=== PATIENT | male | born 1945 | race Caucasian/White ===

== ENCOUNTER 2020-02-24 12:46 | Inpatient (IN) ==
[2020-02-24] MEDS ORDERED: DAPTOMYCIN CONSULT ACTIVE PRN (13:10)
[2020-02-24] MEDS ORDERED: SODIUM CHLORIDE 0.9% 1000ML 1,000 ML IV ONE (13:10)
[2020-02-24] MEDS ORDERED: DAPTOmycin 575 MG in SYRINGE 0 ML IV SCH (13:15)
[2020-02-24] MEDS ORDERED: AZTREONAM 2,000 MG in DEXTROSE 5% 100 ML IV STA (13:15)
[2020-02-24] MEDS ORDERED: SODIUM CHLORIDE 0.9% 1000ML 1,000 ML IV SCH (13:15)
--- NOTE | 2020-02-24 13:18 | Emergency Department Note ---
Impression & Plan AMS (altered mental status) ED Provider Note NAME: PRADIP MO AGE: 75 SEX: M ARRIVES VIA: Walk-In INFORMANT: [Patient] ED PROVIDER(S): Himanshu Booker MD CHIEF COMPLAINT: Fall PLAN: Disposition: Admitted Condition: Guarded MEDICAL DECISION MAKING: The patient presented after a fall. He was somewhat confused. He was borderline febrile. He noted urinary symptoms. A work-up was performed as noted below. Imaging was nondiagnostic. Urinalysis was concerning. The patient's procalcitonin was elevated as was his lactate. He was hydrated. He was given broad-spectrum antibiotics. Further management will be necessary in the hospital. Consultation was made with Dr. Moreira of internal medicine. The patient was evaluated for further treatment. Triage Nursing notes reviewed and agree them. Vital Signs: reviewed and remarkable for [no significant abnormalities] Differential diagnosis: Infection, hypoglycemia, electrolyte abnormalities, overdose, toxicologic, cardiac sources, intracerebral event, neurologic, trauma, as well as other pathologies. ER treatment provided: Saline hydration IV atrium IV daptomycin Oral Tylenol Diagnostics interpreted by me: ECG: Twelve-lead ECG reveals a normal sinus rhythm at 84 bpm. There is left axis deviation. Normal QRS. Poor R wave progression. No ST elevation or depression. No PACs or PVCs. Cardiac Monitoring:Cardiac monitoring ordered by me: The patient was placed on continuous cardiac monitoring and observed. It revealed a normal sinus rhythm at 83 beats per minute without ectopy or evidence of dysrhythmia. Laboratory studies: [See below] unremarkable CBC. Chemistry panel reveals acute kidney injury with an elevated creatinine. Mild hyperglycemia. The patient's procalcitonin is elevated. Blood cultures pending. Urinalysis is concerning for possible i nfection. Urine culture pending. Imaging studies: Chest x-ray. Findings: A chest x-ray was performed and revealed no pneumothorax, effusion, infiltrate, pulmonary edema, free air under the diaphragm, or wide mediastinum. Impression: No acute disease. Head CT: A noncontrast CT scan of the head was performed and was negative for tumor, fracture, intracranial hemorrhage, or other acute pathology. 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 Moreira HPI: The patient is a 75 year old male who presents to the Emergency Room with complaints of a fall. This started early this morning and is associated with confusion. The patient also notes the following associated symptoms, difficulty and discomfort with urination for an unknown duration, generalized body aches and abrasions to his knees. The patient has found no relieving factors. Current pain is rated as 3/10. The patient notes that he fell but is unsure how. He was possibly in the shower. He had a neighbor bring him to the emergency department. He denies any coronavirus contacts. Details of the history is somewhat limited secondary to the patient's confusion. The patient does note that he hit his head. Pt denies LOC, fevers, chills, diaphoresis, visual changes, neck pain, chest pain, breathing difficulties, nausea, vomiting, abdominal pain, back pain, melena, hematochezia, numbness, weakness, lymphadenopathy, rash, or other complaints. ROS: See above HPI for pertinent positives & negatives. A total of [10] systems reviewed and were otherwise negative. PAST MEDICAL HISTORY:[See Below] CKD PAST SURGICAL HISTORY:[See Below] FAMILY HISTORY:[See Below] SOCIAL HISTORY:Lives alone HOME MEDICATIONS:[See Below] ALLERGIES:[See Below] VITALS:[See Below] PHYSICAL EXAMINATION: GENERAL: Awake, alert, shaking, mildly ill-appearing, in no distress HENT: Normocephalic, atraumatic. Oropharynx unremarkable. EYES: Normal conjunctiva. Sclera non-icteric. NECK: Inspection normal. Non-tender. Supple. No nuchal rigidity. FROM. No masses. RESPIRATORY: Clear to auscultation. No wheezes. No rales. Normal respiratory effort. CARDIAC: Borderline tachycardic rate. Normal rhythm. No murmurs. No rubs. Extremities warm and well perfused. Pulses equal. No JVD. GI: Soft, non-distended. No tenderness to palpation. No rebound or guarding. No masses. RECTAL: Deferred. MUSCULOSKELETAL: Abrasions to both knees. Chest examination reveals no tenderness. The back is symmetrical on inspection without obvious abnormality. There is no CVA tenderness to palpation. No joint edema. LOWER EXTREMITIES: Calves are equal size bilaterally and non-tender. No edema. No discoloration. NEURO: Mildly confused, mildly altered sensorium. No focal sensory or motor deficits noted. SKIN: No rash or jaundice noted. ED COURSE: [Critical Care:] [None] Himanshu Booker MD Past Med/Surg History Medical History (Updated 02/24/20 @ 15:45 by Alfred Nagy MD) Anxiety hx CKD (chronic kidney disease) stage 3, GFR 30-59 ml/min follows with nephrology (Dr. Brock)/creatinine 08/2019 1.6 Coronary artery disease stent x1 (~2004), CABG x5 (2013) Depression Dyslipidemia History of blood transfusion post-op CABG Hypertension Obesity LENO (obstructive sleep apnea) CPAP Peripheral neuropathy Type 2 diabetes mellitus IDDM Surgical History H/O umbilical hernia repair (12/30/19) Incarcerated Umbilical Hernia Repair Dr. Jeong 12-30-19 History of cardiac cath x3-4 caths- stent x 1 (~2004) History of colonoscopy History of discectomy Lumbar History of open heart surgery x5 vessels (2013) S/P eye surgery to repair a amblyopia (Lazy eye) Left eye S/P hip replacement Left MARTHA: 02/28/12: SAB at L4-L5 at [facility] S/P wisdom tooth extraction Social History Preferred Language: [place] Communication Ability: Effective Visual Impairment: No Limitations Hearing Ability: Use of Hearing Aid Technical Coordinator Required: No Beliefs That Will Affect Care: None marital status: Current Living Situation: Spouse current occupational status: retired Feels Safe at Home: Yes Smoking Status: Never smoker Tobacco Type: cigars ; Second Hand Exposure: No ; Hx Substance Use: No Childhood Exposure to Second-Hand Smoke: Yes Dental Care, Regularly: Yes Physical Activity Frequency: 5-6 Times per Week Seatbelt Use: always Sunscreen Use: No Allergies Allergies Allergy/AdvReac Type Severity Reaction Status Date / Time amoxicillin Allergy Unknown Unknown Verified 02/24/20 14:25 Home Meds Home Medications Medication Instructions Recorded Confirmed aspirin 325 mg tablet 325 mg PO QAM 07/28/19 02/24/20 cholecalciferol (vitamin D3) 25 2,000 units PO HS cap 08/11/19 02/24/20 mcg (1,000 unit) capsule Basaglar KwikPen U-100 Insulin 42 unit SQ HS 12/20/19 02/24/20 cyanocobalamin (vitamin B-12) 2,500 mcg SUBLINGUAL HS 12/20/19 02/24/20 [Vitamin B-12] docusate sodium [Stool Softener] 250 mg PO BID 12/20/19 02/24/20 memantine [Namenda] 5 mg PO BID 12/20/19 02/24/20 mirtazapine 15 mg PO HS PRN 12/20/19 02/24/20 citalopram 20 mg PO HS 02/24/20 02/24/20 tamsulosin 0.4 mg PO HS 02/24/20 02/24/20 Previous Rx's Medication Instructions Recorded CPAP Machine #1 ea 10/28/19 carvedilol 6.25 mg tablet 6.25 mg PO BID #180 tab 11/15/19 furosemide 40 mg tablet 40 mg PO BID #90 tab 11/15/19 empagliflozin 5 mg-metformin 1,000 1 tab PO BID #180 tab 11/25/19 mg tablet clonazepam 0.5 mg tablet 0.5 mg PO BID PRN #60 tab 01/18/20 sildenafil 100 mg tablet 100 mg PO DAILY PRN #20 tab 01/18/20 atorvastatin 40 mg tablet 40 mg PO HS #90 tab 01/28/20 CPAP Machine #1 ea 02/03/20 lisinopril 20 mg tablet 20 mg PO BID #180 tab 02/14/20 Results & Data (ED) Vital Signs Vital Signs - 24 hr 02/24/20 12:49 02/24/20 13:47 02/24/20 14:40 Temperature 37.7 C H Temperature Source Oral Pulse Rate 98 H 99 H 90 Pulse Rate from SpO2 Sensor 100 H 91 H Respiratory Rate 18 36 H 14 Respiratory Effort / Characteristics Non-Labored Spontaneous Respiratory Depth Normal Respiratory Pattern Regular Blood Pressure 156/96 H 190/88 H 180/85 H Blood Pressure Mean 116 129 120 Pulse Oximetry 95 92 98 Oxygen Delivery Method Room Air Oxygen Flow Rate Sepsis Recent Fever Within 48 Hours No Sepsis New/Unexplained Change in Mental Status No Sepsis Action Taken by Nursing No Action Required 02/24/20 15:02 Temperature Temperature Source Pulse Rate 99 H Pulse Rate from SpO2 Sensor Respiratory Rate 29 H Respiratory Effort / Characteristics Respiratory Depth Respiratory Pattern Blood Pressure 178/100 H Blood Pressure Mean 110 Pulse Oximetry Oxygen Delivery Method Nasal Cannula Oxygen Flow Rate 2 Sepsis Recent Fever Within 48 Hours Sepsis New/Unexplained Change in Mental Status Sepsis Action Taken by Nursing Laboratory Data Result diagrams: 02/24/20 13:20 02/24/20 13:20 Lab Results 02/24/20 02/24/20 02/24/20 Range/Units 13:19 13:20 13:20 WBC 5.35 (4.8-10.8) K/uL RBC 4.88 (4.7-6.1) M/uL Hgb 14.4 (14.0-18.0) g/dL Hct 43.5 (42-52) % MCV 89.1 (80-100) fL MCH 29.5 (25-34) pg MCHC 33.1 (32-36) g/dL RDW Std Deviation 45.8 (36.4-46.3) fL RDW Coeff of Vinh 13.9 (11.5-14.5) % Plt Count 117 L (130-400) K/uL MPV 10.6 H (7.4-10.4) fL Immature Gran % (Auto) 0.2 % Neut % (Auto) 82.6 % Lymph % (Auto) 12.1 % [place] % (Auto) 4.9 % Eos % (Auto) 0.0 % Baso % (Auto) 0.2 % Immature Gran # (Auto) 0.01 (0.00-0.02) K/uL Neut # (Auto) 4.42 (1.4-6.5) K/uL Lymph # (Auto) 0.65 L (1.2-3.4) K/uL [place] # (Auto) 0.26 (0.11-0.59) K/uL Eos # (Auto) 0.00 (0-0.5) K/uL Baso # (Auto) 0.01 (0-0.2) K/uL Absolute Nucleated RBC 0.00 (0-0) K/uL Nucleated RBC % (auto) 0.0 % Sodium 136 (136-145) mmol/L Potassium 3.9 (3.5-5.1) mmol/L Chloride 100 (98-107) mmol/L Carbon Dioxide 28 (21-32) mmol/L Anion Gap 8.0 (3-11) BUN 36 H (7-18) mg/dl Creatinine 2.19 H (0.6-1.4) mg/dl Est Cr Clr Drug Dosing Not Reportable Est GFR ( Amer) 33.2 Est GFR (Non-Af Amer) 28.6 BUN/Creatinine Ratio 16.5 (10-20) Glucose 149 H (70-99) mg/dl POC Glucose 141 H (70-99) mg/dl Lactate (0.4-2.0) mmol/L Calcium 8.7 (8.5-10.1) mg/dl Magnesium 2.4 (1.8-2.4) mg/dl Total Bilirubin 0.6 (0.2-1) mg/dl AST 111 H (15-37) U/L ALT 65 (12-78) U/L Alkaline Phosphatase 84 (45-117) U/L Troponin I 0.119 H* (0-0.045) ng/ml Total Protein 7.9 (6.4-8.2) gm/dl Albumin 3.9 (3.4-5.0) gm/dl Globulin 4.0 (2.5-4.0) gm/dl Albumin/Globulin Ratio 1.0 (0.9-2) Procalcitonin (0-0.5) ng/ml Urine Color Urine Appearance (Clear) Urine pH (4.5-7.5) Ur Specific [place] (1.000-1.030) Urine Protein (Negative) Urine Glucose (UA) (Negative) Urine Ketones (Negative) Urine Blood (Negative) Urine Nitrite (Negative) Urine Bilirubin (Negative) Urine Urobilinogen (Negative) Ur Leukocyte Esterase (Negative) Urine WBC (Auto) (0-5) /hpf Urine RBC (Auto) (0-4) /hpf U Hyaline Cast (Auto) (0-5) /lpf U Epithel Cells (Auto) (0-5) /lpf Urine Bacteria (Auto) (Negative) Ur Renal Epithelial Cell (0-5) /lpf Granular Casts (0) /lpf Urine Mucus (None Prsent) Urine Yeast 02/24/20 02/24/20 02/24/20 Range/Units 13:20 13:20 13:40 WBC (4.8-10.8) K/uL RBC (4.7-6.1) M/uL Hgb (14.0-18.0) g/dL Hct (42-52) % MCV (80-100) fL MCH (25-34) pg MCHC (32-36) g/dL RDW Std Deviation (36.4-46.3) fL RDW Coeff of Vinh (11.5-14.5) % Plt Count (130-400) K/uL MPV (7.4-10.4) fL Immature Gran % (Auto) % Neut % (Auto) % Lymph % (Auto) % [place] % (Auto) % Eos % (Auto) % Baso % (Auto) % Immature Gran # (Auto) (0.00-0.02) K/uL Neut # (Auto) (1.4-6.5) K/uL Lymph # (Auto) (1.2-3.4) K/uL [place] # (Auto) (0.11-0.59) K/uL Eos # (Auto) (0-0.5) K/uL Baso # (Auto) (0-0.2) K/uL Absolute Nucleated RBC (0-0) K/uL Nucleated RBC % (auto) % Sodium (136-145) mmol/L Potassium (3.5-5.1) mmol/L Chloride (98-107) mmol/L Carbon Dioxide (21-32) mmol/L Anion Gap (3-11) BUN (7-18) mg/dl Creatinine (0.6-1.4) mg/dl Est Cr Clr Drug Dosing Est GFR ( Amer) Est GFR (Non-Af Amer) BUN/Creatinine Ratio (10-20) Glucose (70-99) mg/dl POC Glucose (70-99) mg/dl Lactate 2.4 H* (0.4-2.0) mmol/L Calcium (8.5-10.1) mg/dl Magnesium (1.8-2.4) mg/dl Total Bilirubin (0.2-1) mg/dl AST (15-37) U/L ALT (12-78) U/L Alkaline Phosphatase (45-117) U/L Troponin I (0-0.045) ng/ml Total Protein (6.4-8.2) gm/dl Albumin (3.4-5.0) gm/dl Globulin (2.5-4.0) gm/dl Albumin/Globulin Ratio (0.9-2) Procalcitonin 0.83 H (0-0.5) ng/ml Urine Color Yellow Urine Appearance Cloudy A (Clear) Urine pH 5.0 (4.5-7.5) Ur Specific [place] 1.024 (1.000-1.030) Urine Protein 2+ H (Negative) Urine Glucose (UA) 3+ H (Negative) Urine Ketones Negative (Negative) Urine Blood 3+ H (Negative) Urine Nitrite Negative (Negative) Urine Bilirubin Negative (Negative) Urine Urobilinogen Negative (Negative) Ur Leukocyte Esterase Negative (Negative) Urine WBC (Auto) 10-30 H (0-5) /hpf Urine RBC (Auto) 0-4 (0-4) /hpf U Hyaline Cast (Auto) 10-30 H (0-5) /lpf U Epithel Cells (Auto) >30 H (0-5) /lpf Urine Bacteria (Auto) Negative (Negative) Ur Renal Epithelial Cell 0-5 (0-5) /lpf Granular Casts 10-20 H (0) /lpf Urine Mucus Present A (None Prsent) Urine Yeast Not Reportable Administered Medications Atorvastatin Calcium (Lipitor) 40 mg PO [facility] Stop: 03/25/20 20:59 Last Admin: 02/24/20 20:47 Dose: Not Given Documented by: [id number] Carvedilol (Coreg) 6.25 mg PO BID [facility] Stop: 03/25/20 20:59 Last Admin: 02/24/20 20:48 Dose: Not Given Documented by: [id number] Citalopram Hydrobromide (Celexa) 20 mg PO [facility] Stop: 03/25/20 20:59 Last Admin: 02/24/20 20:48 Dose: Not Given Documented by: [id number] Folic Acid (Folvite) 1 mg PO QAM [facility] Stop: 03/25/20 18:29 Last Admin: 02/24/20 19:56 Dose: Not Given Documented by: [id number] Sodium Chloride (Nss 1000ml) 1,000 mls @ 80 mls/hr IV .[id number] [facility] Stop: 03/25/20 18:14 Last Admin: 02/24/20 20:07 Dose: 80 mls/hr Documented by: [id number] Doxycycline Hyclate 100 mg/ (Dextrose) 110 mls @ 50 mls/hr IV Q12H [facility] Stop: 03/09/20 19:59 Last Admin: 02/24/20 21:07 Dose: 50 mls/hr Documented by: [id number] Insulin Aspart (Novolog Flexpen) 0 units SC ACHS [facility] Stop: 03/25/20 17:58 Last Admin: 02/24/20 20:39 Dose: Not Given Documented by: [id number] Cosigned by: [id number] Admin: 02/24/20 19:10 Dose: Not Given Documented by: [id number] Cosigned by: [id number] Insulin Glargine (Lantus Solostar Pen) 30 units SQ HS [facility] Stop: 03/25/20 20:59 Last Admin: 02/24/20 21:18 Dose: 30 units Documented by: [id number] Cosigned by: [id number] Tamsulosin HCl (Flomax) 0.4 mg PO HS [facility] Stop: 03/25/20 20:59 Last Admin: 02/24/20 20:47 Dose: Not Given Documented by: [id number] Thiamine HCl (Vitamin B-1) 100 mg PO QAM [facility] Stop: 03/25/20 18:29 Last Admin: 02/24/20 19:56 Dose: Not Given Documented by: [id number] Discontinued Medications Acetaminophen (Tylenol) 1,000 mg PO NOW STA Stop: 02/24/20 13:28 Last Admin: 02/24/20 15:10 Dose: Not Given Documented by: [id number] Sodium Chloride (Nss 1000ml) 1,000 mls @ 999 mls/hr IV .Q1H1M ONE Stop: 02/24/20 14:10 Last Infusion: 02/24/20 15:10 Dose: 0 mls/hr Documented by: [id number] Admin: 02/24/20 13:44 Dose: 999 mls/hr Documented by: [id number] Sodium Chloride (Nss 1000ml) 1,000 mls @ 150 mls/hr IV .Q6H40M [place] Stop: 03/25/20 13:14 Last Infusion: 02/24/20 19:32 Dose: 0 mls/hr Documented by: [id number] Admin: 02/24/20 15:12 Dose: 150 mls/hr Documented by: [id number] Daptomycin 575 mg/ Syringe 11.5 mls @ 0 mls/min IV Q24H [place]; Protocol Stop: 02/26/20 13:14 Last Admin: 02/24/20 13:44 Dose: 11.5 mls/min Documented by: [id number] Aztreonam 2,000 mg/ Dextrose 110 mls @ 100 mls/hr IV NOW STA; Protocol Stop: 02/24/20 14:20 Last Infusion: 02/24/20 15:10 Dose: 0 mls/hr Documented by: [id number] Admin: 02/24/20 14:05 Dose: 100 mls/hr Documented by: [id number] Multivitamins 10 ml/ Thiamine HCl 100 mg/ Folic Acid 1 mg/Sodium Chloride 1,011.2 mls @ 500 mls/hr IV .Q2H2M ONE Stop: 02/24/20 20:31 Last Admin: 02/24/20 20:07 Dose: 500 mls/hr Documented by: [id number] Discharge Plan Visit Data *Final* Discharge Date/Time: 02/24/20 16:45 Chief Complaint: Fall Stated Complaint: FELL AND HIT HEAD, CANT COMMUNICATE PROPERLY ED Provider: Himanshu Booker Discharge Problem: AMS (altered mental status) Patient Disposition: Admitted As Inpatient Discharge Instructions Interventions: ED Discharge Assessment Last Done: 02/24/20 16:45
[2020-02-24] MEDS ORDERED: ACETAMINOPHEN 500 MG TAB PO STA (13:27)
[2020-02-24 13:31] LABS: Basophils # (auto) 0.01 K/uL (0-0.2); Basophils % (auto) 0.2 %; Hematocrit (blood only) 43.5 % (42-52); Hemoglobin 14.4 g/dL (14.0-18.0); Immature Granulocytes # (auto) 0.01 K/uL (0.00-0.02); Immature Granulocytes % (auto) 0.2 %; Lymphocytes # (auto) 0.65 K/uL (1.2-3.4); Lymphocytes % (auto) 12.1 %; Mean Corpuscular Hemoglobin 29.5 pg (25-34); Mean Corpuscular Hgb Conc 33.1 g/dL (32-36); Mean Corpuscular Volume 89.1 fL (80-100); Mean Platelet Volume 10.6 fL (7.4-10.4); Monocytes # (auto) 0.26 K/uL (0.11-0.59); Monocytes % (auto) 4.9 %; Neutrophils # (auto) 4.42 K/uL (1.4-6.5); Neutrophils % (auto) 82.6 %; Platelet Count 117 K/uL (130-400); RDW Coefficient of Variation 13.9 % (11.5-14.5); RDW Standard Deviation 45.8 fL (36.4-46.3); Red Blood Count 4.88 M/uL (4.7-6.1); White Blood Count 5.35 K/uL (4.8-10.8)
--- NOTE | 2020-02-24 13:39 | XRay Report ---
XR chest 1V portable CLINICAL HISTORY: 75 years-old Male presenting with SEPSIS. TECHNIQUE: Portable upright AP view of the chest was obtained. COMPARISON: 12/21/2019. FINDINGS: Median sternotomy wires with breakage of several of the superior wires as on prior. Cardiac silhouett e mildly enlarged. Elevation of the right hemidiaphragm. No focal opacity. No large effusion or pneum othorax. Degenerative changes of the left glenohumeral joint. Upper abdomen normal. IMPRESSION: 1. Mildly low lung volumes. No focal infiltrate. 2. Mild cardiomegaly. No convincing evidence of volume overload or congestive change. ACT 112: Negative or not required by law. Electronically signed by: Darrell Rob M.D. 02/24/2020 1:38 PM
[2020-02-24 13:48] LABS: Alanine Aminotransferase 65 U/L (12-78); Albumin Level 3.9 gm/dl (3.4-5.0); BUN Creatinine Ratio 16.5 (10-20); Blood Urea Nitrogen 36 mg/dl (7-18); Calcium 8.7 mg/dl (8.5-10.1); Carbon Dioxide 28 mmol/L (21-32); Chloride 100 mmol/L (98-107); Est GFR (African American) 33.2; Est GFR (Non-African American) 28.6; Glucose 149 mg/dl (70-99); Magnesium 2.4 mg/dl (1.8-2.4); Potassium 3.9 mmol/L (3.5-5.1); Sodium 136 mmol/L (136-145)
[2020-02-24 13:54] LABS: Alkaline Phosphatase 84 U/L (45-117); Aspartate Aminotransferase 111 U/L (15-37); Bilirubin,Total 0.6 mg/dl (0.2-1); Total Protein 7.9 gm/dl (6.4-8.2)
--- NOTE | 2020-02-24 14:07 | CT Scan Report ---
CT head/brain wo con CLINICAL HISTORY: 75 years-old Male presenting with fall, ams. TECHNIQUE: Multidetector CT imaging of the head was performed without the use of intravenous contrast . IV contrast: None. One or more dose lowering techniques were used consistent with the principles of ALARA (as low as reasonably achievable), including automatic exposure control, mA or kV adjustment t o individual patient size, and/or use of iterative reconstruction. COMPARISON: None. CT DOSE (mGy.cm): The estimated cumulative dose is 998.18 mGy.cm. FINDINGS: Tape Weaver topogram: Unremarkable. Overall proportional ventricular and sulcal prominence, likely age-related parenchymal volume loss wi th the exception of the vertex where there is mild gyral crowding and sulcal effacement. Sulcal promi nence in the frontoparietal region bilaterally. No hemorrhage. Minimal periventricular and subcortica l white matter hypoattenuation, nonspecific but likely indicative of chronic small vessel ischemic ch ino. No acute territorial infarct. No mass effect or midline shift. No extra-axial fluid collection. Mild mucosal thickening of the left maxillary sinus and ethmoid air cells. Calvarium intact. Intracr anial atherosclerosis noted. IMPRESSION: 1. Gyral crowding at the vertex in the setting of mildly dilated ventricles could suggest normal pre ssure hydrocephalus. 2. No acute intracranial pathology. ACT 112: Negative or not required by law. Electronically signed by: Darrell Rob M.D. 02/24/2020 2:05 PM
[2020-02-24 14:10] LABS: Troponin I 0.119 ng/ml (0-0.045)
[2020-02-24 14:21] LABS: Appearance Urine Cloudy (Clear); Bacteria Urine Automated Negative (Negative); Bilirubin Urine Negative (Negative); Blood Urine 3+ (Negative); Color Urine Yellow; Epithelial Cell Urine Auto >30 /lpf (0-5); Glucose Urine UA 3+ (Negative); Ketones Urine Negative (Negative); Leukocyte Esterase Urine Negative (Negative); Nitrite Urine Negative (Negative); Protein Urine 2+ (Negative); RBC Urine Automated 0-4 /hpf (0-4); Specific Gravity Urine 1.024 (1.000-1.030); Urobilinogen Urine Negative (Negative)
[2020-02-24 14:36] LABS: Mucus Urine Present (None Prsent); Renal Epithelial Cells Urine 0-5 /lpf (0-5)
--- NOTE | 2020-02-24 15:19 | History & Physical Report ---
Date of Service February 24, 2020 Assessment & Plan (1) AMS (altered mental status): Patient is only oriented to self and somewhat place (knew hospital, but not location or which hospital). Cannot really tell anything about his fall, who found him, events leading up presentation. He cannot even really answer basic questions such as how much alcohol he drinks. Unclear if he experienced syncope as he does not recall the event. - Differential is very broad, but most likely in my mind would be sepsis (treated as such in the ED), encephalopathy from ingestion (alcohol vs. medication), post-ictal confusion, or neurologic issue (e.g. stroke, NPH). Other syncope causes could be cardiac in nature (DE or arrhythmia). - CT chest to flesh out infectious cause -> CXR looks clear, but he has hypoxemia on room air and has some cough - MRI brain to further characterize CT head findings of "gyral crowding" - Alcohol level, coags, and ELVIRA - Discuss with family re: possible alcohol use - Give 1 banana bag, then PO folate & thiamine - Seizure precautions - Defer abx at this time for no clear source of infection; follow cultures - Trend troponins & EKGs (2) Abnormal finding on CT scan: CT head findings shows "Gyral crowding at the vertex in the setting of mildly dilated ventricles could suggest normal pressure hydrocephalus." Per CT report, doesn't seem acute. - MRI brain as above (3) Hepatitis: AST/ALT were 111/65 on admission. AST > ALT points toward alcoholic hepatitis. Patient reports he drinks wine and said "Not much." when asked how much, but could not quantify despite repeated attempts. - Check alcohol level - Check coags - Consider RUQ u/s & hepatitis labs if LFTs remain deranged or coags are not normal. - Will calculate discriminant function once coags are back. Unlikely to need steroids. (4) Thrombocytopenia: Previously normal platelets in 12/2019; now down to 117 on admission. - Ddx includes sepsis, liver dysfunction, hemolytic anemia - Will get LDH, peripheral smear, fibrinogen - RUQ u/s to assess liver - Monitor plts and monitor for bleeding (5) Coronary artery disease: S/p 5vCABG in 2013. Follows with Dr. Sher. No present chest pain. Initial troponin is 0.12. EKG on admission reports possible ischemia, but no ST elevations or notable depressions. Stress echo in 09/2019 was negative for ischemia, EF normal, no valvular issues. - Follow EKGs and troponin - Continua ASA, statin, beta-catrachita - If troponin rises further, consider limited echo to check for new wall motion abnormalities. (6) Chronic kidney disease (CKD): Acute kidney injury on CKD. Baseline Cr ~1.5-1.6; Cr up to 2.2 on admission. BUN:Cr ratio indicates pre-renal (nearly 20:1 ratio). - Received IV fluids in the ED - Continue gentle IV fluids; no indication of volume overload at present or any history of CHF noted in the chart - Monitor Cr (7) Anxiety: No overt anxiety on interview today. Per outpatient notes, patient has doubled his mirtazapine at night for some time. - Hold psychiatric medications until patient clears (8) Hypertension: BP was 180/100 in the ED, but no symptoms per patient. - Continue beta-catrachita - Hold ACEi and Lasix for TERESA - Monitor -> Can give hydralazine if SBP > 180 or DBP > 110 (9) LENO (obstructive sleep apnea): Sees Dr. Langston. Per notes, uses CPAP consistently with auto-PEEP. - Start at 10 cmH20 (10) Type 2 diabetes mellitus: A1c is 6.7% in 12/2019. - Lower home long-acting insulin to 30 units HS (from home 42 units HS) - Sliding scale insulin - Recheck A1c in the AM - Defer glycemic pharmacist for now, but low threshold to start (11) DVT prophylaxis: SCDs - Low DVT risk per admission calculator History of Present Illness Primary Care Provider: Chang Nagy DO Allergies Allergy/AdvReac Type Severity Reaction Status Date / Time amoxicillin Allergy Unknown Unknown Verified 02/24/20 14:25 Home Medications Home Medications Medication Instructions Recorded Confirmed Type aspirin 325 mg tablet 325 mg PO QAM 07/28/19 02/24/20 History cholecalciferol (vitamin D3) 25 2,000 units PO HS cap 08/11/19 02/24/20 History mcg (1,000 unit) capsule CPAP Machine #1 ea 10/28/19 12/17/19 Rx carvedilol 6.25 mg tablet 6.25 mg PO BID #180 tab 11/15/19 02/24/20 Rx furosemide 40 mg tablet 40 mg PO BID #90 tab 11/15/19 02/24/20 Rx empagliflozin 5 mg-metformin 1,000 1 tab PO BID #180 tab 11/25/19 02/24/20 Rx mg tablet Basaglar LucPen U-100 Insulin 42 unit SQ HS 12/20/19 02/24/20 History cyanocobalamin (vitamin B-12) 2,500 mcg SUBLINGUAL HS 12/20/19 02/24/20 History [Vitamin B-12] docusate sodium [Stool Softener] 250 mg PO BID 12/20/19 02/24/20 History memantine [Namenda] 5 mg PO BID 12/20/19 02/24/20 History mirtazapine 15 mg PO HS PRN 12/20/19 02/24/20 History clonazepam 0.5 mg tablet 0.5 mg PO BID PRN #60 tab 01/18/20 02/24/20 Rx sildenafil 100 mg tablet 100 mg PO DAILY PRN #20 tab 01/18/20 02/24/20 Rx atorvastatin 40 mg tablet 40 mg PO HS #90 tab 01/28/20 02/24/20 Rx CPAP Machine #1 ea 02/03/20 02/03/20 Rx lisinopril 20 mg tablet 20 mg PO BID #180 tab 02/14/20 02/24/20 Rx citalopram 20 mg PO HS 02/24/20 02/24/20 History tamsulosin 0.4 mg PO HS 02/24/20 02/24/20 History Past Med/Surg History Social History Preferred Language: Luxembourgish Communication Ability: Effective Visual Impairment: No Limitations Hearing Ability: Use of Hearing Aid Nutrition Services Aide Required: No Beliefs That Will Affect Care: None marital status: Current Living Situation: Spouse current occupational status: retired Other Information That Helps Us Care for You: No Feels Safe at Home: Yes Safety Concerns: Feels Safe At This Time Smoking Status: Never smoker Tobacco Type: cigars ; Second Hand Exposure: No ; Hx Substance Use: No Childhood Exposure to Second-Hand Smoke: Yes Dental Care, Regularly: Yes Physical Activity Frequency: 5-6 Times per Week Seatbelt Use: always Sunscreen Use: No Review of Systems Review of Systems: All systems reviewed & are unremarkable except as noted in HPI & below Physical Exam Constitutional: WD/WN, vitals as above Eyes: EOM intact bilaterally; no conjunctival abnormality ENMT: external ear and nose normal, oropharynx normal Neck: trachea midline, no thyromegaly normal visual inspection Respiratory: normal respiratory effort, lungs clear to auscultation no respiratory distress Cardiovascular: RRR, no murmur, no edema Gastrointestinal (Abdomen): Inspection/Auscultation: abdomen normal to inspection; abdomen not distended Musculoskeletal: no cyanosis or clubbing, extremities motor strength 5/5 Skin: no rashes, warm and dry Neurologic: moves all extremities and awake Motor/Sensory: + tremor and + asterixis Psychiatric: Orientation: alert, oriented to person and cooperative; + not oriented to place and + not oriented to time Results & Data Results & Data ([facility]) Vital Signs (Past 12 Hours) Vital Signs Temp Pulse Resp BP Pulse Ox 02/24/20 14:40 90 14 180/85 H 98 02/24/20 13:47 99 H 36 H 190/88 H 92 02/24/20 12:49 37.7 C H 98 H 18 156/96 H 95 Code Status & VTE Plan VTE Prophylaxis Plan VTE Prophylaxis will be ordered: Yes PG Care Time/CCT Total # of Minutes Spent Total Time Spent with Patient: Total time spent is greater than 50% in coordination of care (as documented) at patient's floor/unit and/or counseling patient: Coding Level of Care Code 75545 Initial Inpt Care Lvl 3 Diagnoses AMS (altered mental status) R41.[address] scan R93.89 Hepatitis K75.9 Thrombocytopenia D69.6 Coronary artery disease I25.10 Chronic kidney disease (CKD) N18.9 Anxiety F41.9 Hypertension I10 LENO (obstructive sleep apnea) G47.33 Type 2 diabetes mellitus E11.9 DVT prophylaxis Z29.9
--- NOTE | 2020-02-24 17:45 | Ultrasound Report ---
ABDOMINAL ULTRASOUND, RIGHT UPPER QUADRANT HISTORY: RUQ; concern for liver issues. COMPARISON: Abdominal ultrasound 01/05/2009. FINDINGS: Pancreas: The pancreatic head and tail are obscured by overlying bowel gas. The remaining portions of the pancreas are within normal limits. Liver: No hepatic masses or intrahepatic bile duct dilatation. Gallbladder: The gallbladder wall is at the upper limits of normal measuring 2.8 mm. No pericholecyst ic fluid. There are few small gallstones. CBD: 4 mm. Right kidney: No hydronephrosis. There is a 3 cm cyst. IMPRESSION: 1. Cholelithiasis. No definite gallbladder wall thickening. 2. A 3 cm right renal cyst. ACT 112: Negative or not required by law. Electronically signed by: Karthikeyan Guerrero M.D. 02/24/2020 5:44 PM
[2020-02-24] MEDS ORDERED: ONDANSETRON INJ 2 MG/ML 2 ML VIAL IV PRN (17:59)
[2020-02-24] MEDS ORDERED: GLUCOSE 40% GEL 15 GM TUBE PO PRN (17:59)
[2020-02-24] MEDS ORDERED: GLUCOSE 10 TABS/TUBE PO PRN (17:59)
[2020-02-24] MEDS ORDERED: LORazepam 3 MG/6 ML VIAL IV PRN (17:59)
[2020-02-24] MEDS ORDERED: GLUCAGON FOR INJ 1 MG VIAL SQ PRN (17:59)
[2020-02-24] MEDS ORDERED: DEXTROSE 50% 50 ML SYRINGE IV PRN (17:59)
[2020-02-24] MEDS ORDERED: ATIVAN IV ALCOHOL WITHDRAWL IV PRN (17:59)
[2020-02-24] MEDS ORDERED: LORazepam 1 MG/2 ML VIAL IV PRN (17:59)
[2020-02-24] MEDS ORDERED: LORazepam 2 MG/4 ML VIAL IV PRN (17:59)
[2020-02-24] MEDS ORDERED: clonazePAM 0.5 MG TAB PO PRN (17:59)
[2020-02-24] MEDS ORDERED: ACETAMINOPHEN 325 MG TAB PO PRN (17:59)
[2020-02-24] MEDS ORDERED: CARBOHYDRATES FOR HYPOGLYCEMIA PO PRN (17:59)
[2020-02-24] MEDS ORDERED: MULTI-VITAMIN INFUSION 10 ML, THIAMINE HCL 100 MG, FOLIC ACID 1 MG in SODIUM CHLORIDE 0... IV ONE (18:30)
[2020-02-24] MEDS: INSULIN ASPART 100 UNITS/ML 3 ML PEN SC SCH ×2 (19:10→20:39)
--- NOTE | 2020-02-24 19:31 | CT Scan Report ---
CT chest wo con CT DOSE: 1161.43 mGy.cm HISTORY: Hypoxemia, fever TECHNIQUE: Multiaxial CT images of the chest were performed without contrast. A dose lowering techni que was utilized adhering to the principles of ALARA. COMPARISON: Chest 02/24/2020. FINDINGS: Respiratory motion artifact results in suboptimal evaluation of the lungs. No pneumothorax or pleural effusions. The central airways appear patent. A few patchy densities at the base of the lo wer lobes which favors mild dependent change. Otherwise, no focal lung consolidations to suggest pneu monia. Poststernotomy changes. No fractures within the visualized osseous structures. Limited views o f the upper abdomen demonstrate a normal liver and spleen. Normal esophagus. The heart is mildly enla rged. No mediastinal or hilar lymphadenopathy. Normal caliber thoracic aorta. IMPRESSION: 1. Motion artifact. 2. Mild cardiomegaly. 3. Small patchy densities at the lung bases favor mild dependent change. Otherwise, no focal lung con solidations to suggest pneumonia. ACT 112: Negative or not required by law. Electronically signed by: Karthikeyan Guerrero M.D. 02/24/2020 7:30 PM
[2020-02-24 19:51] LABS: Fibrinogen 188 mg/dl (184-400); INR 1.1 (0.9-1.1); Partial Thromboplastin Ratio 1.2; Prothrombin Time 11.9 Seconds (9.0-12.0)
[2020-02-24] MEDS: FOLIC ACID 1 MG TAB PO SCH (19:56)
[2020-02-24] MEDS: THIAMINE HCL 100 MG TAB PO SCH (19:56)
[2020-02-24] MEDS: SODIUM CHLORIDE 0.9% 1000ML 1,000 ML IV SCH (20:07)
[2020-02-24] MEDS: carvediloL 6.25 MG TAB PO SCH (20:48)
[2020-02-24] MEDS ORDERED: INSULIN GLARGINE SOLOSTAR 100 UNITS/ML 3 ML PEN SQ SCH (21:00)
[2020-02-24] MEDS ORDERED: ATORVASTATIN 40 MG TAB PO SCH (21:00)
[2020-02-24] MEDS ORDERED: CITALOPRAM 20 MG TAB PO SCH (21:00)
[2020-02-24] MEDS ORDERED: TAMSULOSIN HCL 0.4 MG CAP PO SCH (21:00)
[2020-02-24 21:02] LABS: Lyme Ab IgM w/WB Rflx Negative (Negative)
[2020-02-24 21:03] LABS: Lyme Ab IgG w/WB Rflx Negative (Negative)
[2020-02-24] MEDS: DOXYCYCLINE HYCLATE 100 MG in DEXTROSE 5% 100 ML IV SCH (21:07)
[2020-02-24 23:42] LABS: Adenovirus PCR Not Detected (NotDetected); Bordetella parapertussis PCR Not Detected (NotDetected); Bordetella pertussis PCR Not Detected (NotDetected); Chlamydia pneumoniae PCR Not Detected (NotDetected); Coronavirus 229E PCR Not Detected (NotDetected); Coronavirus HKU1 PCR Not Detected (NotDetected); Coronavirus NL63 PCR Not Detected (NotDetected); Coronavirus OC43PCR Not Detected (NotDetected); Human Metapneumovirus PCR Not Detected (NotDetected); Influenza A PCR Not Detected (NotDetected); Influenza B PCR Not Detected (NotDetected); Mycoplasma pneumoniae PCR Not Detected (NotDetected); Parainfluenza Virus 1 PCR Not Detected (NotDetected); Parainfluenza Virus 2 PCR Not Detected (NotDetected); Parainfluenza Virus 3 PCR Not Detected (NotDetected); Parainfluenza Virus 4 PCR Not Detected (NotDetected); Respiratory Syncytial VirusPCR Not Detected (NotDetected); Rhinovirus/Enterovirus PCR Not Detected (NotDetected)
[2020-02-25 04:22] LABS: Amphetamines+Metham, Urine Neg (Neg); Barbiturates, Urine Neg (Neg); Benzodiazepine, Urine Neg (Neg); Cocaine, Urine Neg (Neg); MDMA (Ecstacy), Urine Neg (Neg); Methadone, Urine Neg (Neg); Opiate, Urine Neg (Neg); Phencyclidine, Urine Neg (Neg)
[2020-02-25 07:02] LABS: Hemoglobin 12.2 g/dL (14.0-18.0); Mean Corpuscular Hemoglobin 29.1 pg (25-34); Mean Corpuscular Volume 88.3 fL (80-100); RDW Coefficient of Variation 13.8 % (11.5-14.5); RDW Standard Deviation 44.7 fL (36.4-46.3); Red Blood Count 4.19 M/uL (4.7-6.1); White Blood Count 2.54 K/uL (4.8-10.8)
[2020-02-25 07:10] LABS: Estimated Average Glucose 171 mg/dl; Hemoglobin A1C 7.6 % (4.5-5.6)
[2020-02-25 07:27] LABS: Mean Platelet Volume 10.8 fL (7.4-10.4); Platelet Count 79 K/uL (130-400)
[2020-02-25 07:28] LABS: Platelet Estimate Decreased (Normal)
[2020-02-25 07:43] LABS: Albumin Globulin Ratio 0.8 (0.9-2); Albumin Level 2.8 gm/dl (3.4-5.0); Bilirubin,Total 0.5 mg/dl (0.2-1); Calcium 7.6 mg/dl (8.5-10.1); Est GFR (African American) 47.4; Est GFR (Non-African American) 40.9; Globulin 3.4 gm/dl (2.5-4.0); Magnesium 2.3 mg/dl (1.8-2.4); Phosphorus 3.5 mg/dl (2.5-4.9); Total Protein 6.2 gm/dl (6.4-8.2); Troponin I 0.134 ng/ml (0-0.045)
--- NOTE | 2020-02-25 08:26 | Electrocardiogram Report ---
Test Reason : Blood Pressure : / mmHG Vent. Rate : 095 BPM Atrial Rate : 095 BPM P-R Int : 236 ms QRS Dur : 096 ms QT Int : 450 ms P-R-T Axes : 071 -57 -02 degrees QTc Int : 565 ms Poor data quality, interpretation may be adversely affected Sinus rhythm with 1st degree A-V block with occasional Premature ventricular complexes Left anterior fascicular block Abnormal ECG When compared with ECG of 21-JAN-2012 15:58, Premature ventricular complexes now present artifact now present Otherwise no significant change Confirmed by Jed Landis ([id number]) on 02/25/2020 8:26:13 AM Referred By: REFERRED SELF Confirmed By:Jed Landis
[2020-02-25] MEDS: INSULIN ASPART 100 UNITS/ML 3 ML PEN SC SCH ×4 (08:37→21:27)
--- NOTE | 2020-02-25 08:40 | Electrocardiogram Report ---
Test Reason : Blood Pressure : / mmHG Vent. Rate : 084 BPM Atrial Rate : 084 BPM P-R Int : 200 ms QRS Dur : 112 ms QT Int : 356 ms P-R-T Axes : 038 -55 029 degrees QTc Int : 420 ms Normal sinus rhythm Left anterior fascicular block Poor R wave progression, consider anterior [place] vs. lead placement vs. LVH Abnormal ECG When compared with ECG of 24-FEB-2020 13:04, Premature ventricular complexes no longer present Otherwise no significant change Confirmed by Jed Landis ([id number]) on 02/25/2020 8:40:05 AM Referred By: REFERRED SELF Confirmed By:Jed Landis
[2020-02-25] MEDS: DOXYCYCLINE HYCLATE 100 MG in DEXTROSE 5% 100 ML IV SCH ×2 (08:53→21:26)
[2020-02-25] MEDS: SODIUM CHLORIDE 0.9% 1000ML 1,000 ML IV SCH ×2 (08:53→22:33)
[2020-02-25] MEDS ORDERED: ASPIRIN 81 MG ECTAB PO SCH (09:00)
[2020-02-25] MEDS: FOLIC ACID 1 MG TAB PO SCH (09:01)
[2020-02-25] MEDS: THIAMINE HCL 100 MG TAB PO SCH (09:01)
[2020-02-25] MEDS: carvediloL 6.25 MG TAB PO SCH ×2 (09:01→21:10)
[2020-02-25 09:08] LABS: Potassium 3.3 mmol/L (3.5-5.1)
[2020-02-25] MEDS ORDERED: POTASSIUM CHLORIDE 20 MEQ TABCR PO STA (09:33)
--- NOTE | 2020-02-25 14:58 | Hospitalist Progress Note ---
Date of Service February 25, 2020 Assessment & Plan (1) Fever: (2) AMS (altered mental status): Acute metabolic encephalopathy Upon admission, patient was only oriented to self and somewhat place (knew hospital, but not location or which hospital). Cannot really tell anything about his fall, who found him, events leading up presentation. He cannot even really answer basic questions such as how much alcohol he drinks. Unclear if he experienced syncope as he does not recall the event. - Differential is very broad, but most likely at this point seems to be sepsis (treated as such in the ED with antibiotics, blood cultures obtained), encephalopathy from ingestion (alcohol vs. medication), post-ictal confusion, or neurologic issue (e.g. stroke, NPH). Other syncope causes could be cardiac in nature (VT or arrhythmia). He spiked a fever shortly after admission and is pancytopenic with mildly elevated liver enzymes-this could be anaplasmosis, ehrlichiosis as he has traveled to [place], or another viral syndrome Bio fire was negative, COVID-19 test was negative CXR looks clear, but he has hypoxemia on room air and has some cough on admission which is now improved Had an acute kidney injury which also can contribute to encephalopathy CT of the chest with some mild patchy infiltrates at the bases which could be atelectasis which makes sense if he was down for an unknown period of time Alcohol level negative, urine drug screen negative Much improved overall today after IV fluid hydration and doxycycline, along with the passage of time Had 1 large episode of diarrhea on 02/24 but no abdominal pain Procalcitonin mildly elevated but could be secondary to acute kidney injury - MRI brain to further characterize CT head findings of "gyral crowding"- negative for stroke, with some mildly enlarged ventricles-we will consult neurology -Monitoring for alcohol withdrawal but both patient son and the patient deny any significant alcohol use recently -Continue doxycycline in case of tickborne illness -Follow CBC, CMP (3) Elevated LFTs: AST is mildly elevated at 135, other LFTs are normal, no abdominal pain- could be secondary to viral illness versus tickborne illness Bio fire negative, COVID-19 negative Right upper quadrant ultrasound with cholelithiasis but no CBD dilatation or fatty liver Coags normal -Follow LFTs -Treating with doxycycline in case of tickborne illness (4) Pancytopenia: With leukopenia and lymphopenia, platelets down to 79, hemoglobin down to 12.2 normocytic This is an acute pancytopenia compared to recent blood work and is likely secondary to an infectious process No evidence of cirrhosis on abdominal ultrasound Coags negative, no evidence of DIC Could be secondary to tickborne illness as above or other viral process which caused his fever -Follow CBC Would hold antiplatelets and DVT prophylaxis with anticoagulation if platelets drop less than 50 Transfuse as needed -No need for hematology consultation at this time (5) Abnormal finding on CT scan: CT head findings shows "Gyral crowding at the vertex in the setting of mildly dilated ventricles could suggest normal pressure hydrocephalus." Per CT report, doesn't seem acute. - MRI brain as above without stroke -Consult neurology (6) Coronary artery disease: S/p 5vCABG in 2013. Follows with Dr. Sher. No present chest pain. Initial troponin is 0.12 and remained mildly elevated on repeat check. EKG on admission reports possible ischemia, but no ST elevations or notable depressions. Stress echo in 09/2019 was negative for ischemia, EF normal, no valvular issues. - Continua ASA, statin, beta-catrachita -We will check echo tomorrow now that COVID-19 test is negative -Continue telemetry monitoring (7) Chronic kidney disease (CKD): Acute kidney injury on CKD stage III. Baseline Cr ~1.5-1.6; Cr up to 2.2 on admission. BUN:Cr ratio indicates pre-renal (nearly 20:1 ratio). - Received IV fluids overnight and creatinine now improved to 1.63 consistent with prerenal -Avoid nephrotoxins -renally dose meds when appropriate -follow BMP (8) Hypokalemia: Replace with IV potassium -Follow BMP (9) Anxiety: No overt anxiety on interview today. Per outpatient notes, patient has doubled his mirtazapine at night for some time. - Hold psychiatric medications until patient clears except to continue clonazepam as I do not want him to have withdrawal from benzodiazepines -Holding mirtazapine -Okay to continue citalopram 20 mg daily (10) Hypertension: BP mildly elevated, but no symptoms per patient. - Continue beta-catrachita - Holding ACEi and Lasix for TERESA - Monitor -> Can give hydralazine if SBP > 180 or DBP > 110 -Can restart TAMAR inhibitor after renal function normalizes (11) LENO (obstructive sleep apnea): Sees Dr. Langston. Per notes, uses CPAP consistently with auto-PEEP. -Continue at 10 cmH20 (12) Type 2 diabetes mellitus: A1c is 6.7% in 12/2019. 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 as per history collected on admission and was offered a BRAKE COUPLER DINKEY shunt but declined Checking MRI of the brain here, neuro consult This is a chronic issue (14) Cognitive impairment: As per , has had outpatient neuropsychological testing which showed cognitive impairment Follow-up as an outpatient with neurology Supportive care while here (15) Elevated troponin: Mildly elevated No chest pain, with history of CABG -Check echo in the morning (16) DVT prophylaxis: SCDs - Low DVT risk per admission calculator PT/OT evaluations requested Disposition- will remain the hospital least 2-3 more days while recovering and for further evaluation and work-up Admission and Anticipated Discharge Date Admission Date: February 24, 2020 Subjective Pt feeling much better today, has more of a memory of the events prior to admission. He remembers being on the ground in his long driveway and had to crawl about 100 yards on hands nad knees to his house. He then was too weak to get up and eventually his friend Alli Medeiros came over to check on him and found him and brought him in to the ER. He denies headache or chest pain, no SOB. No nausea or abd pains. He did have a large loose stool today in the bed (was incontinent). Morgan cath in place. He had a fever twice yesterday evening but none so far today. Denies cough, sore throat. He does report at least one known tick bit but it was about 2 months ago. He also does not recall when he came back from [place]-thinks maybe it "was 1.5 months ago." But his reports he was only in [place] for 1 week and returned [place] [employer] on February [place]. [place] near [facility] he tells me and is outside frequently. No joint pains other than his knee abrasions from crawling. I discussed his care with his twice on the phone and his son, Boris, on the phone. His tells me that he has had Neuropsych testing that showed he had a "fairly significant cognitive impairment." She also reports some personality changes and says at time he "lashes out" and she fears him at times and "I had to get away" and she went to [place] recently to their house on 02/21. COVID testing negative and then pt had brain MRI which was negative for CVA. 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 reports his left sided facial asymmetry is chronic. Tele with NSR Review of Systems Review of Systems: All systems reviewed & are unremarkable except as noted in HPI & below Physical Exam Constitutional: WD/WN, vitals as above + obese Eyes: + anicteric sclerae and PERRL; no eyelid abnormality, no conjunctival abnormality and + EOM not intact (with OS exotropia) ENMT: external ear and nose normal, oropharynx normal Neck: trachea midline, no thyromegaly Respiratory: normal respiratory effort, lungs clear to auscultation Cardiovascular: RRR, no murmur, no edema Chest (Breasts): Chest: normal inspection of chest Gastrointestinal (Abdomen): normal bowel sounds, soft, nontender, no hepatosplenomegaly Musculoskeletal: Extremities: extremities normal to inspection; no cyanosis and no clubbing Skin: no rashes, warm and dry Neurologic: moves all extremities and awake; + CN's not intact (OS not able to move in all directions, chronic left sided facial asymmetry ) and no focal motor deficits is able to raise eyebrow on left but is asymmetric to right, smile is symmetrical, sensation intact to light touch throughout, tongue protrudes in midline, shoulder shrug normal no nystagmus 5/5 motor strength throughout, sensation intact to light touch throughout UEs and LEs DTRs 1+ and symmetric throughout UEs and LEs Did not test gait Having some short term memory loss from the last week or so of time Psychiatric: Orientation: alert, oriented to person, oriented to place, orient ed to time (except was off on the date) and cooperative; not guarded Eye Contact: good eye contact Speech: normal rate/rhythm/volume of speech Affect: euthymic affect Genitourinary: no testicular masses, no penis abnormality (with Morgan catheter in place) Lymphatic: no lymphedema Results & Data Results & Data ([facility]) Vital Signs (Past 12 Hours) Vital Signs Temp Pulse Pulse Resp BP Pulse Ox 02/25/20 12:14 36.9 C 65 16 166/72 H 99 02/25/20 08:55 37.2 C 65 16 149/92 H 99 02/25/20 07:25 72 02/25/20 06:27 159/75 H 02/25/20 03:11 37.3 C 87 24 187/78 H 93 Laboratory Results labs reviewed PG Care Time/CCT Total # of Minutes Spent Total Time Spent with Patient: Total time spent is greater than 50% in coordination of care (as documented) at patient's floor/unit and/or counseling patient: Coding Level of Care Code 69052 Subseq Hosp Care Lvl 3 Diagnoses Fever R50.9 AMS (altered mental status) R41.82 Elevated LFTs R79.89 Pancytopenia D61.[address] scan R93.89 Coronary artery disease I25.10 Chronic kidney disease (CKD) N18.9 Hypokalemia E87.6 Anxiety F41.9 Hypertension I10 LENO (obstructive sleep apnea) G47.33 Type 2 diabetes mellitus E11.9 Hydrocephalus G91.9 Cognitive impairment R41.89 Elevated troponin R79.89 DVT prophylaxis Z29.9
--- NOTE | 2020-02-25 16:30 | Electrocardiogram Report ---
Test Reason : Blood Pressure : / mmHG Vent. Rate : 065 BPM Atrial Rate : 065 BPM P-R Int : 156 ms QRS Dur : 114 ms QT Int : 402 ms P-R-T Axes : -10 -32 -12 degrees QTc Int : 418 ms Normal sinus rhythm Left anterior fascicular block Low voltage QRS Incomplete right bundle branch block Poor R wave progression, consider anterior [place] vs. lead placement vs. LVH Abnormal ECG When compared with ECG of 24-FEB-2020 16:22, No significant change Confirmed by Jed Landis ([id number]) on 02/25/2020 4:30:14 PM Referred By: REFERRED SELF Confirmed By:Jed Landis
--- NOTE | 2020-02-25 16:31 | Electrocardiogram Report ---
Test Reason : Blood Pressure : / mmHG Vent. Rate : 065 BPM Atrial Rate : 065 BPM P-R Int : 000 ms QRS Dur : 112 ms QT Int : 394 ms P-R-T Axes : 000 -30 -09 degrees QTc Int : 409 ms Sinus rhythm Left anterior fascicular block Low voltage QRS Incomplete right bundle branch block Poor R wave progression, consider anterior [place] vs. lead placement vs. LVH Abnormal ECG When compared with ECG of 25-FEB-2020 15:26, No significant change Confirmed by Jed Landis ([id number]) on 02/25/2020 4:31:11 PM Referred By: REFERRED SELF Confirmed By:Jed Landis
--- NOTE | 2020-02-25 19:11 | Magnetic Resonance Report ---
MR brain wo con HISTORY: Mental status change Concern for NPH TECHNIQUE: Multiplanar multisequence MRI of the brain was performed without the use of contrast. COMPARISON STUDY: CT 02/24/2020 FINDINGS: There are no areas of restricted diffusion to suggest acute infarction. The midline structu res are intact. The paranasal sinuses are clear. The mastoid air cells are clear. The ventricles and sulci are are mildly prominent for age. There is no mass, hematoma, midline shift. The major vascular flow-voids at the skull base are well maintained. IMPRESSION: No acute intracranial abnormality. Moderate ventricular prominence ACT 112: Negative or not required by law. The above report was generated using voice recognition software. It may contain grammatical, syntax or spelling errors. Electronically signed by: Andrew Kirkpatrick M.D. 02/25/2020 7:10 PM
[2020-02-25] MEDS: TAMSULOSIN HCL 0.4 MG CAP PO SCH (21:09)
[2020-02-25] MEDS: INSULIN GLARGINE SOLOSTAR 100 UNITS/ML 3 ML PEN SQ SCH (21:09)
[2020-02-25] MEDS: ATORVASTATIN 40 MG TAB PO SCH (21:10)
[2020-02-25] MEDS: CITALOPRAM 20 MG TAB PO SCH (21:10)
[2020-02-26 06:07] LABS: Hematocrit (blood only) 34.9 % (42-52); Hemoglobin 11.2 g/dL (14.0-18.0); Mean Corpuscular Hemoglobin 28.1 pg (25-34); Mean Corpuscular Hgb Conc 32.1 g/dL (32-36); Mean Corpuscular Volume 87.5 fL (80-100); RDW Coefficient of Variation 13.7 % (11.5-14.5); RDW Standard Deviation 43.8 fL (36.4-46.3); Red Blood Count 3.99 M/uL (4.7-6.1); White Blood Count 4.09 K/uL (4.8-10.8)
[2020-02-26 06:10] LABS: Mean Platelet Volume 11.1 fL (7.4-10.4); Platelet Count 71 K/uL (130-400)
[2020-02-26 06:40] LABS: Albumin Level 2.8 gm/dl (3.4-5.0); BUN Creatinine Ratio 23.6 (10-20); Bilirubin Direct 0.1 mg/dl (0-0.2); Calcium 7.6 mg/dl (8.5-10.1); Creatinine Clr Calc Pharmacy 55.4 ml/min; Est GFR (African American) 51.2; Est GFR (Non-African American) 44.1; Potassium 3.1 mmol/L (3.5-5.1)
[2020-02-26 06:43] LABS: Bilirubin,Total 0.4 mg/dl (0.2-1); Total Protein 5.7 gm/dl (6.4-8.2)
[2020-02-26] MEDS: carvediloL 6.25 MG TAB PO SCH ×2 (07:25→19:10)
[2020-02-26] MEDS: ASPIRIN 81 MG ECTAB PO SCH (07:25)
[2020-02-26] MEDS: FOLIC ACID 1 MG TAB PO SCH (07:25)
[2020-02-26] MEDS: THIAMINE HCL 100 MG TAB PO SCH (07:26)
[2020-02-26] MEDS: DOXYCYCLINE HYCLATE 100 MG in DEXTROSE 5% 100 ML IV SCH (07:30)
[2020-02-26 07:55] LABS: Basophils # (auto) 0.02 K/uL (0-0.2); Basophils % (auto) 0.5 %; Echinocytes 2+; Eosinophils # (auto) 0.09 K/uL (0-0.5); Eosinophils % (auto) 2.2 %; Giant Platelets 1+; Immature Granulocytes # (auto) 0.01 K/uL (0.00-0.02); Immature Granulocytes % (auto) 0.2 %; Lymphocytes # (auto) 1.08 K/uL (1.2-3.4); Lymphocytes % (auto) 26.4 %; Monocytes # (auto) 0.49 K/uL (0.11-0.59); Neutrophils % (auto) 58.7 %
[2020-02-26] MEDS: INSULIN ASPART 100 UNITS/ML 3 ML PEN SC SCH ×4 (08:19→20:42)
[2020-02-26] MEDS ORDERED: POTASSIUM CHLORIDE 20 MEQ TABCR PO STA ×2 (08:38→14:02)
[2020-02-26] MEDS: SODIUM CHLORIDE 0.9% 1000ML 1,000 ML IV SCH (09:13)
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
--- NOTE | 2020-02-26 14:24 | Hospitalist Progress Note ---
Date of Service February 26, 2020 Assessment & Plan (1) AMS (altered mental status): Acute metabolic encephalopathy-resolved Upon admission, patient was only oriented to self and somewhat place (knew hospital, but not location or which hospital). Cannot really tell anything about his fall, who found him, events leading up presentation. He cannot even really answer basic questions such as how much alcohol he drinks. Unclear if he experienced syncope as he does not recall the event. - Differential is very broad, but most likely at this point seems to be sepsis (treated as such in the ED with antibiotics, blood cultures obtained), encephalopathy from ingestion (alcohol vs. medication), post-ictal confusion, or neurologic issue (e.g. stroke, NPH). Other syncope causes could be cardiac in nature (TX or arrhythmia). He spiked a fever shortly after admission and is pancytopenic with mildly elevated liver enzymes-this could be anaplasmosis, ehrlichiosis as he has traveled to [place], or another viral syndrome Bio fire was negative, COVID-19 test was negative CXR looks clear, but he had hypoxemia on room air and has some cough on admission which is now resolved Had an acute kidney injury which also can contribute to encephalopathy-also now resolved CT of the chest with some mild patchy infiltrates at the bases which could be atelectasis which makes sense if he was down for an unknown period of time Alcohol level negative, urine drug screen negative Much improved overall after IV fluid hydration and doxycycline, along with the passage of time Had 1 large episode of diarrhea on 02/24 but no abdominal pain Procalcitonin mildly elevated but could be secondary to acute kidney injury and now trending downward ECHO with mod-severe LVH, preserved EF, no valvular abnormalities Tele with bigeminy today but with hypokalemia-replace lytes, would not cause syncope - MRI brain to further characterize CT head findings of "gyral crowding"- negative for stroke, with some mildly enlarged ventricles-Greatly appreciate neurology consult--> suspect baseline dementia and with likely NPH -Monitoring for alcohol withdrawal but both patient son and the patient deny any significant alcohol use recently -Continue doxycycline in case of tickborne illness x total 10 day course and f/u on Anaplasma PCR within the week result should be back -Follow CBC, CMP (2) Fever: Resolved, had on admission and most likely due to tick borne illness vs viral illness as above (3) Elevated LFTs: AST is mildly elevated at 135 and stable today, other LFTs are normal, no abdominal pain-could be secondary to viral illness versus tickborne illness Bio fire negative, COVID-19 negative Right upper quadrant ultrasound with cholelithiasis but no CBD dilatation or fatty liver Coags normal -Follow LFTs -Treating with doxycycline in case of tickborne illness as Anaplasmosis and Ehrlichiosis (if tick bite in [place]) can both cause elevated LFTs (4) Pancytopenia: With leukopenia and lymphopenia, platelets down to 79, hemoglobin down to 12.2 normocytic on admission--> plts starting to trend back upwards slight, WBC count improving, hgb stable This is an acute pancytopenia compared to recent blood work and is likely secondary to an infectious process No evidence of cirrhosis on abdominal ultrasound Coags negative, no evidence of DIC Could be secondary to tickborne illness as above or other viral process which caused his fever -Follow CBC -Would hold antiplatelets and DVT prophylaxis with anticoagulation if platelets drop less than 50 -Transfuse as needed -No need for hematology consultation at this time (5) Abnormal finding on CT scan: CT head findings shows "Gyral crowding at the vertex in the setting of mildly dilated ventricles could suggest normal pressure hydrocephalus." Per CT report, doesn't seem acute. - MRI brain as above without stroke -Consult neurology appreciated -suspect NPH baced on MRI and history -plan for outpt radionuclide cisternogram (6) Coronary artery disease: S/p 5vCABG in 2013. Follows with Dr. Sher. No present chest pain. Initial troponin is 0.12 and remained mildly elevated on repeat check. EKG on admission reports possible ischemia, but no ST elevations or notable depressions. Stress echo in 09/2019 was negative for ischemia, EF normal, no valvular issues. - Continua ASA, statin, beta-catrachita -ECHO without WMAs and with preserved EF -Continue telemetry monitoring (7) Chronic kidney disease (CKD): Acute kidney injury on CKD stage III. Baseline Cr ~1.5-1.6; Cr up to 2.2 on admission. BUN:Cr ratio indicates pre-renal (nearly 20:1 ratio). - Received IV fluids and creatinine now improved to 1.5 consistent with prerenal -dc IVFs -Avoid nephrotoxins -renally dose meds when appropriate -follow BMP (8) Hypokalemia: Replace with po potassium -Follow BMP, Magnesium levels follow on tele (9) Anxiety: No overt anxiety on interview today. Per outpatient notes, patient has doubled his mirtazapine at night for some time. - Hold psychiatric medications until patient clears except to continue clonazepam as I do not want him to have withdrawal from benzodiazepines -Holding mirtazapine -Okay to continue citalopram 20 mg daily (10) Hypertension: BP mildly elevated, but no symptoms per patient. - Continue beta-catrachita - Holding ACEi and Lasix for TERESA - Monitor -> Can give hydralazine if SBP > 180 or DBP > 110 -Can restart TAMAR inhibitor after renal function normalizes (11) LENO (obstructive sleep apnea): Sees Dr. Langston. Per notes, uses CPAP consistently with auto-PEEP. -Continue at 10 cmH20 (12) Type 2 diabetes mellitus: A1c is 6.7% in 12/2019. 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 as per history collected on admission and was offered a [employer] shunt but declined Checked MRI of the brain here, neuro consult as above This is a chronic issue and he plans on f/u with Dr. Domingo as an outpt -plans for outpt radionuclide cisternogram Neuro also wants outpt EMG of LEs for suspected peripheral neuropathy as cause of gait dysfunction (14) Cognitive impairment: As per , has had outpatient neuropsychological testing which showed cognitive impairment Follow-up as an outpatient with neurology Supportive care while here Continues to be forgetful at times, but not encephalopathic (15) Elevated troponin: Mildly elevated No chest pain, with history of CABG ECHO as above with no WMAs Myocardial demand ischemia in setting of acute illness with underlying CAD (16) DVT prophylaxis: SCDs PT/OT evaluations recommending rehab vs home if progresses Disposition- continued stay, dc if counts improve and strength improves with PT to home with home health as d/w son, Boris Escalante and his brother are deciding how to arrange for more oversight of their dad at home given his cognitive impairment and ambulatory dysfunction Admission and Anticipated Discharge Date Admission Date: February 24, 2020 Subjective Pt much improved today. As per son on phone, seems back to his baseline. Still forgetful at times which he is known to be and has been diagnosed with cognitive impairment. He has been afebrile. Denies any pain anywhere, no CP or SOB, no nausea or abd pain. No diarrhea. He had his Morgan removed nad did have an episode of urinary incontinence but reports he has never had that happen before. Is starting to eat more, appetite ok. Is off balance a bit still with PT today. Tele with NSR and frequent vent bigeminy Review of Systems Review of Systems: All systems reviewed & are unremarkable except as noted in HPI & below Physical Exam Constitutional: WD/WN, vitals as above + obese Eyes: + anicteric sclerae; no eyelid abnormality, no conjunctival abnormality and + EOM not intact (with OS exotropia) Neck: trachea midline, no thyromegaly Respiratory: normal respiratory effort, lungs clear to auscultation Cardiovascular: RRR, no murmur, no edema Chest (Breasts): Chest: normal inspection of chest Gastrointestinal (Abdomen): normal bowel sounds, soft, nontender, no hepatosplenomegaly Musculoskeletal: Extremities: extremities normal to inspection; no cyanosis and no clubbing Skin: no rashes, warm and dry Neurologic: moves all extremities and awake; + CN's not intact (OS not able to move in all directions, chronic left sided facial asymmetry ) and no focal motor deficits Psychiatric: Orientation: alert, oriented x 3 and cooperative Eye Contact: good eye contact Speech: normal rate/rhythm/volume of speech Affect: eu thymic affect Lymphatic: no lymphedema Results & Data Results & Data ([facility]) Vital Signs (Past 12 Hours) Vital Signs Temp Pulse Resp BP BP Pulse Ox 02/26/20 12:27 36.4 C L 42 L 20 127/62 94 02/26/20 06:51 36.7 C 65 17 146/68 H 91 02/26/20 03:46 37.1 C 63 19 147/72 H 92 Laboratory Results labs reviewed Diagnostic Findings ECHO mod-sevree lVH, mildly dialted LV with normal LV function, no valvular abnormalities PG Care Time/CCT Total # of Minutes Spent Total Time Spent with Patient: Total time spent is greater than 50% in coordination of care (as documented) at patient's floor/unit and/or counseling patient: Coding Level of Care Code 96774 Subseq Hosp Care Lvl 3 Diagnoses AMS (altered mental status) R41.82 Fever R50.9 Elevated LFTs R79.89 Pancytopenia D61.[address] scan R93.89 Coronary artery disease I25.10 Chronic kidney disease (CKD) N18.9 Hypokalemia E87.6 Anxiety F41.9 Hypertension I10 LENO (obstructive sleep apnea) G47.33 Type 2 diabetes mellitus E11.9 Hydrocephalus G91.9 Cognitive impairment R41.89 Elevated troponin R79.89 DVT prophylaxis Z29.9
--- NOTE | 2020-02-26 14:52 | XCELERA ---
[id number]
[2020-02-26] MEDS: CITALOPRAM 20 MG TAB PO SCH (19:09)
[2020-02-26] MEDS: TAMSULOSIN HCL 0.4 MG CAP PO SCH (19:11)
[2020-02-26] MEDS: ATORVASTATIN 40 MG TAB PO SCH (19:11)
[2020-02-26] MEDS: DOXYCYCLINE HYCLATE 100 MG CAP PO SCH (20:33)
[2020-02-26] MEDS: INSULIN GLARGINE SOLOSTAR 100 UNITS/ML 3 ML PEN SQ SCH (20:41)
[2020-02-27 06:33] LABS: Hematocrit (blood only) 35.6 % (42-52); Hemoglobin 11.7 g/dL (14.0-18.0); Mean Corpuscular Hemoglobin 28.7 pg (25-34); Mean Corpuscular Hgb Conc 32.9 g/dL (32-36); Mean Corpuscular Volume 87.3 fL (80-100); RDW Coefficient of Variation 13.8 % (11.5-14.5); RDW Standard Deviation 43.9 fL (36.4-46.3); Red Blood Count 4.08 M/uL (4.7-6.1); White Blood Count 4.11 K/uL (4.8-10.8)
[2020-02-27 07:01] LABS: Albumin Level 2.8 gm/dl (3.4-5.0); BUN Creatinine Ratio 26.2 (10-20); Calcium 8.1 mg/dl (8.5-10.1); Creatinine Clr Calc Pharmacy 63.3 ml/min; Est GFR (African American) 60.1; Est GFR (Non-African American) 51.8; Magnesium 2.3 mg/dl (1.8-2.4); Potassium 3.7 mmol/L (3.5-5.1)
[2020-02-27 07:08] LABS: Albumin Globulin Ratio 0.9 (0.9-2); Bilirubin,Total 0.4 mg/dl (0.2-1); Globulin 3.1 gm/dl (2.5-4.0); Total Protein 5.9 gm/dl (6.4-8.2)
[2020-02-27] MEDS: DOXYCYCLINE HYCLATE 100 MG CAP PO SCH ×2 (07:20→19:46)
[2020-02-27] MEDS: THIAMINE HCL 100 MG TAB PO SCH (07:20)
[2020-02-27] MEDS: FOLIC ACID 1 MG TAB PO SCH (07:20)
[2020-02-27] MEDS: ASPIRIN 81 MG ECTAB PO SCH (07:22)
[2020-02-27] MEDS: carvediloL 6.25 MG TAB PO SCH ×2 (07:22→19:44)
[2020-02-27 07:28] LABS: Mean Platelet Volume 11.3 fL (7.4-10.4); Platelet Count 74 K/uL (130-400)
[2020-02-27 07:29] LABS: Basophils # (auto) 0.04 K/uL (0-0.2); Eosinophils # (auto) 0.17 K/uL (0-0.5); Eosinophils % (auto) 4.1 %; Immature Granulocytes # (auto) 0.01 K/uL (0.00-0.02); Immature Granulocytes % (auto) 0.2 %; Lymphocytes # (auto) 1.41 K/uL (1.2-3.4); Lymphocytes % (auto) 34.3 %; Monocytes # (auto) 0.43 K/uL (0.11-0.59); Monocytes % (auto) 10.5 %; Neutrophils # (auto) 2.05 K/uL (1.4-6.5); Neutrophils % (auto) 49.9 %
[2020-02-27] MEDS: INSULIN ASPART 100 UNITS/ML 3 ML PEN SC SCH ×4 (08:38→20:41)
[2020-02-27] MEDS ORDERED: POTASSIUM CHLORIDE 20 MEQ TABCR PO STA (10:17)
--- NOTE | 2020-02-27 10:37 | Neurology Progress Note ---
Date of Service February 27, 2020 Assessment & Plan (1) Acute encephalopathy: (2) Dementia: (3) Gait disturbance: (4) Hydrocephalus in adult: (5) Hypertension: (6) Pancytopenia: Patient was admitted February 23 with acute encephalopathy and low-grade fever. He developed pancytopenia and elevated AST. He was initiated on doxycycline for consideration of tick-borne illness (possible anaplasmosis, but titers pending). Blood counts and chemistry abnormalities are mildly improved today. He made considerable improvement in mental status since admission and is not encephalopathic this morning, when I evaluated him. Nursing reports an episode of confusion and agitation earlier in the morning. I believe he has a significant underlying dementia. 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 He has enlarged ventricles which are out of proportion to the amount of atrophy. Therefore, he likely has normal pressure hydrocephalus. He declined a shunt offered him by physicians in [place] in the past. According to his family, he is getting worse. He is on low-dose memantine for memory. Patient has a polyneuropathy (note absent reflexes and some sensory loss in the feet). Patient has a history of hypertension and diabetes. MRI did not show acute or chronic stroke Recommendations: 1. Continue doxycycline and awaiting titers of tick-borne diseases 2. Consider increasing memantine to 10 milligrams twice a day for his memory dysfunction. Otherwise keep him on the 5 milligrams twice a day that he has been on. 3. We could consider radionucleotide cisternogram for further evaluation of normal pressure hydrocephalus. At that time, spinal fluid will be sent for any infection/inflammation as well. This is probably best done as an outpatient. 4. EMG nerve conduction studies of the legs as an outpatient to evaluate for polyneuropathy. 5. Obtain records from his clinicians (including neurosurgeons) in [place], including neuropsychological testing results. 6. I can follow as an outpatient if desired, if the patient remains [facility] - his family may be taking him back to [place]. Overall I spent a total of 35 minutes with this case including review of records, direct evaluation of the patient at bedside, and discussion the case with the patient at bedside, RN at bedside, and Dr. Wyatt, including differential diagnosis and treatment options. Admission and Anticipated Discharge Date Admission Date: February 24, 2020 Subjective The patient apparently had an episode of significant confusion earlier this morning associated with some urinary incontinence and mild agitation. Nursing reports that after cleaning him up he has been sitting calmly in the chair at bedside. The patient himself feels that he is fine. He denies headache, pain, dizziness, weakness, or numbness. The patient became serious and asks me to help him. When I asked him what it is that I could do to help and what was on his mind, he really could not come up with anything specific. I believe he realizes his memory is poor and does a good job trying to cover up. He knows he lives alone and does not want his around him (I have not been happy with her for years). She is still back in [place]. Blood pressure is 151/82. He is afebrile. CBC and chemistry profile show slightly better numbers that yesterday white count, hemoglobin, platelet count, calcium, and AST. Anaplasmosis titer is pending. All other serologies were unremarkable. Blood urine culture showed no growth. Echocardiogram showed mild LV and moderate LA dilation. Results & Data ([facility]) Vital Signs (Past 12 Hours) Vital Signs Temp Pulse Pulse Resp BP BP Pulse Ox 02/27/20 08:00 36.4 C L 53 L 18 151/82 H 93 02/27/20 04:00 36.7 C 51 L 19 153/77 H 91 02/27/20 00:30 58 L 02/26/20 23:00 36.3 C L 49 L 19 129/68 94 Exam (Neuro) Physical Exam: He is sitting calmly in the chair following one-step commands well. He is not agitated or anxious. He does not have pressured speech. He knows his name and his age (84), his date, the month (after thinking about it), the year, and the president. He has no aphasia or dysarthria. Mood seems slightly down but affect is appropriate. His memory for events regarding his health and recently over the last week is somewhat poor. Extraocular eye muscles are intact on the right and he has a left exotropia as before. There is no facial droop and tongue is midline. Coordination is normal in the arms and strength is 5/5 diffusely in all major muscle groups in the arms and legs bilaterally, both proximally and distally. Gait is slightly hesitant/caution but narrow based and a little quicker today than yesterday. PG Care Time/CCT Total # of Minutes Spent Total Time Spent with Patient: Total time spent is greater than 50% in coordination of care (as documented) at patient's floor/unit and/or counseling patient: Coding Level of Care Code 98476 Subseq Hosp Care Lvl 3 Diagnoses Acute encephalopathy G93.40 Dementia F03.90 Gait disturbance R26.9 Hydrocephalus in adult G91.9 Hypertension I10 Pancytopenia D61.818 Time Spent (min) 35
[2020-02-27] MEDS: ENOXAPARIN INJ 40 MG/0.4 ML SYR SQ SCH (12:34)
--- NOTE | 2020-02-27 15:53 | Hospitalist Progress Note ---
Date of Service February 27, 2020 Assessment & Plan (1) AMS (altered mental status): Acute metabolic encephalopathy-resolved, back to baseline mental status with baseline cognitive impairment Upon admission, patient was only oriented to self and somewhat place (knew hospital, but not location or which hospital). Cannot really tell anything about his fall, who found him, events leading up presentation. He cannot even really answer basic questions such as how much alcohol he drinks. Unclear if he experienced syncope as he does not recall the event. - Differential is very broad, but most likely at this point seems to be sepsis (treated as such in the ED with antibiotics, blood cultures obtained), encephalopathy from ingestion (alcohol vs. medication), post-ictal confusion, or neurologic issue (e.g. stroke, NPH). Other syncope causes could be cardiac in nature (PR or arrhythmia). He spiked a fever shortly after admission and is pancytopenic with mildly elevated liver enzymes-this could be anaplasmosis, ehrlichiosis as he has traveled to [place], or another viral syndrome Bio fire was negative, COVID-19 test was negative CXR looks clear, but he had hypoxemia on room air and has some cough on admission which is now resolved Had an acute kidney injury which also can contribute to encephalopathy-also now resolved CT of the chest with some mild patchy infiltrates at the bases which could be atelectasis which makes sense if he was down for an unknown period of time Alcohol level negative, urine drug screen negative Much improved overall after IV fluid hydration and doxycycline, along with the passage of time Had 1 large episode of diarrhea on 02/24 but no abdominal pain Procalcitonin mildly elevated but could be secondary to acute kidney injury and now trending downward ECHO with mod-severe LVH, preserved EF, no valvular abnormalities Tele with bigeminy which improved with treatment of hypokalemia - MRI brain to further characterize CT head findings of "gyral crowding"- negative for stroke, with some mildly enlarged ventricles -Greatly appreciate neurology consult--> suspect baseline dementia and with likely NPH -Monitoring for alcohol withdrawal but both patient son and the patient deny any significant alcohol use recently-can dc AWSS -Continue doxycycline in case of tickborne illness x total 10 day course and f/u on Anaplasma PCR within the week result should be back -Follow CBC, CMP (2) Fever: Resolved, had on admission and most likely due to tick borne illness vs viral illness as above COVID-19 negative (3) Elevated LFTs: AST is mildly elevated and now down to 122 today, other LFTs are normal, no abdominal pain-could be secondary to viral illness versus tickborne illness Bio fire negative, COVID-19 negative Right upper quadrant ultrasound with cholelithiasis but no CBD dilatation or fatty liver Coags normal -Follow LFTs -Treating with doxycycline in case of tickborne illness as Anaplasmosis and Ehrlichiosis (if tick bite in [place]) can both cause elevated LFTs (4) Pancytopenia: With leukopenia and lymphopenia, platelets slightly improved to 74 today, hemoglobin down to 11.7 and normocytic WBC count trending back up from 2--> 4, no longer lymphopenic This is an acute pancytopenia compared to recent blood work and is likely secondary to an infectious process No evidence of cirrhosis on abdominal ultrasound Coags negative, no evidence of DIC Could be secondary to tickborne illness as above or other viral process which caused his fever -Follow CBC -Would hold antiplatelets and DVT prophylaxis with anticoagulation if platelets drop less than 50 -Transfuse as needed -No need for hematology consultation at this time -if continuing to improve on Friday, can be discharged and would have home health RN check CBC, CMP in 3-5 days (5) Abnormal finding on CT scan: CT head findings shows "Gyral crowding at the vertex in the setting of mildly dilated ventricles could suggest normal pressure hydrocephalus." Per CT report, doesn't seem acute. - MRI brain as above without stroke -Consult neurology appreciated -suspect NPH baced on MRI and history -plan for outpt radionucleotide cisternogram to assess for NPH (6) Coronary artery disease: S/p 5vCABG in 2013. Follows with Dr. Sher. No present chest pain. Initial troponin is 0.12 and remained mildly elevated on repeat check. EKG on admission reports possible ischemia, but no ST elevations or notable depressions. Stress echo in 09/2019 was negative for ischemia, EF normal, no valvular issues. - Continua ASA, statin, beta-catrachita -ECHO without WMAs and with preserved EF -Continue telemetry monitoring (7) Chronic kidney disease (CKD): Acute kidney injury on CKD stage III. Baseline Cr ~1.5-1.6; Cr up to 2.2 on admission. BUN:Cr ratio indicates pre-renal (nearly 20:1 ratio). - Received IV fluids and creatinine now improved to 1.3 consistent with prerenal Have also been holding his lisinopril and lasix BPs now elevated and developing trace edema -restart lisinopril 20mg po bid and lasix 40mg po once daily -Avoid nephrotoxins -renally dose meds when appropriate -follow BMP (8) Hypokalemia: Replaced with po potassium with goal K+ at 4.0 -Follow BMP, Magnesium levels follow on tele (9) Anxiety: No overt anxiety here. Per outpatient notes, patient has doubled his mirtazapine at night for some time. -Held mirtazapine since admission for AMS but can restart tonight prn -Okay to continue citalopram 20 mg daily -takes clonazepam bid prn-would recommend against this as an outpt given cognitive deficits (10) Hypertension: BP mildly elevated, but no symptoms per patient. - Continue beta-catrachita -restarting ACEi and Lasix today which were held for TERESA - Monitor -> Can give hydralazine if SBP > 180 or DBP > 110 (11) LENO (obstructive sleep apnea): Sees Dr. Langston. Per notes, uses CPAP consistently with auto-PEEP. -Continue at 10 cmH20 (12) Type 2 diabetes mellitus: A1c is 6.7% in 12/2019. 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 Domingo as an outpt -plans for outpt radionucleotide cisternogram Neuro also wants outpt EMG of LEs for suspected peripheral neuropathy as cause of gait dysfunction (14) Cognitive impairment: As per , has had outpatient neuropsychological testing which showed cognitive impairment Follow-up as an outpatient with neurology Supportive care while here Continues to be forgetful at times, but not encephalopathic -restart home memantine 5mg bid-Neuro suggests increasing dose to 10 bid but can do as outpt (15) Elevated troponin: Mildly elevated No chest pain, with history of CABG ECHO as above with no WMAs Myocardial demand ischemia in setting of acute illness with underlying CAD (16) DVT prophylaxis: SCDs PT/OT evaluations recommending rehab vs home if progresses Disposition- continued stay, dc if counts improve and strength improves with PT to home with home health on Friday as d/w son, Boris Escalante and his brother are deciding how to arrange for more oversight of their dad at home given his cognitive impairment and ambulatory dysfunction I also have concerns about his ability to take medications as prescribed as well. Admission and Anticipated Discharge Date Admission Date: February 24, 2020 Anticipated date of discharge: 02/28/20 Subjective Pt feeling well today, has no complaints. Denies CP, SOB, headache, N/V/D, no abd pain. No joint pains out of the ordinary. He remains forgetful at times and RN reported he was incontinent to urine this AM. He tells me he is having trouble using the phone in the room to call people and when I remind him that his cell phone is on his bedstand, he asks for a nylon operator for it even though its battery is full. He is agreeable to home health Discussed his case with Neurology who feels (and I agree with) that he is no longer encephalopathic, but with baseline dementia. Pt wants to know if he will be discharged tomorrow and I advised him that as long as his CBC improves and he works with PT again tomorrow and has progressed, then this would be acceptable. Tele with NSR, PVCs, no further bigeminy Rates in 50-60s Review of Systems Review of Systems: All systems reviewed & are unremarkable except as noted in HPI & below Physical Exam Constitutional: WD/WN, vitals as above + obese Eyes: + anicteric sclerae; no eyelid abnormality, no conjunctival abnormality and + EOM not intact (with OS exotropia) Neck: trachea midline, no thyromegaly Respiratory: normal respiratory effort, lungs clear to auscultation Cardiovascular: RRR, no murmur, no edema Chest (Breasts): Chest: normal inspection of chest Gastrointestinal (Abdomen): normal bowel sounds, soft, nontender, no hepatosplenomegaly Musculoskeletal: Extremities: extremities normal to inspection; no cyanosis and no clubbing Skin: no rashes, warm and dry Neurologic: moves all extremities and awake; + CN's not intact (OS not able to move in all directions, chronic left sided facial asymmetry ) and no focal motor deficits Psychiatric: Orientation: alert, oriented to person, oriented to place and cooperative Eye Contact: good eye contact Speech: normal rate/rhythm/volume of speech Affect: euthymic affect Lymphatic: no lymphedema Results & Data Results & Data ([facility]) Vital Signs (Past 12 Hours) Vital Signs Temp Pulse Pulse Resp BP BP Pulse Ox 02/27/20 15:25 36.4 C L 55 L 18 162/82 H 94 02/27/20 15:13 54 L 02/27/20 11:49 36.4 C L 49 L 18 147/75 H 94 02/27/20 08:00 36.4 C L 53 L 18 151/82 H 93 02/27/20 04:00 36.7 C 51 L 19 153/77 H 91 Laboratory Results 02/27/20 02/27/20 02/27/20 Range/Units 11:41 07:44 06:04 WBC (4.8-10.8) K/uL RBC (4.7-6.1) M/uL Hgb (14.0-18.0) g/dL Hct (42-52) % MCV (80-100) fL MCH (25-34) pg MCHC (32-36) g/dL RDW Std Deviation (36.4-46.3) fL RDW Coeff of Vinh (11.5-14.5) % Plt Count (130-400) K/uL MPV (7.4-10.4) fL Immature Gran % (Auto) % Neut % (Auto) % Lymph % (Auto) % Lamb % (Auto) % Eos % (Auto) % Baso % (Auto) % Immature Gran # (Auto) (0.00-0.02) K/uL Neut # (Auto) (1.4-6.5) K/uL Lymph # (Auto) (1.2-3.4) K/uL Lamb # (Auto) (0.11-0.59) K/uL Eos # (Auto) (0-0.5) K/uL Baso # (Auto) (0-0.2) K/uL Sodium 139 (136-145) mmol/L Potassium 3.7 D (3.5-5.1) mmol/L Chloride 110 H (98-107) mmol/L Carbon Dioxide 24 (21-32) mmol/L Anion Gap 5.0 (3-11) BUN 35 H (7-18) mg/dl Creatinine 1.34 (0.6-1.4) mg/dl Est Cr Clr Drug Dosing 63.3 ml/min Est GFR ( Amer) 60.1 Est GFR (Non-Af Amer) 51.8 BUN/Creatinine Ratio 26.2 H (10-20) Glucose 115 H (70-99) mg/dl POC Glucose 133 H 116 H (70-99) mg/dl Calcium 8.1 L (8.5-10.1) mg/dl Magnesium 2.3 (1.8-2.4) mg/dl Total Bilirubin 0.4 (0.2-1) mg/dl AST 122 H (15-37) U/L ALT 70 (12-78) U/L Alkaline Phosphatase 59 (45-117) U/L Total Protein 5.9 L (6.4-8.2) gm/dl Albumin 2.8 L (3.4-5.0) gm/dl Globulin 3.1 (2.5-4.0) gm/dl Albumin/Globulin Ratio 0.9 (0.9-2) 02/27/20 02/26/20 02/26/20 Range/Units 06:04 20:17 16:45 WBC 4.11 L (4.8-10.8) K/uL RBC 4.08 L (4.7-6.1) M/uL Hgb 11.7 L (14.0-18.0) g/dL Hct 35.6 L (42-52) % MCV 87.3 (80-100) fL MCH 28.7 (25-34) pg MCHC 32.9 (32-36) g/dL RDW Std Deviation 43.9 (36.4-46.3) fL RDW Coeff of Vinh 13.8 (11.5-14.5) % Plt Count 74 L (130-400) K/uL MPV 11.3 H (7.4-10.4) fL Immature Gran % (Auto) 0.2 % Neut % (Auto) 49.9 % Lymph % (Auto) 34.3 % Lamb % (Auto) 10.5 % Eos % (Auto) 4.1 % Baso % (Auto) 1.0 % Immature Gran # (Auto) 0.01 (0.00-0.02) K/uL Neut # (Auto) 2.05 (1.4-6.5) K/uL Lymph # (Auto) 1.41 (1.2-3.4) K/uL Lamb # (Auto) 0.43 (0.11-0.59) K/uL Eos # (Auto) 0.17 (0-0.5) K/uL Baso # (Auto) 0.04 (0-0.2) K/uL Sodium (136-145) mmol/L Potassium (3.5-5.1) mmol/L Chloride (98-107) mmol/L Carbon Dioxide (21-32) mmol/L Anion Gap (3-11) BUN (7-18) mg/dl Creatinine (0.6-1.4) mg/dl Est Cr Clr Drug Dosing ml/min Est GFR ( Amer) Est GFR (Non-Af Amer) BUN/Creatinine Ratio (10-20) Glucose (70-99) mg/dl POC Glucose 146 H 137 H (70-99) mg/dl Calcium (8.5-10.1) mg/dl Magnesium (1.8-2.4) mg/dl Total Bilirubin (0.2-1) mg/dl AST (15-37) U/L ALT (12-78) U/L Alkaline Phosphatase (45-117) U/L Total Protein (6.4-8.2) gm/dl Albumin (3.4-5.0) gm/dl Globulin (2.5-4.0) gm/dl Albumin/Globulin Ratio (0.9-2) PG Care Time/CCT Total # of Minutes Spent Total Time Spent with Patient: Total time spent is greater than 50% in coord ination of care (as documented) at patient's floor/unit and/or counseling patient: Coding Level of Care Code 60676 Subseq Hosp Care Lvl 3 Diagnoses AMS (altered mental status) R41.82 Fever R50.9 Elevated LFTs R79.89 Pancytopenia D61.[address] scan R93.89 Coronary artery disease I25.10 Chronic kidney disease (CKD) N18.9 Hypokalemia E87.6 Anxiety F41.9 Hypertension I10 LENO (obstructive sleep apnea) G47.33 Type 2 diabetes mellitus E11.9 Hydrocephalus G91.9 Cognitive impairment R41.89 Elevated troponin R79.89 DVT prophylaxis Z29.9
[2020-02-27] MEDS ORDERED: MIRTAZAPINE TAB 15 MG TAB PO PRN (16:08)
[2020-02-27] MEDS: FUROSEMIDE 40 MG TAB PO SCH (16:57)
[2020-02-27] MEDS: CITALOPRAM 20 MG TAB PO SCH (19:44)
[2020-02-27] MEDS: TAMSULOSIN HCL 0.4 MG CAP PO SCH (19:45)
[2020-02-27] MEDS: ATORVASTATIN 40 MG TAB PO SCH (19:46)
[2020-02-27] MEDS: lisinopriL 20 MG TAB PO SCH (20:37)
[2020-02-27] MEDS: MEMANTINE HCL 5 MG TAB PO SCH (20:38)
[2020-02-27] MEDS: DOCUSATE SODIUM 100 MG CAP PO SCH (20:39)
[2020-02-27] MEDS: INSULIN GLARGINE SOLOSTAR 100 UNITS/ML 3 ML PEN SQ SCH (20:40)
[2020-02-27] MEDS ORDERED: CYANOCOBALAMIN (VITAMIN B-12) 2,500 MCG TAB.SUBL SL SCH (21:00)
[2020-02-27] MEDS ORDERED: CHOLECALCIFEROL 1,000 UNITS 25 MCG TAB PO SCH (21:00)
[2020-02-28 06:21] LABS: Hematocrit (blood only) 35.7 % (42-52); Hemoglobin 12.1 g/dL (14.0-18.0); Mean Corpuscular Hemoglobin 29.1 pg (25-34); Mean Corpuscular Hgb Conc 33.9 g/dL (32-36); Mean Corpuscular Volume 85.8 fL (80-100); Mean Platelet Volume 11.4 fL (7.4-10.4); Platelet Count 114 K/uL (130-400); RDW Coefficient of Variation 13.7 % (11.5-14.5); RDW Standard Deviation 43.1 fL (36.4-46.3); Red Blood Count 4.16 M/uL (4.7-6.1); White Blood Count 4.75 K/uL (4.8-10.8)
[2020-02-28 06:48] LABS: Alanine Aminotransferase 66 U/L (12-78); Albumin Level 2.9 gm/dl (3.4-5.0); Aspartate Aminotransferase 88 U/L (15-37); BUN Creatinine Ratio 21.8 (10-20); Bilirubin Direct < 0.1 mg/dl (0-0.2); Blood Urea Nitrogen 28 mg/dl (7-18); Calcium 8.4 mg/dl (8.5-10.1); Carbon Dioxide 24 mmol/L (21-32); Chloride 109 mmol/L (98-107); Creatinine Clr Calc Pharmacy 64.9 ml/min; Est GFR (African American) 62.3; Est GFR (Non-African American) 53.8; Glucose 121 mg/dl (70-99); Potassium 3.6 mmol/L (3.5-5.1); Sodium 140 mmol/L (136-145)
[2020-02-28 06:50] LABS: Alkaline Phosphatase 66 U/L (45-117); Bilirubin,Total 0.5 mg/dl (0.2-1); Total Protein 6.4 gm/dl (6.4-8.2)
[2020-02-28 06:51] LABS: Basophils # (auto) 0.03 K/uL (0-0.2); Basophils % (auto) 0.6 %; Eosinophils # (auto) 0.18 K/uL (0-0.5); Eosinophils % (auto) 3.8 %; Lymphocytes # (auto) 1.68 K/uL (1.2-3.4); Lymphocytes % (auto) 35.4 %; Monocytes # (auto) 0.34 K/uL (0.11-0.59); Monocytes % (auto) 7.2 %; Neutrophils # (auto) 2.52 K/uL (1.4-6.5)
[2020-02-28] MEDS: lisinopriL 20 MG TAB PO SCH (08:04)
[2020-02-28] MEDS: FUROSEMIDE 40 MG TAB PO SCH (08:04)
[2020-02-28] MEDS: DOCUSATE SODIUM 100 MG CAP PO SCH (08:05)
[2020-02-28] MEDS: MEMANTINE HCL 5 MG TAB PO SCH (08:05)
[2020-02-28] MEDS: FOLIC ACID 1 MG TAB PO SCH (08:05)
[2020-02-28] MEDS: carvediloL 6.25 MG TAB PO SCH (08:05)
[2020-02-28] MEDS: THIAMINE HCL 100 MG TAB PO SCH (08:05)
[2020-02-28] MEDS: ASPIRIN 81 MG ECTAB PO SCH (08:06)
[2020-02-28] MEDS: DOXYCYCLINE HYCLATE 100 MG CAP PO SCH (08:06)
[2020-02-28] MEDS: ENOXAPARIN INJ 40 MG/0.4 ML SYR SQ SCH (08:06)
[2020-02-28] MEDS: INSULIN ASPART 100 UNITS/ML 3 ML PEN SC SCH ×2 (08:08→13:31)
[2020-02-28 11:42] VITALS: BP 152/77; PULSE 57; TEMP 97.7; O2SAT 94
--- NOTE | 2020-02-28 12:50 | Discharge Summary ---
Date of Service February 28, 2020 Admission Exam Per Admitting Provider Constitutional: WD/WN, vitals as above Eyes: EOM intact bilaterally; no conjunctival abnormality ENMT: external ear and nose normal, oropharynx normal Neck: trachea midline, no thyromegaly normal visual inspection Respiratory: normal respiratory effort, lungs clear to auscultation no respiratory distress Cardiovascular: RRR, no murmur, no edema Gastrointestinal (Abdomen): Inspection/Auscultation: abdomen normal to inspection; abdomen not distended Musculoskeletal: no cyanosis or clubbing, extremities motor strength 5/5 Skin: no rashes, warm and dry Neurologic: moves all extremities and awake Motor/Sensory: + tremor and + asterixis Psychiatric: Orientation: alert, oriented to person and cooperative; + not oriented to place and + not oriented to time Principal Diagnosis Fall Acute confusion 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) Discharge Exam Constitutional well developed and + obese; + not well nourished Eyes + anicteric sclerae; + EOM not intact (with OS exotropia) ENMT external ear and nose normal, oropharynx normal Neck normal visual inspection Respiratory normal respiratory effort, lungs clear to auscultation no respiratory distress Cardiovascular RRR, no murmur, no edema Gastrointestinal (Abdomen) Inspection/Auscultation: abdomen normal to inspection and normal bowel sounds; abdomen not distended Percussion/Palpation: abdomen soft; abdomen nontender, no guarding and abdomen not rigid Musculoskeletal Extremities: extremities normal to inspection; no cyanosis and no clubbing Skin no rashes, warm and dry Neurologic moves all extremities and awake; no focal motor deficits Motor/Sensory: no tremor Psychiatric Orientation: alert and oriented x 3 Eye Contact: good eye contact Speech: normal rate/rhythm/volume of speech Affect: euthymic affect Discharge Data Allergies Allergy/AdvReac Type Severity Reaction Status Date / Time amoxicillin Allergy Unknown Unknown Verified 03/02/20 08:05 Consultations 02/24/20 19:09 ED Decision to Admit Routine 02/25/20 17:25 Consult Neurology Routine 02/26/20 17:08 Consult Case Management - Discharge Planning Routine Ordered Studies 02/24/20 13:27 CT head/brain wo con Stat 02/24/20 15:48 US abdomen limited Urgent 02/24/20 17:59 CT chest wo con Urgent 02/25/20 00:14 MR brain wo con Stat Hospital Course (1) AMS (altered mental status): Quirino Herrera is a 75 year old male admitted from to [facility] from February 23 to 2019 due to acute confused state and unwitnessed fall at home. Lab work revealed acute kidney injury consistent with dehydration which was treated with intravenous fluids. Hypokalemia replaced - suspected to be from diarrhea. Liver function test are concerning for alcohol use but this was denied by the patient and no abnormalities were seen on ultrasound. Alcohol level was undetectable on admission and he developed no symptoms of withdrawal. Some concern anaplasmosis from providers during admission due to elevated transaminases and fever with many tick exposures. Peripheral smear unremarkable. DNA PCR pending at time of discharge. He started on doxycycline empirically for 10 days and will follow up with his PCP for the results. Brain MRI showed no acute abnormality but with moderate ventricular prominence possibly consistent with normal pressure hydrocephalus as previously known prior to this admission. No arrhythmias were noted on classroom monitor during your admission and echocardiogram showed no significant valvular disease. No definitive cause of his unwitnessed fall was found however clonazepam likely increasing his risk and recommend he discusses this further with his PCP. 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 He also has suspected underlying dementia for which he takes memantine. He will follow up with neurology for these issues. This and other providers have concerns about his ability to manage by himself as his was in [place] but the patient expressed wish to return home with home health and he has capacity to make this decision. (2) Fever: (3) Elevated LFTs: (4) Pancytopenia: (5) Abnormal finding on CT scan: (6) Coronary artery disease: (7) Chronic kidney disease (CKD): (8) Hypokalemia: (9) Anxiety: (10) Hypertension: (11) LENO (obstructive sleep apnea): (12) Type 2 diabetes mellitus: (13) Hydrocephalus: (14) Cognitive impairment: (15) Elevated troponin: (16) DVT prophylaxis: Total Time Total Time Spent Total Time Spent (In Minutes): 45 Total Time Includes: Examination of the Patient, Discharge Planning and Medication Reconciliation Discharge Plan Discharge Items Patient Disposition: Home - Home Health Services Reason For Visit: ALTERED MENTAL STATUS Discharge Diagnosis: Fall Acute confusion 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 Plan for EMG of your legs and radionucleotide cisternogram.) Chang Nagy, DO [Primary Care Provider] - (In the next 1-2 weeks.?Virtual. F/U anaplasmosis PCR) Diet: Carb Consistent or DM2 and Heart Healthy Addtl Attending Provider Instructions: You were admitted from to [facility] from February 23 to 2019 due to acute confused state and unwitnessed fall at home. Lab work revealed acute kidney injury consistent with dehydration which was treated with i ntravenous fluids. Low potassium - suspected to be from diarrhea. Liver function test are concerning for alcohol use but no abnormalities were seen on ultrasound. Alcohol level was undetectable on admission. This may be due to a tick borne illness such as anaplasmosis for which you were treated with doxycycline and given clinical improvement we will continue this treatment for total course of 10 days. The test for this is pending at time of discharge. Brain MRI showed no acute abnormality but with moderate ventricular prominence possibly consistent with normal pressure hydrocephalus as previously known prior to this admission. No arrhythmias were noted on classroom monitor during your admission and echocardiogram showed no significant valvular disease. Given the number of medications you are taking and chronic medical conditions it is difficult to know the exact reason for falling therefore also recommend taking thiamine supplementation to make sure a deficiency in this vitamin is not causing your symptoms. In addition limit clonazepam use as this increases your risk of falling. Recommend following up with your primary care provider and neurologist above for ongoing management. By request you are being discharged home at this time with home health. If you have ongoing balance issues please contact your primary care provider or in an emergency please return to the emergency room. Kind regards, Dr Simon Hester Pending Studies at Discharge: Yes (Anaplasma DNA PCR) Stand-Alone Forms: My [facility], Smoking Cessation Medications and DC Order Prescriptions: New doxycycline hyclate 100 mg tablet 100 mg PO BID 8 Days Qty: 16 RF: 0 thiamine HCl (vitamin B1) [Vitamin B-1] 100 mg Tablet 100 mg PO QAM@0800 Qty: 30 RF: 0 aspirin 81 mg Tablet,Delayed Release (Dr/Ec) 81 mg PO QAM@0800 Qty: 30 RF: 0 Continued carvedilol 6.25 mg tablet 6.25 mg PO BID Qty: 180 RF: 1 furosemide 40 mg tablet 40 mg PO BID Qty: 90 RF: 1 sildenafil [Viagra] 100 mg tablet 100 mg PO DAILY PRN (Reason: Erectile Dysfunction) Qty: 20 RF: 5 clonazepam 0.5 mg tablet 0.5 mg PO BID PRN (Reason: anxiety) Qty: 60 RF: 0 atorvastatin 40 mg tablet 40 mg PO HS Qty: 90 RF: 3 lisinopril 20 mg tablet 20 mg PO BID Qty: 180 RF: 1 (DME) CPAP Machine Misc See Rx Instructions .ROUTE .MEDSUPPLY Qty: 1 RF: 0 (DME) CPAP Machine Misc See Rx Instructions .ROUTE .MEDSUPPLY Qty: 1 RF: 0 Synjardy 5-1,000 mg tablet 1 tab PO BID Qty: 180 RF: 1 cholecalciferol (vitamin D3) 1,000 unit capsule 2,000 units PO HS RF: 0 cyanocobalamin (vitamin B-12) [Vitamin B-12] 2,500 mcg Tablet, Sublingual 2,500 mcg SUBLINGUAL HS RF: 0 docusate sodium [Stool Softener] 250 mg Capsule 250 mg PO BID RF: 0 memantine [Namenda] 5 mg tablet 5 mg PO BID RF: 0 Basaglar KwikPen U-100 Insulin 100 unit/mL (3 mL) insulin pen 42 unit SQ HS RF: 0 citalopram 20 mg tablet 20 mg PO HS RF: 0 tamsulosin 0.4 mg capsule 0.4 mg PO HS RF: 0 Discontinued aspirin 325 mg tablet 325 mg PO QAM RF: 0 No Action (DME) blood-glucose meter [Accu-Chek Guide Glucose Meter] Misc See Rx Instructions .ROUTE .MEDSUPPLY Qty: 1 RF: 0 (DME) blood sugar diagnostic [Accu-Chek Ashley Plus test strp] Strip See Rx Instructions .ROUTE .MEDSUPPLY Qty: 100 RF: 3 (DME) lancets [Accu-Chek Softclix Lancets] Misc See Rx Instructions .ROUTE .MEDSUPPLY Qty: 100 RF: 3 Discharge Orders: Discharge Order (Routine); Ordered 02/28/20 Ordered By: Simon Lamb/Other Patient Handouts: Hyperglycemia, Hypoglycemia, Diabetes Type 2 Managing Admission Data Admit Date/Time: 02/24/20 15:10 Attending Provider: Simon Hester Admit Provider: Alfred Nagy Primary Care Provider: Chang Nagy Other Providers: Franky Domingo Other Interventions: Discharge Summary Assessment (RN) Last Done: 02/28/20 13:40 DC Date/Time DO NOT enter until pt leaves facility: 02/28/20 14:07 Coding Level of Care Code D/C Day Management >30 mins Diagnoses AMS (altered mental status) R41.82 Fever R50.9 Elevated LFTs R79.89 Pancytopenia D61.[address] scan R93.89 Coronary artery disease I25.10 Chronic kidney disease (CKD) N18.9 Hypokalemia E87.6 Anxiety F41.9 Hypertension I10 LENO (obstructive sleep apnea) G47.33 Type 2 diabetes mellitus E11.9 Hydrocephalus G91.9 Cognitive impairment R41.89 Elevated troponin R79.89 DVT prophylaxis Z29.9
--- NOTE | 2020-03-01 13:05 | Communication Note ---
Date of Service: March 01, 2020 Called the patient today. I did tell him about the positive Anaplasma DNA lab result. He reports he is taking his doxycycline as prescribed and will finish his course. Some concern for his mental status as he had trouble remembering the word "tick" even after I had said it just a minute before, but he reported he will not be coming back to the hospital. Emphasized again the need to finish the doxycycline course which he reported he would do.
== END 2020-02-28 14:07 | disposition home health service (06) | DRG 867 ==
LOC: ED 12:46 → SUATTDRO 15:10 → 2W 15:10 → 2S 21:40 → 2W 02-25 15:13

== ENCOUNTER 2021-10-15 09:17 | Inpatient (IN) ==
[2021-10-15] MEDS ORDERED: SODIUM CHLORIDE 0.9% 1000ML 1,000 ML IV SCH (09:45)
[2021-10-15 09:46] LABS: Basophils # (auto) 0.01 K/uL (0-0.2); Basophils % (auto) 0.3 %; Hematocrit (blood only) 45.8 % (42-52); Hemoglobin 14.9 g/dL (14.0-18.0); Lymphocytes # (auto) 0.43 K/uL (1.2-3.4); Mean Corpuscular Hgb Conc 32.5 g/dL (32-36); Mean Corpuscular Volume 89.1 fL (80-100); Mean Platelet Volume 10.7 fL (7.4-10.4); Monocytes # (auto) 0.37 K/uL (0.11-0.59); Monocytes % (auto) 11.1 %; Neutrophils # (auto) 2.51 K/uL (1.4-6.5); Neutrophils % (auto) 75.6 %; Platelet Count 126 K/uL (130-400); RDW Coefficient of Variation 13.7 % (11.5-14.5); RDW Standard Deviation 45.3 fL (36.4-46.3); Red Blood Count 5.14 M/uL (4.7-6.1); White Blood Count 3.32 K/uL (4.8-10.8)
[2021-10-15 10:03] LABS: Albumin Level 3.4 gm/dl (3.4-5.0); Aspartate Aminotransferase 37 U/L (15-37); BUN Creatinine Ratio 16.1 (10-20); Blood Urea Nitrogen 31 mg/dl (7-18); Calcium 9.1 mg/dl (8.5-10.1); Carbon Dioxide 27 mmol/L (21-32); Chloride 104 mmol/L (98-107); Est GFR (African American) 38.4 ml/min; Est GFR (Non-African American) 33.1 ml/min; Glucose 119 mg/dl (70-99); Magnesium 2.1 mg/dl (1.8-2.4); Potassium 3.7 mmol/L (3.5-5.1); Sodium 138 mmol/L (136-145)
[2021-10-15 10:07] LABS: D Dimer 3460 ug/L FEU (0-500)
[2021-10-15 10:08] LABS: Bilirubin,Total 0.5 mg/dl (0.2-1)
[2021-10-15 10:13] LABS: Alanine Aminotransferase 38 (12-78); Albumin Globulin Ratio 0.8 (0.9-2); Alkaline Phosphatase 106 U/L (45-117); Globulin 4.1 gm/dl (2.5-4.0); NT Pro B Type Natriuretic Pept 864 pg/ml (0-900); Total Protein 7.5 gm/dl (6.4-8.2); Troponin I 0.016 ng/ml (0-0.045)
[2021-10-15 10:27] LABS: Appearance Urine Clear (Clear); Bacteria Urine Automated Negative (Negative); Bilirubin Urine Negative (Negative); Blood Urine Trace (Negative); Color Urine Yellow; Glucose Urine UA 3+ (Negative); Ketones Urine Trace (Negative); Leukocyte Esterase Urine Negative (Negative); Nitrite Urine Negative (Negative); Protein Urine 2+ (Negative); RBC Urine Automated 0-4 /hpf (0-4); Specific Gravity Urine 1.022 (1.000-1.030); Urobilinogen Urine Negative (Negative)
--- NOTE | 2021-10-15 10:28 | Emergency Department Note ---
Impression & Plan Generalized weakness, Hypoxia, CRI (chronic renal insufficiency), Acute dehydration ED Provider Note INFORMANT: Patient and ED PROVIDER(S): Himanshu Booker MD CHIEF COMPLAINT: Weakness PLAN: Disposition: Admitted Condition: Good Outpatient prescription management: none Referral: None MEDICAL DECISION MAKING: Patient presented because of weakness. He was noted to have periods of hypoxia. Work-up was initiated. Covid testing was negative. The patient's chest x-ray was unremarkable. He had a positive D-dimer. Troponin was negative. Urinalysis negative. CBC showed some mild decrease in his white blood cell count and platelet count which has been present in the past. Patient had bilateral ultrasound imaging test performed of the lower extremities and this was negative for DVT. Due to the patient's elevated creatinine CT imaging was initially deferred. I did consult with internal medicine. Patient was evaluated by the team in the department and admitted for further work-up and management. Triage Nursing notes reviewed and agree them. Vital Signs: reviewed and remarkable for hypoxia Differential diagnosis: Infection, dehydration, metabolic abnormality, hypo/hyperglycemia, electrolyte disturbance, anemia, hypoxia, cardiac sources, intracerebral event, toxicologic, neurologic, as well as other pathologies. Diagnostics interpreted by me: ECG: Twelve-lead ECG reveals a sinus tachycardia 105 bpm. Left axis deviation. Nonspecific interventricular conduction delay. No ST elevation. No PVCs. Cardiac Monitoring: Cardiac monitoring ordered by me: The patient was placed on continuous cardiac monitoring and observed. It revealed a normal sinus rhythm at 99 beats per minute without ectopy or evidence of dysrhythmia. Imaging studies: Chest x-ray and ultrasounds as above. HPI: The patient is a 76 year old male who presents to the Emergency Room with complaints of weakness. This started over the last and is worsened today. Patient states that he has dementia and she was unable to get him out of bed this morning. On arrival the patient had an O2 saturation of 80%. Patient has chronic back pain but denies any new changes. Patient has difficulty with providing details of the last several days.The patient has been given no medic ation for relieving factors. Unable to quantify his current back pain but states it is his usual. Unsure of any fevers, chills, cough. Pt denies LOC, headache, diaphoresis, visual changes, neck pain, chest pain, breathing difficulties, nausea, vomiting, abdominal pain, diarrhea, urinary symptoms, numbness, lymphadenopathy, rash, or other complaints. ROS: See above HPI for pertinent positives & negatives. A total of 10 systems reviewed and were otherwise negative. Of note, the patient's dementia history and current illness do limit the details. PAST MEDICAL HISTORY:See Below , diabetes PAST SURGICAL HISTORY:See Below, FAMILY HISTORY:See Below SOCIAL HISTORY:See Below, HOME MEDICATIONS:See Below ALLERGIES:See Below VITALS:See Below PHYSICAL EXAMINATION: GENERAL: Awake, buttired-appearing, in no distress HENT: Normocephalic, atraumatic. Oropharynx unremarkable. EYES: Normal conjunctiva. Sclera non-icteric. NECK: Inspection normal. Non-tender. Supple. No nuchal rigidity. FROM. No masses. RESPIRATORY: Clear to auscultation. No wheezes. No rales. Normal respiratory effort. CARDIAC: Borderline tachycardic rate. Normal rhythm. No murmurs. No rubs. Extremities warm and well perfused. Pulses equal. No JVD. GI: Soft, non-distended. No tenderness to palpation. No rebound or guarding. No masses. RECTAL: Deferred. MUSCULOSKELETAL: Atraumatic. Chest examination reveals no tenderness. The back is symmetrical on inspection without obvious abnormality. There is no CVA tenderness to palpation. No joint edema. LOWER EXTREMITIES: Calves are equal size bilaterally and non-tender. No edema. No discoloration. NEURO: Mildly demented sensorium. Focal no sensory or motor deficits noted. Generally weak. No saddle anesthesia. SKIN: No rash or jaundice noted. 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 Cognitive impairment Coronary artery disease stent x1 (~2004), CABG x5 (2013) Depression Diabetes type 2, uncontrolled Diabetic nephropathy associated with type 2 diabetes mellitus Diabetic peripheral neuropathy associated with type 2 diabetes mellitus Dysesthesia Dyslipidemia History of blood transfusion post-op CABG History of colon polyps History of Mohs micrographic surgery for skin cancer 05/2020 History of radiation therapy 05/2020 Hypertension Obesity LENO (obstructive sleep apnea) CPAP Squamous cell carcinoma, scalp/neck Umbilical hernia Vitamin B 12 deficiency Vitamin D deficiency Surgical History H/O umbilical hernia repair (12/30/19) Incarcerated Umbilical Hernia Repair Dr. Jeong 12-30-19 History of cardiac cath x3-4 caths- stent x 1 (~2004) History of colonoscopy with polypectomy History of discectomy Lumbar History of open heart surgery x5 vessels (2013) S/P eye surgery to repair a amblyopia (Lazy eye) Left eye S/P hip replacement Left MARTHA: 02/28/12: SAB at L4-L5 at [facility] S/P wisdom tooth extraction Family History Father , age 47 of an OR Heart disease Myocardial infarction Mother , age 73 of ALS ALS (amyotrophic lateral sclerosis) Cancer Brother Pancreatic cancer Grandmother Diabetes Other No family history of adverse response to anesthesia Denies family history of Ovarian cancer Prostate cancer Breast cancer Colorectal cancer Social History Smoking Status: Unknown if ever smoked Second Hand Exposure: No; Hx Alcohol Use: Yes Alcohol type: wine Alcohol Intake Frequency: Monthly or Less Hx Substance Use: No Preferred Language: [place] Islander Communication Ability: Effective Visual Impairment: Diminished Hearing Ability: Use of Hearing Aid Go Go Dancer Required: No Beliefs That Will Affect Care: None marital status: Current Living Situation: Spouse current occupational status: retired How many Children do You have: 3 Feels Safe at Home: Yes Childhood Exposure to Second-Hand Smoke: Yes caffeine: Yes (tea and diet soda) during the past year weight has: remained stable Dental Care, Regularly: Yes Physical Activity Frequency: 5-6 Times per Week Physical Activity Frequency Comment: works in yard and walks dogs daily Seatbelt Use: always Sunscreen Use: Yes Do you think of yourself as: straight/heterosexual Assistive Devices: CPAP and Glasses Allergies Allergies Allergy/AdvReac Type Severity Reaction Status Date / Time amoxicillin Allergy Unknown Unknown Verified 10/15/21 15:02 Home Meds Home Medications Medication Instructions Recorded Confirmed cholecalciferol (vitamin D3) 25 2,000 units PO HS cap 10/23/19 12/27/21 mcg (1,000 unit) capsule cyanocobalamin (vitamin B-12) 2,500 mcg SUBLINGUAL DAILY tab 07/17/20 10/15/21 2,500 mcg sublingual tablet (Vitamin B-12) memantine 10 mg tablet 10 mg PO BID tab 04/03/21 10/15/21 acetaminophen 500 mg tablet 1,000 mg PO HS PRN tab 05/30/21 10/15/21 (Tylenol Extra Strength) insulin glargine 100 unit/mL (3 45 unit SQ DAILY ml 05/30/21 10/15/21 mL) subcutaneous pen (Basaglar KwikPen U-100 Insulin) citalopram 10 mg tablet 10 mg PO DAILY 10/15/21 10/15/21 donepezil 10 mg tablet 10 mg PO DAILY 10/15/21 10/15/21 Previous Rx's Medication Instructions Recorded CPAP Machine #1 ea 10/28/19 aspirin 81 mg tablet,delayed 81 mg PO QAM@0800 #30 tab 02/28/20 release thiamine HCl (vitamin B1) 100 mg 100 mg PO QAM@0800 #30 tab 02/28/20 tablet (Vitamin B-1) flash glucose sensor (FreeStyle #2 ea 03/05/21 Yodit 2 Sensor) atorvastatin 40 mg tablet 40 mg PO HS #90 tab 03/13/21 lisinopril 20 mg tablet 20 mg PO BID #180 tab 04/17/21 pen needle, diabetic 31 gauge x #100 ea 06/05/2103/04" (Easy Comfort Pen [place]) furosemide 40 mg tablet 40 mg PO BID #180 tab 08/03/21 citalopram 40 mg tablet 40 mg PO DAILY #90 tab 08/10/21 methocarbamol 500 mg tablet 500 mg PO QPM #90 tab 08/15/21 carvedilol 6.25 mg tablet 6.25 mg PO BID #180 tab 10/09/21 psyllium husk 0.52 gram capsule 0.52 g PO DAILY #30 cap 10/11/21 (Metamucil) tamsulosin 0.4 mg capsule 0.8 mg PO .at bedtime #180 cap 10/11/21 Results & Data (ED) Vital Signs Vital Signs - 24 hr 10/15/21 09:08 10/15/21 09:37 10/15/21 09:41 Temperature 37.5 C Temperature Source Oral Pulse Rate 106 H 104 H 104 H Pulse Rate from SpO2 Sensor 104 H Pulse Rhythm Regular Respiratory Rate 24 24 27 H Respiratory Effort / Characteristics Non-Labored Respiratory Depth Normal Respiratory Pattern Regular Blood Pressure 142/86 H Blood Pressure Mean 104 Pulse Oximetry 80 L 80 L 95 Oxygen Delivery Method Room Air Room Air Sepsis Recent Fever Within 48 Hours Yes Sepsis New/Unexplained Change in Mental Status No Sepsis Action Taken by Nursing Physician Notified 10/15/21 09:50 10/15/21 10:00 10/15/21 10:10 Temperature Temperature Source Pulse Rate 104 H 105 H 105 H Pulse Rate from SpO2 Sensor 105 H 106 H Pulse Rhythm Respiratory Rate 24 28 H 23 Respiratory Effort / Characteristics Respiratory Depth Respiratory Pattern Blood Pressure 138/81 Blood Pressure Mean 100 Pulse Oximetry 95 97 Oxygen Delivery Method Sepsis Recent Fever Within 48 Hours Sepsis New/Unexplained Change in Mental Status Sepsis Action Taken by Nursing Laboratory Data Result diagrams: 10/15/21 09:34 10/15/21 09:34 Lab Results 10/15/21 10/15/21 10/15/21 Range/Units 09:34 09:34 09:34 WBC 3.32 L (4.8-10.8) K/uL RBC 5.14 (4.7-6.1) M/uL Hgb 14.9 (14.0-18.0) g/dL Hct 45.8 (42-52) % MCV 89.1 (80-100) fL MCH 29.0 (25-34) pg MCHC 32.5 (32-36) g/dL RDW Std Deviation 45.3 (36.4-46.3) fL RDW Coeff of Vinh 13.7 (11.5-14.5) % Plt Count 126 L (130-400) K/uL MPV 10.7 H (7.4-10.4) fL Immature Gran % (Auto) 0.0 % Neut % (Auto) 75.6 % Lymph % (Auto) 13.0 % Schley % (Auto) 11.1 % Eos % (Auto) 0.0 % Baso % (Auto) 0.3 % Neut # (Auto) 2.51 (1.4-6.5) K/uL Lymph # (Auto) 0.43 L (1.2-3.4) K/uL Schley # (Auto) 0.37 (0.11-0.59) K/uL Eos # (Auto) 0.00 (0-0.5) K/uL Baso # (Auto) 0.01 (0-0.2) K/uL Immature Gran # (Auto) 0.00 (0.00-0.02) K/uL ESR (0-20) mm/hr D-Dimer 3460 H* (0-500) ug/L FEU Sodium 138 (136-145) mmol/L Potassium 3.7 (3.5-5.1) mmol/L Chloride 104 (98-107) mmol/L Carbon Dioxide 27 (21-32) mmol/L Anion Gap 7.0 (3-11) BUN 31 H (7-18) mg/dl Creatinine 1.93 H (0.6-1.4) mg/dl Est Cr Clr Drug Dosing Not Reportable Est GFR ( Amer) 38.4 ml/min Est GFR (Non-Af Amer) 33.1 ml/min BUN/Creatinine Ratio 16.1 (10-20) Glucose 119 H (70-99) mg/dl Lactate (0.4-2.0) mmol/L Calcium 9.1 (8.5-10.1) mg/dl Magnesium 2.1 (1.8-2.4) mg/dl Total Bilirubin 0.5 (0.2-1) mg/dl AST 37 (15-37) U/L ALT 38 (12-78) Alkaline Phosphatase 106 (45-117) U/L Troponin I 0.016 (0-0.045) ng/ml C-Reactive Protein (0-0.29) mg/dl NT-Pro-B Natriuret Pep 864 (0-900) pg/ml Total Protein 7.5 (6.4-8.2) gm/dl Albumin 3.4 (3.4-5.0) gm/dl Globulin 4.1 H (2.5-4.0) gm/dl Albumin/Globulin Ratio 0.8 L (0.9-2) TSH 2.220 (0.300-4.500) uIu/ml Urine Color Urine Appearance (Clear) Urine pH (4.5-7.5) Ur Specific Waldo (1.000-1.030) Urine Protein (Negative) Urine Glucose (UA) (Negative) Urine Ketones (Negative) Urine Blood (Negative) Urine Nitrite (Negative) Urine Bilirubin (Negative) Urine Urobilinogen (Negative) Ur Leukocyte Esterase (Negative) Urine WBC (Auto) (0-5) /hpf Urine RBC (Auto) (0-4) /hpf U Hyaline Cast (Auto) (0-5) /lpf U Epithel Cells (Auto) (0-5) /lpf Urine Bacteria (Auto) (Negative) Anaplasma Smear Babesia Smear SARS-CoV-2 (PCR) (Negative) Influenza Type A (PCR) (Neg) Influenza Type B (PCR) (Neg) RSV (RT-PCR) (Neg) 10/15/21 10/15/21 10/15/21 Range/Units 09:34 09:34 09:34 WBC (4.8-10.8) K/uL RBC (4.7-6.1) M/uL Hgb (14.0-18.0) g/dL Hct (42-52) % MCV (80-100) fL MCH (25-34) pg MCHC (32-36) g/dL RDW Std Deviation (36.4-46.3) fL RDW Coeff of Vinh (11.5-14.5) % Plt Count (130-400) K/uL MPV (7.4-10.4) fL Immature Gran % (Auto) % Neut % (Auto) % Lymph % (Auto) % Schley % (Auto) % Eos % (Auto) % Baso % (Auto) % Neut # (Auto) (1.4-6.5) K/uL Lymph # (Auto) (1.2-3.4) K/uL Schley # (Auto) (0.11-0.59) K/uL Eos # (Auto) (0-0.5) K/uL Baso # (Auto) (0-0.2) K/uL Immature Gran # (Auto) (0.00-0.02) K/uL ESR 26 H (0-20) mm/hr D-Dimer (0-500) ug/L FEU Sodium (136-145) mmol/L Potassium (3.5-5.1) mmol/L Chloride (98-107) mmol/L Carbon Dioxide (21-32) mmol/L Anion Gap (3-11) BUN (7-18) mg/dl Creatinine (0.6-1.4) mg/dl Est Cr Clr Drug Dosing Est GFR ( Amer) ml/min Est GFR (Non-Af Amer) ml/min BUN/Creatinine Ratio (10-20) Glucose (70-99) mg/dl Lactate (0.4-2.0) mmol/L Calcium (8.5-10.1) mg/dl Magnesium (1.8-2.4) mg/dl Total Bilirubin (0.2-1) mg/dl AST (15-37) U/L ALT (12-78) Alkaline Phosphatase (45-117) U/L Troponin I (0-0.045) ng/ml C-Reactive Protein 5.14 H (0-0.29) mg/dl NT-Pro-B Natriuret Pep (0-900) pg/ml Total Protein (6.4-8.2) gm/dl Albumin (3.4-5.0) gm/dl Globulin (2.5-4.0) gm/dl Albumin/Globulin Ratio (0.9-2) TSH (0.300-4.500) uIu/ml Urine Color Urine Appearance (Clear) Urine pH (4.5-7.5) Ur Specific Waldo (1.000-1.030) Urine Protein (Negative) Urine Glucose (UA) (Negative) Urine Ketones (Negative) Urine Blood (Negative) Urine Nitrite (Negative) Urine Bilirubin (Negative) Urine Urobilinogen (Negative) Ur Leukocyte Esterase (Negative) Urine WBC (Auto) (0-5) /hpf Urine RBC (Auto) (0-4) /hpf U Hyaline Cast (Auto) (0-5) /lpf U Epithel Cells (Auto) (0-5) /lpf Urine Bacteria (Auto) (Negative) Anaplasma Smear Cancelled Babesia Smear SARS-CoV-2 (PCR) (Negative) Influenza Type A (PCR) (Neg) Influenza Type B (PCR) (Neg) RSV (RT-PCR) (Neg) 10/15/21 10/15/21 10/15/21 Range/Units 09:34 09:40 09:53 WBC (4.8-10.8) K/uL RBC (4.7-6.1) M/uL Hgb (14.0-18.0) g/dL Hct (42-52) % MCV (80-100) fL MCH (25-34) pg MCHC (32-36) g/dL RDW Std Deviation (36.4-46.3) fL RDW Coeff of Vinh (11.5-14.5) % Plt Count (130-400) K/uL MPV (7.4-10.4) fL Immature Gran % (Auto) % Neut % (Auto) % Lymph % (Auto) % Schley % (Auto) % Eos % (Auto) % Baso % (Auto) % Neut # (Auto) (1.4-6.5) K/uL Lymph # (Auto) (1.2-3.4) K/uL Schley # (Auto) (0.11-0.59) K/uL Eos # (Auto) (0-0.5) K/uL Baso # (Auto) (0-0.2) K/uL Immature Gran # (Auto) (0.00-0.02) K/uL ESR (0-20) mm/hr D-Dimer (0-500) ug/L FEU Sodium (136-145) mmol/L Potassium (3.5-5.1) mmol/L Chloride (98-107) mmol/L Carbon Dioxide (21-32) mmol/L Anion Gap (3-11) BUN (7-18) mg/dl Creatinine (0.6-1.4) mg/dl Est Cr Clr Drug Dosing Est GFR ( Amer) ml/min Est GFR (Non-Af Amer) ml/min BUN/Creatinine Ratio (10-20) Glucose (70-99) mg/dl Lactate 0.9 (0.4-2.0) mmol/L Calcium (8.5-10.1) mg/dl Magnesium (1.8-2.4) mg/dl Total Bilirubin (0.2-1) mg/dl AST (15-37) U/L ALT (12-78) Alkaline Phosphatase (45-117) U/L Troponin I (0-0.045) ng/ml C-Reactive Protein (0-0.29) mg/dl NT-Pro-B Natriuret Pep (0-900) pg/ml Total Protein (6.4-8.2) gm/dl Albumin (3.4-5.0) gm/dl Globulin (2.5-4.0) gm/dl Albumin/Globulin Ratio (0.9-2) TSH (0.300-4.500) uIu/ml Urine Color Urine Appearance (Clear) Urine pH (4.5-7.5) Ur Specific Waldo (1.000-1.030) Urine Protein (Negative) Urine Glucose (UA) (Negative) Urine Ketones (Negative) Urine Blood (Negative) Urine Nitrite (Negative) Urine Bilirubin (Negative) Urine Urobilinogen (Negative) Ur Leukocyte Esterase (Negative) Urine WBC (Auto) (0-5) /hpf Urine RBC (Auto) (0-4) /hpf U Hyaline Cast (Auto) (0-5) /lpf U Epithel Cells (Auto) (0-5) /lpf Urine Bacteria (Auto) (Negative) Anaplasma Smear See Comment Babesia Smear See Comment SARS-CoV-2 (PCR) NEGATIVE (Negative) Influenza Type A (PCR) Negative (Neg) Influenza Type B (PCR) Negative (Neg) RSV (RT-PCR) Negative (Neg) 10/15/21 Range/Units 10:10 WBC (4.8-10.8) K/uL RBC (4.7-6.1) M/uL Hgb (14.0-18.0) g/dL Hct (42-52) % MCV (80-100) fL MCH (25-34) pg MCHC (32-36) g/dL RDW Std Deviation (36.4-46.3) fL RDW Coeff of Vinh (11.5-14.5) % Plt Count (130-400) K/uL MPV (7.4-10.4) fL Immature Gran % (Auto) % Neut % (Auto) % Lymph % (Auto) % Schley % (Auto) % Eos % (Auto) % Baso % (Auto) % Neut # (Auto) (1.4-6.5) K/uL Lymph # (Auto) (1.2-3.4) K/uL Schley # (Auto) (0.11-0.59) K/uL Eos # (Auto) (0-0.5) K/uL Baso # (Auto) (0-0.2) K/uL Immature Gran # (Auto) (0.00-0.02) K/uL ESR (0-20) mm/hr D-Dimer (0-500) ug/L FEU Sodium (136-145) mmol/L Potassium (3.5-5.1) mmol/L Chloride (98-107) mmol/L Carbon Dioxide (21-32) mmol/L Anion Gap (3-11) BUN (7-18) mg/dl Creatinine (0.6-1.4) mg/dl Est Cr Clr Drug Dosing Est GFR ( Amer) ml/min Est GFR (Non-Af Amer) ml/min BUN/Creatinine Ratio (10-20) Glucose (70-99) mg/dl Lactate (0.4-2.0) mmol/L Calcium (8.5-10.1) mg/dl Magnesium (1.8-2.4) mg/dl Total Bilirubin (0.2-1) mg/dl AST (15-37) U/L ALT (12-78) Alkaline Phosphatase (45-117) U/L Troponin I (0-0.045) ng/ml C-Reactive Protein (0-0.29) mg/dl NT-Pro-B Natriuret Pep (0-900) pg/ml Total Protein (6.4-8.2) gm/dl Albumin (3.4-5.0) gm/dl Globulin (2.5-4.0) gm/dl Albumin/Globulin Ratio (0.9-2) TSH (0.300-4.500) uIu/ml Urine Color Yellow Urine Appearance Clear (Clear) Urine pH 5.0 (4.5-7.5) Ur Specific Waldo 1.022 (1.000-1.030) Urine Protein 2+ H (Negative) Urine Glucose (UA) 3+ H (Negative) Urine Ketones Trace H (Negative) Urine Blood Trace H (Negative) Urine Nitrite Negative (Negative) Urine Bilirubin Negative (Negative) Urine Urobilinogen Negative (Negative) Ur Leukocyte Esterase Negative (Negative) Urine WBC (Auto) 1-5 (0-5) /hpf Urine RBC (Auto) 0-4 (0-4) /hpf U Hyaline Cast (Auto) 5-10 H (0-5) /lpf U Epithel Cells (Auto) 10-20 H (0-5) /lpf Urine Bacteria (Auto) Negative (Negative) Anaplasma Smear Babesia Smear SARS-CoV-2 (PCR) (Negative) Influenza Type A (PCR) (Neg) Influenza Type B (PCR) (Neg) RSV (RT-PCR) (Neg) Administered Medications Lactated Ringer's (Lr) 1,000 mls @ 100 mls/hr IV .Q10H [place] Stop: 11/14/21 11:44 Last Admin: 10/15/21 11:54 Dose: 100 mls/hr Documented by: [id number] Discontinued Medications Sodium Chloride (Nss 1000ml) 1,000 mls @ 125 mls/hr IV .Q8H [place] Stop: 10/15/21 17:44 Last Infusion: 10/15/21 15:01 Dose: 0 mls/hr Documented by: [id number] Infusion: 10/15/21 14:59 Dose: 0 mls/hr Documented by: [id number] Admin: 10/15/21 09:44 Dose: 125 mls/hr Documented by: [id number] Lactated Ringer's (Lr) 500 mls @ 999 mls/hr IV .Q31M ONE Stop: 10/15/21 12:07 Last Infusion: 10/15/21 12:41 Dose: 0 mls/hr Documented by: [id number] Admin: 10/15/21 11:54 Dose: 999 mls/hr Documented by: [id number] Ioversol (Optiray 320 125ml) 117 ml IV ONCE ONE Stop: 10/15/21 14:43 Last Admin: 10/15/21 14:43 Dose: 117 ml Documented by: [id number] Imaging Data Radiologist's Impression: Chest X-Ray 10/15/21 09:37 XR chest 1V portable CLINICAL HISTORY: weakness. Evaluate cardiopulmonary status COMPARISON STUDY: 10/03/2021 TECHNIQUE: 1 view of the chest FINDINGS: Single frontal view of the chest demonstrates the cardiomediastinal silhouette to be within normal limits. The patient is again status post previous cardio thoracic surgery. There is a decreased inspiratory effort with elevation of the hemidiaphragms and crowding of the bronchovascular markings at the lung bases and centrally. The lungs are clear of alveolar opacities. There is no evidence for pleural effusion. There is no evidence for vascular congestion. There is no acute osseous pathology. IMPRESSION: Compared to the previous study, there is a decreased inspiratory effort with otherwise no acute chest disease. ACT 112: Negative or not required by law. Electronically signed by: Go Man M.D. 10/15/2021 11:02 AM Venous Doppler Study 10/15/21 10:20 BILATERAL LOWER EXTREMITY VENOUS DOPPLER HISTORY: Lower extremity swelling. COMPARISON STUDY: None. FINDINGS: There is normal compressibility, flow, and augmentation within the bilateral lower extremity deep venous systems. IMPRESSION: No DVT within the right or left lower extremity. ACT 112: Negative or not required by law. Electronically signed by: Karthikeyan Guerrero M.D. 10/15/2021 11:46 AM Chest CTA 10/15/21 11:53 CT ANGIOGRAM OF THE CHEST CLINICAL HISTORY: Generalized weakness. Lower extremity edema. COMPARISON STUDY: Chest x-ray dated 10/15/2021. Chest CT dated 02/24/2020. TECHNIQUE: Following the IV administration of 117 cc of Optiray 320, CT angiogram of the chest was performed from the upper abdomen to the thoracic inlet utilizing the pulmonary embolus protocol. Images are reviewed in the axial, sagittal, and coronal planes. 3-D MIPS images are created and assessed. IV contrast was administered without complication. A dose lowering technique was utilized adhering to the principles of ALARA. The examination is severely compromised by motion artifact. CT DOSE: 890.47 mGy.cm FINDINGS: Thyroid: Imaged portions of the thyroid gland are normal in size and attenuation. Thoracic aorta: The thoracic aorta is normal in caliber and demonstrates standard 3-vessel arch anatomy. No dissection is seen. Pulmonary vasculature: The pulmonary trunk is normal in caliber. There are no filling defects identified in main pulmonary arteries to suggest pulmonary embolus. Heart: The patient is status post midline sternotomy. The heart is enlarged and without pericardial effusion. The coronary arteries are densely calcified. Lungs and pleural spaces: Evaluation of the lung parenchyma is severely compromised by motion artifact. No airspace consolidation or pleural effusion is identified. The trachea and central airways are grossly clear. An 8 mm ovoid nodule in the right lower lobe on image #139 is likely unchanged. Note that assessment of pulmonary nodules is severely degraded by motion artifact. Mediastinum: There is no mediastinal lymphadenopathy. Kellie: Clear. Axillae: There is no axillary lymphadenopathy. Upper abdomen: Partially visualized upper abdominal viscera is grossly unremarkable. Skeletal structures: The skeletal structures are osteopenic. Advanced arthritic change is seen in the shoulders. Spondylotic change is noted in the thoracic spine. No lytic or blastic bony lesions are seen. IMPRESSION: 1. Severely motion compromised examination. 2. There is no evidence of pulmonary embolus in the main pulmonary arteries. The lobar, segmental, and subsegmental branches cannot be evaluated and small pulm onary emboli would be impossible to exclude. 3. No airspace consolidation or pleural effusion is identified. 4. Cardiomegaly. 5. An 8 mm right lower lobe pulmonary nodule is likely unchanged but not well evaluated due to motion artifact. 6. Additional findings as above. ACT 112: Negative or not required by law. Electronically signed by: Adonis Lyons M.D. 10/15/2021 2:57 PM Discharge Plan Visit Data Chief Complaint: Back Injury/Pain ED Provider: Himanshu Booker Discharge Problem: Generalized weakness, Hypoxia, CRI (chronic renal insufficiency), Acute dehydration Discharge Instructions Interventions: ED Discharge Assessment Last Done: 10/15/21 14:32
[2021-10-15 10:43] LABS: Influenza A virus by PCR Negative (Neg); Influenza B virus by PCR Negative (Neg); RSV by PCR Negative (Neg); SARS CoV2 RNA(COVID-19) InHosp NEGATIVE (Negative)
--- NOTE | 2021-10-15 11:03 | XRay Report ---
XR chest 1V portable CLINICAL HISTORY: weakness. Evaluate cardiopulmonary status COMPARISON STUDY: 10/03/2021 TECHNIQUE: 1 view of the chest FINDINGS: Single frontal view of the chest demonstrates the cardiomediastinal silhouette to be within normal li mits. The patient is again status post previous cardio thoracic surgery. There is a decreased inspira tory effort with elevation of the hemidiaphragms and crowding of the bronchovascular markings at the lung bases and centrally. The lungs are clear of alveolar opacities. There is no evidence for pleural effusion. There is no evidence for vascular congestion. There is no acute osseous pathology. IMPRESSION: Compared to the previous study, there is a decreased inspiratory effort with otherwise no acute chest disease. ACT 112: Negative or not required by law. Electronically signed by: Go Man M.D. 10/15/2021 11:02 AM
[2021-10-15] MEDS ORDERED: LACTATED RINGER'S 500 ML IV ONE (11:37)
--- NOTE | 2021-10-15 11:47 | Ultrasound Report ---
BILATERAL LOWER EXTREMITY VENOUS DOPPLER HISTORY: Lower extremity swelling. COMPARISON STUDY: None. FINDINGS: There is normal compressibility, flow, and augmentation within the bilateral lower extremit y deep venous systems. IMPRESSION: No DVT within the right or left lower extremity. ACT 112: Negative or not required by law. Electronically signed by: Karthikeyan Guerrero M.D. 10/15/2021 11:46 AM
[2021-10-15] MEDS: LACTATED RINGER'S 1,000 ML IV SCH ×2 (11:54→23:53)
--- NOTE | 2021-10-15 12:05 | History & Physical Report ---
Date of Service October 15, 2021 Assessment & Plan (1) Hypoxia: Plan: Hypoxia with poor inspiratory efforts - Priority is to rule out PE in this patient- obtain CTA of the chest- currently pending on admission - platelet count low (126) for ? consumption - tachycardia with hypoxia.- Negative CTA for PE - No crackles or rhonchi noted but with decreased inspiratory effort - Has previously been compliant with his BiPAP on previous data sent to pulmonary- continue with his BIPAP prn and HS. - unable to verify if he has been using this - ICS to bedside q1 hour - supplemental oxygen as above - COVID/RSV/Influenza negative - lymphopenic, no fevers, normal, CRP pending, PCT pending - BNP and Troponin I negative (2) Generalized weakness: Plan: Reported, patient just states he feels tired- no focal deficits appreciated - This is likely associated with his TERESA and decrease oral intake - Provide IVF overnight and follow infective biomarkers - PCT pending on admission - Lyme/anaplasmosis sent - Influenza/RSV/COVID negative (3) Leukopenia: Plan: Will send anaplasmosis smear and lyme evaluate for tick borne disease - it was warm last week and states he has 2 dogs that sleep in the bed with him - Defer treatment at this time unless clinical picture becomes more clear - Pending ESR, CRP and PCT- no fever, Urine negative (4) TERESA (acute kidney injury): Plan: TERESA II on CKD IIIa - baseline TUBE PULLER 1.4-1.6 has varied over the past years - Tace blood, 2+ protein, 5-10 hyaline casts - Provide IV hydration overnight with 500ml bolus x1 now - Follow with contrast - Hold Lasix and TAMAR until improved (5) Dementia: Plan: Follows with neurology - Dementia vs. Metabolic encephalopathy continue donepezil 10mg daily continue memantine 10mg po bid (6) Diabetes type 2, uncontrolled: Plan: Hold Jardiance - convert to sliding scale with ASPART - CF 20, Ratio 1:10- last HGB A1c level was 10 - Continue basal insulin with Lantus 45 units sc daily - recheck in the morning - Patient without GAP on BMP (7) Diabetic nephropathy associated with type 2 diabetes mellitus: Plan: As above (8) Hypertension: Plan: As above (9) Coronary artery disease: Plan: Continue Carvedilol Continue ASA - Hold TAMAR and Diuretic until renal function improves (10) Dyslipidemia: Plan: Continue statin 40 mg PO QHS (11) Lumbar stenosis: Plan: Chronic with -10/03 MRI of L-spine was completed which revealed severe central canal stenosis and tethering of the cauda equina as well as a 7mm synovial cyst related to the right facet joint impinging on the central canal at this level. He is also noted ot have a subacute compression fracture at L1. - Currently without complaints of pain- has consult pending with Dr. 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 Larsen via outpatient, Normal Pressure Hydrocephalus (incidental finding 03/08) Sleep disordered breathing- on BiPAP 16/12 at home. Patient comes to the emergency room increase in fatigue, lethargy noticed by his , and generalized weakness where she had difficulty getting him out of bed. Patient was brought to the emergency room- on arrival he was noted to have a SPo2 of 80% and was placed on oxygen, he was also mildly tachycardic 104-106. He had routine labs drawn to include a d- dimer, COVID PCR with Influenza assay. His labs were notable for increase in BUN and TUBE PULLER from his baseline, decrease WBC and Decrease platelet counts, patient has levels decreased in the past (03/08)- where he was treated for suspected anaplasmosis. Patient states he has 2 dogs and they sleep in the bed with him. Patient also had an elevated D- Dimer, drawn by EMD. He had bilateral duplex ultrasounds performed of his lower extremities that were negative for DVT. Will obtain CTA of the chest to rule out PE as he is tachycardic and Hypoxic. His BNP is not markedly elevated and his Troponin I is negative. ECG reviewed without acute dynamic process. Patient himself is a poor historian and can't provide much useful information on how he is feeling. He does have disorganized breathing with sleeping and decrease of his SPO2 to 84-88% and will wake himself up, and SPo2 will increase to 94-95% on 2LNC. His compliance with his BiPAP machine in Oct was ~78% with an average AHI of 27.5. His CXR reveals low inspiratory volume and no acute process. His COVID and influenza PCR are negative. Patient will be admitted for IV hydration secondary to increase in BUN and TUBE PULLER as well as CTA, pulmonary toileting with ICS, continue use of his BIPAP, follow his WBC and Platlet counts. Additional inflammatory and infectious biomarkers sent. I have attempted to obtain further information from the x2 attempts with calls directly going to unidentified voice mail. Also attempted to call other numbers listed as primary contact with no success. Patient was full code on admission in February and will continue with Full Code status. Allergies Allergy/AdvReac Type Severity Reaction Status Date / Time amoxicillin Allergy Unknown Unknown Verified 10/15/21 15:02 Home Medications Medication Instructions Recorded Confirmed Type cholecalciferol (vitamin D3) 25 2,000 units PO HS cap 08/11/19 10/15/21 History mcg (1,000 unit) capsule CPAP Machine #1 ea 10/28/19 10/09/21 Rx aspirin 81 mg tablet,delayed 81 mg PO QAM@0800 #30 tab 02/28/20 10/15/21 Rx release thiamine HCl (vitamin B1) 100 mg 100 mg PO QAM@0800 #30 tab 02/28/20 10/15/21 Rx tablet (Vitamin B-1) cyanocobalamin (vitamin B-12) 2,500 mcg SUBLINGUAL DAILY tab 07/17/20 10/15/21 History 2,500 mcg sublingual tablet (Vitamin B-12) flash glucose sensor (FreeStyle #2 ea 03/05/21 10/09/21 Rx Yodit 2 Sensor) atorvastatin 40 mg tablet 40 mg PO HS #90 tab 03/13/21 10/15/21 Rx memantine 10 mg tablet 10 mg PO BID tab 04/03/21 10/15/21 History lisinopril 20 mg tablet 20 mg PO BID #180 tab 04/17/21 10/15/21 Rx acetaminophen 500 mg tablet 1,000 mg PO HS PRN tab 05/30/21 10/15/21 History (Tylenol Extra Strength) insulin glargine 100 unit/mL (3 45 unit SQ DAILY ml 05/30/21 10/15/21 History mL) subcutaneous pen (Basaglar KwikPen U-100 Insulin) pen needle, diabetic 31 gauge x #100 ea 06/05/21 10/09/21 Rx 5/16" (Easy Comfort Pen [place]) furosemide 40 mg tablet 40 mg PO BID #180 tab 08/03/21 10/15/21 Rx citalopram 40 mg tablet 40 mg PO DAILY #90 tab 08/10/21 10/15/21 Rx methocarbamol 500 mg tablet 500 mg PO QPM #90 tab 08/15/21 10/15/21 Rx carvedilol 6.25 mg tablet 6.25 mg PO BID #180 tab 10/09/21 10/15/21 Rx psyllium husk 0.52 gram capsule 0.52 g PO DAILY #30 cap 10/11/21 10/15/21 Rx (Metamucil) tamsulosin 0.4 mg capsule 0.8 mg PO .at bedtime #180 cap 10/11/21 10/15/21 Rx citalopram 10 mg tablet 10 mg PO DAILY 10/15/21 10/15/21 History donepezil 10 mg tablet 10 mg PO DAILY 10/15/21 10/15/21 History Past Med/Surg History Medical History Abnormal finding on CT scan Acute kidney injury Anxiety hx Background diabetic retinopathy associated with type 2 diabetes mellitus Chronic kidney disease, stage 3a 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 Cognitive impairment Coronary artery disease stent x1 (~2004), CABG x5 (2013) Depression Diabetes type 2, uncontrolled Diabetic nephropathy associated with type 2 diabetes mellitus Diabetic peripheral neuropathy associated with type 2 diabetes mellitus Dysesthesia Dyslipidemia History of blood transfusion post-op CABG History of colon polyps History of Mohs micrographic surgery for skin cancer 05/2020 History of radiation therapy 05/2020 Hypertension Obesity LENO (obstructive sleep apnea) CPAP Squamous cell carcinoma, scalp/neck Umbilical hernia Vitamin B 12 deficiency Vitamin D deficiency Surgical History H/O umbilical hernia repair (12/30/19) Incarcerated Umbilical Hernia Repair Dr. Jeong 12-30-19 History of cardiac cath x3-4 caths- stent x 1 (~2004) History of colonoscopy with polypectomy History of discectomy Lumbar History of open heart surgery x5 vessels (2013) S/P eye surgery to repair a amblyopia (Lazy eye) Left eye S/P hip replacement Left MARTHA: 02/28/12: SAB at L4-L5 at [facility] S/P wisdom tooth extraction Family History Father , age 47 of an [place] Heart disease Myocardial infarction Mother , age 73 of ALS ALS (amyotrophic lateral sclerosis) Cancer Brother Pancreatic cancer Grandmother Diabetes Other No family history of adverse response to anesthesia Denies family history of Ovarian cancer Prostate cancer Breast cancer Colorectal cancer Social History Smoking Status: Unknown if ever smoked Second Hand Exposure: No; Hx Alcohol Use: No Hx Substance Use: No Preferred Language: Gibralt[place] Communication Ability: Impaired Visual Impairment: Diminished Hearing Ability: Use of Hearing Aid Scrap Charger Required: No Beliefs That Will Affect Care: None marital status: Current Living Situation: Spouse current occupational status: retired How many Children do You have: 3 Other Information That Helps Us Care for You: No Feels Safe at Home: Yes Safety Concerns: Feels Safe At This Time Childhood Exposure to Second-Hand Smoke: Yes caffeine: Yes (tea and diet soda) during the past year weight has: remained stable Dental Care, Regularly: Yes Physical Activity Frequency: 5-6 Times per Week Physical Activity Frequency Comment: works in yard and walks dogs daily Seatbelt Use: always Sunscreen Use: Yes Do you think of yourself as: straight/heterosexual Assistive Devices: CPAP and Glasses Review of Systems Review of Systems: REVIEW OF SYSTEMS: Unable to obtain secondary to patient poor historical recall Physical Exam Physical Exam: PHYSICAL EXAM: General: awake, alert, no apparent distress Head: Normocephalic, atraumatic ENT: PERRLA, EOMI, no pharyngeal exudate, mucous membranes dry Neuro: AAO x 2, speech clear but answers everything very vaguely, strength intact bilaterally 5/5, sensation intact and equal all extremities and dermatomes, no pronator drift Chest: equal rise and fall of the chest, breathing consistent with LENO, decreased air movement in the bases, no cough, no sputum production Cardiac: Regular rate and rhythm, telemetry reviewed, skin warm dry, cap refill <3 seconds, peripheral pulses +2 no JVD, no murmur, no JVD, no edema GI: NABS x 4 quadrants, soft, nontender to palpation, no rebound, guarding or tenderness : Spontaneously voiding, no pain, no CVA tenderness, Extremities: Normal inspection, no peripheral edema or erythema, calfs nontender to palpation Skin: some scratching and scabs noted to abdomen and left lower leg. Results & Data Results & Data ([facility]) Vital Signs (Past 12 Hours) Vital Signs Temp Pulse Resp BP Pulse Ox 10/15/21 10:10 105 H 23 97 10/15/21 10:00 105 H 28 H 138/81 10/15/21 09:50 104 H 24 95 10/15/21 09:41 104 H 27 H 95 10/15/21 09:37 104 H 24 80 L 10/15/21 09:08 37.5 C 106 H 24 142/86 H 80 L Laboratory Results Abnormal lab results 10/15/21 10/15/21 10/15/21 Range/Units 09:34 09:34 09:34 WBC 3.32 L (4.8-10.8) K/uL Plt Count 126 L (130-400) K/uL MPV 10.7 H (7.4-10.4) fL Lymph # (Auto) 0.43 L (1.2-3.4) K/uL ESR (0-20) mm/hr D-Dimer 3460 H* (0-500) ug/L FEU BUN 31 H (7-18) mg/dl Creatinine 1.93 H (0.6-1.4) mg/dl Glucose 119 H (70-99) mg/dl Globulin 4.1 H (2.5-4.0) gm/dl Albumin/Globulin Ratio 0.8 L (0.9-2) Urine Protein (Negative) Urine Glucose (UA) (Negative) Urine Ketones (Negative) Urine Blood (Negative) U Hyaline Cast (Auto) (0-5) /lpf U Epithel Cells (Auto) (0-5) /lpf 10/15/21 10/15/21 Range/Units 09:34 10:10 WBC (4.8-10.8) K/uL Plt Count (130-400) K/uL MPV (7.4-10.4) fL Lymph # (Auto) (1.2-3.4) K/uL ESR 26 H (0-20) mm/hr D-Dimer (0-500) ug/L FEU BUN (7-18) mg/dl Creatinine (0.6-1.4) mg/dl Glucose (70-99) mg/dl Globulin (2.5-4.0) gm/dl Albumin/Globulin Ratio (0.9-2) Urine Protein 2+ H (Negative) Urine Glucose (UA) 3+ H (Negative) Urine Ketones Trace H (Negative) Urine Blood Trace H (Negative) U Hyaline Cast (Auto) 5-10 H (0-5) /lpf U Epithel Cells (Auto) 10-20 H (0-5) /lpf Diagnostic Findings Chest X-Ray 10/15/21 09:37 XR chest 1V portable CLINICAL HISTORY: weakness. Evaluate cardiopulmonary status COMPARISON STUDY: 10/03/2021 TECHNIQUE: 1 view of the chest FINDINGS: Single frontal view of the chest demonstrates the cardiomediastinal silhouette to be within normal limits. The patient is again status post previous cardio thoracic surgery. There is a decreased inspiratory effort with elevation of the hemidiaphragms and crowding of the bronchovascular markings at the lung bases and centrally. The lungs are clear of alveolar opacities. There is no evidence for pleural effusion. There is no evidence for vascular congestion. There is no acute osseous pathology. IMPRESSION: Compared to the previous study, there is a decreased inspiratory effort with otherwise no acute chest disease. ACT 112: Negative or not required by law. Electronically signed by: Go Man M.D. 10/15/2021 11:02 AM Venous Doppler Study 10/15/21 10:20 BILATERAL LOWER EXTREMITY VENOUS DOPPLER HISTORY: Lower extremity swelling. COMPARISON STUDY: None. FINDINGS: There is normal compressibility, flow, and augmentation within the bilateral lower extremity deep venous systems. IMPRESSION: No DVT within the right or left lower extremity. ACT 112: Negative or not required by law. Electronically signed by: Karthikeyan Guerrero M.D. 10/15/2021 11:46 AM Medications Administered Home Medications cholecalciferol (vitamin D3) 25 mcg (1,000 unit) capsule 2,000 units PO HS cap 08/11/19 [History Confirmed 10/09/21] CPAP Machine #1 ea 10/28/19 [Rx Confirmed 10/09/21] aspirin 81 mg tablet,delayed release 81 mg PO QAM@0800 #30 tab 02/28/20 [Rx Confirmed 10/09/21] thiamine HCl (vitamin B1) 100 mg tablet (Vitamin B-1) 100 mg PO QAM@0800 #30 tab 02/28/20 [Rx Confirmed 10/09/21] cyanocobalamin (vitamin B-12) 2,500 mcg sublingual tablet (Vitamin B-12) 2,500 mcg SUBLINGUAL DAILY tab 07/17/20 [History Confirmed 10/09/21] flash glucose sensor (FreeStyle Yodit 2 Sensor) #2 ea 03/05/21 [Rx Confirmed 10/09/21] atorvastatin 40 mg tablet 40 mg PO HS #90 tab 03/13/21 [Rx Confirmed 10/09/21] memantine 10 mg tablet 10 mg PO BID tab 04/03/21 [History Confirmed 10/09/21] amlodipine 2.5 mg tablet 2.5 mg PO DAILY #90 tab 04/04/21 [Rx Confirmed 10/09/21] empagliflozin 10 mg tablet 10 mg PO QAM tab 04/05/21 [History Confirmed 10/09/21] lisinopril 20 mg tablet 20 mg PO BID #180 tab 04/17/21 [Rx Confirmed 10/09/21] acetaminophen 500 mg tablet (Tylenol Extra Strength) 1,000 mg PO HS PRN tab 05/30/21 [History Confirmed 10/09/21] insulin glargine 100 unit/mL (3 mL) subcutaneous pen (Basaglar KwikPen U-100 Insulin) 45 unit SQ DAILY ml 05/30/21 [History Confirmed 10/09/21] pen needle, diabetic 31 gauge x 5/16" (Easy Comfort Pen [place]) #100 ea 06/05/21 [Rx Confirmed 10/09/21] furosemide 40 mg tablet 40 mg PO BID #180 tab 08/03/21 [Rx Confirmed 10/09/21] citalopram 40 mg tablet 40 mg PO DAILY #90 tab 08/10/21 [Rx Confirmed 10/09/21] methocarbamol 500 mg tablet 500 mg PO QPM #90 tab 08/15/21 [Rx Confirmed 10/09/21] carvedilol 6.25 mg tablet 6.25 mg PO BID #180 tab 10/09/21 [Rx Confirmed 10/09/21] psyllium husk 0.52 gram capsule (Metamucil) 0.52 g PO DAILY #30 cap 10/11/21 [Rx Confirmed 10/11/21] tamsulosin 0.4 mg capsule 0.8 mg PO .at bedtime #180 cap 10/11/21 [Rx] donepezil 10 mg tablet 10 mg PO DAILY 10/15/21 [History Confirmed 10/15/21] Active Medications Sodium Chloride (Nss 1000ml) 1,000 mls @ 125 mls/hr IV .Q8H [place] Stop: 10/15/21 17:44 Last Admin: 10/15/21 09:44 Dose: 125 mls/hr Documented by: Lactated Ringer's (Lr) 1,000 mls @ 100 mls/hr IV .Q10H [place] Stop: 11/14/21 11:44 Last Admin: 10/15/21 11:54 Dose: 100 mls/hr Documented by: ECG Additional Comments: Sinus tachycardia Left axis deviation Non-specific intra-ventricular conduction delay Nonspecific ST abnormality Abnormal ECG When compared with ECG of 25-FEB-2020 15:26, Vent. rate has increased BY 40 BPM Criteria for Inferior infarct are no longer Present Nonspecific T wave abnormality no longer evident in Inferior leads QT has lengthened Code Status & VTE Plan Code Status CODE: FULL VTE: heparin 5000 u subq TID Supervising Physician Co-Signing Physician Notes Patient was seen and examined at bedside. Patient is demented and history obtained through chart review after multiple unsuccessful attempts to contact family. During face to face encounter, obtained a physical examination. Discussed with LAZARO Fairchild plan of care. Patient will be admitted for generalized weakness. I agree with above plan. Will obtain PT/OT. PG Care Time/CCT Total # of Minutes Spent Total Time Spent with Patient: Total time spent is greater than 50% in coordination of care (as documented) at patient's floor/unit and/or counseling patient: Coding Level of Care Code 52861 Initial Inpt Care Lvl 3 Diagnoses Hypoxia R09.02 Generalized weakness R53.1 TERESA (acute kidney injury) N17.9 Dementia F03.90 Diabetes type 2, uncontrolled E11.65 Diabetic nephropathy associated with type 2 diabetes mellitus E11.21 Hypertension I10 Coronary artery disease I25.10 Dyslipidemia E78.5 Lumbar stenosis M48.061 Lumbar radicular pain M54.16 LENO (obstructive sleep apnea) G47.33 Leukopenia D72.819
[2021-10-15 12:56] LABS: Fibrinogen 204 mg/dl (184-400)
[2021-10-15 13:27] LABS: Procalcitonin 0.44 ng/ml (0-0.5)
[2021-10-15 13:36] LABS: Lyme Ab IgG w/WB Rflx Negative (Negative); Lyme Ab IgM w/WB Rflx Negative (Negative)
--- NOTE | 2021-10-15 13:49 | Electrocardiogram Report ---
Test Reason : Blood Pressure : / mmHG Vent. Rate : 105 BPM Atrial Rate : 105 BPM P-R Int : 190 ms QRS Dur : 122 ms QT Int : 358 ms P-R-T Axes : 006 -66 070 degrees QTc Int : 473 ms Sinus tachycardia Left axis deviation Non-specific intra-ventricular conduction delay Nonspecific ST abnormality Abnormal ECG When compared with ECG of 25-FEB-2020 15:26, Vent. rate has increased BY 40 BPM Criteria for Inferior infarct are no longer Present Nonspecific T wave abnormality no longer evident in Inferior leads QT has lengthened Confirmed by Henri Blair ([id number]) on 10/15/2021 1:48:58 PM Referred By: SELF Confirmed By:Alfredo Blair
[2021-10-15] MEDS ORDERED: GLUCOSE 40% GEL 15 GM TUBE PO PRN (14:31)
[2021-10-15] MEDS ORDERED: CARBOHYDRATES FOR HYPOGLYCEMIA PO PRN (14:31)
[2021-10-15] MEDS ORDERED: POLYETHYLENE (MIRALAX) 17 GM PACK PO PRN (14:31)
[2021-10-15] MEDS ORDERED: MAGNESIUM HYDROXIDE SUSP 30 ML UDC PO PRN (14:31)
[2021-10-15] MEDS ORDERED: DEXTROSE 50% 50 ML SYRINGE IV PRN (14:31)
[2021-10-15] MEDS ORDERED: GLUCAGON FOR INJ 1 MG VIAL SQ PRN (14:31)
[2021-10-15] MEDS ORDERED: GLUCOSE 10 TABS/TUBE PO PRN (14:31)
[2021-10-15] MEDS ORDERED: OPTIRAY 320 125ml IV ONE (14:42)
--- NOTE | 2021-10-15 14:59 | CT Scan Report ---
CT ANGIOGRAM OF THE CHEST CLINICAL HISTORY: Generalized weakness. Lower extremity edema. COMPARISON STUDY: Chest x-ray dated 10/15/2021. Chest CT dated 02/24/2020. TECHNIQUE: Following the IV administration of 117 cc of Optiray 320, CT angiogram of the chest was pe rformed from the upper abdomen to the thoracic inlet utilizing the pulmonary embolus protocol. Images are reviewed in the axial, sagittal, and coronal planes. 3-D MIPS images are created and assessed. I V contrast was administered without complication. A dose lowering technique was utilized adhering to the principles of ALARA. The examination is severely compromised by motion artifact. CT DOSE: 890.47 mGy.cm FINDINGS: Thyroid: Imaged portions of the thyroid gland are normal in size and attenuation. Thoracic aorta: The thoracic aorta is normal in caliber and demonstrates standard 3-vessel arch anato my. No dissection is seen. Pulmonary vasculature: The pulmonary trunk is normal in caliber. There are no filling defects identif ied in main pulmonary arteries to suggest pulmonary embolus. Heart: The patient is status post midline sternotomy. The heart is enlarged and without pericardial e ffusion. The coronary arteries are densely calcified. Lungs and pleural spaces: Evaluation of the lung parenchyma is severely compromised by motion artifac t. No airspace consolidation or pleural effusion is identified. The trachea and central airways are g rossly clear. An 8 mm ovoid nodule in the right lower lobe on image #139 is likely unchanged. Note th at assessment of pulmonary nodules is severely degraded by motion artifact. Mediastinum: There is no mediastinal lymphadenopathy. Kellie: Clear. Axillae: There is no axillary lymphadenopathy. Upper abdomen: Partially visualized upper abdominal viscera is grossly unremarkable. Skeletal structures: The skeletal structures are osteopenic. Advanced arthritic change is seen in the shoulders. Spondylotic change is noted in the thoracic spine. No lytic or blastic bony lesions are s een. IMPRESSION: 1. Severely motion compromised examination. 2. There is no evidence of pulmonary embolus in the main pulmonary arteries. The lobar, segmental, an d subsegmental branches cannot be evaluated and small pulmonary emboli would be impossible to exclude . 3. No airspace consolidation or pleural effusion is identified. 4. Cardiomegaly. 5. An 8 mm right lower lobe pulmonary nodule is likely unchanged but not well evaluated due to motion artifact. 6. Additional findings as above. ACT 112: Negative or not required by law. Electronically signed by: Adonis Lyons M.D. 10/15/2021 2:57 PM
[2021-10-15] MEDS: INSULIN ASPART PER UNIT SC SCH ×2 (17:14→23:48)
[2021-10-15] MEDS ORDERED: amLODIPine BESYLATE 5 MG TAB PO ONE (19:56)
[2021-10-15] MEDS: ATORVASTATIN 40 MG TAB PO SCH (23:45)
[2021-10-15] MEDS: carvediloL 6.25 MG TAB PO SCH (23:46)
[2021-10-15] MEDS: TAMSULOSIN HCL 0.4 MG CAP PO SCH (23:48)
[2021-10-15] MEDS: HEPARIN SOD 5,000 UNIT/0.5 ML VIAL SQ SCH (23:48)
[2021-10-15] MEDS: METHOCARBAMOL 500 MG TABLET PO SCH (23:50)
[2021-10-15] MEDS: MEMANTINE HCL 10 MG TAB PO SCH (23:51)
[2021-10-16] MEDS: ACETAMINOPHEN 325 MG TAB PO PRN ×2 (02:46→20:11)
[2021-10-16 07:12] LABS: Hematocrit (blood only) 45.3 % (42-52); Hemoglobin 13.9 g/dL (14.0-18.0); Mean Corpuscular Hgb Conc 30.7 g/dL (32-36); Mean Corpuscular Volume 91.3 fL (80-100); RDW Coefficient of Variation 13.9 % (11.5-14.5); RDW Standard Deviation 46.9 fL (36.4-46.3); Red Blood Count 4.96 M/uL (4.7-6.1); White Blood Count 2.93 K/uL (4.8-10.8)
[2021-10-16 07:37] LABS: Basophils # (auto) 0.02 K/uL (0-0.2); Basophils % (auto) 0.7 %; Immature Granulocytes # (auto) 0.01 K/uL (0.00-0.02); Immature Granulocytes % (auto) 0.3 %; Lymphocytes # (auto) 0.59 K/uL (1.2-3.4); Lymphocytes % (auto) 20.1 %; Mean Platelet Volume 10.8 fL (7.4-10.4); Monocytes # (auto) 0.27 K/uL (0.11-0.59); Monocytes % (auto) 9.2 %; Neutrophils # (auto) 2.04 K/uL (1.4-6.5); Neutrophils % (auto) 69.7 %; Platelet Count 96 K/uL (130-400); Platelet Estimate Decreased (Normal)
[2021-10-16 07:44] LABS: BUN Creatinine Ratio 15.8 (10-20); Blood Urea Nitrogen 34 mg/dl (7-18); Calcium 8.7 mg/dl (8.5-10.1); Carbon Dioxide 29 mmol/L (21-32); Chloride 109 mmol/L (98-107); Est GFR (African American) 33.1 ml/min; Est GFR (Non-African American) 28.6 ml/min; Glucose 129 mg/dl (70-99); Magnesium 2.3 mg/dl (1.8-2.4); Sodium 143 mmol/L (136-145)
[2021-10-16 07:48] LABS: Estimated Average Glucose 237 mg/dl; Hemoglobin A1C 9.9 % (4.5-5.6)
[2021-10-16] MEDS: amLODIPine BESYLATE 5 MG TAB PO SCH (08:11)
[2021-10-16] MEDS: CITALOPRAM 40 MG TAB PO SCH (08:11)
[2021-10-16] MEDS: DONEPEZIL HCL 10 MG TAB PO SCH (08:11)
[2021-10-16] MEDS: THIAMINE HCL 100 MG TAB PO SCH (08:12)
[2021-10-16] MEDS: ASPIRIN 81 MG ECTAB PO SCH (08:12)
[2021-10-16] MEDS: MEMANTINE HCL 10 MG TAB PO SCH ×2 (08:12→21:59)
[2021-10-16] MEDS: HEPARIN SOD 5,000 UNIT/0.5 ML VIAL SQ SCH ×2 (08:12→21:59)
[2021-10-16] MEDS: INSULIN ASPART PER UNIT SC SCH ×4 (08:16→22:12)
[2021-10-16] MEDS: INSULIN GLARGINE SOLOSTAR 100 UNITS/ML 3 ML PEN SQ SCH (09:21)
[2021-10-16] MEDS: carvediloL 6.25 MG TAB PO SCH ×2 (09:22→21:59)
[2021-10-16] MEDS: LACTATED RINGER'S 1,000 ML IV SCH (13:03)
--- NOTE | 2021-10-16 15:03 | Hospitalist Progress Note ---
Date of Service October 16, 2021 Assessment & Plan (1) Hypoxia: Plan: Hypoxia with poor inspiratory efforts. PE r/o with CTA. Also does not show any pneumonia. Covid/RSV/flu all negative. Procalcitonin & BNP both negative. - Question if this is all due to obesity hypoventillation/LENO. - Continue with his BIPAP PRN and HS. - Will get ABG in the AM after using his BiPap overnight. (2) Generalized weakness: Plan: Reported, patient just states he feels tired - no focal deficits appreciated. Lyme/anaplasmosis/babesiosis all negative (smears). PCR for anaplasmosis/babesiosis pending. As above Covid/RSV/flu all negative. - Likely associated with his TERESA and decrease oral intake - Possibly related to his spinal stenosis. (3) Lumbar stenosis: Plan: Chronic with 10/03/2021 MRI of L-spine was completed which revealed severe central canal stenosis and tethering of the cauda equina as well as a 7mm synovial cyst related to the right facet joint impinging on the central canal at this level. - Continue Tylenol PRN - Consulted ortho spine; aware and will see. (4) Leukopenia: Plan: Anaplasmosis & babesiosis PCR pending. Smears and Lyme negative. - Defer doxycycline (5) TEREAS (acute kidney injury): Plan: TERESA on CKD IIIa. Baseline [employer] 1.4-1.6 has varied over the past years. - Hold Lasix and TAMAR until improved - Renal u/s pending (6) Dementia: Plan: Follows with neurology - dementia worsening. - Continue donepezil 5mg daily (note, this was reduced by PCP on 09/25 due to incontinence) - Continue memantine 10mg PO BID (7) Diabetes type 2, uncontrolled: Plan: A1c was 9.9% this admission. - Hold Jardiance - Continue home basal insulin at reduced dose of 20 units daily - Sliding scale insulin (8) Hypertension: Plan: BP was 100/65 today. BP seems very labile with highs last night. - Continue home carvedilol & amlodipine (9) Coronary artery disease: Plan: No chest pain reported today. - Continue ASA, statin - Hold TAMAR and diuretic until renal function improves (10) Lumbar radicular pain: Plan: As above. (11) LENO (obstructive sleep apnea): Plan: - Continue with BiPAP 16 as needed and HS (12) DVT prophylaxis: Plan: Heparin 5,000 units SQ Q12h Admission and Anticipated Discharge Date Admission Date: October 15, 2021 Subjective Reports back pain today, but otherwise no focal symptoms. Denies pain elsewhere. Denies chest pain or abdominal pain. Denies shortness of breath. Reports no fevers/chills, chest pain, shortness of breath, abdominal pain, nausea, or vomiting. That said, he is a poor historian. When asked about how he's been doing the last few weeks, he just answers "I've been having.... having.... I've been having.... lots of trouble...." He cannot give me any specific symptoms, time frame for his illness or symptoms, cannot specify what "trouble" he's been having. Physical Exam Constitutional: WD/WN, vitals as above + acute distress Eyes: EOM intact bilaterally; no conjunctival abnormality ENMT: external ear and nose normal, oropharynx normal Neck: trachea midline, no thyromegaly normal visual inspection Respiratory: normal respiratory effort, lungs clear to auscultation no respiratory distress Cardiovascular: RRR, no murmur, no edema Gastrointestinal (Abdomen): Inspection/Auscultation: abdomen normal to inspection; abdomen not distended Musculoskeletal: no cyanosis or clubbing, extremities motor strength 5/5 Skin: no rashes, warm and dry Neurologic: moves all extremities and awake Psychiatric: Orientation: alert, oriented to person and cooperative Results & Data Results & Data ([facility]) Vital Signs (Past 12 Hours) Vital Signs Temp Pulse Resp BP BP Pulse Ox 10/16/21 07:08 36.6 C 77 18 100/65 96 10/16/21 04:00 37.4 C 94 H 18 118/66 95 10/16/21 03:22 39.2 C H PG Care Time/CCT Total # of Minutes Spent Total Time Spent with Patient: Total time spent is greater than 50% in coordination of care (as documented) at patient's floor/unit and/or counseling patient: Coding Level of Care Code 59379 Subseq Hosp Care Lvl 3 Diagnoses Hypoxia R09.02 Generalized weakness R53.1 Leukopenia D72.819 TERESA (acute kidney injury) N17.9 Dementia F03.90 Diabetes type 2, uncontrolled E11.65 Hypertension I10 Coronary artery disease I25.10 Lumbar stenosis M48.061 Lumbar radicular pain M54.16 LENO (obstructive sleep apnea) G47.33 DVT prophylaxis Z29.9
--- NOTE | 2021-10-16 16:58 | Ultrasound Report ---
RENAL ULTRASOUND CLINICAL HISTORY: TERESA on CKD COMPARISON STUDY: CT of the abdomen January 17, 2009. Renal ultrasound February 27, 2010. TECHNIQUE: Sonography of the kidneys and the urinary bladder was performed. FINDINGS: The right kidney measures 11.6 cm in maximal dimension and the left measures 12.2 cm. There is no hydronephrosis. Note is made of a 2.8 cm cyst within the midpole of the right kidney. There is a 4.2 cm cyst within the midpole of the left kidney. No renal calculi or solid masses are identified . There is moderate bilateral renal cortical thinning. Morgan balloon within the bladder is noted. Anthony dder is collapsed. IMPRESSION: 1. No hydronephrosis. 2. Moderate bilateral renal cortical thinning. 3. Several renal cysts. ACT 112: Negative or not required by law. Electronically signed by: Will Florez M.D. 10/16/2021 4:56 PM
--- NOTE | 2021-10-16 17:50 | Electrocardiogram Report ---
Test Reason : Blood Pressure : / mmHG Vent. Rate : 082 BPM Atrial Rate : 082 BPM P-R Int : 186 ms QRS Dur : 118 ms QT Int : 404 ms P-R-T Axes : 014 -57 078 degrees QTc Int : 472 ms Normal sinus rhythm Left axis deviation Poor R wave progression, consider anterior AR vs. lead placement vs. LVH Abnormal ECG When compared with ECG of 15-OCT-2021 09:35, Nonspecific T wave abnormality, worse in Anterior leads Confirmed by Henri Blair ([id number]) on 10/16/2021 5:49:48 PM Referred By: REFERRED SELF Confirmed By:Alfredo Blair
[2021-10-16] MEDS: ATORVASTATIN 40 MG TAB PO SCH (21:59)
[2021-10-16] MEDS: METHOCARBAMOL 500 MG TABLET PO SCH (21:59)
[2021-10-16] MEDS: TAMSULOSIN HCL 0.4 MG CAP PO SCH (21:59)
[2021-10-17] MEDS: LACTATED RINGER'S 1,000 ML IV SCH ×2 (03:32→17:22)
[2021-10-17 06:33] LABS: Hematocrit (blood only) 38.4 % (42-52); Hemoglobin 12.2 g/dL (14.0-18.0); Mean Corpuscular Hemoglobin 28.7 pg (25-34); Mean Corpuscular Hgb Conc 31.8 g/dL (32-36); Mean Corpuscular Volume 90.4 fL (80-100); RDW Standard Deviation 46.5 fL (36.4-46.3); Red Blood Count 4.25 M/uL (4.7-6.1); White Blood Count 2.52 K/uL (4.8-10.8)
[2021-10-17 06:36] LABS: Mean Platelet Volume 11.3 fL (7.4-10.4); Platelet Count 76 K/uL (130-400)
[2021-10-17 07:01] LABS: Basophils # (auto) 0.02 K/uL (0-0.2); Basophils % (auto) 0.8 %; Eosinophils # (auto) 0.07 K/uL (0-0.5); Eosinophils % (auto) 2.8 %; Lymphocytes # (auto) 0.64 K/uL (1.2-3.4); Lymphocytes % (auto) 25.4 %; Monocytes # (auto) 0.32 K/uL (0.11-0.59); Monocytes % (auto) 12.7 %; Neutrophils # (auto) 1.47 K/uL (1.4-6.5); Neutrophils % (auto) 58.3 %
[2021-10-17 07:27] LABS: BUN Creatinine Ratio 18.8 (10-20); Blood Urea Nitrogen 37 mg/dl (7-18); Calcium 8.7 mg/dl (8.5-10.1); Carbon Dioxide 29 mmol/L (21-32); Chloride 104 mmol/L (98-107); Est GFR (Non-African American) 31.9 ml/min; Glucose 95 mg/dl (70-99); Magnesium 2.4 mg/dl (1.8-2.4); Potassium 3.4 mmol/L (3.5-5.1); Sodium 138 mmol/L (136-145)
[2021-10-17 07:59] LABS: Allen Test Pos (Pos); Base Excess ABG 2.5 mEq/L (-9-1.8); HCO3 ABG 27 mmol/L (19-24); Oxygen Saturation ABG 96.3 % (90-95); PCO2 ABG 40 mmHg (35-46); PO2 ABG 79 mmHg (80-95); pH ABG 7.45 (7.35-7.45)
[2021-10-17] MEDS: MEMANTINE HCL 10 MG TAB PO SCH ×2 (09:02→21:35)
[2021-10-17] MEDS: amLODIPine BESYLATE 5 MG TAB PO SCH (09:02)
[2021-10-17] MEDS: carvediloL 6.25 MG TAB PO SCH ×2 (09:03→21:35)
[2021-10-17] MEDS: THIAMINE HCL 100 MG TAB PO SCH (09:03)
[2021-10-17] MEDS: CITALOPRAM 40 MG TAB PO SCH (09:03)
[2021-10-17] MEDS: DONEPEZIL HCL 10 MG TAB PO SCH (09:03)
[2021-10-17] MEDS: ASPIRIN 81 MG ECTAB PO SCH (09:04)
[2021-10-17] MEDS: HEPARIN SOD 5,000 UNIT/0.5 ML VIAL SQ SCH ×2 (09:04→21:35)
[2021-10-17] MEDS: INSULIN GLARGINE SOLOSTAR 100 UNITS/ML 3 ML PEN SQ SCH (09:06)
[2021-10-17] MEDS: INSULIN ASPART PER UNIT SC SCH ×4 (09:13→23:10)
--- NOTE | 2021-10-17 12:47 | Hospitalist Progress Note ---
Date of Service October 17, 2021 Assessment & Plan (1) Hypoxia: Plan: Hypoxia with poor inspiratory efforts. PE r/o with CTA. Also does not show any pneumonia. Covid/RSV/flu all negative. Procalcitonin & BNP both negative. - Question if this is all due to obesity hypoventilation/LENO. - ABG on 10/17 showed normal acid/base, no hypercapnia, and hypoxemia. (2) Generalized weakness: Plan: Reported, patient just states he feels tired - no focal deficits appreciated. Lyme/anaplasmosis/babesiosis all negative (smears). PCR for anaplasmosis/babesiosis pending. As above Covid/RSV/flu all negative. - Possibly related to his spinal stenosis. -> Discussed today with Dr. Larsen who will go see him. Possible re-imaging vs. surgery vs. wait until fevers resolve. (3) Lumbar stenosis: Plan: Chronic with 10/03/2021 MRI of L-spine was completed which revealed severe central canal stenosis and tethering of the cauda equina as well as a 7mm synovial cyst related to the right facet joint impinging on the central canal at this level. - Continue Tylenol PRN - Consulted ortho spine; aware and will see. (4) Leukopenia: Plan: Anaplasmosis & babesiosis PCR pending. Smears and Lyme negative. - Defer doxycycline (5) TERESA (acute kidney injury): Plan: TERESA on CKD IIIa. Baseline [employer] 1.4-1.6 has varied over the past years. - Hold Lasix and TAMAR until improved - Renal u/s on 10/16 showed no hydronephrosis and cortical thinning. -> Cr down to 1.99 today. (6) Dementia: Plan: Follows with neurology - dementia worsening. - Continue donepezil 5mg daily (note, this was reduced by PCP on 09/25 due to incontinence) - Continue memantine 10mg PO BID (7) Diabetes type 2, uncontrolled: Plan: A1c was 9.9% this admission. - Hold Jardiance - Continue home basal insulin at reduced dose of 20 units daily - Sliding scale insulin (8) Hypertension: Plan: BP was 150/65 today. BP seems very labile with highs last night. - Continue home carvedilol & amlodipine (9) Coronary artery disease: Plan: No chest pain reported today. - Continue ASA, statin - Hold TAMAR and diuretic until renal function improves (10) Lumbar radicular pain: Plan: As above. (11) LENO (obstructive sleep apnea): Plan: - Continue with BiPAP / as needed and HS (12) DVT prophylaxis: Plan: Heparin 5,000 units SQ Q12h Admission and Anticipated Discharge Date Admission Date: October 15, 2021 Subjective Feeling ok today. Some back pain. Reports no fevers/chills, chest pain, shortness of breath, abdominal pain, nausea, or vomiting. Physical Exam Constitutional: WD/WN, vitals as above Eyes: EOM intact bilaterally; no conjunctival abnormality ENMT: external ear and nose normal, oropharynx normal Neck: trachea midline, no thyromegaly normal visual inspection Respiratory: normal respiratory effort, lungs clear to auscultation no respiratory distress Cardiovascular: RRR, no murmur, no edema Gastrointestinal (Abdomen): Inspection/Auscultation: abdomen normal to inspection; abdomen not distended Musculoskeletal: no cyanosis or clubbing, extremities motor strength 5/5 Skin: no rashes, warm and dry Neurologic: moves all extremities and awake Psychiatric: Orientation: alert, oriented to person and cooperative Results & Data Results & Data ([facility]) Vital Signs (Past 12 Hours) Vital Signs Temp Pulse Pulse Resp BP BP Pulse Ox 10/17/21 11:45 37.7 C H 69 20 148/74 H 92 10/17/21 11:37 68 10/17/21 07:53 36.9 C 67 16 162/80 H 98 10/17/21 05:00 36.8 C 66 16 174/71 H 96 10/17/21 01:20 37.2 C 10/17/21 00:58 67 PG Care Time/CCT Total # of Minutes Spent Total Time Spent with Patient: Total time spent is greater than 50% in coordination of care (as documented) at patient's floor/unit and/or counseling patient: Coding Level of Care Code 57082 Subseq Hosp Care Lvl 2 Diagnoses Hypoxia R09.02 Generalized weakness R53.1 Lumbar stenosis M48.061 Leukopenia D72.819 TERESA (acute kidney injury) N17.9 Dementia F03.90 Diabetes type 2, uncontrolled E11.65 Hypertension I10 Coronary artery disease I25.10 Lumbar radicular pain M54.16 LENO (obstructive sleep apnea) G47.33 DVT prophylaxis Z29.9
--- NOTE | 2021-10-17 13:09 | XRay Report ---
XR chest 1V portable CLINICAL HISTORY: Fevers. COMPARISON STUDY: 10/15/2021 TECHNIQUE: 1 view of the chest FINDINGS: Single frontal view of the chest demonstrates the heart to again be enlarged status post previous car diothoracic surgery. There is again a decreased inspiratory effort with elevation of the hemidiaphrag ms and crowding of the bronchovascular markings at the lung bases and centrally. Minimal left basilar atelectasis is now present. No confluent alveolar opacities are seen. There is no evidence for pleur al effusion. There is no evidence for vascular congestion. There is no acute osseous pathology. IMPRESSION: There is again a decreased inspiratory effort with interval development of left basilar a telectasis. Otherwise no acute chest disease. ACT 112: Negative or not required by law. Electronically signed by: Go Man M.D. 10/17/2021 1:08 PM
--- NOTE | 2021-10-17 13:50 | Orthopedic Consultation ---
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 Plan at this time and lungs kady with this patient his son and his regarding his clinical presentation treatment options. He certainly has severe spinal stenosis would require a revision decompression fusion L3-L4 L4-L5. This is a multi hour procedure. He does have multiple medical concerns regarding surgical invention. This time I do not appreciate a need for emergent surgery. Be okay to follow him up in my office and allow the family time to consider surgery and whether it is a reasonable option. History of Present Illness Reason for Consultation: Back and bilateral leg pain Attending Physician: Alfred Nagy MD History of Present Illness Is a very pleasant 76-year-old male who presents with decline in status. He struggles at home with prolonged walking. I did have discussion with both his son and his regarding his limitations. It does appear that he is quite a bit of back pain with leg weakness on occasion. He limits his activities. He also was noted to have decline in mental status with advanced dementia. There is been some concern regarding urinary and bowel incontinence. This has been going on for some time. Patient at this time denies any numbness or tingling legs. Denies any leg pain. States his back pain is controlled controlled. Allergies Allergy/AdvReac Type Severity Reaction Status Date / Time amoxicillin Allergy Unknown Unknown Verified 10/15/21 15:02 Home Medications Medication Instructions Recorded Confirmed Type cholecalciferol (vitamin D3) 25 2,000 units PO HS cap 08/11/19 10/15/21 History mcg (1,000 unit) capsule CPAP Machine #1 ea 10/28/19 10/09/21 Rx aspirin 81 mg tablet,delayed 81 mg PO QAM@0800 #30 tab 02/28/20 10/15/21 Rx release thiamine HCl (vitamin B1) 100 mg 100 mg PO QAM@0800 #30 tab 02/28/20 10/15/21 Rx tablet (Vitamin B-1) cyanocobalamin (vitamin B-12) 2,500 mcg SUBLINGUAL DAILY tab 07/17/20 10/15/21 History 2,500 mcg sublingual tablet (Vitamin B-12) flash glucose sensor (FreeStyle #2 ea 03/05/21 10/09/21 Rx Yodit 2 Sensor) atorvastatin 40 mg tablet 40 mg PO HS #90 tab 03/13/21 10/15/21 Rx memantine 10 mg tablet 10 mg PO BID tab 04/03/21 10/15/21 History lisinopril 20 mg tablet 20 mg PO BID #180 tab 04/17/21 10/15/21 Rx acetaminophen 500 mg tablet 1,000 mg PO HS PRN tab 05/30/21 10/15/21 History (Tylenol Extra Strength) insulin glargine 100 unit/mL (3 45 unit SQ DAILY ml 05/30/21 10/15/21 History mL) subcutaneous pen (Basaglar KwikPen U-100 Insulin) pen needle, diabetic 31 gauge x #100 ea 06/05/21 10/09/21 Rx 5/16" (Easy Comfort [place]) furosemide 40 mg tablet 40 mg PO BID #180 tab 08/03/21 10/15/21 Rx citalopram 40 mg tablet 40 mg PO DAILY #90 tab 08/10/21 10/15/21 Rx methocarbamol 500 mg tablet 500 mg PO QPM #90 tab 08/15/21 10/15/21 Rx carvedilol 6.25 mg tablet 6.25 mg PO BID #180 tab 10/09/21 10/15/21 Rx psyllium husk 0.52 gram capsule 0.52 g PO DAILY #30 cap 10/11/21 10/15/21 Rx (Metamucil) tamsulosin 0.4 mg capsule 0.8 mg PO .at bedtime #180 cap 10/11/21 10/15/21 Rx citalopram 10 mg tablet 10 mg PO DAILY 10/15/21 10/15/21 History donepezil 10 mg tablet 10 mg PO DAILY 10/15/21 10/15/21 History Patient History Medical History Abnormal finding on CT scan Acute kidney injury Anxiety hx Background diabetic retinopathy associated with type 2 diabetes mellitus Chronic kidney disease, stage 3a 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 Cognitive impairment Coronary artery disease stent x1 (~2004), CABG x5 (2013) Depression Diabetes type 2, uncontrolled Diabetic nephropathy associated with type 2 diabetes mellitus Diabetic peripheral neuropathy associated with type 2 diabetes mellitus Dysesthesia Dyslipidemia History of blood transfusion post-op CABG History of colon polyps History of Mohs micrographic surgery for skin cancer 05/2020 History of radiation therapy 05/2020 Hypertension Obesity LENO (obstructive sleep apnea) CPAP Squamous cell carcinoma, scalp/neck Umbilical hernia Vitamin B 12 deficiency Vitamin D deficiency Surgical History H/O umbilical hernia repair (12/30/19) Incarcerated Umbilical Hernia Repair Dr. Jeong 12-30-19 History of cardiac cath x3-4 caths- stent x 1 (~2004) History of colonoscopy with polypectomy History of discectomy Lumbar History of open heart surgery x5 vessels (2013) S/P eye surgery to repair a amblyopia (Lazy eye) Left eye S/P hip replacement Left MARTHA: 02/28/12: SAB at L4-L5 at [facility] S/P wisdom tooth extraction Family History Father , age 47 of an [facility] Heart disease Myocardial infarction Mother , age 73 of ALS ALS (amyotrophic lateral sclerosis) Cancer Brother Pancreatic cancer Grandmother Diabetes Other No family history of adverse response to anesthesia Denies family history of Ovarian cancer Prostate cancer Breast cancer Colorectal cancer Social History Smoking Status: Unknown if ever smoked Second Hand Exposure: No; Hx Alcohol Use: No Hx Substance Use: No Preferred Language: Swazi Communication Ability: Impaired Visual Impairment: Diminished Hearing Ability: Use of Hearing Aid Mooner Required: No Beliefs That Will Affect Care: None marital status: Current Living Situation: Spouse current occupational status: retired How many Children do You have: 3 Feels Safe at Home: Yes Childhood Exposure to Second-Hand Smoke: Yes caffeine: Yes (tea and diet soda) during the past year weight has: remained stable Dental Care, Regularly: Yes Physical Activity Frequency: 5-6 Times per Week Physical Activity Frequency Comment: works in yard and walks dogs daily Seatbelt Use: always Sunscreen Use: Yes Do you think of yourself as: straight/heterosexual Assistive Devices: Oxygen - Continuous Physical Exam Physical Exam: On exam patient states he has full sensation to cold and light touch to bilateral extremities. He is +4-5 plantar flexion dorsiflexion quadriceps. Is able to kick both feet up off of the bed. He was able to get out of bed on his own and stand on his own. He is well-healed lumbar incision. No pain to palpation lumbar musculature. Results & Data ([facility]) Vital Signs (Past 12 Hours) Vital Signs Temp Pulse Pulse Resp BP BP Pulse Ox 10/17/21 11:45 37.7 C H 69 20 148/74 H 92 10/17/21 11:37 68 10/17/21 07:53 36.9 C 67 16 162/80 H 98 10/17/21 05:00 36.8 C 66 16 174/71 H 96
[2021-10-17 16:05] LABS: Influenza A virus by PCR Negative (Neg); Influenza B virus by PCR Negative (Neg); RSV by PCR Negative (Neg); SARS CoV2 RNA(COVID-19) InHosp NEGATIVE (Negative)
[2021-10-17 18:39] LABS: Appearance Urine Cloudy (Clear); Bilirubin Urine Negative (Negative); Blood Urine 3+ (Negative); Color Urine Brown; Glucose Urine UA 1+ (Negative); Ketones Urine Negative (Negative); Leukocyte Esterase Urine Negative (Negative); Nitrite Urine Negative (Negative); Protein Urine 2+ (Negative); Specific Gravity Urine 1.015 (1.000-1.030); Urobilinogen Urine Negative (Negative); pH Urine 5.5 (4.5-7.5)
[2021-10-17 18:57] LABS: Bacteria Urine Negative (Negative); Epithelial Cell Urine 0-5 /lpf (0-5); Hyaline Casts Urine 0-5 /lpf (0-5); RBC Urine >30 /hpf (0-4); WBC Urine 0-5 /hpf (0-5)
[2021-10-17 19:03] LABS: Babesia microti DNA Not Detected (Not Detected)
[2021-10-17] MEDS: TAMSULOSIN HCL 0.4 MG CAP PO SCH (21:34)
[2021-10-17] MEDS: ATORVASTATIN 40 MG TAB PO SCH (21:35)
[2021-10-17] MEDS: METHOCARBAMOL 500 MG TABLET PO SCH (21:35)
[2021-10-18] MEDS: LACTATED RINGER'S 1,000 ML IV SCH (06:24)
[2021-10-18 07:10] LABS: Hematocrit (blood only) 35.4 % (42-52); Hemoglobin 11.4 g/dL (14.0-18.0); Mean Corpuscular Hemoglobin 28.4 pg (25-34); Mean Corpuscular Hgb Conc 32.2 g/dL (32-36); Mean Corpuscular Volume 88.3 fL (80-100); RDW Coefficient of Variation 13.7 % (11.5-14.5); RDW Standard Deviation 44.4 fL (36.4-46.3); Red Blood Count 4.01 M/uL (4.7-6.1); White Blood Count 2.65 K/uL (4.8-10.8)
[2021-10-18 07:13] LABS: Mean Platelet Volume 11.2 fL (7.4-10.4); Platelet Count 72 K/uL (130-400)
[2021-10-18 07:40] LABS: Basophils # (auto) 0.02 K/uL (0-0.2); Basophils % (auto) 0.8 %; Eosinophils # (auto) 0.08 K/uL (0-0.5); Monocytes # (auto) 0.33 K/uL (0.11-0.59); Monocytes % (auto) 12.5 %; Neutrophils # (auto) 1.32 K/uL (1.4-6.5); Neutrophils % (auto) 49.7 %
[2021-10-18 07:48] LABS: Alanine Aminotransferase 43 (12-78); Albumin Level 2.6 gm/dl (3.4-5.0); Aspartate Aminotransferase 41 U/L (15-37); BUN Creatinine Ratio 18.2 (10-20); Blood Urea Nitrogen 29 mg/dl (7-18); Calcium 8.6 mg/dl (8.5-10.1); Carbon Dioxide 29 mmol/L (21-32); Chloride 106 mmol/L (98-107); Est GFR (African American) 49.2 ml/min; Est GFR (Non-African American) 42.5 ml/min; Glucose 70 mg/dl (70-99); Magnesium 2.4 mg/dl (1.8-2.4); Potassium 3.3 mmol/L (3.5-5.1); Sodium 138 mmol/L (136-145)
[2021-10-18 07:51] LABS: Albumin Globulin Ratio 0.8 (0.9-2); Alkaline Phosphatase 71 U/L (45-117); Bilirubin,Total 0.5 mg/dl (0.2-1); Globulin 3.2 gm/dl (2.5-4.0); Phosphorus 3.1 mg/dl (2.5-4.9); Total Protein 5.8 gm/dl (6.4-8.2)
[2021-10-18] MEDS: INSULIN GLARGINE SOLOSTAR 100 UNITS/ML 3 ML PEN SQ SCH (08:19)
[2021-10-18] MEDS: INSULIN ASPART PER UNIT SC SCH ×2 (08:23→12:11)
[2021-10-18] MEDS: amLODIPine BESYLATE 5 MG TAB PO SCH (08:24)
[2021-10-18] MEDS: MEMANTINE HCL 10 MG TAB PO SCH (08:24)
[2021-10-18] MEDS: THIAMINE HCL 100 MG TAB PO SCH (08:24)
[2021-10-18] MEDS: HEPARIN SOD 5,000 UNIT/0.5 ML VIAL SQ SCH (08:24)
[2021-10-18] MEDS: carvediloL 6.25 MG TAB PO SCH (08:24)
[2021-10-18] MEDS: CITALOPRAM 40 MG TAB PO SCH (08:25)
[2021-10-18] MEDS: ASPIRIN 81 MG ECTAB PO SCH (08:25)
[2021-10-18] MEDS ORDERED: DONEPEZIL HCL 5 MG TAB PO SCH (09:00)
[2021-10-18 11:42] VITALS: BP 134/53; PULSE 61; TEMP 98.4; O2SAT 93
--- NOTE | 2021-10-18 17:41 | Discharge Summary ---
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 Larsen via outpatient, Normal Pressure Hydrocephalus (incidental finding 03/08) Sleep disordered breathing- on BiPAP 04/10 at home. Patient comes to the emergency room increase in fatigue, lethargy noticed by his , and generalized weakness where she had difficulty getting him out of bed. Patient was brought to the emergency room- on arrival he was noted to have a SPo2 of 80% and was placed on oxygen, he was also mildly tachycardic 104-106. He had routine labs drawn to include a d- dimer, COVID PCR with Influenza assay. His labs were notable for increase in BUN and MEDICAL SUPPORT ASSISTANT from his baseline, decrease WBC and Decrease platelet counts, patient has levels decreased in the past (03/08)- where he was treated for suspected anaplasmosis. Patient states he has 2 dogs and they sleep in the bed with him. Patient also had an elevated D- Dimer, drawn by EMD. He had bilateral duplex ultrasounds performed of his lower extremities that were negative for DVT. Will obtain CTA of the chest to rule out PE as he is tachycardic and Hypoxic. His BNP is not markedly elevated and his Troponin I is negative. ECG reviewed without acute dynamic process. Patient himself is a poor historian and can't provide much useful information on how he is feeling. He does have disorganized breathing with sleeping and decrease of his SPO2 to 84-88% and will wake himself up, and SPo2 will increase to 94-95% on 2LNC. His compliance with his BiPAP machine in Oct was ~78% with an average AHI of 27.5. His CXR reveals low inspiratory volume and no acute process. His COVID and influenza PCR are negative. Patient will be admitted for IV hydration secondary to increase in BUN and MEDICAL SUPPORT ASSISTANT as well as CTA, pulmonary toileting with ICS, continue use of his BIPAP, follow his WBC and Platlet counts. Additional inflammatory and infectious biomarkers sent. I have attempted to obtain further information from the x2 attempts with calls directly going to unidentified voice mail. Also attempted to call other numbers listed as primary contact with no success. Patient was full code on admission in February and will continue with Full Code status. Principal Diagnosis Weakness due to lumbar stenosis Likely viral illness that may have exacerbated weakness Discharge Exam Constitutional WD/WN, vitals as above + acute distress Eyes EOM intact bilaterally; no conjunctival abnormality ENMT external ear and nose normal, oropharynx normal Neck trachea midline, no thyromegaly normal visual inspection Respiratory normal respiratory effort, lungs clear to auscultation no respiratory distress Cardiovascular RRR, no murmur, no edema Gastrointestinal (Abdomen) Inspection/Auscultation: abdomen normal to inspection; abdomen not distended Musculoskeletal no cyanosis or clubbing, extremities motor strength 5/5 Skin no rashes, warm and dry Neurologic moves all extremities and awake Psychiatric Orientation: alert, oriented to person and cooperative Discharge Data Allergies Allergy/AdvReac Type Severity Reaction Status Date / Time amoxicillin Allergy Unknown Unknown Verified 10/15/21 15:02 Consultations 10/15/21 11:36 ED Decision to Admit Stat 10/16/21 14:46 Consult Orthopedic Surgery Routine Ordered Studies 10/15/21 10:20 US venous doppler LE BI Stat 10/15/21 11:53 CT angio chest PE protocol Stat 10/16/21 14:51 US renal/blad retro comp Routine Hospital Course (1) Hypoxia: Hypoxia with poor inspiratory efforts. PE r/o with CTA. Also does not show any pneumonia. Covid/RSV/flu all negative. Procalcitonin & BNP both negative. - Question if this is all due to obesity hypoventilation/LENO. - ABG on 10/17 showed normal acid/base, no hypercapnia, and hypoxemia. -> Possibly bronchitis or atelectasis? By discharge, doing well on room air. (2) Fever: Likely a viral illness. Multiple sources were checked: * Blood cultures (all negative) * Two chest x-rays both negative for infection * Lyme testing, anaplasmosis testing, and babesiosis testing (all tick diseases) were negative * Two urine tests, both negative for infection * Covid/flu/RSV swab was negative x 2. Antibiotics were held, and his fevers resolved on their own. (3) Generalized weakness: Reported, patient just states he feels tired - no focal deficits appreciated. Lyme/anaplasmosis/babesiosis all negative (smears). PCR for anaplasmosis/babesiosis pending. As above Covid/RSV/flu all negative. - Possibly related to his spinal stenosis. -> Discussed with Dr. Larsen. Significant concern for recovery if he has surgery. For now, family will discuss and return to care as outpatient. (4) Lumbar stenosis: Chronic with 10/03/2021 MRI of L-spine was completed which revealed severe central canal stenosis and tethering of the cauda equina as well as a 7mm synovial cyst related to the right facet joint impinging on the central canal at this level. - Continue Tylenol PRN - Consulted ortho spine; see above. (5) Leukopenia: Anaplasmosis & babesiosis PCR pending. Smears and Lyme negative x 2. - Defer doxycycline - Likely bone marrow suppression from viral cause. (6) TERESA (acute kidney injury): TERESA on CKD IIIa. Baseline MEDICAL SUPPORT ASSISTANT 1.4-1.6 has varied over the past years. - Hold Lasix and TAMAR until improved - Renal u/s on 10/16 showed no hydronephrosis and cortical thinning. -> Cr down to 1.99 today. (7) Dementia: Follows with neurology - dementia worsening. - Continue donepezil 5mg daily (note, this was reduced by PCP on 09/25 due to incontinence) - Continue memantine 10mg PO BID (8) Diabetes type 2, uncontrolled: A1c was 9.9% this admission. - Hold Jardiance - Continue home basal insulin at reduced dose of 20 units daily - Sliding scale insulin (9) Hypertension: BP was 150/65 today. BP seems very labile with highs last night. - Continue home carvedilol & amlodipine (10) Coronary artery disease: No chest pain reported today. - Continue ASA, statin - Hold TAMAR and diuretic until renal function improves (11) Lumbar radicular pain: As above. (12) LENO (obstructive sleep apnea): - Continue with BiPAP 04/10 as needed and HS (13) DVT prophylaxis: Heparin 5,000 units SQ Q12h Total Time Total Time Spent Total Time Spent (In Minutes): 35 Discharge Plan Discharge Items Patient Disposition: Home - Home Health Services Reason For Visit: HYPOXIA GERNERALIZED WEAKNESS Discharge Diagnosis: Weakness that we think was caused by a possible viral illness on top of your back issues Activity: Resume your previous activity Non-emergency contact: Primary Care Provider Call non-emergency contact if: your symptoms worsen and your pain is worsening Follow-up/Referrals: Carlos Larsen DO [Surgeon] - ([facility] will call you for an appointment. Please call them by Friday if you haven't heard from them.) Nico Gill DO [Primary Care Provider] - (Please call your primary care office to set up a hospital follow up appointment.) Diet: Carb Consistent or DM2 and Heart Healthy Addtl Attending Provider Instructions: Mr. Herrera, You were admitted to the hospital with weakness, fevers, and low oxygen levels. We tested you extensively for signs of an infection, but did not find anything treatable. The testing included: * Blood cultures (all negative) * Two chest x-rays both negative for infection * Lyme testing, anaplasmosis testing, and babesiosis testing (all tick diseases) were negative * Two urine tests, both negative for infection Our best estimate is that you had a non-Covid viral infection that caused self- limited fevers and may have worsened your weakness. Dr. Larsen saw you for your back and does feel you have significant degeneration, but that the surgery itself carries big risks as well in regards to recovery and what that might do for you. Please follow up with him. We did lower some of your medications because they can cause low blood pressure and dehydration. Please see the medication list for the changes. I would like Dr. Gill to order some routine labs when you see him next to be sure everything is recovering appropriately. Pending Studies at Discharge: No Stand-Alone Forms: My [facility] Medications and DC Order Prescriptions: Continued atorvastatin 40 mg tablet 40 mg PO HS Qty: 90 RF: 0 (DME) pen needle, diabetic [Easy Comfort Pen [place]] 31 gauge x 5/16" needle See Rx Instructions .Route Qty: 100 RF: 2 citalopram 40 mg tablet 40 mg PO DAILY Qty: 90 RF: 1 methocarbamol 500 mg tablet 500 mg PO QPM Qty: 90 RF: 0 tamsulosin 0.4 mg capsule 0.8 mg PO .at bedtime Qty: 180 RF: 3 (DME) CPAP Machine Misc See Rx Instructions .ROUTE .MEDSUPPLY Qty: 1 RF: 0 (DME) FreeStyle Yodit 2 Sensor Kit See Rx Instructions .ROUTE .MEDSUPPLY Qty: 2 RF: 6 carvedilol 6.25 mg tablet 6.25 mg PO BID Qty: 180 RF: 1 psyllium husk [Metamucil] 0.52 gram capsule 0.52 g PO DAILY Qty: 30 RF: 0 acetaminophen [Tylenol Extra Strength] 500 mg tablet 1,000 mg PO HS PRN (Reason: pain) RF: 0 memantine 10 mg tablet 10 mg PO BID RF: 0 Basaglar KwikPen U-100 Insulin 100 unit/mL (3 mL) insulin pen 45 unit SQ DAILY RF: 0 cholecalciferol (vitamin D3) 1,000 unit capsule 2,000 units PO HS RF: 0 cyanocobalamin (vitamin B-12) [Vitamin B-12] 2,500 mcg tablet, sublingual 2,500 mcg SUBLINGUAL DAILY RF: 0 thiamine HCl (vitamin B1) [Vitamin B-1] 100 mg Tablet 100 mg PO QAM@0800 Qty: 30 RF: 0 aspirin 81 mg Tablet,Delayed Release (Dr/Ec) 81 mg PO QAM@0800 Qty: 30 RF: 0 citalopram 10 mg tablet 10 mg PO DAILY RF: 0 Changed furosemide 40 mg tablet 40 mg PO DAILY Qty: 180 RF: 3 donepezil 10 mg tablet 5 mg PO DAILY Qty: 0 RF: 0 lisinopril 20 mg tablet 20 mg PO HS Qty: 180 RF: 3 Discharge Orders: Discharge Order (Routine); Ordered 10/18/21 Ordered By: Alfred Nagy Admission Data Admit Date/Time: 10/15/21 12:11 Attending Provider: Alfred Nagy Admit Provider: Justyn Gipson Primary Care Provider: Nico Gill Other Providers: Alfred Nagy ; Carlos Larsen Other Interventions: Discharge Summary Assessment (RN) Last Done: 10/18/21 14:14 Coding Level of Care Code D/C DAY MANAGEMENT >30 MINS Diagnoses Hypoxia R09.02 Generalized weakness R53.1 Lumbar stenosis M48.061 Leukopenia D72.819 TERESA (acute kidney injury) N17.9 Dementia F03.90 Diabetes type 2, uncontrolled E11.65 Hypertension I10 Coronary artery disease I25.10 Lumbar radicular pain M54.16 LENO (obstructive sleep apnea) G47.33 DVT prophylaxis Z29.9 Fever R50.9
== END 2021-10-18 15:00 | disposition home or self-care (01) | DRG 552 ==
LOC: ED 09:17 → SUATTDRO 12:11 → EDINP 12:11 → 2N 14:32

== ENCOUNTER 2022-08-15 06:03 | Inpatient (IN) ==
--- NOTE | 2022-07-29 20:22 | PAT Medication Instructions ---
Medication Instructions Date of Service July 29, 2022 Home Medications Medication Instructions Recorded flash glucose sensor (FreeStyle #2 ea 03/05/21 Yodit 2 Sensor kit) carvedilol 6.25 mg tablet 6.25 mg PO BID #180 tabs 10/09/21 CPAP Machine #1 ea 11/20/21 pen needle, diabetic 31 gauge x #200 ea 11/28/21 5/16" (Easy Comfort Pen [place]) walker (Ultra-Light Rollator misc) #1 ea 03/26/22 insulin NPH isoph U-100 human 100 See Rx Instructions subcut BID #5 05/16/22 unit/mL (3 mL) subcutaneous pen Boxes (Humulin N NPH U-100 Insulin KwikPen) furosemide 40 mg tablet 40 mg PO BID WATER PILL, BLOOD 05/27/22 PRESSURE AND KIDNEYS #180 tabs atorvastatin 40 mg tablet 40 mg PO HS #90 tabs 06/26/22 lisinopril 40 mg tablet 40 mg PO HS BLOOD PRESSURE #90 tabs 06/28/22 memantine 10 mg tablet 10 mg PO BID #180 tabs 07/10/22 cholecalciferol (vitamin D3) 25 mcg (1,000 unit) capsule 2,000 units PO HS acetaminophen 500 mg tablet (Tylenol Extra Strength) 1,000 mg PO HS PRN pain carvedilol 6.25 mg tablet 6.25 mg PO BID insulin NPH isoph U-100 human 100 unit/mL (3 mL) subcutaneous pen (Humulin N NPH U-100 Insulin KwikPen) See Rx Instructions subcut BID furosemide 40 mg tablet 40 mg PO BID WATER PILL, BLOOD PRESSURE AND KIDNEYS atorvastatin 40 mg tablet 40 mg PO HS lisinopril 40 mg tablet 40 mg PO HS BLOOD PRESSURE memantine 10 mg tablet 10 mg PO BID aspirin 81 mg tablet,delayed release 81 mg PO QAM cyanocobalamin (vitamin B-12) 2,500 mcg tablet 2,500 mcg PO QAM gabapentin 100 mg capsule (Neurontin) 100 mg PO BID sertraline 100 mg tablet (Zoloft) 100 mg PO QAM tamsulosin 0.4 mg capsule 0.8 mg PO HS thiamine HCl (vitamin B1) 100 mg tablet (Vitamin B-1) 100 mg PO QAM Continue as directed gabapentin 100 mg capsule (Neurontin) 100 mg PO BID ASK your prescriber and surgeon aspirin 81 mg tablet,delayed release 81 mg PO QAM DO NOT take the morning of surgery furosemide 40 mg tablet 40 mg PO BID WATER PILL, BLOOD PRESSURE AND KIDNEYS cyanocobalamin (vitamin B-12) 2,500 mcg tablet 2,500 mcg PO QAM thiamine HCl (vitamin B1) 100 mg tablet (Vitamin B-1) 100 mg PO QAM Take morning of surgery With a small sip of water, OTHERWISE NOTHING TO EAT OR DRINK AFTER MIDNIGHT: carvedilol 6.25 mg tablet 6.25 mg PO BID memantine 10 mg tablet 10 mg PO BID sertraline 100 mg tablet (Zoloft) 100 mg PO QAM Take evening before surgery cholecalciferol (vitamin D3) 25 mcg (1,000 unit) capsule 2,000 units PO HS acetaminophen 500 mg tablet (Tylenol Extra Strength) 1,000 mg PO HS PRN pain (if needed) carvedilol 6.25 mg tablet 6.25 mg PO BID insulin NPH isoph U-100 human 100 unit/mL (3 mL) subcutaneous pen (Humulin N NPH U-100 Insulin KwikPen) See Rx Instructions subcut BID furosemide 40 mg tablet 40 mg PO BID WATER PILL, BLOOD PRESSURE AND KIDNEYS atorvastatin 40 mg tablet 40 mg PO HS lisinopril 40 mg tablet 40 mg PO HS BLOOD PRESSURE memantine 10 mg tablet 10 mg PO BID tamsulosin 0.4 mg capsule 0.8 mg PO HS Insulin Dependent Diabetic Patients * Test your blood sugar the morning of surgery * If Blood Sugar is GREATER THAN 150, take HALF of your regular dose of: insulin NPH isoph U-100 human 100 unit/mL (3 mL) subcutaneous pen (Humulin N NPH U-100 Insulin KwikPen) > Take 25 units * If Blood Sugar is LESS THAN 150, DO NOT TAKE ANY: insulin NPH isoph U-100 human 100 unit/mL (3 mL) subcutaneous pen (Humulin N NPH U-100 Insulin KwikPen) Other Notes If you have any questions please call us at [phone] or [phone] or [phone] or [phone]
--- NOTE | 2022-08-01 11:34 | Anesthesiology Consultation ---
Date of Service August 01, 2022 Assessment & Plan (1) Encounter for pre-operative examination: - A1c elevated at 9.8%. Optimization note forwarded to PCP-awaiting final clearance and surgeon's office made aware. - check BSG am DOS. - cardiology pre-op evaluation 07/31/22 [place]: "...coronary artery disease s/p PCI and CABG, diabetes mellitus, hypertension, dyslipidemia, sleep apnea treated with CPAP, and CKD who presents for preoperative cardiovascular evaluation prior to lumbar decompression and fusion L3-L4, L4-L5 with Dr. Larsen. He is currently stable and asymptomatic with no anginal symptoms. He does have some lower extre mity edema on exam today, but he has no appreciable JVD or evidence of pulmonary vascular congestion. His most recent echo in February 2020 demonstrated normal LV systolic function with no significant valvular abnormalities. BP is reasonably well controlled. Given this information, he is at an acceptable risk to proceed with upcoming surgery without any additional cardiovascular testing or intervention. He should remain on low dose aspirin therapy throughout the perioperative period. Recommend close monitoring and avoidance of hypotension, hypertension, tachycardia, hypoxia, and significant anemia throughout the perioperative period to reduce myocardial oxygen demand and meet myocardial oxygen delivery..." - PCP pre-op evaluation 07/19/22 [place]: "...Complex patient with history of uncontrolled DM, HTN, CKD3 and CAD. He has a history of Dementia/MCI which has been a barrier to getting some of these well controlled, particularly DM. We have been unable to control pain with interventions such as OLYA and PT. Tylenol is ineffective. He's used Tramadol in the past. Case discussed with Dr. Gill. We agreed to try Neurontin to see if this will help with pain control. Explained that he is at high risk for complication in surgery d/t his history of CAD, CKD3, HTN and DM. Surgery may need to be delayed to better optimize his DM. CKD is pretty stable historically. May need stress testing for cardiology as lumbar stenosis limits his ability to exert himself and get a true cardiopulmonary functional capacity based off history alone. It looks like he's going to meet with Primary Care, Anesthesia, Cardiology and Dr. Larsen to reviewed risks. Explained that he would likely need a SNU for PT/OT post op as I don't think his has the ability to help him enough..." Chart Review Chart Review: Pending: Refer to Additional Notes / Consult section and Patient seen in Pre Admission Testing Teaching & Discussion Pre-Anesthesia Teaching/Discussion Notes: Instructed NPO after midnight before surgery, except medications with 15 cc of water. Medication instructions provided according to the PAT guidelines. History Surgery Operation Date: 08/15/22 10:45 Proposed Procedures p L3-L5 Revision Decompression and Fusion, Spinal Cord Monitoring - Carlos Larsen DO Pt accompanied today by his . Height/Weight Height: 5 ft 10 in Weight: 120.1 kg Allergies Allergy/AdvReac Type Severity Reaction Status Date / Time No Known Drug Allergies Allergy Verified 07/31/22 10:12 Medications Home Medications Medication Instructions Recorded Confirmed Last Taken cholecalciferol (vitamin D3) 25 2,000 units PO HS 08/11/19 07/31/22 03/21/22 mcg (1,000 unit) capsule flash glucose sensor (FreeStyle #2 ea 03/05/21 07/31/22 Unknown Yodit 2 Sensor kit) acetaminophen 500 mg tablet 1,000 mg PO HS PRN pain 05/30/21 07/31/22 03/21/22 19:00 (Tylenol Extra Strength) carvedilol 6.25 mg tablet 6.25 mg PO BID #180 tabs 10/09/21 07/31/22 03/21/22 CPAP Machine #1 ea 11/20/21 07/31/22 Unknown pen needle, diabetic 31 gauge x #200 ea 11/28/21 07/31/22 Unknown 5/16" (Easy Comfort Pen [place]) walker (Ultra-Light Rollator misc) #1 ea 03/26/22 07/31/22 Unknown insulin NPH isoph U-100 human 100 See Rx Instructions subcut BID #5 05/16/22 07/31/22 Unknown unit/mL (3 mL) subcutaneous pen Boxes (Humulin N NPH U-100 Insulin KwikPen) furosemide 40 mg tablet 40 mg PO BID WATER PILL, BLOOD 05/27/22 07/31/22 Unknown PRESSURE AND KIDNEYS #180 tabs atorvastatin 40 mg tablet 40 mg PO HS #90 tabs 06/26/22 07/31/22 Unknown lisinopril 40 mg tablet 40 mg PO HS BLOOD PRESSURE #90 tabs 06/28/22 07/31/22 Unknown memantine 10 mg tablet 10 mg PO BID #180 tabs 07/10/22 07/31/22 Unknown aspirin 81 mg tablet,delayed 81 mg PO QAM 07/26/22 07/31/22 Unknown release cyanocobalamin (vitamin B-12) 2,500 mcg PO QAM 07/26/22 07/31/22 Unknown 2,500 mcg tablet gabapentin 100 mg capsule 100 mg PO BID 07/26/22 07/31/22 Unknown (Neurontin) sertraline 100 mg tablet (Zoloft) 100 mg PO QAM 07/26/22 07/31/22 Unknown tamsulosin 0.4 mg capsule 0.8 mg PO HS 07/26/22 07/31/22 Unknown thiamine HCl (vitamin B1) 100 mg 100 mg PO QAM 07/26/22 07/31/22 Unknown tablet (Vitamin B-1) Past Medical History Medical History (Updated 08/01/22 @ 11:53 by Kellen So PA-C) Anemia of chronic disease Anxiety hx Background diabetic retinopathy associated with type 2 diabetes mellitus Bilateral leg edema Chronic back pain Chronic kidney disease, stage 3a follows with Dr Chan. Cognitive impairment Dementia. Alert and oriented most times. progressing quickly per . Coronary artery disease stent x1 (~2004), CABG x5 (2013) Degenerative disc disease Depression Diabetes type 2, uncontrolled IDDM Diabetic nephropathy associated with type 2 diabetes mellitus Diabetic peripheral neuropathy associated with type 2 diabetes mellitus Dyslipidemia History of blood transfusion post-op CABG History of colon polyps History of Mohs micrographic surgery for skin cancer 05/2020 History of radiation therapy 05/2020 for skin CA Hypertension controlled, stable per pt Obesity LENO (obstructive sleep apnea) CPAP - does not tolerate cpap currently. Proteinuria Spinal stenosis Squamous cell carcinoma, scalp/neck Patient denies h/o stroke, seizures, or blood clots. Exercise / Class Metabolic Activity II 4-5 Yardwork/Stairs/Walk up hill (denies CP or SOB with 1 FOS) Past Family History Family History Father , age 47 of an [place] Heart disease Myocardial infarction Mother , age 73 of ALS ALS (amyotrophic lateral sclerosis) Cancer Brother Pancreatic cancer Grandmother Diabetes Other No family history of adverse response to anesthesia Denies family history of Ovarian cancer Prostate cancer Breast cancer Colorectal cancer Past Surgical History Surgical History (Updated 08/01/22 @ 11:29 by Kellen So PA-C) H/O umbilical hernia repair (12/30/19) Incarcerated Umbilical Hernia Repair Dr. Jeong 12-30-19: LMA#5. History of cardiac cath x3-4 caths- stent x 1 (~2004) History of colonoscopy with polypectomy History of discectomy Lumbar History of open heart surgery x5 vessels (2013) S/P eye surgery to repair a amblyopia (Lazy eye) Left eye S/P hip replacement Left MARTHA: 02/28/12: SAB at L4[facility]L5 at [facility] S/P wisdom tooth extraction Past Anesthesia History No Hx of Anesthesia Complications and No Family Hx of Anesthesia Complications History of PONV No Hx of PONV and No Hx of Motion Sickness Social History Smoking Status: Never smoker Do You Dip or Chew Tobacco: No Hx Alcohol Use: Yes Alcohol type: wine alcohol intake frequency: holidays/special occasions only Hx Substance Use: No substance use type: does not use Review of Systems Patient denies chest pain, shortness of breath, dyspnea on exertion, reflux, fever, chills, cough, wheezing, or palpitations. Physical Exam Vital Signs Vitals BP 142/80 P 77 TEMP 98.8 SP02 97% on RA RESP 18 Physical Full cervical extension range of motion without pain TMD 3.5 finger breadths Mallampati Score 2 Dentition: intact, front chipped tooth, many implants throughout; denies loose teeth, caps/crowns Lungs: normal respiratory effort. Clear throughout to auscultation, no adventitious breath sounds Cardiac: regular rate and rhythm, no murmurs noted Carotid arteries: negative bruit bilat Lab Results Anesthesia Preop Results Results Anesthesia Widget: WBC 6.18 K/ul (4.8-10.8) 06/26/22 Hgb 13.0 g/dl (14.0-18.0) L 06/26/22 Hct 41.1 % (40.1-51.0) 06/26/22 Plt 189 K/uL (130-400) 06/26/22 Na 139 mmol/L (136-145) 08/01/22 K 3.8 mmol/L (3.5-5.1) 08/01/22 Cl 102 mmol/L (98-107) 08/01/22 CO2 30 mmol/L (21-32) 08/01/22 BUN 24 mg/dl (6-23) H 08/01/22 Creat 1.36 mg/dl (0.6-1.4) 08/01/22 Glucose Level 257 mg/dl (70-99(Fasting)) H 08/01/22 PT 11.1 Seconds (9.0-12.0) 08/01/22 PTT 28.2 Seconds (21.0-31.0) 08/01/22 INR 1.0 (0.9-1.1) 08/01/22 TSH 2.769 uIu/ml (0.300-4.500) 06/26/22 HA1c 9.8 % (4.5-5.6) H 08/01/22 Urine Color Yellow 08/01/22 Urine Appearance Clear (Clear) 08/01/22 Urine pH 5.0 (4.5-7.5) 08/01/22 Urine Specific [place] 1.015 (1.000-1.030) 08/01/22 Urine Protein 3+ (Negative) H 08/01/22 Urine Glucose (UA) 2+ (Negative) H 08/01/22 Urine Ketones Negative (Negative) 08/01/22 Urine Blood Negative (Negative) 08/01/22 Urine Nitrite Negative (Negative) 08/01/22 Urine Bilirubin Negative (Negative) 08/01/22 Urine Urobilinogen Negative (Negative) 08/01/22 Urine Leukocyte Esterase Negative (Negative) 08/01/22 Urine WBC (Auto) 1-5 /hpf (0-5) 08/01/22 Urine RBC (Auto) 0-4 /hpf (0-4) 08/01/22 Urine Hyaline Casts (Auto) 1-5 /lpf (0-5) 08/01/22 Urine Epithelial Cells (Auto) 5-10 /lpf (0-5) H 08/01/22 Urine Bacteria (Auto) Negative (Negative) 08/01/22 Blood Type A Positive 08/01/22 Antibody Screen NEGATIVE 08/01/22 Testing Electrocardiogram Date: 03/22/22 Sinus bradycardia, rate 57 bpm Left axis deviation Incomplete RBBB Cannot rule out anterior infarct cited on or before 03/22/22 Chest X-Ray Date: 08/01/22 There are low lung volumes. No pneumothorax. The heart is enlarged. There is mild central pulmonary vascular congestion without overt edema. There is a trace right pleural effusion. No new focal lung consolidations to suggest a pneumonia. Poststernotomy changes. Old, healed right midshaft clavicle fracture. Bibasilar linear densities favor subsegmental atelectasis given the low lung volumes. IMPRESSION: 1. Mild central pulmonary vascular congestion without overt edema. 2. Mild cardiomegaly and a trace right pleural effusion. 3. Bibasilar linear densities favor subsegmental atelectasis given the low lung volumes. Echocardiogram Date: 02/26/20 EF 65-70% No regional wall motion abnormalities Type 1 diastolic dysfunction Moderate to severe cLVH Moderate LA dilation No significant valvular abnormalities Stress Test Date: 09/27/19 Exercise MPHR 89% METs 7 Negative for ischemia Cervical Spine Date: 03/22/22 CT No fractures within the cervical spine. Other Testing Head CT 03/22/22 1. No acute intracranial findings. No change in appearance of the brain. 2. Posterior scalp contusion. No acute calvarial fracture. Carotid doppler 02/09/19 < 50% stenosis ICAs bilat COVID-19 Risk Screen Screening Information COVID-19 Screen Date: 08/01/22 Exposure 21 Days Family/Household +COVID Last 21 Days: No Exposure 10 Days Any COVID Exposure Last 10 Days: No Symptoms Last 10 Days Experienced COVID Sx Last 10 Days: No + COVID 0-90 Days COVID + in Last 0-90 Days: No
[~2022-08-15 06:03] MED LIST: ACETAMINOPHEN 500 MG TAB PO SCH; CLINDAMYCIN/D5W 600 MG/50 ML BAG **Premixed Bag IV SCH; CeleBREX 200 MG CAP PO SCH; GABAPENTIN 300 MG CAP PO SCH; LR 15ML/HR IV SCH
[2022-08-15] MEDS ORDERED: fentaNYL citrate 100 MCG/2 ML VIAL ONE (06:48)
[2022-08-15] MEDS ORDERED: MIDAZOLAM HCL 1 MG/ML 2ML VIAL ONE (06:48)
[2022-08-15] MEDS ORDERED: ceFAZolin 330 MG/ML 1 GM VIAL ONE (06:56)
[2022-08-15] MEDS ORDERED: BUPIVACAINE/EPINEPHRINE 0.25% 1:200,000 30 ML VIAL ONE (06:56)
[2022-08-15] MEDS ORDERED: ONDANSETRON INJ 2 MG/ML 2 ML VIAL ONE (07:04)
[2022-08-15] MEDS ORDERED: GLYCOPYRROLATE 0.2 MG/ML VIAL ONE ×2 (07:04→10:13)
[2022-08-15] MEDS ORDERED: PROPOFOL IV EMULSION 10 MG/ML 20 ML VIAL IV ONE (07:04)
[2022-08-15] MEDS ORDERED: NEOSTIGMINE METHYLSULFATE 1 MG/ML 10ML VIAL ONE (07:04)
[2022-08-15] MEDS ORDERED: ROCURONIUM BROMIDE 10 MG/ML 5 ML VIAL IV ONE ×3 (07:04→08:16)
[2022-08-15] MEDS ORDERED: LIDOCAINE 2% MPF LOCAL 5 ML VIAL INFIL ONE (07:04)
[2022-08-15] MEDS ORDERED: HYDROmorphone INJ 1 MG/ML SYRINGE IV PRN ×2 (07:17→12:34)
[2022-08-15] MEDS ORDERED: ONDANSETRON INJ 2 MG/ML 2 ML VIAL IV PRN ×2 (07:17→12:34)
[2022-08-15] MEDS ORDERED: ATROPINE SULFATE 0.1 MG/ML 10ML SYR IV PRN (07:17)
[2022-08-15] MEDS ORDERED: PROMETHAZINE HCL 12.5 MG in SODIUM CHLORIDE 0.9% 50 ML IV PRN ×2 (07:17→12:34)
[2022-08-15] MEDS ORDERED: LABETALOL HCL IV 5 MG/ML 20ML IV PRN (07:17)
--- NOTE | 2022-08-15 07:36 | History & Physical Bridge Note ---
Date of Service August 15, 2022 History & Physical Bridge Note I have examined the patient, reviewed the History & Physical and in the interval since the performance of the History & Physical I have noted the following changes of clinical significance: no changes noted
--- NOTE | 2022-08-15 07:37 | History & Physical Report ---
Date of Service August 15, 2022 Assessment & Plan (1) Neurogenic claudication due to lumbar spinal stenosis: Plan: L3-L5 revision decompression and fusion History of Present Illness Chief Complaint: Back and bilateral leg pain Primary Care Provider: Nico Gill DO This is a 77-year-old male who presents with chronic persistent back and bilateral leg pain. After extensive course of nonoperative care is here for surgical invention. Allergies Allergy/AdvReac Type Severity Reaction Status Date / Time No Known Drug Allergies Allergy Verified 08/15/22 06:37 Home Medications Medication Instructions Recorded Confirmed Type cholecalciferol (vitamin D3) 25 2,000 units PO HS 08/11/19 08/15/22 History mcg (1,000 unit) capsule flash glucose sensor (FreeStyle #2 ea 03/05/21 08/13/22 Rx Yodit 2 Sensor kit) acetaminophen 500 mg tablet 1,000 mg PO HS PRN pain 05/30/21 08/15/22 History (Tylenol Extra Strength) carvedilol 6.25 mg tablet 6.25 mg PO BID #180 tabs 10/09/21 08/15/22 Rx CPAP Machine #1 ea 11/20/21 08/13/22 Rx pen needle, diabetic 31 gauge x #200 ea 11/28/21 08/13/22 Rx 5/16" (Easy Comfort Pen [place]) walker (Ultra-Light Rollator misc) #1 ea 03/26/22 08/13/22 Rx insulin NPH isoph U-100 human 100 See Rx Instructions subcut BID #5 05/16/22 08/15/22 Rx unit/mL (3 mL) subcutaneous pen Boxes (Humulin N NPH U-100 Insulin KwikPen) furosemide 40 mg tablet 40 mg PO BID WATER PILL, BLOOD 05/27/22 08/15/22 Rx PRESSURE AND KIDNEYS #180 tabs atorvastatin 40 mg tablet 40 mg PO HS #90 tabs 06/26/22 08/15/22 Rx lisinopril 40 mg tablet 40 mg PO HS BLOOD PRESSURE #90 tabs 06/28/22 08/15/22 Rx memantine 10 mg tablet 10 mg PO BID #180 tabs 07/10/22 08/13/22 Rx aspirin 81 mg tablet,delayed 81 mg PO QAM 07/26/22 08/15/22 History release cyanocobalamin (vitamin B-12) 2,500 mcg PO QAM 07/26/22 08/15/22 History 2,500 mcg tablet gabapentin 100 mg capsule 100 mg PO BID 07/26/22 08/15/22 History (Neurontin) sertraline 100 mg tablet (Zoloft) 100 mg PO QAM 07/26/22 08/15/22 History tamsulosin 0.4 mg capsule 0.8 mg PO HS 07/26/22 08/15/22 History thiamine HCl (vitamin B1) 100 mg 100 mg PO QAM 07/26/22 08/15/22 History tablet (Vitamin B-1) Past Med/Surg History Medical History Anemia of chronic disease Anxiety hx Background diabetic retinopathy associated with type 2 diabetes mellitus Bilateral leg edema Chronic back pain Chronic kidney disease, stage 3a follows with Dr Chan. Cognitive impairment Dementia. Alert and oriented most times. progressing quickly per . Coronary artery disease stent x1 (~2004), CABG x5 (2013) Degenerative disc disease Depression Diabetes type 2, uncontrolled IDDM Diabetic nephropathy associated with type 2 diabetes mellitus Diabetic peripheral neuropathy associated with type 2 diabetes mellitus Dyslipidemia History of blood transfusion post-op CABG History of colon polyps History of Mohs micrographic surgery for skin cancer 05/2020 History of radiation therapy 05/2020 for skin CA Hypertension controlled, stable per pt Obesity LENO (obstructive sleep apnea) CPAP - does not tolerate cpap currently. Proteinuria Spinal stenosis Squamous cell carcinoma, scalp/neck Surgical History H/O umbilical hernia repair (12/30/19) History of cardiac cath History of colonoscopy History of discectomy History of open heart surgery S/P eye surgery S/P hip replacement S/P wisdom tooth extraction Family History Father , age 47 of an [place] Heart disease Myocardial infarction Mother , age 73 of ALS ALS (amyotrophic lateral sclerosis) Cancer Brother Pancreatic cancer Grandmother Diabetes Other No family history of adverse response to anesthesia Denies family history of Ovarian cancer Prostate cancer Breast cancer Colorectal cancer Social History Smoking Status: Never smoker Second Hand Exposure: No; Do You Dip or Chew Tobacco: No; Tobacco Cessation Education Requested by Patient: No Hx Alcohol Use: No Hx Substance Use: No Preferred Language: Taiwanese Communication Ability: Impaired Communication Ability Comment: alert and oriented x3 "most of the time" Visual Impairment: Diminished Hearing Ability: Use of Hearing Aid Signal Maintainer Helper Required: No Beliefs That Will Affect Care: None marital status: Current Living Situation: Spouse current occupational status: retired How many Children do You have: 3 Other Information That Helps Us Care for You: No Childhood Exposure to Second-Hand Smoke: Yes caffeine: Yes (tea and diet soda) during the past year weight has: remained stable Dental Care, Regularly: Yes Physical Activity Frequency: 5-6 Times per Week Physical Activity Frequency Comment: works in yard and walks dogs daily Seatbelt Use: always Sunscreen Use: Yes Do you think of yourself as: straight/heterosexual Assistive Devices: Glasses Assistive Devices Comment: noncompliant with cpap currently Physical Exam Physical Exam: Patient is alert and oriented Heart regular rhythm Lungs clear Results & Data Results & Data ([facility]) Vital Signs (Past 12 Hours) Vital Signs Temp Pulse Resp BP Pulse Ox O2 Del Method 08/15/22 06:49 37.1 C 62 20 198/89 H 94 Room Air
[2022-08-15] MEDS ORDERED: ePHEDrine sulfate 50 MG/ML AMP ONE (08:33)
[2022-08-15] MEDS ORDERED: PHENYLEPHRINE HCL 10 MG/ML VIAL ONE (08:33)
[2022-08-15] MEDS ORDERED: FLOSEAL HEMOSTATIC MATRIX 10ML TOP ONE (09:38)
--- NOTE | 2022-08-15 10:15 | Operative Report ---
Post Operative Report Pre & Post Diagnosis Operation Date: 08/15/22 07:45 Pre-Op Diagnosis: Spinal Stenosis, Lumbar Region without Neurogenic Morbid obesity Post-Op Diagnosis: Same I identified the patient and participated in the time-out.: Yes Procedure Operation Date: 08/15/22 07:45 Actual Procedures #1 revision decompression bilateral medial facetectomy foraminotomies L2-L3, L3- L4 and L4-5. #2 posterior spinal fusion L3-L4 L4-5. #3 placement posterior instrumentation L3 L5. #4 interbody fusion L3-L4 L4-5 per #5 placement of Spira 15 x 26 mm at L3-L4 and L4-L5. #6 placement locally harvested morselized autograft in the posterior gutters. #7 placement of I factor combined with V toss in the interbody space and posterior lateral gutters. Surgeon Carlos Larsen, DO Nursing Professor Diane Soliz Estimated Blood Loss 100 Findings See Below The patient is 5 foot 10 weighing over 122 kg with a BMI in excess of 38. Patient's body habitus did contribute to significant technical difficulties requiring her deepest retractors longer instruments in order to perform his procedure. This at least 50% increased operative time. Specimens None Indications This is a 77-year-old male who presents above-mentioned diagnosis after failing course of nonoperative care is here for surgical invention. Description of Procedure Patient was met with identified informed consent obtained. Patient was then taken to the operative suite underwent ablation placed in a prone position the [place] table top Gianluca frame. All bony prominences well-padded eyes inspected to ensure no external pressure placed upon the. This point the lumbar spine was prepped and draped in normal sterile fashion. Sharp dissection with assistance of Bovie cautery was performed down to and exposing the remaining lamina and transverse processes of L3-L4-L5 bilaterally. From a caudal and cephalad fashion revision complete laminectomy of L4 L3 and partial laminectomy of L2 was performed including bilateral medial facetectomies foraminotomies addressing severe spinal stenosis as well as a facet cyst on the left. After discussion complete pedicle screws were placed in L3 L4-5 bilaterally with assistance of fluoroscopy and the properly sized german placed. By way of a transfemoral approach and left complete discectomy of L4-5 was performed endplates curetted to subcortical bleeding bone and a 15 x 26 mm spiral cage with I factor tapped in position. Then proceeded to L3-L4 and again by way of a transforaminal approach on the left pleat discectomy performed endplates curetted to subcortically bone and a 15 x 26 mm spiral cage filled I factor tapped in position. The rods were then compressed locked in final position bilaterally. The transverse processes of L3-L4-L5 burred to subcortical bleeding bone. I factor bone with V toss and locally harvested morselized autograft was placed in the posterior lateral gutters. 15 round GO drain inserted. The incision was then closed with 1 Vicryl in the fascia 2-0 Vicryl subcutaneously and 4 Monocryl for final skin closure. Steri-Strip sterile dressings placed. Patient waken taken to PACU in stable condition. Please note spinal cord monitoring was utilized at the procedure no changes noted. Lastly Diane Soliz was present at the entire surgeon while the patient positioning complex portions of the surgery and fascial closure. I attest to the content of the Intraoperative Record and any orders documented therein. Any exceptions are noted below.
--- NOTE | 2022-08-15 11:44 | Fluoroscopy Report ---
INTRAOPERATIVE RADIOGRAPHS CLINICAL HISTORY: L3-L5 spinal fusion. Fluoroscopy time 30 seconds. FINDINGS: 2 spot fluoroscopic views of the lumbar spine are presented. There has been discectomy at L 3-L4 and L4-L5 with laminectomy and posterior fusion at L3-L5. Interpedicular screws are present at a ll levels. The orthopedic hardware appears intact. IMPRESSION: Intraoperative images from lumbar spinal fusion surgery as above. Electronically signed by: Adonis Lyons M.D. 08/15/2022 11:43 AM
[2022-08-15] MEDS ORDERED: LORazepam 0.5 MG TAB PO PRN (12:34)
[2022-08-15] MEDS ORDERED: diphenhydrAMINE Capsule 25 MG CAP PO PRN (12:34)
[2022-08-15] MEDS ORDERED: HYDROmorphone INJ 0.5 MG/0.5 ML SYR IV PRN (12:34)
[2022-08-15] MEDS ORDERED: METOCLOPRAMIDE HCL INJ 5 MG/ML 2 ML VIAL IV PRN (12:34)
[2022-08-15] MEDS ORDERED: MAGNESIUM HYDROXIDE SUSP 30 ML UDC PO PRN (12:34)
[2022-08-15] MEDS ORDERED: FAMOTIDINE 20 MG TAB PO PRN (12:34)
[2022-08-15] MEDS ORDERED: SOD PHOSPHATE/SOD BIPHOSPHATE ENEMA 132 ML BTL PR PRN (12:34)
[2022-08-15] MEDS ORDERED: ONDANSETRON 4 MG OD TAB PO PRN (12:34)
[2022-08-15] MEDS ORDERED: PHARMACY GLYCEMIC MGMT CONSULT PRN (12:34)
[2022-08-15] MEDS ORDERED: hydrOXYzine HCl 25 MG TAB PO PRN (12:34)
[2022-08-15] MEDS ORDERED: traMADol HCL 50 MG TABLET PO PRN (12:34)
[2022-08-15] MEDS ORDERED: bisacodyL 10 MG SUPP PR PRN (12:34)
[2022-08-15] MEDS ORDERED: ALUMINUM/MAGNESIUM SUSP 30 ML UDC PO PRN (12:34)
[2022-08-15] MEDS ORDERED: LORazepam 0.5 MG in SYRINGE 0 ML IV PRN (12:34)
[2022-08-15] MEDS ORDERED: ACETAMINOPHEN 1,000 MG/100 ML VIAL IV PRN (12:34)
[2022-08-15] MEDS ORDERED: NALOXONE HCL 0.4 MG/1 ML VIAL/CARP IV PRN (12:34)
[2022-08-15] MEDS: SODIUM CHLORIDE 0.9% 1000ML 1,000 ML IV SCH ×2 (13:06→22:24)
--- NOTE | 2022-08-15 13:32 | Anesthesiology Progress Note ---
Date of Service August 15, 2022 Anesthesia Post Procedure Vital Signs Vital Signs: Temp Pulse Pulse Resp BP Pulse Ox O2 Del Method 08/15/22 13:00 36.5 C 81 17 150/78 H 93 Nasal Cannula 08/15/22 12:44 Nasal Cannula 08/15/22 12:35 36.6 C 83 16 149/80 H 93 Nasal Cannula 08/15/22 12:15 85 23 159/73 H 93 Nasal Cannula 08/15/22 12:05 86 16 151/85 H 97 Oxymask 08/15/22 11:55 36.1 C L 84 14 152/83 H 97 Oxymask 08/15/22 11:45 82 20 156/96 H 94 Oxymask 08/15/22 11:35 92 H 19 163/76 H 94 Nasal Cannula 08/15/22 11:25 36.4 C L 84 19 140/79 96 Nasal Cannula 08/15/22 11:15 84 24 153/75 H 95 Oxymask 08/15/22 11:05 84 20 158/81 H 96 Oxymask 08/15/22 10:55 84 16 156/85 H 91 Oxymask 08/15/22 10:45 85 20 159/75 H 93 Oxymask 08/15/22 10:36 36.1 C L 83 18 149/64 H 92 Oxymask 08/15/22 06:49 37.1 C 62 20 198/89 H 94 Room Air O2 Flow Rate 08/15/22 13:00 3.5 08/15/22 12:44 4 08/15/22 12:35 4 08/15/22 12:15 4 08/15/22 12:05 4 08/15/22 11:55 4 08/15/22 11:45 4 08/15/22 11:35 4 08/15/22 11:25 4 08/15/22 11:15 5 08/15/22 11:05 5 08/15/22 10:55 10 08/15/22 10:45 10 08/15/22 10:36 10 08/15/22 06:49 Pain Intensity Back: Pain Intensity: 4 Transfer of Care Handoff Completed per policy Notes Mental Status: alert / awake / arousable Patient Amnestic to Procedure: Yes Nausea / Vomiting: adequately controlled Pain: adequately controlled Airway Patency, RR, SpO2: stable & adequate BP & HR: stable & adequate Hydration State: stable & adequate Anesthetic Complications: no major complications apparent
[2022-08-15] MEDS ORDERED: DEXTROSE 50% 50 ML SYRINGE IV PRN (13:45)
[2022-08-15] MEDS ORDERED: CARBOHYDRATES FOR HYPOGLYCEMIA PO PRN (13:45)
[2022-08-15] MEDS ORDERED: GLUCOSE 10 TAB/TUBE PO PRN (13:45)
[2022-08-15] MEDS ORDERED: GLUCOSE 40% GEL 15 GM TUBE PO PRN (13:45)
[2022-08-15] MEDS: INSULIN ASPART PER UNIT SC SCH ×3 (14:27→22:20)
--- NOTE | 2022-08-15 15:10 | Pharmacy Report ---
Pharmacy Glycemic Short Note 2 - Date of Service August 15, 2022 - Glycemic Short BSG Results (Last 24 hours): 08/15/22 08/15/22 08/15/22 06:55 10:40 12:58 POC Glucose 196 H 212 H 219 H OUTPATIENT ANTIDIABETIC REGIMEN: * NPH 50-60 units? qAM, 25 units with dinner * 9.8% 08/01/22 ASSESSMENT: * Patient admitted following spinal surgery. Patient is maintained on NPH outpatient with Dr. Owens * BSGs elevated post-op, will initiate Novolog dosing based on stress of 1 outpatient total daily dosing * Will utilize NPH as this is what patient uses outpatient to help transition home, will reduce dose as novolog is being added to regimen PLAN FOR INPATIENT GLYCEMIC CONTROL: * Basal insulin * NPH 10/15 units with dinner * Bolus insulin * NovoLog per scale ACHS or Q6hrs while NPO * Goal Range: Low 110 mg/dL - High 140 mg/dL * Correction Factor: 20 mg/dL/unit * Nutritional / Prandial insulin per carb ratio of 1 unit per 7 grams CHO consumed
[2022-08-15] MEDS: ceFAZolin 2000MG 2,000 MG/15 ML SYR IV SCH ×2 (16:49→23:46)
[2022-08-15] MEDS: INSULIN HUMAN NPH SC SCH (17:22)
[2022-08-15] MEDS: GABAPENTIN 100 MG CAP PO SCH (20:35)
[2022-08-15] MEDS: ATORVASTATIN 40 MG TAB PO SCH (20:35)
[2022-08-15] MEDS: TAMSULOSIN HCL 0.4 MG CAP PO SCH (20:35)
[2022-08-15] MEDS: FUROSEMIDE 40 MG TAB PO SCH (20:36)
[2022-08-15] MEDS: lisinopril 40 MG TAB PO SCH (20:36)
[2022-08-15] MEDS: CHOLECALCIFEROL 1,000 UNITS 25 MCG TAB PO SCH (20:36)
[2022-08-15] MEDS: carvediloL 6.25 MG TAB PO SCH (20:36)
[2022-08-15] MEDS: MEMANTINE HCL 10 MG TAB PO SCH (20:37)
[2022-08-15] MEDS: DOCUSATE SODIUM/SENNA 50/8.6MG TAB PO SCH (20:37)
[2022-08-16] MEDS: INSULIN ASPART PER UNIT SC SCH ×6 (00:04→21:01)
--- NOTE | 2022-08-16 03:23 | Hospitalist Consultation ---
Date of Consultation August 16, 2022 Assessment & Plan (1) Status post lumbar spine operation: 77 y/o male w/ PMHx of anemia of chronic disease, ckd, cognitive impairment, CAD s/p stent and cabg, depression, DM2, HLD, HTN, LENO not on cpap who is admitted for lumbar spinal stenosis surgery, postop day 0. - pain regimen per ortho: prn tylenol, prn, oxycodone, and prn dilaudid - completed danuta-operative abx - bowel regimen ordered (2) Hypertension: - most recent BP 181/84. Patient received home PO regimen (3) Diabetes type 2, uncontrolled: - SSI and prn NPH - pharmacy glycemic consult following (4) LENO (obstructive sleep apnea): - not tolerating cpap as outpatient (5) Coronary artery disease: - continue home regimen, baby asa, and lasix (6) Chronic kidney disease, stage 3a: - baseline Cr 1.36. check bmp in AM (7) Depression: - anxiety/depression. continue home Zoloft 100mg. prn hydroxyzine and ativan ordered per ortho team (8) Dementia: - noted per chart review; mild-mod severity? Plan DM2, HH. will be off IV maintenance fluids ppx: per ortho full code med surg Supervising Physician Co-Signing Physician Notes Attending addendum: I have physically seen this patient, have supervised the medical residents activities, and agree with the H&P unless as otherwise noted. Assessment and Plan: Status post lumbar spine surgery- Seen postoperatively with concerns regarding elevated blood pressure Patient has no complaints Surgical and pain management per primary team CAD/hypertension- Most recent blood pressure 181/84, with patient is receiving home p.o. regimen Allow current medications to work, blood pressure remains elevated, will place on as needed medications Diabetes mellitus- Pharmacy glycemic consult has already been ordered CKD- Baseline creatinine 1.36 Follow laboratories in a.m. Depression/anxiety- Continue Zoloft 100 mg daily with as needed hydroxyzine Ativan per Ortho team Remaining orders and notations as noted We will follow during hospital stay History of Present Illness Reason for Consultation: chronic condition management Requesting Physician: Dr. Larsen Attending Physician: Carlos Larsen, DO History of Present Illness 77 y/o male w/ PMHx of anemia of chronic disease, ckd, cognitive impairment, CAD s/p stent and cabg, depression, DM2, HLD, HTN, LENO not on cpap who is admitted for lumbar spinal stenosis surgery, postop day 0. Hospitalist service has been consulted for management of chronic medical conditions. Labs will be checked in the morning. Patient states his pain level is 5 or less. L radicular symptoms, though milder than before the surgery. He has had chronic radicular pains x years. He denies confusion, headache, chest pain, or SOB. No other complaints at this time. Allergies Allergy/AdvReac Type Severity Reaction Status Date / Time No Known Drug Allergies Allergy Verified 08/15/22 06:37 Home Medications Medication Instructions Recorded Confirmed Type cholecalciferol (vitamin D3) 25 2,000 units PO HS 08/11/19 08/15/22 History mcg (1,000 unit) capsule flash glucose sensor (FreeStyle #2 ea 03/05/21 08/13/22 Rx Yodit 2 Sensor kit) acetaminophen 500 mg tablet 1,000 mg PO HS PRN pain 05/30/21 08/15/22 History (Tylenol Extra Strength) carvedilol 6.25 mg tablet 6.25 mg PO BID #180 tabs 10/09/21 08/15/22 Rx CPAP Machine #1 ea 11/20/21 08/13/22 Rx pen needle, diabetic 31 gauge x #200 ea 11/28/21 08/13/22 Rx 5/16" (Easy Comfort Pen [place]) walker (Ultra-Light Rollator misc) #1 ea 03/26/22 08/13/22 Rx insulin NPH isoph U-100 human 100 See Rx Instructions subcut BID #5 05/16/22 08/15/22 Rx unit/mL (3 mL) subcutaneous pen Boxes (Humulin N NPH U-100 Insulin KwikPen) furosemide 40 mg tablet 40 mg PO BID WATER PILL, BLOOD 05/27/22 08/15/22 Rx PRESSURE AND KIDNEYS #180 tabs atorvastatin 40 mg tablet 40 mg PO HS #90 tabs 06/26/22 08/15/22 Rx lisinopril 40 mg tablet 40 mg PO HS BLOOD PRESSURE #90 tabs 06/28/22 08/15/22 Rx memantine 10 mg tablet 10 mg PO BID #180 tabs 07/10/22 08/13/22 Rx aspirin 81 mg tablet,delayed 81 mg PO QAM 07/26/22 08/15/22 History release cyanocobalamin (vitamin B-12) 2,500 mcg PO QAM 07/26/22 08/15/22 History 2,500 mcg tablet gabapentin 100 mg capsule 100 mg PO BID 07/26/22 08/15/22 History (Neurontin) sertraline 100 mg tablet (Zoloft) 100 mg PO QAM 07/26/22 08/15/22 History tamsulosin 0.4 mg capsule 0.8 mg PO HS 07/26/22 08/15/22 History thiamine HCl (vitamin B1) 100 mg 100 mg PO QAM 07/26/22 08/15/22 History tablet (Vitamin B-1) oxycodone 5 mg tablet 5 mg PO Q6H PRN pain, severe #30 08/16/22 Rx tabs tramadol 50 mg tablet 50 mg PO Q6H PRN pain, moderate 08/16/22 Rx #30 tabs Patient History Medical History (Updated 08/16/22 @ 03:29 by Vladimir Castillo MD) Anemia of chronic disease Anxiety hx Background diabetic retinopathy associated with type 2 diabetes mellitus Bilateral leg edema Chronic back pain Chronic kidney disease, stage 3a follows with Dr Chan. Cognitive impairment Dementia. Alert and oriented most times. progressing quickly per . Coronary artery disease stent x1 (~2004), CABG x5 (2013) Degenerative disc disease Depression Diabetes type 2, uncontrolled IDDM Diabetic nephropathy associated with type 2 diabetes mellitus Diabetic peripheral neuropathy associated with type 2 diabetes mellitus Dyslipidemia History of blood transfusion post-op CABG History of colon polyps History of Mohs micrographic surgery for skin cancer 05/2020 History of radiation therapy 05/2020 for skin CA Hypertension controlled, stable per pt Obesity LENO (obstructive sleep apnea) CPAP - does not tolerate cpap currently. Proteinuria Spinal stenosis Squamous cell carcinoma, scalp/neck Surgical History (Updated 08/16/22 @ 03:29 by Vladimir Castillo MD) H/O umbilical hernia repair (12/30/19) Incarcerated Umbilical Hernia Repair Dr. Jeong 12-30-19: LMA#5. History of cardiac cath x3-4 caths- stent x 1 (~2004) History of colonoscopy with polypectomy History of discectomy Lumbar History of open heart surgery x5 vessels (2013) S/P eye surgery to repair a amblyopia (Lazy eye) Left eye S/P hip replacement Left MARTHA: 02/28/12: SAB at L4-L5 at [facility] S/P wisdom tooth extraction Family History Father , age 47 of an [place] Heart disease Myocardial infarction Mother , age 73 of ALS ALS (amyotrophic lateral sclerosis) Cancer Brother Pancreatic cancer Grandmother Diabetes Other No family history of adverse response to anesthesia Denies family history of Ovarian cancer Prostate cancer Breast cancer Colorectal cancer Social History Smoking Status: Never smoker Second Hand Exposure: No; Do You Dip or Chew Tobacco: No; Tobacco Cessation Education Requested by Patient: No Hx Alcohol Use: No Hx Substance Use: No Preferred Language: Argentine Communication Ability: Effective Communication Ability Comment: alert and oriented x3 "most of the time" Visual Impairment: Diminished Hearing Ability: Use of Hearing Aid Kettle Girl Required: No Beliefs That Will Affect Care: None marital status: Current Living Situation: Spouse current occupational status: retired How many Children do You have: 3 Other Information That Helps Us Care for You: No Feels Safe at Home: Yes Childhood Exposure to Second-Hand Smoke: Yes caffeine: Yes (tea and diet soda) during the past year weight has: remained stable Dental Care, Regularly: Yes Physical Activity Frequency: 5-6 Times per Week Physical Activity Frequency Comment: works in yard and walks dogs daily Seatbelt Use: always Sunscreen Use: Yes Do you think of yourself as: straight/heterosexual Assistive Devices: Walker Assistive Devices Comment: noncompliant with cpap currently Review of Systems Review of Systems: All systems reviewed & are unremarkable except as noted in HPI & below Physical Exam Physical Exam: General: Grossly A&O. NAD. Cooperative. Sleepy, just woke up. HEENT: Atraumatic, normocephalic. EOMI Pulm: CTAB anteriorly. -wheezes, -rales, -rhonchi. No respiratory distress. Cardiac: RRR, -mrg. No LE edema. Abdominal: Nontender, nondistended, soft. Integ: No obvious rash. Wearing SCDs. Results & Data Results & Data ([facility]) Vital Signs (Past 12 Hours) Vital Signs Temp Pulse Resp BP Pulse Ox O2 Del Method O2 Flow Rate 08/15/22 20:30 Nasal Cannula 2 08/16/22 00:00 36.7 C 81 20 190/88 H 96 Nasal Cannula 2 08/15/22 20:33 36.4 C L 79 16 171/87 H 98 Nasal Cannula 3.5 08/15/22 15:30 36.4 C L 93 H 15 151/95 H 91 Nasal Cannula 3.5 Laboratory Results Intake and Output 08/15/22 08/15/22 08/16/22 14:59 22:59 06:59 Intake Total 1525 / 2885 1360 / 2885 Output Total 450 / 1915 1465 / 1915 Balance 1075 / 970 -105 / 970 Intake: IV 50 / 1050 1000 / 1050 Clindamycin/D5w 600 mg In 50 ml 50 / 50 @ 100 mls/hr IV PREOP [place] Rx#: [id number] Lactated Ringer's 1,000 ml @ 15 0 / 0 mls/hr IV .Q24H [place] Rx#: [id number] Sodium Chloride 0.9% 1000ML 1, 1000 / 1000 000 ml @ 150 mls/hr IV .Q6H40M [place] Rx#:[id number] IV Perioperative 925 / 925 Oral 550 / 910 360 / 910 Output: Estimated Blood Loss 200 / 200 Urine Amount (Catheter) 150 / 1250 1100 / 1250 Morgan/Indwelling 150 / 1250 1100 / 1250 Drain Output 100 / 465 365 / 465 Back GO 100 / 465 365 / 465 Other: Weight 122.9 kg Patient Weight 08/16/22 06:59 Weight 122.9 kg Diagnostic Findings Lumbar Spine X-Ray 08/15/22 07:45 INTRAOPERATIVE RADIOGRAPHS CLINICAL HISTORY: L3-L5 spinal fusion. Fluoroscopy time 30 seconds. FINDINGS: 2 spot fluoroscopic views of the lumbar spine are presented. There has been discectomy at L3-L4 and L4-L5 with laminectomy and posterior fusion at L3- L5. Interpedicular screws are present at all levels. The orthopedic hardware appears intact. IMPRESSION: Intraoperative images from lumbar spinal fusion surgery as above. Electronically signed by: Adonis Lyons M.D. 08/15/2022 11:43 AM Resident Activity Tracking Resident Involvement: Resident Care Provided Care Provided: [facility]
[2022-08-16] MEDS: ACETAMINOPHEN 500 MG TAB PO PRN (05:29)
[2022-08-16] MEDS: POLYETHYLENE (MIRALAX) 17 GM PACK PO SCH ×3 (05:29→17:03)
[2022-08-16] MEDS: SERTRALINE HCL 100 MG TABLET PO SCH (07:53)
[2022-08-16] MEDS: CYANOCOBALAMIN (B-12) 2,500 MCG TABLET SL SCH (07:53)
[2022-08-16] MEDS: THIAMINE HCL 100 MG TAB PO SCH (07:53)
[2022-08-16] MEDS: GABAPENTIN 100 MG CAP PO SCH ×2 (07:53→20:12)
[2022-08-16] MEDS: ASPIRIN 81 MG ECTAB PO SCH (07:53)
[2022-08-16] MEDS: MEMANTINE HCL 10 MG TAB PO SCH ×2 (07:53→20:12)
[2022-08-16] MEDS: carvediloL 6.25 MG TAB PO SCH ×2 (07:53→20:11)
[2022-08-16] MEDS: FUROSEMIDE 40 MG TAB PO SCH ×2 (07:53→20:12)
[2022-08-16] MEDS: oxyCODONE HCL IR 5 MG TAB (IMMEDIATE RELEASE) PO PRN ×2 (07:59→17:01)
[2022-08-16 08:39] LABS: Basophils # (auto) 0.04 K/uL (0-0.2); Basophils % (auto) 0.4 %; Eosinophils # (auto) 0.22 K/uL (0-0.50); Eosinophils % (auto) 2.4 %; Hemoglobin 12.3 g/dl (14.0-18.0); Immature Granulocytes # (auto) 0.03 K/uL (0.00-0.02); Immature Granulocytes % (auto) 0.3 %; Lymphocytes # (auto) 0.76 K/uL (1.2-3.4); Lymphocytes % (auto) 8.3 %; Mean Corpuscular Hemoglobin 28.1 pg (25.0-34.0); Mean Corpuscular Hgb Conc 32.4 g/dL (32.0-36.0); Mean Corpuscular Volume 86.8 fL (80.0-100.0); Mean Platelet Volume 11.5 fL (9.4-12.4); Monocytes # (auto) 0.71 K/uL (0.24-0.82); Monocytes % (auto) 7.8 %; Neutrophils # (auto) 7.37 K/uL (1.4-6.5); Neutrophils % (auto) 80.8 %; Platelet Count 160 K/uL (130-400); RDW Coefficient of Variation 13.8 % (11.5-14.5); RDW Standard Deviation 43.6 fL (36.4-46.3); Red Blood Count 4.38 M/uL (4.63-6.08); White Blood Count 9.13 K/ul (4.8-10.8)
[2022-08-16 09:12] LABS: BUN Creatinine Ratio 16.6 (10-20); Calcium 8.5 mg/dl (8.5-10.1); Creatinine Clr Calc Pharmacy 52.6 ml/min; Est GFR (African American) 48.9 ml/min; Est GFR (Non-African American) 42.2 ml/min; Magnesium 1.8 mg/dl (1.7-2.4)
--- NOTE | 2022-08-16 09:20 | Orthopedic Progress Note ---
Date of Service August 16, 2022 Assessment & Plan (1) Neurogenic claudication due to lumbar spinal stenosis: Plan: This time initiate physical therapy monitor his GO operatively discharge home in the next few days. Admission and Anticipated Discharge Date Admission Date: August 15, 2022 Subjective Back pain controlled leg pain markedly improved Physical Exam Physical Exam: Patient is sitting up in bed. Is comfortable. Discussed pain to testing. Results & Data ([facility]) Vital Signs (Past 12 Hours) Vital Signs Temp Pulse Resp BP Pulse Ox O2 Del Method O2 Flow Rate 08/16/22 08:56 92 Nasal Cannula 2 08/16/22 08:52 37 C 08/16/22 07:51 38.1 C H 92 H 24 174/81 H 96 Nasal Cannula 4 08/16/22 03:54 36.8 C 90 20 181/84 H 95 Nasal Cannula 4 08/16/22 00:00 36.7 C 81 20 190/88 H 96 Nasal Cannula 4
--- NOTE | 2022-08-16 14:07 | Pharmacy Report ---
Pharmacy Glycemic Short Note 2 - Date of Service August 16, 2022 - Glycemic Short BSG Results (Last 24 hours): 08/15/22 08/15/22 08/15/22 17:07 20:53 23:48 Glucose POC Glucose 182 H 88 75 08/16/22 08/16/22 08/16/22 03:59 08:01 08:07 Glucose 154 H POC Glucose 111 H 139 H 08/16/22 11:48 Glucose POC Glucose 196 H OUTPATIENT ANTIDIABETIC REGIMEN: * NPH 50-60 units? qAM, 25 units with dinner * 9.8% 08/01/22 ASSESSMENT: 08/16 * BSG 139 mg/dL this morning, will continue NPH scale with dinner, 20 units this morning with breakfast- may need increased tomorrow * Monitor BSG trends today for novolog changes. 08/15 * Patient admitted following spinal surgery. Patient is maintained on NPH outpatient with Dr. Owens * BSGs elevated post-op, will initiate Novolog dosing based on stress of 1 outpatient total daily dosing * Will utilize NPH as this is what patient uses outpatient to help transition home, will reduce dose as novolog is being added to regimen PLAN FOR INPATIENT GLYCEMIC CONTROL: * Basal insulin * NPH 20 units with breakfast, 10/15 units with dinner * Bolus insulin * NovoLog per scale ACHS or Q6hrs while NPO * Goal Range: Low 110 mg/dL - High 140 mg/dL * Correction Factor: 20 mg/dL/unit * Nutritional / Prandial insulin per carb ratio of 1 unit per 7 grams CHO consumed
--- NOTE | 2022-08-16 15:43 | Communication Note ---
Date of Service: August 16, 2022 Patient's BP is stable. Pharmacy managing patient's DM. Clinically stable at this time. Will sign off at this time. Can reconsult if need be. Thank you for allowing me to participate in the care of your patient. -Dr. Adonis Wheeler PGY1 as above Resident Activity Tracking Resident Involvement: Resident Care Provided Care Provided: Adult Hospital Medicine
[2022-08-16] MEDS: INSULIN HUMAN NPH SC SCH (17:40)
[2022-08-16] MEDS: lisinopril 40 MG TAB PO SCH (20:09)
[2022-08-16] MEDS: TAMSULOSIN HCL 0.4 MG CAP PO SCH (20:11)
[2022-08-16] MEDS: DOCUSATE SODIUM/SENNA 50/8.6MG TAB PO SCH (20:12)
[2022-08-16] MEDS: CHOLECALCIFEROL 1,000 UNITS 25 MCG TAB PO SCH (20:13)
[2022-08-16] MEDS: ATORVASTATIN 40 MG TAB PO SCH (20:13)
--- NOTE | 2022-08-16 20:54 | Billing Data ---
Date of Service August 16, 2022 Coding Level of Care Code 95888 Inpt Consult Level 3
[2022-08-17] MEDS: POLYETHYLENE (MIRALAX) 17 GM PACK PO SCH ×5 (00:03→23:29)
[2022-08-17] MEDS: oxyCODONE HCL IR 5 MG TAB (IMMEDIATE RELEASE) PO PRN (07:50)
[2022-08-17] MEDS: SERTRALINE HCL 100 MG TABLET PO SCH (07:50)
[2022-08-17] MEDS: GABAPENTIN 100 MG CAP PO SCH ×2 (07:50→21:56)
[2022-08-17] MEDS: FUROSEMIDE 40 MG TAB PO SCH ×2 (07:50→20:57)
[2022-08-17] MEDS: MEMANTINE HCL 10 MG TAB PO SCH ×2 (07:51→20:57)
[2022-08-17] MEDS: carvediloL 6.25 MG TAB PO SCH ×2 (07:51→20:54)
[2022-08-17] MEDS: THIAMINE HCL 100 MG TAB PO SCH (07:51)
[2022-08-17] MEDS: CYANOCOBALAMIN (B-12) 2,500 MCG TABLET SL SCH (07:51)
[2022-08-17] MEDS: ASPIRIN 81 MG ECTAB PO SCH (07:51)
--- NOTE | 2022-08-17 08:26 | Orthopedic Progress Note ---
Date of Service August 17, 2022 Assessment & Plan (1) Neurogenic claudication due to lumbar spinal stenosis: Plan: This time continue physical therapy monitor his GO output. We are trying to sort whether the patient should be sent home or rehab. He does have some cognitive decline and I suspect he will be safer at home pending the family's input. Admission and Anticipated Discharge Date Admission Date: August 15, 2022 Subjective Patient has no complaints. States his back and leg pain are improved. Physical Exam Physical Exam: On exam he seems somewhat confused with my questioning. He is neurologically intact and cooperative with my exam. Results & Data ([facility]) Vital Signs (Past 12 Hours) Vital Signs Temp Pulse Resp BP Pulse Ox O2 Del Method O2 Flow Rate 08/17/22 07:40 36.5 C 66 20 138/69 95 Nasal Cannula 2 08/16/22 21:34 37 C 82 18 169/83 H 93 Nasal Cannula
[2022-08-17] MEDS: INSULIN HUMAN NPH SC SCH ×2 (09:04→17:46)
[2022-08-17] MEDS: INSULIN ASPART PER UNIT SC SCH ×4 (09:07→21:22)
[2022-08-17] MEDS: ACETAMINOPHEN 500 MG TAB PO PRN (15:45)
[2022-08-17] MEDS: TAMSULOSIN HCL 0.4 MG CAP PO SCH (20:55)
[2022-08-17] MEDS: lisinopril 40 MG TAB PO SCH (20:55)
[2022-08-17] MEDS: ATORVASTATIN 40 MG TAB PO SCH (20:56)
[2022-08-17] MEDS: CHOLECALCIFEROL 1,000 UNITS 25 MCG TAB PO SCH (20:56)
[2022-08-17] MEDS: DOCUSATE SODIUM/SENNA 50/8.6MG TAB PO SCH (20:56)
[2022-08-18] MEDS: POLYETHYLENE (MIRALAX) 17 GM PACK PO SCH ×4 (05:44→23:06)
[2022-08-18] MEDS: FUROSEMIDE 40 MG TAB PO SCH ×2 (07:19→23:02)
[2022-08-18] MEDS: CYANOCOBALAMIN (B-12) 2,500 MCG TABLET SL SCH (07:19)
[2022-08-18] MEDS: carvediloL 6.25 MG TAB PO SCH ×2 (07:19→23:02)
[2022-08-18] MEDS: ASPIRIN 81 MG ECTAB PO SCH (07:19)
[2022-08-18] MEDS: MEMANTINE HCL 10 MG TAB PO SCH ×2 (07:19→23:03)
[2022-08-18] MEDS: SERTRALINE HCL 100 MG TABLET PO SCH (07:19)
[2022-08-18] MEDS: GABAPENTIN 100 MG CAP PO SCH ×2 (07:19→23:04)
[2022-08-18] MEDS: THIAMINE HCL 100 MG TAB PO SCH (07:20)
[2022-08-18] MEDS: INSULIN HUMAN NPH SC SCH ×2 (08:45→17:49)
[2022-08-18] MEDS: INSULIN ASPART PER UNIT SC SCH ×4 (08:47→20:04)
--- NOTE | 2022-08-18 09:47 | Orthopedic Progress Note ---
Date of Service August 18, 2022 Assessment & Plan (1) Neurogenic claudication due to lumbar spinal stenosis: Plan: At this time we will continue physical therapy. Patient would like to go home however at this point is more likely candidate for rehab. Hopefully will have a clear direction on Friday. Admission and Anticipated Discharge Date Admission Date: August 15, 2022 Subjective Patient has some back pain but is controlled. Denies any leg pain. Physical Exam Physical Exam: On exam he is in the chair at the bedside. Is good strength testing. Appears comfortable. Results & Data ([facility]) Vital Signs (Past 12 Hours) Vital Signs Temp Pulse Pulse Resp BP Pulse Ox O2 Del Method 08/18/22 08:00 36.6 C 64 13 122/78 90 Room Air 08/18/22 07:18 36.6 C 71 20 126/71 94 Room Air
[2022-08-18] MEDS: ACETAMINOPHEN 500 MG TAB PO PRN (14:12)
[2022-08-18] MEDS: GLUCAGON FOR INJ 1 MG VIAL IM PRN ×2 (20:14→20:38)
[2022-08-18] MEDS ORDERED: OLANZapine 10 MG/2.1 ML SDV IM ONE ×2 (21:17→21:18)
[2022-08-18] MEDS ORDERED: OLANZapine 10 MG/2.1 ML SDV IM STA (21:34)
--- NOTE | 2022-08-18 21:50 | Communication Note ---
Date of Service: August 18, 2022 S: Notified by patient's RN that patient hypoglycemic with BSG 61 and with increased confusion / change in behavior. 1 g IM glucagon administered per ord ers with change in BSG to 69; additional 1g IM glucagon administered. Patient refusing PO and no IV access. Was then notified by RN that patient was falling asleep but waking up and being aggressive stating that he "wants to kill us, hitting and punching very uncooperative." Repeat BSG 92. O: On my arrival to the room, patient agitated and uncooperative. Was laying in bed supine, sideways with feet hanging off the bed. Security at bedside. Patient uncooperative. Will not follow instructions or commands. Will not answer questions. Unable to be reoriented. Zyprexa 5mg IM stat ordered and administered to patient by RN. A/P: Acute change in mental status on baseline dementia - Good response to Zyprexa 5mg IM - May be multifactorial -- hypoglycemia, delirium on dementia, ? infectious proc ess - R/o infectious or electrolyte abnormalities -- will order CBC and CMP - Given recent surgical intervention, will also get head CT Addendum: labs and imaging reviewed 1. Head CT -- no hemorrhage, hydrocephalus, or edema 2. Labs reveal: no hemorrhage, hydrocephalus, or edema - Mild leukocytosis with WBC 11.57. Patient is afebrile. However, it is noted that patient with uncontrolled DM and A1c of 9.8% so there is increased risk for post op infection. Will check UA, CXR, and get blood cultures as well. Defer abx therapy at this time. - TERESA on CKDIIIa. Cr 2.14 (baseline ~1.5). ? how well patient is eating. Will start patient on IVF for hydration. Continue to monitor BMP. [facility] Patient: PRADIP MO (Male) : 47 Status: Date: 08/18/22 23:40A Room #: 312 History: AMS Slices: 66 Priors: Tech: Pedro Nguyen @ [phone] Exams: CT HEAD Contrast: Accession Numbers: [id number] Referring Physician: STEFAN MARSHALL Preliminary Findings Only See Final Report For Complete Findings CT HEAD: No hemorrhage, hydrocephalus, or edema. Global parenchymal atrophy. Mild scattered paranasal sinus mucosal thickening. Mastoid air cells are clear. Radiologist: Terry Lopez MD Study ready at 23:45 and initial results transmitted at 23:47 Results also transmitted to [facility], [address] [facility] @ [phone] (Fax) *This report constitutes a preliminary interpretation only. Non-acute findings felt to be unrelated to the clinical presentation may not be discussed in this report. The study will be interpreted and a final report will be generated by the local Radiologist the following shift. To reach the [facility] department call [phone]. If a discrepancy is found between the preliminary and final interpretations of this study, please notify us via our Client Portal at [email or web address], under QA Exams. You can also fax this report with a description of the discrepancy, or include the final report, to our daytime fax number [phone]. If faxing, please indicate the severity of discrepancy using one of the following categories: [ ] 1 - Agree/Informational [ ] 2 - Unlikely to Affect Management G [ ] 3 - Possible Eventual Change of Management [ ] 4 - Probable Immediate Change of Management For all other patient related information, please fax us at [phone]. [id number] Resident Activity Tracking Resident Involvement: Resident Care Provided Care Provided: Adult Hospital Medicine
[2022-08-18 22:26] LABS: Basophils # (auto) 0.05 K/uL (0-0.2); Basophils % (auto) 0.4 %; Eosinophils # (auto) 0.53 K/uL (0-0.50); Eosinophils % (auto) 4.6 %; Hematocrit (blood only) 32.6 % (40.1-51.0); Hemoglobin 10.5 g/dl (14.0-18.0); Immature Granulocytes # (auto) 0.03 K/uL (0.00-0.02); Immature Granulocytes % (auto) 0.3 %; Lymphocytes # (auto) 1.46 K/uL (1.2-3.4); Lymphocytes % (auto) 12.6 %; Mean Corpuscular Hemoglobin 28.2 pg (25.0-34.0); Mean Corpuscular Hgb Conc 32.2 g/dL (32.0-36.0); Mean Corpuscular Volume 87.4 fL (80.0-100.0); Monocytes # (auto) 1.13 K/uL (0.24-0.82); Monocytes % (auto) 9.8 %; Neutrophils # (auto) 8.37 K/uL (1.4-6.5); Neutrophils % (auto) 72.3 %; Platelet Count 169 K/uL (130-400); RDW Coefficient of Variation 13.8 % (11.5-14.5); RDW Standard Deviation 44.2 fL (36.4-46.3); Red Blood Count 3.73 M/uL (4.63-6.08); White Blood Count 11.57 K/ul (4.8-10.8)
[2022-08-18 22:58] LABS: Albumin Globulin Ratio 1.2 (0.9-2); Albumin Level 3.3 gm/dl (3.4-5.0); Bilirubin,Total 0.4 mg/dl (0.2-1.0); Calcium 8.6 mg/dl (8.5-10.1); Creatinine Clr Calc Pharmacy 38.6 ml/min; Est GFR (African American) 33.6 ml/min; Globulin 2.8 gm/dl (2.5-4.0); Potassium 3.7 mmol/L (3.5-5.1); Total Protein 6.1 gm/dl (6.0-8.3)
[2022-08-18] MEDS: CHOLECALCIFEROL 1,000 UNITS 25 MCG TAB PO SCH (22:58)
[2022-08-18] MEDS: lisinopril 40 MG TAB PO SCH (23:02)
[2022-08-18] MEDS: DOCUSATE SODIUM/SENNA 50/8.6MG TAB PO SCH (23:02)
[2022-08-18] MEDS: ATORVASTATIN 40 MG TAB PO SCH (23:03)
[2022-08-18] MEDS: TAMSULOSIN HCL 0.4 MG CAP PO SCH (23:04)
[2022-08-19] MEDS: LACTATED RINGER'S 1,000 ML IV SCH ×2 (03:02→11:09)
[2022-08-19 03:43] LABS: Appearance Urine Clear (Clear); Bilirubin Urine Negative (Negative); Blood Urine Negative (Negative); Color Urine Yellow; Glucose Urine UA Negative (Negative); Ketones Urine Negative (Negative); Leukocyte Esterase Urine Negative (Negative); Nitrite Urine Negative (Negative); Protein Urine Negative (Negative); Specific Gravity Urine 1.007 (1.000-1.030); Urobilinogen Urine Negative (Negative)
[2022-08-19] MEDS: POLYETHYLENE (MIRALAX) 17 GM PACK PO SCH ×3 (05:30→18:17)
[2022-08-19] MEDS: ACETAMINOPHEN 500 MG TAB PO PRN ×2 (06:38→19:26)
--- NOTE | 2022-08-19 07:17 | CT Scan Report ---
HEAD CT NONCONTRAST CT DOSE: 614.27 mGy.cm HISTORY: change mental status, hx dementia, recent surgery TECHNIQUE: Multiaxial CT images of the head were performed without the use of intravenous contrast. A utomated exposure control was utilized for this study. A dose lowering technique was utilized adheri ng to the principles of ALARA. Comparison: Head CT 03/22/2022. Findings: Partial opacification of ethmoid air cells. Mild to moderate mucosal thickening within the maxillary sinuses. The mastoid air cells are clear. The calvarium and skull base are intact. There is no mass, hematoma, midline shift, acute infarct. White matter hypodensity is nonspecific but suggest sonya of microvascular ischemic change. The ventricles and sulci demonstrate mild age-related involutio nal changes. Impression: No significant change compared to the prior study. No acute intracranial abnormality. ACT 112: Negative or not required by law. Electronically signed by: Karthikeyan Guerrero M.D. 08/19/2022 7:16 AM
[2022-08-19] MEDS: ASPIRIN 81 MG ECTAB PO SCH (09:14)
[2022-08-19] MEDS: MEMANTINE HCL 10 MG TAB PO SCH ×2 (09:14→22:33)
[2022-08-19] MEDS: carvediloL 6.25 MG TAB PO SCH ×2 (09:15→22:32)
[2022-08-19] MEDS: THIAMINE HCL 100 MG TAB PO SCH (09:15)
[2022-08-19] MEDS: GABAPENTIN 100 MG CAP PO SCH ×2 (09:15→22:33)
[2022-08-19] MEDS: SERTRALINE HCL 100 MG TABLET PO SCH (09:15)
--- NOTE | 2022-08-19 09:23 | XRay Report ---
XR chest 1V portable HISTORY: leukocytosis post-op COMPARISON: Chest 08/01/2022. FINDINGS: There are low lung volumes. No pneumothorax. No pleural effusions. A few bibasilar linear d ensities have improved and favor subsegmental atelectasis given the low lung volumes. Otherwise, no n ew focal lung consolidations to suggest a pneumonia. No evidence for pulmonary edema. The heart is mi ldly enlarged. There are poststernotomy changes. Degenerative changes again noted within the shoulder s. IMPRESSION: 1. Mild cardiomegaly without evidence for pulmonary edema. 2. A few bibasilar linear densities have improved and favor subsegmental atelectasis given the low annie ng volumes. ACT 112: Negative or not required by law. Electronically signed by: Karthikeyan Guerrero M.D. 08/19/2022 9:22 AM
[2022-08-19] MEDS: CYANOCOBALAMIN (B-12) 2,500 MCG TABLET SL SCH (09:28)
[2022-08-19] MEDS: INSULIN HUMAN NPH SC SCH (09:28)
[2022-08-19] MEDS: INSULIN ASPART PER UNIT SC SCH ×4 (09:29→20:45)
--- NOTE | 2022-08-19 09:49 | Hospitalist Progress Note ---
Date of Service August 19, 2022 Assessment & Plan (1) AMS (altered mental status): Plan: -At this time, the patient's acute change in mental status overnight is likely multifactorial including hypoglycemia, possible delirium/sundowning, polypharmacy, and hypercarbia due to Cpap non-compliance. -Patient is currently oriented to person only, his nurse states that has been his baseline since his procedure -Blood glucose currently 133, no narcotics since 08/17, did receive 5 mg IM Zyprexa early this am which could be contributing at this time, no signs of infection at this time, continue to follow infectious workup. -Will obtain STAT CBC, CMP, ABG, lactate, and ammonia to continue monitoring for other causes of his confusing. This is likely his baseline dementia with possible delirium/sundowning since being admitted but he likely could be hypercarbic since he is not compliant with his CPAP -CT of the head last night was negative, no focal neuro defects on exam -Will follow-up on repeat labs to look for changes or improvements. Will speak with ortho to see if they are ok with me canceling narcotic and benzo orders for now to avoid polypharmacy with is TERESA (2) TERESA (acute kidney injury): Plan: -Cr was noted to be 2.14, baseline appears to be 1.5 -Was started on lactated ringer's overnight, he is making urine per inspection of his bustos -Patient appears dry on exam, will continue with light IV hydration today and will monitor his renal function for improvement -Hold lasix and lisinopril for now until renal function improves to baseline (3) Status post lumbar spine operation: Plan: 77 y/o male w/ PMHx of anemia of chronic disease, ckd, cognitive impairment, CAD s/p stent and cabg, depression, DM2, HLD, HTN, LENO not on cpap who is admitted for lumbar spinal stenosis surgery, postop day 0. - pain regimen per ortho: prn tylenol, prn, oxycodone, and prn dilaudid - completed danuta-operative abx - bowel regimen ordered (4) Hypertension: Plan: - most recent BP 135/68. -Hold lisinopril for now with his TERESA, continue other antihypertensives (5) Diabetes type 2, uncontrolled: Plan: - SSI and prn NPH - pharmacy glycemic consult following (6) LENO (obstructive sleep apnea): Plan: - not tolerating cpap as outpatient -Will FU with ABG (7) Coronary artery disease: Plan: - continue home regimen, baby asa, and lasix (8) Chronic kidney disease, stage 3a: Plan: - baseline Cr 1.36. -Continue to monitor renal function with TERESA (9) Depression: Plan: - anxiety/depression. continue home Zoloft 100mg. Stopped prn hydroxyzine and ativan ordered per ortho team for now to avoid polypharmacy (10) Dementia: Plan: - noted per chart review; mild-mod severity? -Continue Namenda Plan The patient was discussed with Dr. Hester at the time of the consult Admission and Anticipated Discharge Date Admission Date: August 15, 2022 Supervising Physician Co-Signing Physician Notes I personally saw and examined the patient. I verified all brandt points and agree with Conner Noyola PA-C with the following exceptions and/or additions: 77-year-old male POD #4 back surgery. Medicine initially signed off due to stable chronic medical conditions. However last night patient appeared to be acutely confused. CT head showed no significant change compared to prior study with no acute intracranial abnormality. He was mildly hypercapnic on ABG this morning -however low suspicion this is causing his confusion. He does appear to have developed an TERESA on his usual Lasix dosing and possible his BUN is increasing his risk of owning but he appears to be back to his usual self today. Agree with holding Lasix and continuing lactated Ringer's but will give 1 L due to risk of pulmonary edema and creatinine already improved to 1.65, BUN improved to 48 this morning. Hypoglycemia certainly increasing his risk of delirium last night in addition. He does not appear to have any focal neurology on exam to suggest need for brain MRI. Initially concerned he was becoming more hypoxic as on 4 L/min O2 compared to 2 L/min O2 yesterday however while in the room I was able to turn him down to 2 L/min with O2 sats remaining greater than 94% -therefore no need for CT for PE at this time. WBC has decreased from last night and no longer with a neutrophilia therefore do not suspect infection. Thank you for the consult we will continue to see the patient daily at this time. Subjective Hospital Medicine was re-consulted overnight for acute confusion, agitation, and aggression. Per the communication note from hospital medicine last night the patient was noted to be hypoglycemic at 61 with increased confused and behavioral changes compared to his baseline. The patient was given multiple doses of IM glucagon as he had no IV access and was refusing PO intake. Despite improvement in his hypoglycemia and continued to be confused and agitated. He was given 5 mg IM Zyprexa with good response. An initial workup was started to rule out other causes of his confusion. At this time his CT head was negative for acute changes, CBC noted a slight leukocytosis of 11.57 but patient has been afebrile. Of note, the patient's Cr was found to be 2.14, his baseline appears to be 1.5, he was started on IV fluids overnight for hydration. UA and ches xray were negative for signs of infectious process. Blood cultures were ordered but have not been obtained at the time of my evaluation. At the time of my evaluation the patient was sleeping in bed and was currently on 4L NC. Prior to waking him he was clearly having short episodes of apnea consistent with his know LENO. I was able to wake him by calling his name and gently shaking him. Upon waking the patient is confused but pleasant and not agitated or aggressive. He frequently falls back asleep but is easy to arouse. During my evaluation he is only oriented to self. He denies any pain at the time of my exam. I spoke with his current nurse who confirms that since his procedure his baseline has been oriented to self only. I had her check his blood glucose and it was noted to be 133. She checked his MAR and confirmed that the last dose of narcotics that he had was on 08/17 and was oxycodone. She confirmed that he was able to eat breakfast this am and had 10 units of NPH as ordered by pharmacy. Review of Systems Review of Systems: ROS unable to be obtained at the time of the exam due to the patient's current mental status Physical Exam Physical Exam: Physical Exam: General: In no acute distress, stated age, chronically ill appearing, non- toxic appearing HEENT: Normocephalic, atraumatic, no scleral icterus, pupils around round, symmetrical, and reactive to light, currently with nasal cannula in place, Dry mucus membranes, trachea midline, no thyromegaly Chest/Pulm: No respiratory distress, symmetrical chest expansion, clear breath sounds throughout Cardiac: RRR, no murmurs noted Abdomen: Negative for ascites and bruising, normoactive bowel sounds, soft, non-tender to palpation throughout : Currently with bustos cath in place and draining clear, yellow urine Musculoskeletal: Symmetrical and without signs of acute trauma, upper and lower extremities with full ROM, no atrophy, spasticity, or flaccidity Extremities: Radial, dorsalis pedis, and posterior tibial pulses are intact and symmetrical, no edema noted in the BL LE's Skin: Warm, dry, no rashes , lesions, or scars noted Neuro: Alert, oriented to person only, will follow commands, no focal neuro defects noted, symmetrical strength in the BL upper and lower extremities, CB II-XII tested and intact Psych: No acute distress, fatigued, pleasantly confused at the time of the exam Results & Data Results & Data ([facility]) Vital Signs (Past 12 Hours) Vital Signs Temp Pulse Pulse Resp BP BP Pulse Ox 08/19/22 07:56 36.8 C 70 18 135/68 97 08/19/22 02:23 74 20 96 08/18/22 22:23 36.8 C 71 16 140/73 96 O2 Del Method O2 Flow Rate 08/19/22 07:56 4 08/19/22 02:23 Nasal Cannula 4 08/18/22 22:23 Room Air Laboratory Results Abnormal lab results 08/18/22 08/18/22 08/18/22 Range/Units 12:06 17:00 20:04 WBC (4.8-10.8) K/ul RBC (4.63-6.08) M/uL Hgb (14.0-18.0) g/dl Hct (40.1-51.0) % Neut # (Auto) (1.4-6.5) K/uL [place] # (Auto) (0.24-0.82) K/uL Eos # (Auto) (0-0.50) K/uL Immature Gran # (Auto) (0.00-0.02) K/uL BUN (6-23) mg/dl Creatinine (0.6-1.4) mg/dl BUN/Creatinine Ratio (10-20) Glucose (70-99(Fasting)) mg/dl POC Glucose 240 H 103 H 61 L* (70-99) mg/dl Albumin (3.4-5.0) gm/dl 08/18/22 08/18/22 08/18/22 Range/Units 20:30 22:14 22:14 WBC 11.57 H (4.8-10.8) K/ul RBC 3.73 L (4.63-6.08) M/uL Hgb 10.5 L (14.0-18.0) g/dl Hct 32.6 L (40.1-51.0) % Neut # (Auto) 8.37 H (1.4-6.5) K/uL [place] # (Auto) 1.13 H (0.24-0.82) K/uL Eos # (Auto) 0.53 H (0-0.50) K/uL Immature Gran # (Auto) 0.03 H (0.00-0.02) K/uL BUN 60 H (6-23) mg/dl Creatinine 2.14 H (0.6-1.4) mg/dl BUN/Creatinine Ratio 28.0 H (10-20) Glucose 56 L (70-99(Fasting)) mg/dl POC Glucose 69 L* (70-99) mg/dl Albumin 3.3 L (3.4-5.0) gm/dl 08/18/22 08/18/22 08/18/22 Range/Units 22:16 22:17 23:22 WBC (4.8-10.8) K/ul RBC (4.63-6.08) M/uL Hgb (14.0-18.0) g/dl Hct (40.1-51.0) % Neut # (Auto) (1.4-6.5) K/uL [place] # (Auto) (0.24-0.82) K/uL Eos # (Auto) (0-0.50) K/uL Immature Gran # (Auto) (0.00-0.02) K/uL BUN (6-23) mg/dl Creatinine (0.6-1.4) mg/dl BUN/Creatinine Ratio (10-20) Glucose (70-99(Fasting)) mg/dl POC Glucose 59 L* 66 L* 109 H (70-99) mg/dl Albumin (3.4-5.0) gm/dl 08/19/22 08/19/22 08/19/22 Range/Units 01:28 08:12 10:11 WBC (4.8-10.8) K/ul RBC (4.63-6.08) M/uL Hgb (14.0-18.0) g/dl Hct (40.1-51.0) % Neut # (Auto) (1.4-6.5) K/uL [place] # (Auto) (0.24-0.82) K/uL Eos # (Auto) (0-0.50) K/uL Immature Gran # (Auto) (0.00-0.02) K/uL BUN (6-23) mg/dl Creatinine (0.6-1.4) mg/dl BUN/Creatinine Ratio (10-20) Glucose (70-99(Fasting)) mg/dl POC Glucose 113 H 128 H 133 H (70-99) mg/dl Albumin (3.4-5.0) gm/dl Diagnostic Findings Lumbar Spine X-Ray 08/15/22 07:45 INTRAOPERATIVE RADIOGRAPHS CLINICAL HISTORY: L3-L5 spinal fusion. Fluoroscopy time 30 seconds. FINDINGS: 2 spot fluoroscopic views of the lumbar spine are presented. There has been discectomy at L3-L4 and L4-L5 with laminectomy and posterior fusion at L3- L5. Interpedicular screws are present at all levels. The orthopedic hardware appears intact. IMPRESSION: Intraoperative images from lumbar spinal fusion surgery as above. Electronically signed by: Adonis Lyons M.D. 08/15/2022 11:[address] 08/18/22 21:[address] DOSE: 614.27 mGy.cm HISTORY: change mental status, hx dementia, recent surgery TECHNIQUE: Multiaxial CT images of the head were performed without the use of intravenous contrast. Automated exposure control was utilized for this study. A dose lowering technique was utilized adhering to the principles of ALARA. Comparison: Head CT 03/22/2022. Findings: Partial opacification of ethmoid air cells. Mild to moderate mucosal thickening within the maxillary sinuses. The mastoid air cells are clear. The calvarium and skull base are intact. There is no mass, hematoma, midline shift, acute infarct. White matter hypodensity is nonspecific but suggestive of micro vascular ischemic change. The ventricles and sulci demonstrate mild age-related involutional changes. Impression: No significant change compared to the prior study. No acute intracranial abnormality. ACT 112: Negative or not required by law. Electronically signed by: Krathikeyan Guerrero M.D. 08/19/2022 7:16 AM Chest X-Ray 08/19/22 02:15 XR chest 1V portable HISTORY: leukocytosis post-op COMPARISON: Chest 08/01/2022. FINDINGS: There are low lung volumes. No pneumothorax. No pleural effusions. A few bibasilar linear densities have improved and favor subsegmental atelectasis given the low lung volumes. Otherwise, no new focal lung consolidations to suggest a pneumonia. No evidence for pulmonary edema. The heart is mildly enlarged. There are poststernotomy changes. Degenerative changes again noted within the shoulders. IMPRESSION: 1. Mild cardiomegaly without evidence for pulmonary edema. 2. A few bibasilar linear densities have improved and favor subsegmental atelectasis given the low lung volumes. ACT 112: Negative or not required by law. Electronically signed by: Karthikeyan Guerrero M.D. 08/19/2022 9:22 AM PG Care Time/CCT Total # of Minutes Spent Total Time Spent with Patient: Total time spent is greater than 50% in coordination of care (as documented) at patient's floor/unit and/or counseling patient: C[place] [address] Inpt Consult Level 5 Patient Type Established Medical Decision Making High Complexity Diagnoses AMS (altered mental status) R41.82 TERESA (acute kidney injury) N17.9 Status post lumbar spine operation Z98.890 Hypertension I10 Diabetes type 2, uncontrolled E11.65 LENO (obstructive sleep apnea) G47.33 Coronary artery disease I25.10 Chronic kidney disease, stage 3a N18.31 Depression F32.9 Dementia F03.90
--- NOTE | 2022-08-19 09:55 | Orthopedic Progress Note ---
Date of Service August 19, 2022 Assessment & Plan (1) Neurogenic claudication due to lumbar spinal stenosis: Plan: At this time we will continue physical therapy and maintain his GO drain. Were hoping for discharge to SNF tomorrow. Admission and Anticipated Discharge Date Admission Date: August 15, 2022 Subjective Patient resting at this time Results & Data ([facility]) Vital Signs (Past 12 Hours) Vital Signs Temp Pulse Pulse Resp BP BP Pulse Ox 08/19/22 07:56 36.8 C 70 18 135/68 97 08/19/22 02:23 74 20 96 08/18/22 22:23 36.8 C 71 16 140/73 96 O2 Del Method O2 Flow Rate 08/19/22 07:56 4 08/19/22 02:23 Nasal Cannula 4 08/18/22 22:23 Room Air
[2022-08-19] MEDS ORDERED: LACTATED RINGER'S 1,000 ML IV SCH (10:35)
[2022-08-19 10:57] LABS: Basophils # (auto) 0.04 K/uL (0-0.2); Basophils % (auto) 0.5 %; Eosinophils # (auto) 0.51 K/uL (0-0.50); Eosinophils % (auto) 6.6 %; Hemoglobin 11.5 g/dl (14.0-18.0); Immature Granulocytes # (auto) 0.02 K/uL (0.00-0.02); Immature Granulocytes % (auto) 0.3 %; Lymphocytes # (auto) 1.09 K/uL (1.2-3.4); Lymphocytes % (auto) 14.2 %; Mean Corpuscular Hgb Conc 31.9 g/dL (32.0-36.0); Mean Corpuscular Volume 87.6 fL (80.0-100.0); Mean Platelet Volume 11.2 fL (9.4-12.4); Monocytes # (auto) 0.78 K/uL (0.24-0.82); Monocytes % (auto) 10.1 %; Neutrophils # (auto) 5.26 K/uL (1.4-6.5); Neutrophils % (auto) 68.3 %; Platelet Count 172 K/uL (130-400); RDW Coefficient of Variation 13.7 % (11.5-14.5); RDW Standard Deviation 43.7 fL (36.4-46.3); Red Blood Count 4.11 M/uL (4.63-6.08)
[2022-08-19 11:15] LABS: Base Excess ABG 7.2 mEq/L (-9-1.8); HCO3 ABG 33 mmol/L (19-24); Oxygen Saturation ABG 95.8 % (90-95); PCO2 ABG 51 mmHg (35-46); PO2 ABG 72 mmHg (80-95); pH ABG 7.42 (7.35-7.45)
[2022-08-19 11:19] LABS: Albumin Globulin Ratio 1.1 (0.9-2); Albumin Level 3.4 gm/dl (3.4-5.0); BUN Creatinine Ratio 29.1 (10-20); Bilirubin,Total 0.8 mg/dl (0.2-1.0); Calcium 9.2 mg/dl (8.5-10.1); Creatinine Clr Calc Pharmacy 50.1 ml/min; Est GFR (Non-African American) 39.7 ml/min; Globulin 3.1 gm/dl (2.5-4.0); Total Protein 6.5 gm/dl (6.0-8.3)
--- NOTE | 2022-08-19 13:39 | Pharmacy Report ---
Pharmacy Glycemic Short Note 2 - Date of Service August 19, 2022 - Glycemic Short BSG Results (Last 24 hours): 08/18/22 08/18/22 08/18/22 17:00 20:04 20:30 Glucose POC Glucose 103 H 61 L* 69 L* 08/18/22 08/18/22 08/18/22 20:56 22:14 22:16 Glucose 56 L POC Glucose 92 59 L* 08/18/22 08/18/22 08/18/22 22:17 22:33 23:22 Glucose POC Glucose 66 L* 85 109 H 08/19/22 08/19/22 08/19/22 01:28 02:57 06:27 Glucose POC Glucose 113 H 98 71 08/19/22 08/19/22 08/19/22 08:12 10:11 10:21 Glucose 137 H POC Glucose 128 H 133 H 08/19/22 12:17 Glucose POC Glucose 138 H OUTPATIENT ANTIDIABETIC REGIMEN: * NPH 50-60 units? qAM, 25 units with dinner * 9.8% 08/01/22 ASSESSMENT: 08/19 * BSGs had been reasonably controlled yesterday, except for episode of hypoglycemia last evening and borderline low this morning * Will decrease NPH and loosen CF today * Possible d/c tomorrow 08/16 * BSG 139 mg/dL this morning, will continue NPH scale with dinner, 20 units this morning with breakfast- may need increased tomorrow * Monitor BSG trends today for novolog changes. 08/15 * Patient admitted following spinal surgery. Patient is maintained on NPH outpatient with Dr. Owens * BSGs elevated post-op, will initiate Novolog dosing based on stress of 1 outpatient total daily dosing * Will utilize NPH as this is what patient uses outpatient to help transition home, will reduce dose as novolog is being added to regimen PLAN FOR INPATIENT GLYCEMIC CONTROL: * Basal insulin * NPH 10 units SC x 1 this morning * NPH 0/5 units SC with dinner * Bolus insulin * NovoLog per scale ACHS or Q6hrs while NPO * Goal Range: Low 110 mg/dL - High 140 mg/dL * Correction Factor: 20 mg/dL/unit at breakfast, 30 mg/dL/unit at lunch, dinner, HS * Nutritional / Prandial insulin per carb ratio of 1 unit per 4 grams CHO consumed with breakfast, 6 with lunch, dinner, and HS
[2022-08-19] MEDS ORDERED: INSULIN HUMAN NPH SC SCH (17:00)
[2022-08-19] MEDS ORDERED: OLANZapine 10 MG/2.1 ML SDV IM STA (20:28)
--- NOTE | 2022-08-19 20:34 | Communication Note ---
Date of Service: August 19, 2022 8PM: Ordered IM zyprexa 5mgx1 for agitation. Patient required 4 pt soft restraints for severe agitation and requirement of multiple staff members to assist. Similar presentation to yesterday's agitation. BSG 130. Most consistent w/ delirium. Requiring 2nd dose of IM zyprexa 5mg at 3AM. 3:14AM: 3mg IM Haldol 3:30AM: 3mg IM Haldol Will avoid ativan+zyprexa combination due to increased risks.
[2022-08-19] MEDS: CHOLECALCIFEROL 1,000 UNITS 25 MCG TAB PO SCH (22:32)
[2022-08-19] MEDS: DOCUSATE SODIUM/SENNA 50/8.6MG TAB PO SCH (22:32)
[2022-08-19] MEDS: ATORVASTATIN 40 MG TAB PO SCH (22:32)
[2022-08-19] MEDS: TAMSULOSIN HCL 0.4 MG CAP PO SCH (22:33)
[2022-08-20] MEDS: POLYETHYLENE (MIRALAX) 17 GM PACK PO SCH ×4 (00:25→17:26)
[2022-08-20] MEDS ORDERED: OLANZapine 10 MG/2.1 ML SDV IM STA (02:56)
[2022-08-20] MEDS ORDERED: OLANZapine 10 MG/2.1 ML SDV IM ONE (02:58)
[2022-08-20] MEDS ORDERED: HALOPERIDOL LACTATE 5 MG/ML 1 ML VIAL IM STA ×2 (03:09→03:30)
[2022-08-20] MEDS ORDERED: HALOPERIDOL LACTATE 5 MG/ML 1 ML VIAL ONE (03:12)
[2022-08-20] MEDS: carvediloL 6.25 MG TAB PO SCH ×2 (08:32→20:30)
[2022-08-20] MEDS: MEMANTINE HCL 10 MG TAB PO SCH ×2 (08:33→19:55)
[2022-08-20] MEDS: CYANOCOBALAMIN (B-12) 2,500 MCG TABLET SL SCH (08:33)
[2022-08-20] MEDS: GABAPENTIN 100 MG CAP PO SCH ×2 (08:33→19:55)
[2022-08-20] MEDS: ASPIRIN 81 MG ECTAB PO SCH (08:33)
[2022-08-20] MEDS: THIAMINE HCL 100 MG TAB PO SCH (08:34)
[2022-08-20] MEDS: SERTRALINE HCL 100 MG TABLET PO SCH (08:34)
[2022-08-20] MEDS: ACETAMINOPHEN 500 MG TAB PO PRN ×2 (08:34→19:53)
[2022-08-20] MEDS: INSULIN ASPART PER UNIT SC SCH ×4 (09:21→21:24)
[2022-08-20] MEDS: INSULIN HUMAN NPH SC SCH ×2 (09:23→09:46)
--- NOTE | 2022-08-20 09:54 | Hospitalist Progress Note ---
Date of Service August 20, 2022 Assessment & Plan (1) AMS (altered mental status): Plan: - Overnight events 08/19-08/20: CODE HARESH called due to violent behavior against staff. Required 5 mg IM zyprexa x2, 3mg IM Haldol x2, placed in 4 pt soft restraints. - Today: Per nursing staff, patient has been pleasantly confused, fed himself breakfast this morning, drowsy. Similar presentation to yesterday. He has not required any additional medication doses for agitation or behavioral disturbances. - At this time, the patient's acute change in mental status overnight is likely multifactorial including possible delirium/ing, polypharmacy, and hypercarbia due to Cpap non-compliance. - Sugars have been > 120 over past 24 hours, unlikely hypoglycemia is still contributing. - Ammonia 08/19 wnl. - No narcotics since 08/17. - Patient is currently oriented to person only. Positive underlying dementia with behavioral disturbance. - Head CT 08/18 neg for acute process. - CXR 08/19 w/ mild cardiomegaly, no pulmonary edema. - Daily labs ordered to monitor for infection, TERESA. (2) TERESA (acute kidney injury): Plan: - Cr was noted to be 2.14, baseline appears to be 1.5 - Repeat 08/19: 1.65. - Was started on lactated ringer's overnight, he is making urine per inspection of his bustos - Patient appears dry on exam, will continue with light IV hydration today and will monitor his renal function for improvement - With improvement in renal function, okay to resume Lasix and lisinopril. (3) Status post lumbar spine operation: Plan: 77 y/o male w/ PMHx of anemia of chronic disease, ckd, cognitive impairment, CAD s/p stent and cabg, depression, DM2, HLD, HTN, LENO not on cpap who is admitted for lumbar spinal stenosis surgery, postop day 0. - pain regimen per ortho: prn tylenol, prn, oxycodone, and prn dilaudid - completed danuta-operative abx - bowel regimen ordered (4) Hypertension: Plan: - most recent BP 135/68. -Hold lisinopril for now with his TERESA, continue other antihypertensives - 08/20: Resume lisinopril. (5) Diabetes type 2, uncontrolled: Plan: - SSI and prn NPH - pharmacy glycemic consult following -Sugars consistently greater than 120 x 48 hours. (6) LENO (obstructive sleep apnea): Plan: - not tolerating cpap as outpatient -Will FU with ABG (7) Coronary artery disease: Plan: - continue home regimen, baby asa, and lasix (8) Chronic kidney disease, stage 3a: Plan: - baseline Cr 1.36. -Continue to monitor renal function with TERESA (9) Depression: Plan: - anxiety/depression. continue home Zoloft 100mg. Stopped prn hydroxyzine and ativan ordered per ortho team for now to avoid polypharmacy (10) Dementia: Plan: - noted per chart review; mild-mod severity? -Continue Namenda Plan The patient was discussed with Dr. Hester at the time of the consult Admission and Anticipated Discharge Date Admission Date: August 15, 2022 Supervising Physician Co-Signing Physician Notes I personally saw and examined the patient. I verified all brandt points and agree with Tasia Villanueva PA-C with the following exceptions and/or additions: Asked to speak to his family by the time I was able to see him. Left message on his son's phone. I understand there was some concern regarding his need for intramuscular antipsychotics overnight. Previously his sundowning/delirium appeared to be precipitated by hypoglycemia +/- TERESA +/- tramadol. There does not seem to be a precipitating event to his events last night which appeared to be worse requiring four-point restraints. The patient is having bowel movements. He appears much more orientated during the daytime and at his baseline. Appears to be consistent with sundowning with no concern of infection. As needed medications (tramadol, diphenhydramine, promethazine, metoclopramide) discontinued that can be driving this although he has not been receiving any of these recently. EKG with QTC of 433 ms. To avoid significant doses of antipsychotics overnight, intramuscular injections and four-point restraints will start Zyprexa orally prior to his bedtime tonight. Subjective Overnight events 08/19-08/20: MARY HARESH called due to violent behavior against staff. Required 5 mg IM zyprexa x2, 3mg IM Haldol x2, placed in 4 pt soft restraints. This morning, patient was resting in bed on NC. Similar to yesterday, he appears apneic. No longer in soft restraints. I am able to arouse him by gently rubbing his shoulders and calling his name. He opens his eyes, appears confused, can tell me he does not have any pain. Oriented to self only. Per chart review, this seems to be patient's baseline over the past several days, with increased agitation overnight. Nurse tells me that he was able to feed himself this morning and was more alert than he has been. No behavioral issues per staff this AM. Sugars remain greater than sign 120, he has not had any narcotic pain medications since 08/17. Review of Systems Review of Systems: ROS unable to be obtained at the time of the exam due to the patient's current mental status Physical Exam 2 Physical Exam: General: awake, alert, no apparent distress, drowsy but arousable, apneic sleep pattern Head: Normocephalic, atraumatic ENT: PERRL, EOMI, no pharyngeal exudate, mucous membranes appear dry Chest: Clear to auscultation, on room air, no adventitious breath sounds Cardiac: Regular rate and rhythm, no murmur, no JVD, normal peripheral pulses, good capillary refill Abdominal: NABS x 4 quadrants, soft, nontender to palpation, no rebound, guarding or tenderness Extremities: Normal inspection, minimal b/l peripheral edema, calfs nontender to palpation Psych: difficult to assess given drowsy state; per nursing staff he hs been pleasantly confused Neuro: AAO x 3, strength intact bilaterally and rated 5/5, no motor deficits, speech is clear, no peripheral sensory deficits Skin: no rash or erythema Results & Data Results & Data ([facility]) Vital Signs (Past 12 Hours) Vital Signs Temp Pulse Pulse Resp BP BP Pulse Ox 08/20/22 07:37 37.0 C 81 16 157/84 H 93 08/19/22 21:49 73 18 148/79 H 98 O2 Del Method O2 Flow Rate 08/20/22 07:37 3 08/19/22 21:49 Nasal Cannula 3 Laboratory Results Abnormal lab results 08/19/22 08/19/22 08/20/22 Range/Units 16:41 20:40 08:07 RBC (4.63-6.08) M/uL Hgb (14.0-18.0) g/dl Hct (40.1-51.0) % MCHC (32.0-36.0) g/dL Lymph # (Auto) (1.2-3.4) K/uL Carbon Dioxide (21-32) mmol/L BUN (6-23) mg/dl Creatinine (0.6-1.4) mg/dl BUN/Creatinine Ratio (10-20) Glucose (70-99(Fasting)) mg/dl POC Glucose 176 H 130 H 160 H (70-99) mg/dl 08/20/22 08/20/22 08/20/22 Range/Units : 11: 12:03 RBC 4.14 L (4.63-6.08) M/uL Hgb 11.6 L (14.0-18.0) g/dl Hct 36.9 L (40.1-51.0) % MCHC 31.4 L (32.0-36.0) g/dL Lymph # (Auto) 0.88 L (1.2-3.4) K/uL Carbon Dioxide 35 H (21-32) mmol/L BUN 36 H (6-23) mg/dl Creatinine 1.47 H (0.6-1.4) mg/dl BUN/Creatinine Ratio 24.5 H (10-20) Glucose 139 H (70-99(Fasting)) mg/dl POC Glucose 172 H (70-99) mg/dl Diagnostic Findings Lumbar Spine X-Ray 08/15/22 07:45 INTRAOPERATIVE RADIOGRAPHS CLINICAL HISTORY: L3-L5 spinal fusion. Fluoroscopy time 30 seconds. FINDINGS: 2 spot fluoroscopic views of the lumbar spine are presented. There has been discectomy at L3-L4 and L4-L5 with laminectomy and posterior fusion at L3- L5. Interpedicular screws are present at all levels. The orthopedic hardware appears intact. IMPRESSION: Intraoperative images from lumbar spinal fusion surgery as above. Electronically signed by: Adonis Lyons M.D. 08/15/2022 11:[address] 08/18/22 21:[address] DOSE: 614.27 mGy.cm HISTORY: change mental status, hx dementia, recent surgery TECHNIQUE: Multiaxial CT images of the head were performed without the use of intravenous contrast. Automated exposure control was utilized for this study. A dose lowering technique was utilized adhering to the principles of ALARA. Comparison: Head CT 03/22/2022. Findings: Partial opacification of ethmoid air cells. Mild to moderate mucosal thickening within the maxillary sinuses. The mastoid air cells are clear. The calvarium and skull base are intact. There is no mass, hematoma, midline shift, acute infarct. White matter hypodensity is nonspecific but suggestive of microvascular ischemic change. The ventricles and sulci demonstrate mild age- related involutional changes. Impression: No significant change compared to the prior study. No acute intracranial abnormality. ACT 112: Negative or not required by law. Electronically signed by: Karthikeyan Guerrero M.D. 08/19/2022 7:16 AM Chest X-Ray 08/19/22 02:15 XR chest 1V portable HISTORY: leukocytosis post-op COMPARISON: Chest 08/01/2022. FINDINGS: There are low lung volumes. No pneumothorax. No pleural effusions. A few bibasilar linear densities have improved and favor subsegmental atelectasis given the low lung volumes. Otherwise, no new focal lung consolidations to suggest a pneumonia. No evidence for pulmonary edema. The heart is mildly enlarged. There are poststernotomy changes. Degenerative changes again noted within the shoulders. IMPRESSION: 1. Mild cardiomegaly without evidence for pulmonary edema. 2. A few bibasilar linear densities have improved and favor subsegmental atelectasis given the low lung volumes. ACT 112: Negative or not required by law. Electronically signed by: Karthikeyan Guerrero M.D. 08/19/2022 9:22 AM PG Care Time/CCT Total # of Minutes Spent Total Time Spent with Patient: Total time spent is greater than 50% in coordination of care (as documented) at patient's floor/unit and/or counseling patient: Coding Level of Care Code 40323 Subseq Hosp Care Lvl 2 Diagnoses AMS (altered mental status) R41.82 TERESA (acute kidney injury) N17.9 Status post lumbar spine operation Z98.890 Hypertension I10 Diabetes type 2, uncontrolled E11.65 LENO (obstructive sleep apnea) G47.33 Coronary artery disease I25.10 Chronic kidney disease, stage 3a N18.31 Depression F32.9 Dementia F03.90
--- NOTE | 2022-08-20 11:16 | Orthopedic Progress Note ---
Date of Service August 20, 2022 Assessment & Plan (1) Neurogenic claudication due to lumbar spinal stenosis: Plan: Patient is improving with physical therapy. Still struggling with delirium. He is cleared from orthopedic standpoint for SNF placement. Admission and Anticipated Discharge Date Admission Date: August 15, 2022 Subjective Patient is asleep I was unable to arouse him. Physical Exam Physical Exam: Patient is currently sleeping and not arousable. Results & Data ([facility]) Vital Signs (Past 12 Hours) Vital Signs Temp Pulse Resp BP Pulse Ox O2 Flow Rate 08/20/22 07:37 37.0 C 81 16 157/84 H 93 3
[2022-08-20 11:56] LABS: Basophils # (auto) 0.05 K/uL (0-0.2); Basophils % (auto) 0.7 %; Eosinophils # (auto) 0.43 K/uL (0-0.50); Eosinophils % (auto) 6.1 %; Hematocrit (blood only) 36.9 % (40.1-51.0); Hemoglobin 11.6 g/dl (14.0-18.0); Immature Granulocytes # (auto) 0.01 K/uL (0.00-0.02); Immature Granulocytes % (auto) 0.1 %; Lymphocytes # (auto) 0.88 K/uL (1.2-3.4); Lymphocytes % (auto) 12.4 %; Mean Corpuscular Hgb Conc 31.4 g/dL (32.0-36.0); Mean Corpuscular Volume 89.1 fL (80.0-100.0); Mean Platelet Volume 10.9 fL (9.4-12.4); Monocytes % (auto) 11.3 %; Neutrophils # (auto) 4.92 K/uL (1.4-6.5); Neutrophils % (auto) 69.4 %; Platelet Count 203 K/uL (130-400); RDW Coefficient of Variation 13.6 % (11.5-14.5); RDW Standard Deviation 44.5 fL (36.4-46.3); Red Blood Count 4.14 M/uL (4.63-6.08); White Blood Count 7.09 K/ul (4.8-10.8)
[2022-08-20 12:23] LABS: BUN Creatinine Ratio 24.5 (10-20); Calcium 9.2 mg/dl (8.5-10.1); Creatinine Clr Calc Pharmacy 56.2 ml/min; Est GFR (African American) 52.9 ml/min; Est GFR (Non-African American) 45.7 ml/min; Potassium 4.2 mmol/L (3.5-5.1)
[2022-08-20] MEDS ORDERED: INSULIN HUMAN NPH SC SCH (17:00)
[2022-08-20] MEDS: ATORVASTATIN 40 MG TAB PO SCH (19:54)
[2022-08-20] MEDS: CHOLECALCIFEROL 1,000 UNITS 25 MCG TAB PO SCH (19:54)
[2022-08-20] MEDS: DOCUSATE SODIUM/SENNA 50/8.6MG TAB PO SCH (19:55)
[2022-08-20] MEDS: TAMSULOSIN HCL 0.4 MG CAP PO SCH (19:55)
[2022-08-20] MEDS: OLANZapine 5 MG TABLET PO SCH (20:30)
[2022-08-21] MEDS: POLYETHYLENE (MIRALAX) 17 GM PACK PO SCH ×5 (01:01→23:53)
--- NOTE | 2022-08-21 07:58 | Hospitalist Progress Note ---
Date of Service August 21, 2022 Assessment & Plan (1) Status post lumbar spine operation: Plan: 77 y/o male w/ PMHx of anemia of chronic disease, ckd, cognitive impairment, CAD s/p stent and cabg, depression, DM2, HLD, HTN, LENO not on cpap who is admitted for lumbar spinal stenosis surgery, postop day 0. - pain regimen per ortho: prn tylenol, prn, oxycodone, and prn dilaudid - completed danuta-operative abx - bowel regimen ordered (2) Hypertension: Plan: - Patient received home PO regimen, BP wnl (3) Diabetes type 2, uncontrolled: Plan: - SSI and prn NPH - pharmacy glycemic consult following (4) LENO (obstructive sleep apnea): Plan: - not tolerating cpap as outpatient (5) Coronary artery disease: Plan: - continue home regimen, baby asa, and lasix (6) Chronic kidney disease, stage 3a: Plan: - baseline Cr 1.36. check bmp in AM (7) Depression: Plan: - anxiety/depression. continue home Zoloft 100mg. prn hydroxyzine and ativan ordered per ortho team (8) Dementia: Plan: - noted per chart review; mild-mod severity? -continue memantine -started on zyprexa 5mg at night, if tolerate well can decrease to 2.5mg Plan DM2, HH. will be off IV maintenance fluids ppx: per ortho full code med surg Admission and Anticipated Discharge Date Admission Date: August 15, 2022 Supervising Physician Co-Signing Physician Notes I saw the patient and confirmed brandt portions of the history and physical examination. The patient was seen late afternoon. The patient's was at bedside. The patient was seated in the chair adjacent to his bed. He had no complaints. He was mildly confused at times. The patient reports that this had been present prior to the surgery, and had been progressing, and has been somewhat more noticeable in the perioperative period. The does states that the patient seemed more rested and more alert/oriented today as compared to yesterday. The patient reports that he slept well last night, better than nights previous. Exam 109/64, 72, 16, 37.1, 90% on room air Alert and oriented to name, date, place. He does tell some stories in which he seems to be confused, per his ; he does answer most questions appropriately Data Sodium 141, potassium 4.9, BUN 33, creatinine 1.49 Hemoglobin 11.6 (08/20/2022) Imaging A chest x-ray dated 08/19/2022 shows mild cardiomegaly without evidence for pulmonary edema. Micro Blood cultures drawn 08/19/2022 show no growth. Impression and Plan Altered mental status, seems to be most consistent with delirium in the setting of dementia Seemed to respond well to low-dose Zyprexa Would expect that all of this would improve once he returns home Based on his PT/OT and orthopedic evaluations, looks like plan is for a short term inpatient rehabilitation Subjective Patient seen at bedside, calm comfortable cooperative. He demonstrates word finding difficulties in the room, per he had it previous to surgery but has gotten worse afterwards. Patient denies pain SOB, ate breakfast slept well. Per nursing no concerns overnight. Son called today concerned father is in hospital for extended period of time wonders why placement for PT at SNF takes long, is worried about hospital acquired infection. He would like to get in touch with Dr. Larsen. Review of Systems Review of Systems: Negative fever chills Negative headache dizziness Negative chest pain palpitations SOB Negative nausea vomitting diarrhea constipation Physical Exam Constitutional: WD/WN, vitals as above Eyes: PERRL, conjunctivae normal, anicteric sclerae ENMT: external ear and nose normal, oropharynx normal Neck: trachea midline, no thyromegaly Respiratory: normal respiratory effort, lungs clear to auscultation Cardiovascular: RRR, no murmur, no edema Gastrointestinal (Abdomen): Inspection/Auscultation: abdomen normal to inspection Percussion/Palpation: abdomen soft; abdomen nontender Skin: no rashes, warm and dry noted serous drainage from surgery Results & Data Results & Data ([facility]) Vital Signs (Past 12 Hours) Vital Signs Temp Pulse Pulse Resp BP BP BP 08/21/22 07:48 36.8 C 76 16 205/91 H 08/21/22 07:35 08/20/22 23:30 08/20/22 23:24 36.8 C 70 18 146/80 H 08/20/22 22:19 170/81 H 08/20/22 20:00 08/20/22 20:52 36.6 C 65 20 188/89 H Pulse Ox O2 Del Method O2 Flow Rate 08/21/22 07:48 92 3 08/21/22 07:35 Nasal Cannula 3 08/20/22 23:30 Nasal Cannula 3 08/20/22 23:24 94 Nasal Cannula 4 08/20/22 22:19 08/20/22 20:00 Nasal Cannula 3 08/20/22 20:52 96 Nasal Cannula 4 Resident Activity Tracking Resident Involvement: Resident Care Provided Care Provided: Adult Hospital Medicine
[2022-08-21] MEDS: carvediloL 6.25 MG TAB PO SCH ×2 (09:03→21:38)
[2022-08-21] MEDS: ASPIRIN 81 MG ECTAB PO SCH (09:03)
[2022-08-21] MEDS: FUROSEMIDE 40 MG TAB PO SCH (09:03)
[2022-08-21] MEDS: lisinopril 40 MG TAB PO SCH (09:04)
[2022-08-21] MEDS: THIAMINE HCL 100 MG TAB PO SCH (09:04)
[2022-08-21] MEDS: MEMANTINE HCL 10 MG TAB PO SCH ×2 (09:04→21:39)
[2022-08-21] MEDS: SERTRALINE HCL 100 MG TABLET PO SCH (09:04)
[2022-08-21] MEDS: CYANOCOBALAMIN (B-12) 2,500 MCG TABLET SL SCH (09:05)
[2022-08-21] MEDS: GABAPENTIN 100 MG CAP PO SCH ×2 (09:05→21:38)
[2022-08-21] MEDS: INSULIN HUMAN NPH SC SCH (09:07)
[2022-08-21] MEDS: INSULIN ASPART PER UNIT SC SCH ×4 (09:09→23:51)
--- NOTE | 2022-08-21 10:05 | Pharmacy Report ---
Pharmacy Glycemic Short Note 2 - Date of Service August 21, 2022 - Glycemic Short BSG Results (Last 24 hours): 08/20/22 08/20/22 08/20/22 11:27 12:03 17:05 Glucose 139 H POC Glucose 172 H 108 H 08/20/22 08/21/22 20:28 08:24 Glucose POC Glucose 130 H 107 H OUTPATIENT ANTIDIABETIC REGIMEN: * NPH 50-60 units? qAM, 25 units with dinner * 9.8% 08/01/22 ASSESSMENT: 08/21 * BSGs remain reasonably well-controlled, ranging 108-172 mg/dL yesterday * Received 20 units of NPH and 18 units of Novolog yesterday * Do not anticipate any changes to current regimen today * Awaiting placement 08/19 * BSGs had been reasonably controlled yesterday, except for episode of hypoglycemia last evening and borderline low this morning * Will decrease NPH and loosen CF today * Possible d/c tomorrow 08/16 * BSG 139 mg/dL this morning, will continue NPH scale with dinner, 20 units this morning with breakfast- may need increased tomorrow * Monitor BSG trends today for novolog changes. 08/15 * Patient admitted following spinal surgery. Patient is maintained on NPH outpatient with Dr. Owens * BSGs elevated post-op, will initiate Novolog dosing based on stress of 1 outpatient total daily dosing * Will utilize NPH as this is what patient uses outpatient to help transition home, will reduce dose as novolog is being added to regimen PLAN FOR INPATIENT GLYCEMIC CONTROL: * Basal insulin * NPH 15 units SQ with breakfast * NPH 5 units SC with dinner * Bolus insulin * NovoLog per scale ACHS or Q6hrs while NPO * Goal Range: Low 110 mg/dL - High 140 mg/dL * Correction Factor: 20 mg/dL/unit at breakfast, 30 mg/dL/unit at lunch, dinner, HS * Nutritional / Prandial insulin per carb ratio of 1 unit per 4 grams CHO consumed with breakfast, 6 with lunch, dinner, and HS
[2022-08-21 11:36] LABS: BUN Creatinine Ratio 22.1 (10-20); Calcium 9.1 mg/dl (8.5-10.1); Creatinine Clr Calc Pharmacy 55.5 ml/min; Est GFR (African American) 52.1 ml/min; Est GFR (Non-African American) 44.9 ml/min; Potassium 4.9 mmol/L (3.5-5.1)
--- NOTE | 2022-08-21 12:38 | Orthopedic Progress Note ---
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 He may be discharged when bed available as he is orthoped ically stable. Admission and Anticipated Discharge Date Admission Date: August 15, 2022 Subjective Patient back pain controlled leg symptoms markedly improved. He feels much better today. Physical Exam Physical Exam: Patient is up and ambulating. He is comfortable. Results & Data ([facility]) Vital Signs (Past 12 Hours) Vital Signs Temp Pulse Pulse Resp BP BP Pulse Ox 08/21/22 09:00 81 135/72 94 08/21/22 07:48 36.8 C 76 16 205/91 H 92 08/21/22 07:35 O2 Del Method O2 Flow Rate 08/21/22 09:00 Room Air 08/21/22 07:48 3 08/21/22 07:35 Nasal Cannula 3
--- NOTE | 2022-08-21 13:56 | Electrocardiogram Report ---
Test Reason : Blood Pressure : / mmHG Vent. Rate : 063 BPM Atrial Rate : 063 BPM P-R Int : 196 ms QRS Dur : 130 ms QT Int : 424 ms P-R-T Axes : -07 -45 066 degrees QTc Int : 433 ms Normal sinus rhythm Left axis deviation Non-specific intra-ventricular conduction block Abnormal ECG When compared with ECG of 22-MAR-2022 10:20, Nonspecific T wave abnormality no longer evident in Anterior leads Confirmed by Henri lBair ([id number]) on 08/21/2022 1:56:04 PM Referred By: Carlos Larsen Confirmed By:Alfredo Blair
[2022-08-21] MEDS ORDERED: INSULIN HUMAN NPH SC SCH (17:00)
[2022-08-21] MEDS ORDERED: OLANZapine 10 MG/2.1 ML SDV IM STA (19:09)
[2022-08-21] MEDS ORDERED: OLANZapine 10 MG/2.1 ML SDV IM ONE (19:12)
[2022-08-21] MEDS: GLUCAGON FOR INJ 1 MG VIAL IM PRN (21:00)
[2022-08-21] MEDS: DOCUSATE SODIUM/SENNA 50/8.6MG TAB PO SCH (21:38)
[2022-08-21] MEDS: CHOLECALCIFEROL 1,000 UNITS 25 MCG TAB PO SCH (21:38)
[2022-08-21] MEDS: ATORVASTATIN 40 MG TAB PO SCH (21:38)
[2022-08-21] MEDS: TAMSULOSIN HCL 0.4 MG CAP PO SCH (21:39)
[2022-08-21] MEDS: OLANZapine 5 MG TABLET PO SCH (21:42)
[2022-08-22] MEDS: POLYETHYLENE (MIRALAX) 17 GM PACK PO SCH ×3 (06:40→17:16)
--- NOTE | 2022-08-22 06:58 | Hospitalist Progress Note ---
Date of Service August 22, 2022 Assessment & Plan (1) Status post lumbar spine operation: Plan: 77 y/o male w/ PMHx of anemia of chronic disease, ckd, cognitive impairment, CAD s/p stent and cabg, depression, DM2, HLD, HTN, LENO not on cpap who is admitted for lumbar spinal stenosis surgery 08/15 - pain regimen per ortho: prn tylenol, prn, oxycodone, and prn dilaudid --> opioids on hold given delirium - completed danuta-operative abx - bowel regimen ordered (2) Dementia: Plan: - noted per chart review; mild-mod severity? -continue memantine -noted worsening dlirium in hospital ever since anesthesia from surgery CT head normal, CBC BMP unremarkable, bcx negative likely / to with some contribution from the zyprexa, patient will likely have less delirium in more familiar environment. -started on zyprexa 5mg at night, if tolerate well can decrease to 2.5mg (3) Hypertension: Plan: - Patient received home PO regimen, BP wnl (4) Diabetes type 2, uncontrolled: Plan: - SSI and prn NPH - pharmacy glycemic consult following (5) LENO (obstructive sleep apnea): Plan: - not tolerating cpap as outpatient (6) Coronary artery disease: Plan: - continue home regimen, baby asa, and lasix (7) Chronic kidney disease, stage 3a: Plan: - baseline Cr 1.36 (8) Depression: Plan: - anxiety/depression. continue home Zoloft 100mg. prn hydroxyzine and ativan ordered per ortho team Plan DM2, HH. will be off IV maintenance fluids ppx: per ortho full code med surg Admission and Anticipated Discharge Date Admission Date: August 15, 2022 Supervising Physician Co-Signing Physician Notes I saw the patient and confirmed brandt portions of the history and physical examination. The patient was seen around 10 AM. Unfortunately, the patient had increased agitation last night requiring IM Zyprexa and soft restraints. This morning, he is alert but disoriented. His speech is clear although thoughts are disorganized. Fortunately, he is not agitated, more pleasantly confused. His was not present at the time of our exam, she has plans to come in this afternoon. Exam 168/84, 65, 16, 36.6, 93% room air Alert and oriented to name. Impression and Plan Delirium/sundowning in the setting of dementia Seemed to respond well to low-dose Zyprexa 2 nights previous, although he refused p.o. medications last evening Patient has noted dementia at baseline, past case scenario is he is able to return home to more familiar surroundings; there is discussion now about returning home with home PT versus SNF Case management following Subjective Patient seen at bedside in 2 point restraints, calm cooperative. Per nursing he became agitated and aggressive last night, at this point in time patient apologizes for his actions. He denies any pain or SOB at this time. He continues to have word finding difficulties and goes on tangents. Per he has had delirium since his surgery anesthesia that is better in the morning and continues to get worse throughout the day. understands part of his delirium is due to sundowning, she would like to get him home but is having difficulty finding home assistance. Review of Systems Review of Systems: Unobtainable due to cognitive status Physical Exam Constitutional: WD/WN, vitals as above Eyes: PERRL, conjunctivae normal, anicteric sclerae ENMT: external ear and nose normal, oropharynx normal Neck: trachea midline, no thyromegaly Respiratory: normal respiratory effort, lungs clear to auscultation Cardiovascular: RRR, no murmur, no edema Gastrointestinal (Abdomen): Inspection/Auscultation: abdomen normal to inspection Percussion/Palpation: abdomen soft; abdomen nontender Skin: no rashes, warm and dry Psychiatric: Word finding difficulties, difficulty understanding appropriate responses appears to believe he will go to court for his agitation. Results & Data Results & Data ([facility]) Vital Signs (Past 12 Hours) Vital Signs O2 Del Method 08/21/22 21:00 Room Air 08/21/22 20:50 Room Air Resident Activity Tracking Resident Involvement: Resident Care Provided Care Provided: Adult Hospital Medicine
--- NOTE | 2022-08-22 08:23 | Orthopedic Progress Note ---
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 He is safe to discharge to rehab or SNF per orthopedics. Admission and Anticipated Discharge Date Admission Date: August 15, 2022 Subjective Patient is confused but comfortable. He has no complaints. Physical Exam Physical Exam: On exam he is somewhat distorted. He believes he had a conference. Nevertheless he is cooperative. Is good strength testing. Results & Data ([facility]) Vital Signs (Past 12 Hours) Vital Signs Temp Pulse Resp BP Pulse Ox O2 Del Method 08/22/22 07:29 Room Air 08/22/22 07:29 36.6 C 65 16 168/84 H 93 Room Air 08/21/22 21:00 Room Air 08/21/22 20:50 Room Air
[2022-08-22] MEDS: GABAPENTIN 100 MG CAP PO SCH ×2 (08:51→20:16)
[2022-08-22] MEDS: THIAMINE HCL 100 MG TAB PO SCH (08:51)
[2022-08-22] MEDS: lisinopril 40 MG TAB PO SCH (08:52)
[2022-08-22] MEDS: ASPIRIN 81 MG ECTAB PO SCH (08:52)
[2022-08-22] MEDS: MEMANTINE HCL 10 MG TAB PO SCH ×2 (08:52→20:16)
[2022-08-22] MEDS: FUROSEMIDE 40 MG TAB PO SCH (08:52)
[2022-08-22] MEDS: carvediloL 6.25 MG TAB PO SCH ×2 (08:53→20:14)
[2022-08-22] MEDS: CYANOCOBALAMIN (B-12) 2,500 MCG TABLET SL SCH (08:53)
[2022-08-22] MEDS: SERTRALINE HCL 100 MG TABLET PO SCH (08:53)
[2022-08-22] MEDS: INSULIN ASPART PER UNIT SC SCH ×4 (09:01→20:20)
[2022-08-22] MEDS: INSULIN HUMAN NPH SC SCH (09:01)
--- NOTE | 2022-08-22 13:16 | Pharmacy Report ---
Pharmacy Glycemic Short Note 2 - Date of Service August 22, 2022 - Glycemic Short BSG Results (Last 24 hours): 08/21/22 08/21/22 08/21/22 16:58 20:51 20:54 POC Glucose 80 20 L* 43 L* 08/21/22 08/21/22 08/22/22 21:03 21:13 08:06 POC Glucose 57 L* 74 120 H 08/22/22 12:07 POC Glucose 132 H OUTPATIENT ANTIDIABETIC REGIMEN: * NPH 50-60 units? qAM, 25 units with dinner * HbA1c: 9.8% 08/01/22 ASSESSMENT: 08/22 * Unfortunate episode of hypoglycemia last evening resulting in code purple and IM glucagon * Blood sugar did rebound after this and turkey sandwich/OJ * Will discontinue dinnertime NPH today and significantly loosen Novolog parameters at lunch, dinner, and HS 08/21 * BSGs remain reasonably well-controlled, ranging 108-172 mg/dL yesterday * Received 20 units of NPH and 18 units of Novolog yesterday * Do not anticipate any changes to current regimen today * Awaiting placement 08/15 * Patient admitted following spinal surgery. Patient is maintained on NPH outpatient with Dr. Owens * BSGs elevated post-op, will initiate Novolog dosing based on stress of 1 outpatient total daily dosing * Will utilize NPH as this is what patient uses outpatient to help transition home, will reduce dose as novolog is being added to regimen PLAN FOR INPATIENT GLYCEMIC CONTROL: * Basal insulin - d/c dinnertime NPH * NPH 15 units SQ with breakfast * Bolus insulin * NovoLog per scale ACHS or Q6hrs while NPO * Goal Range: Low 110 mg/dL - High 140 mg/dL * Correction Factor: 20 mg/dL/unit at breakfast, 35 mg/dL/unit at lunch, dinner, HS * Nutritional / Prandial insulin per carb ratio of 1 unit per 4 grams CHO consumed with breakfast, 8 with lunch, dinner, and HS
[2022-08-22] MEDS: DOCUSATE SODIUM/SENNA 50/8.6MG TAB PO SCH (20:14)
[2022-08-22] MEDS: OLANZapine 5 MG TABLET PO SCH (20:14)
[2022-08-22] MEDS: CHOLECALCIFEROL 1,000 UNITS 25 MCG TAB PO SCH (20:15)
[2022-08-22] MEDS: TAMSULOSIN HCL 0.4 MG CAP PO SCH (20:15)
[2022-08-22] MEDS: ATORVASTATIN 40 MG TAB PO SCH (20:15)
[2022-08-23] MEDS: POLYETHYLENE (MIRALAX) 17 GM PACK PO SCH ×4 (01:34→18:41)
--- NOTE | 2022-08-23 07:06 | Hospitalist Progress Note ---
Date of Service August 23, 2022 Assessment & Plan (1) Status post lumbar spine operation: Plan: 77 y/o male w/ PMHx of anemia of chronic disease, ckd, cognitive impairment, CAD s/p stent and cabg, depression, DM2, HLD, HTN, LENO not on cpap who is admitted for lumbar spinal stenosis surgery 08/15 - pain regimen per ortho: prn tylenol, prn, oxycodone, and prn dilaudid --> opioids on hold given delirium - completed danuta-operative abx - bowel regimen ordered (2) Dementia: Plan: - noted per chart review; mild-mod severity? -continue memantine -noted worsening dlirium in hospital ever since anesthesia from surgery CT head normal, CBC BMP unremarkable, bcx negative likely 11/21 to with some contribution from the zyprexa, patient will likely have less delirium in more familiar environment. Patient's family looking into home help, meanwhile still awaiting SNF placement -started on zyprexa 5mg at night, if tolerate well can decrease to 2.5mg (3) Hypertension: Plan: - Patient received home PO regimen -BP remains elevated, will start amlodipine 5mg today. If still elevated, will start amlodipine 10mg daily. (4) Diabetes type 2, uncontrolled: Plan: - SSI and prn NPH - pharmacy glycemic consult following (5) LENO (obstructive sleep apnea): Plan: - not tolerating cpap as outpatient (6) Coronary artery disease: Plan: - continue home regimen, baby asa, and lasix (7) Chronic kidney disease, stage 3a: Plan: - baseline Cr 1.36 (8) Depression: Plan: - anxiety/depression. continue home Zoloft 100mg. Plan DM2, HH. will be off IV maintenance fluids ppx: per ortho full code med surg Admission and Anticipated Discharge Date Admission Date: August 15, 2022 Supervising Physician Co-Signing Physician Notes Patient seen and examined independently of PGY-2 Dr. Garnica. Agree with history, exam findings, assessment and plan of care as outlined. In brief, Mr. Herrera is a 77 year old male with history of spinal stenosis, HTN, CAD, DM, CKD, depression and dementia admitted for spinal decompression with Dr. Larsen. Today, he is asking for his . He has not complaints of pain, chest pain, headache, dyspnea. VS and nursing notes reviewed. Non-toxic appearing. Labs reviewed. 1. Dementia with superimposed delirium. Continue home Namenda and Aricept. Zyprexa if he is agitated or not able to be re-directed. 2. HTN/CAD. Blood pressures have been elevated. Received 5mg amlodipine in addition to his home regimen of lisinopril 40mg, Lasix 40mg, coreg 6.25mg BID. Blood pressure is improved this afternoon. 3. DM. basal-bolus insulin. Appreciate glycemic consult recommendations. 4. Depression. Continue home Zoloft. Trying to limit hydroxyzine and lorazepam. Dispo: awaiting placement. Subjective Patient seen at beside, delirious worried about his and if she would show up today. Had difficulty trying to sit upright. Persistently looking out of [place]. Denies any SOB, pain. Able to reassure patient that was not here yet but was coming. Review of Systems Review of Systems: Negative fever chills Negative headache dizziness Negative chest pain palpitations SOB Negative nausea vomitting diarrhea constipation Physical Exam Constitutional: WD/WN, vitals as above Eyes: PERRL, conjunctivae normal, anicteric sclerae ENMT: external ear and nose normal, oropharynx normal Neck: trachea midline, no thyromegaly Respiratory: normal respiratory effort, lungs clear to auscultation Cardiovascular: RRR, no murmur, no edema Gastrointestinal (Abdomen): Inspection/Auscultation: abdomen normal to inspection Percussion/Palpation: abdomen soft; abdomen nontender Skin: no rashes, warm and dry Results & Data Results & Data ([facility]) Laboratory Results 08/23/22 08/23/22 08/23/22 Range/Units 12:05 08:16 07:55 WBC (4.8-10.8) K/ul RBC (4.63-6.08) M/uL Hgb (14.0-18.0) g/dl Hct (40.1-51.0) % MCV (80.0-100.0) fL MCH (25.0-34.0) pg MCHC (32.0-36.0) g/dL RDW Std Deviation (36.4-46.3) fL RDW Coeff of Vinh (11.5-14.5) % Plt Count (130-400) K/uL MPV (9.4-12.4) fL Sodium 141 (136-145) mmol/L Potassium 4.3 (3.5-5.1) mmol/L Chloride 103 (98-107) mmol/L Carbon Dioxide 30 (21-32) mmol/L Anion Gap 8 (3-11) BUN 27 H (6-23) mg/dl Creatinine 1.47 H (0.6-1.4) mg/dl Est Cr Clr Drug Dosing 56.2 ml/min Est GFR ( Amer) 52.9 ml/min Est GFR (Non-Af Amer) 45.7 ml/min BUN/Creatinine Ratio 18.4 (10-20) Glucose 164 H (70-99(Fasting)) mg/dl POC Glucose 135 H 170 H (70-99) mg/dl Calcium 9.1 (8.5-10.1) mg/dl 08/23/22 08/22/22 08/22/22 Range/Units 07:55 20:19 17:15 WBC 8.38 (4.8-10.8) K/ul RBC 4.24 L (4.63-6.08) M/uL Hgb 11.9 L (14.0-18.0) g/dl Hct 36.7 L (40.1-51.0) % MCV 86.6 (80.0-100.0) fL MCH 28.1 (25.0-34.0) pg MCHC 32.4 (32.0-36.0) g/dL RDW Std Deviation 42.7 (36.4-46.3) fL RDW Coeff of Vinh 13.5 (11.5-14.5) % Plt Count 246 (130-400) K/uL MPV 10.3 (9.4-12.4) fL Sodium (136-145) mmol/L Potassium (3.5-5.1) mmol/L Chloride (98-107) mmol/L Carbon Dioxide (21-32) mmol/L Anion Gap (3-11) BUN (6-23) mg/dl Creatinine (0.6-1.4) mg/dl Est Cr Clr Drug Dosing ml/min Est GFR ( Amer) ml/min Est GFR (Non-Af Amer) ml/min BUN/Creatinine Ratio (10-20) Glucose (70-99(Fasting)) mg/dl POC Glucose 96 80 (70-99) mg/dl Calcium (8.5-10.1) mg/dl 08/22/22 Range/Units 15:20 WBC (4.8-10.8) K/ul RBC (4.63-6.08) M/uL Hgb (14.0-18.0) g/dl Hct (40.1-51.0) % MCV (80.0-100.0) fL MCH (25.0-34.0) pg MCHC (32.0-36.0) g/dL RDW Std Deviation (36.4-46.3) fL RDW Coeff of Vinh (11.5-14.5) % Plt Count (130-400) K/uL MPV (9.4-12.4) fL Sodium (136-145) mmol/L Potassium (3.5-5.1) mmol/L Chloride (98-107) mmol/L Carbon Dioxide (21-32) mmol/L Anion Gap (3-11) BUN (6-23) mg/dl Creatinine (0.6-1.4) mg/dl Est Cr Clr Drug Dosing ml/min Est GFR ( Amer) ml/min Est GFR (Non-Af Amer) ml/min BUN/Creatinine Ratio (10-20) Glucose (70-99(Fasting)) mg/dl POC Glucose 75 (70-99) mg/dl Calcium (8.5-10.1) mg/dl Medications Administered Current Inpatient Medications Acetaminophen (Acetaminophen 500 Mg Tab) 1,000 mg PO Q8H PRN PRN Reason: MILD Pain Scale 1,2,3 & Pre PT Stop: 09/14/22 12:33 Last Admin: 08/20/22 19:53 Dose: 1,000 mg Al Hydrox/Mg Hydrox/Simethicone (Aluminum/Magnesium Susp 30 Ml Udc) 30 ml PO Q6H PRN PRN Reason: Dyspepsia Stop: 09/14/22 12:33 Aspirin (Aspirin 81 Mg Ectab) 81 mg PO QA [place] Stop: 09/15/22 08:59 Last Admin: 08/23/22 07:45 Dose: 81 mg Atorvastatin Calcium (Atorvastatin 40 Mg Tab) 40 mg PO HS [place] Stop: 09/14/22 20:59 Last Admin: 08/22/22 20:15 Dose: 40 mg Bisacodyl (Bisacodyl 10 Mg Supp) [address] DAILY PRN PRN Reason: Constipation Stop: 09/14/22 12:33 Carvedilol (Carvedilol 6.25 Mg Tab) 6.25 mg PO BID [facility] Stop: 09/14/22 20:59 Last Admin: 08/23/22 07:44 Dose: 6.25 mg Cyanocobalamin (Cyanocobalamin (B-12) 2,500 Mcg Tablet) 2,500 mcg SL QAM [facility] Stop: 09/15/22 08:59 Last Admin: 08/23/22 07:45 Dose: 2,500 mcg Dextrose (Dextrose 50% 50 Ml Syringe) 25 - 50 ml IV UD PRN; Protocol PRN Reason: Hypoglycemia Protocol Stop: 09/14/22 13:44 Last Admin: 08/21/22 21:05 Dose: 25 ml Famotidine (Famotidine 20 Mg Tab) 20 mg PO Q12H PRN PRN Reason: Dyspepsia Stop: 09/14/22 12:33 Furosemide (Furosemide 40 Mg Tab) 40 mg PO QAM [facility] Stop: 09/20/22 08:59 Last Admin: 08/23/22 07:46 Dose: 40 mg Gabapentin (Gabapentin 100 Mg Cap) 100 mg PO BID [facility] Stop: 09/14/22 20:59 Last Admin: 08/23/22 07:47 Dose: 100 mg Glucagon (Glucagon For Inj 1 Mg Vial) 1 mg IM UD PRN; Protocol PRN Reason: Hypoglycemia Protocol Stop: 09/14/22 13:44 Last Admin: 08/21/22 21:00 Dose: 1 mg Glucose (Glucose 40% Gel 15 Gm Tube) 15 - 30 gm PO UD PRN; Protocol PRN Reason: Hypoglycemia Protocol Stop: 09/14/22 13:44 Glucose (Glucose 10 Tab/Tube) 4 - 8 tab PO UD PRN; Protocol PRN Reason: Hypoglycemia Protocol Stop: 09/14/22 13:44 Insulin Aspart (Insulin Aspart Per Unit) 0 units SC DAILY@1130,1630,2100 [facility] Stop: 09/17/22 16:29 Last Admin: 08/22/22 20:20 Dose: Not Given Insulin Aspart (Insulin Aspart Per Unit) 0 units SC DAILY@0730 [facility] Stop: 09/18/22 07:29 Last Admin: 08/23/22 08:44 Dose: 2 units Insulin Human NPH (Insulin Human Nph) 12 units SC DAILY@0800 [facility] Stop: 09/22/22 07:59 Last Admin: 08/23/22 08:45 Dose: 12 units Lisinopril (Lisinopril 40 Mg Tab) 40 mg PO QAM [facility] Stop: 09/20/22 08:59 Last Admin: 08/23/22 07:47 Dose: 40 mg Magnesium Hydroxide (Magnesium Hydroxide Susp 30 Ml Udc) 30 ml PO Q24H PRN PRN Reason: Constipation Stop: 09/14/22 12:33 Last Admin: 08/17/22 15:45 Dose: 30 ml Memantine (Memantine Hcl 10 Mg Tab) 10 mg PO BID [facility] Stop: 09/14/22 20:59 Last Admin: 08/23/22 07:46 Dose: 10 mg Miscellaneous (Carbohydrates For Hypoglycemia ) 15 - 30 gm PO UD PRN PRN Reason: Hypoglycemia Treatment Stop: 09/14/22 13:44 Last Admin: 08/18/22 22:20 Dose: 15 gm Miscellaneous Information (Pharmacy Glycemic Mgmt Consult) 1 each N/A UD PRN PRN Reason: Consult Stop: 09/14/22 12:33 Naloxone HCl (Naloxone Hcl 0.4 Mg/1 Ml Vial/Carp) 0.1 mg IV Q5M PRN PRN Reason: Oversedation/Resp depression Stop: 09/14/22 12:33 Olanzapine (Olanzapine 5 Mg Tablet) 5 mg PO Q24H [facility] Stop: 09/19/22 19:59 Last Admin: 08/22/22 20:14 Dose: 5 mg Ondansetron HCl (Ondansetron Inj 2 Mg/Ml 2 Ml Vial) 4 mg IV Q6H PRN PRN Reason: Nausea &/or Vomiting Stop: 09/14/22 12:33 Ondansetron HCl (Ondansetron 4 Mg Od Tab) 4 mg PO Q6H PRN PRN Reason: Nausea Stop: 09/14/22 12:33 Polyethylene Glycol (Polyethylene (Miralax) 17 Gm Pack) 17 gm PO Q6 [facility] Stop: 09/15/22 05:59 Last Admin: 08/23/22 06:17 Dose: Not Given Senna/Docusate Sodium (Docusate Sodium/Senna 50/8.6mg Tab) 2 tab PO [facility] Stop: 09/14/22 20:59 Last Admin: 08/22/22 20:14 Dose: 2 tab Sertraline HCl (Sertraline Hcl 100 Mg Tablet) 100 mg PO QAM [facility] Stop: 09/15/22 08:59 Last Admin: 08/23/22 07:46 Dose: 100 mg Sodium Biphosphate/Sodium Phosphate (Sod Phosphate/Sod Biphosphate Enema 132 Ml Btl) [address] ONE PRN PRN Reason: Constipation Stop: 09/14/22 12:33 Tamsulosin HCl (Tamsulosin Hcl 0.4 Mg Cap) 0.8 mg PO [facility] Stop: 09/14/22 20:59 Last Admin: 08/22/22 20:15 Dose: 0.8 mg Thiamine HCl (Thiamine Hcl 100 Mg Tab) [facility] Stop: 09/15/22 08:59 Last Admin: 08/23/22 07:45 Dose: 100 mg Vitamin D (Cholecalciferol 1,000 Units 25 Mcg Tab) 2,000 units PO [facility] Stop: 09/14/22 20:59 Last Admin: 08/22/22 20:15 Dose: 2,000 units Resident Activity Tracking Resident Involvement: Resident Care Provided Care Provided: Adult Hospital Medicine
[2022-08-23] MEDS: carvediloL 6.25 MG TAB PO SCH ×2 (07:44→20:04)
[2022-08-23] MEDS: CYANOCOBALAMIN (B-12) 2,500 MCG TABLET SL SCH (07:45)
[2022-08-23] MEDS: THIAMINE HCL 100 MG TAB PO SCH (07:45)
[2022-08-23] MEDS: ASPIRIN 81 MG ECTAB PO SCH (07:45)
[2022-08-23] MEDS: FUROSEMIDE 40 MG TAB PO SCH (07:46)
[2022-08-23] MEDS: SERTRALINE HCL 100 MG TABLET PO SCH (07:46)
[2022-08-23] MEDS: MEMANTINE HCL 10 MG TAB PO SCH ×2 (07:46→20:05)
[2022-08-23] MEDS: lisinopril 40 MG TAB PO SCH (07:47)
[2022-08-23] MEDS: GABAPENTIN 100 MG CAP PO SCH ×2 (07:47→20:04)
[2022-08-23] MEDS ORDERED: amLODIPine BESYLATE 5 MG TAB PO ONE (07:58)
[2022-08-23 08:19] LABS: Hematocrit (blood only) 36.7 % (40.1-51.0); Hemoglobin 11.9 g/dl (14.0-18.0); Mean Corpuscular Hemoglobin 28.1 pg (25.0-34.0); Mean Corpuscular Hgb Conc 32.4 g/dL (32.0-36.0); Mean Corpuscular Volume 86.6 fL (80.0-100.0); Mean Platelet Volume 10.3 fL (9.4-12.4); Platelet Count 246 K/uL (130-400); RDW Coefficient of Variation 13.5 % (11.5-14.5); RDW Standard Deviation 42.7 fL (36.4-46.3); Red Blood Count 4.24 M/uL (4.63-6.08); White Blood Count 8.38 K/ul (4.8-10.8)
[2022-08-23 08:41] LABS: BUN Creatinine Ratio 18.4 (10-20); Calcium 9.1 mg/dl (8.5-10.1); Creatinine Clr Calc Pharmacy 56.2 ml/min; Est GFR (African American) 52.9 ml/min; Est GFR (Non-African American) 45.7 ml/min; Potassium 4.3 mmol/L (3.5-5.1)
[2022-08-23] MEDS: INSULIN ASPART PER UNIT SC SCH ×4 (08:44→21:52)
[2022-08-23] MEDS: INSULIN HUMAN NPH SC SCH (08:45)
--- NOTE | 2022-08-23 12:42 | Orthopedic Progress Note ---
Date of Service August 23, 2022 Assessment & Plan (1) Neurogenic claudication due to lumbar spinal stenosis: Plan: At this time we will continue physical therapy and await for placement for SNF when bed available. Admission and Anticipated Discharge Date Admission Date: August 15, 2022 Subjective Patient is somewhat confused this morning. He is overall cooperative and denies any back or leg pain. Physical Exam Physical Exam: On exam is neurologic intact. Again he is confused. Results & Data ([facility]) Vital Signs (Past 12 Hours) Vital Signs Temp Pulse Resp BP Pulse Ox O2 Del Method 08/23/22 07:26 36.6 C 82 18 195/93 H 92 Room Air
--- NOTE | 2022-08-23 13:50 | Pharmacy Report ---
Pharmacy Glycemic Short Note 2 - Date of Service August 23, 2022 - Glycemic Short BSG Results (Last 24 hours): 08/22/22 08/22/22 08/22/22 15:20 17:15 20:19 Glucose POC Glucose 75 80 96 08/23/22 08/23/22 08/23/22 07:55 08:16 12:05 Glucose 164 H POC Glucose 170 H 135 H OUTPATIENT ANTIDIABETIC REGIMEN: * NPH 50-60 units? qAM, 25 units with dinner * HbA1c: 9.8% 08/01/22 ASSESSMENT: 08/23 * BSGs continue to be on low-side yesterday, will continue to hold evening NPH and reduce day-time NPH * Will also loosen Novolog parameters further * Anticipate BSGs may climb a bit today, but will prioritize limiting hypoglycemia at this time 08/22 * Unfortunate episode of hypoglycemia last evening resulting in code purple and IM glucagon * Blood sugar did rebound after this and turkey sandwich/OJ * Will discontinue dinnertime NPH today and significantly loosen Novolog parameters at lunch, dinner, and HS 08/21 * BSGs remain reasonably well-controlled, ranging 108-172 mg/dL yesterday * Received 20 units of NPH and 18 units of Novolog yesterday * Do not anticipate any changes to current regimen today * Awaiting placement 08/15 * Patient admitted following spinal surgery. Patient is maintained on NPH outpatient with Dr. Owens * BSGs elevated post-op, will initiate Novolog dosing based on stress of 1 outpatient total daily dosing * Will utilize NPH as this is what patient uses outpatient to help transition home, will reduce dose as novolog is being added to regimen PLAN FOR INPATIENT GLYCEMIC CONTROL: * Basal insulin - decrease * NPH 12 units SQ with breakfast * Bolus insulin * NovoLog per scale ACHS or Q6hrs while NPO * Goal Range: Low 110 mg/dL - High 140 mg/dL * Correction Factor: 20 mg/dL/unit at breakfast, 35 mg/dL/unit at lunch, dinner, HS * Nutritional / Prandial insulin per carb ratio of 1 unit per 4 grams CHO consumed with breakfast, 12 with lunch, dinner, and HS
[2022-08-23] MEDS ORDERED: OLANZapine 5 MG TABLET PO PRN (18:47)
[2022-08-23] MEDS: DOCUSATE SODIUM/SENNA 50/8.6MG TAB PO SCH (20:04)
[2022-08-23] MEDS: CHOLECALCIFEROL 1,000 UNITS 25 MCG TAB PO SCH (20:05)
[2022-08-23] MEDS: ATORVASTATIN 40 MG TAB PO SCH (20:05)
[2022-08-23] MEDS: TAMSULOSIN HCL 0.4 MG CAP PO SCH (20:06)
[2022-08-24] MEDS: POLYETHYLENE (MIRALAX) 17 GM PACK PO SCH ×3 (01:25→13:30)
[2022-08-24] MEDS: MEMANTINE HCL 10 MG TAB PO SCH ×2 (07:54→20:34)
[2022-08-24] MEDS: ASPIRIN 81 MG ECTAB PO SCH (07:54)
[2022-08-24] MEDS: amLODIPine BESYLATE 5 MG TAB PO SCH (07:55)
[2022-08-24] MEDS: lisinopril 40 MG TAB PO SCH (07:55)
[2022-08-24] MEDS: SERTRALINE HCL 100 MG TABLET PO SCH (07:56)
[2022-08-24] MEDS: FUROSEMIDE 40 MG TAB PO SCH (07:56)
[2022-08-24] MEDS: GABAPENTIN 100 MG CAP PO SCH ×2 (07:57→20:33)
[2022-08-24] MEDS: THIAMINE HCL 100 MG TAB PO SCH (07:57)
[2022-08-24] MEDS: carvediloL 6.25 MG TAB PO SCH ×2 (07:57→20:33)
[2022-08-24] MEDS: CYANOCOBALAMIN (B-12) 2,500 MCG TABLET SL SCH (07:58)
--- NOTE | 2022-08-24 08:57 | Orthopedic Progress Note ---
Date of Service August 24, 2022 Assessment & Plan (1) Neurogenic claudication due to lumbar spinal stenosis: Plan: Patient is progressing appropriately from orthopedic standpoint. Clearly mentation is still an issue. He is cleared for discharge to SNF when bed rivera ilable. Admission and Anticipated Discharge Date Admission Date: August 15, 2022 Subjective Patient is sound asleep and unable to arouse him. Results & Data ([facility]) Vital Signs (Past 12 Hours) Vital Signs Temp Pulse Resp BP Pulse Ox O2 Del Method 08/24/22 07:50 36.8 C 81 16 176/77 H 93 Room Air
[2022-08-24] MEDS: INSULIN HUMAN NPH SC SCH (09:30)
[2022-08-24] MEDS: INSULIN ASPART PER UNIT SC SCH ×4 (09:36→20:50)
--- NOTE | 2022-08-24 13:03 | Hospitalist Progress Note ---
Date of Service August 24, 2022 Assessment & Plan (1) Status post lumbar spine operation: Plan: 77 y/o male w/ PMHx of anemia of chronic disease, ckd, cognitive impairment, CAD s/p stent and cabg, depression, DM2, HLD, HTN, LENO not on cpap who is admitted for lumbar spinal stenosis surgery 08/15 - pain regimen per ortho: prn tylenol, prn, oxycodone, and prn dilaudid --> opioids on hold given delirium - completed danuta-operative abx - bowel regimen ordered - Pt medically stable, today is POD9, awaiting SNF placement (2) Dementia: Plan: -noted per chart review -continue memantine -noted worsening delirium in hospital ever since anesthesia from surgery CT head normal, CBC, BMP unremarkable, BCx negative likely sundowning with some contribution from Zyprexa, patient will likely have less delirium in more familiar environment. Patient's family looking into home help, still awaiting SNF placement -Continue Zyprexa 2.5 mg (3) Hypertension: Plan: -Continue home regimen -Amlodipine initiated 08/23 -Some improvement in BP although still elevated- will increase Coreg 6.25 mg to 12.5 mg BID (4) Diabetes type 2, uncontrolled: Plan: - SSI, basal insulin - pharmacy glycemic consult following (5) LENO (obstructive sleep apnea): Plan: - not tolerating cpap as outpatient (6) Coronary artery disease: Plan: - continue home regimen- aspirin, Coreg, lisinopril (7) Chronic kidney disease, stage 3a: Plan: - baseline Cr 1.36 - Cr stable at 1.47 (8) Depression: Plan: - anxiety/depression. continue home Zoloft 100mg. prn hydroxyzine and Ativan ordered per orthopedic team Plan Diet- DM2, HH. will be off IV maintenance fluids DVT ppx: per orthopedics Code- full code Disposition- medical/surgical Admission and Anticipated Discharge Date Admission Date: August 15, 2022 Supervising Physician Co-Signing Physician Notes Patient seen and examined independently of PGY-2 Dr. Contreras. Agree with history, exam findings, assessment and plan of care as outlined. In brief, Mr. Herrera is a 77 year old male with history of spinal stenosis, HTN, CAD, DM, CKD, depression and dementia admitted for spinal decompression with Dr. Suzie. Today, he is asking for his . He has not complaints of pain, chest pain, headache, dyspnea. VS and nursing notes reviewed. Non-toxic appearing. Heart with regular rate and rhythm. No edema. Lungs are clear to asucultation. Labs reviewed. 1. Dementia with superimposed delirium. Continue home Namenda and Aricept. Zyprexa if he is agitated or not able to be re-directed. 2. HTN/CAD. Blood pressures have been elevated. Continue home regimen of lisinopril 40mg, Lasix 40mg. Amlodipine 5mg added. Increased coreg to 12.5mg BID. 3. DM. basal-bolus insulin. Appreciate glycemic consult recommendations. 4. Depression. Continue home Zoloft. Trying to limit hydroxyzine and lorazepam. Dispo: awaiting placement. Medically stable. Subjective No acute events overnight. Pt sleeping on evaluation. Was briefly awoken, did not endorse any acute complaints aside from minor lower back soreness which is improving since surgery. Aware he may be discharged to placement facility this weekend pending bed availability. Review of Systems Review of Systems: Per subjective Physical Exam Constitutional: WD/WN, vitals as above ENMT: external ear and nose normal, oropharynx normal Neck: trachea midline, no thyromegaly Respiratory: normal respiratory effort, lungs clear to auscultation Cardiovascular: RRR, no murmur, no edema Gastrointestinal (Abdomen): Inspection/Auscultation: abdomen normal to inspection Percussion/Palpation: abdomen soft; abdomen nontender Skin: no rashes, warm and dry Results & Data Results & Data ([facility]) Vital Signs (Past 12 Hours) Vital Signs Temp Pulse Resp BP Pulse Ox O2 Del Method 08/24/22 07:50 36.8 C 81 16 176/77 H 93 Room Air Resident Activity Tracking Resident Involvement: Resident Care Provided Care Provided: Adult Hospital Medicine
[2022-08-24] MEDS ORDERED: OLANZAPINE 2.5 MG TAB PO PRN (13:04)
[2022-08-24] MEDS: ACETAMINOPHEN 500 MG TAB PO PRN (14:24)
[2022-08-24] MEDS: CHOLECALCIFEROL 1,000 UNITS 25 MCG TAB PO SCH (20:33)
[2022-08-24] MEDS: DOCUSATE SODIUM/SENNA 50/8.6MG TAB PO SCH (20:34)
[2022-08-24] MEDS: TAMSULOSIN HCL 0.4 MG CAP PO SCH (20:34)
[2022-08-24] MEDS: ATORVASTATIN 40 MG TAB PO SCH (20:35)
[2022-08-24] MEDS ORDERED: carvediloL 12.5 MG TAB PO SCH (21:00)
[2022-08-25] MEDS: INSULIN HUMAN NPH SC SCH (08:38)
[2022-08-25] MEDS: ACETAMINOPHEN 500 MG TAB PO PRN (08:42)
[2022-08-25] MEDS: INSULIN ASPART PER UNIT SC SCH ×4 (08:42→21:52)
[2022-08-25] MEDS: CYANOCOBALAMIN (B-12) 2,500 MCG TABLET SL SCH (08:43)
[2022-08-25] MEDS: carvediloL 6.25 MG TAB PO SCH ×2 (08:43→21:12)
[2022-08-25] MEDS: ASPIRIN 81 MG ECTAB PO SCH (08:43)
[2022-08-25] MEDS: SERTRALINE HCL 100 MG TABLET PO SCH (08:43)
[2022-08-25] MEDS: amLODIPine BESYLATE 5 MG TAB PO SCH (08:43)
[2022-08-25] MEDS: GABAPENTIN 100 MG CAP PO SCH ×2 (08:43→21:13)
[2022-08-25] MEDS: MEMANTINE HCL 10 MG TAB PO SCH ×2 (08:43→21:13)
[2022-08-25] MEDS: FUROSEMIDE 40 MG TAB PO SCH (08:43)
[2022-08-25] MEDS: lisinopril 40 MG TAB PO SCH (08:43)
[2022-08-25] MEDS: THIAMINE HCL 100 MG TAB PO SCH (08:44)
--- NOTE | 2022-08-25 09:51 | Orthopedic Progress Note ---
Date of Service August 25, 2022 Assessment & Plan (1) Neurogenic claudication due to lumbar spinal stenosis: Plan: At this time continue physical therapy. He is ready for discharge once a bed is available. Admission and Anticipated Discharge Date Admission Date: August 15, 2022 Subjective Patient is no complaints today. He states his back pain is controlled. Denies any leg pain. Physical Exam Physical Exam: On exam he is alert and cooperative. He is not recall having surgery. He does have good strength testing lower extremities. Results & Data ([facility]) Vital Signs (Past 12 Hours) Vital Signs Temp Pulse Resp BP Pulse Ox O2 Del Method 08/25/22 08:49 36.9 C 84 18 121/64 92 Room Air
--- NOTE | 2022-08-25 09:59 | Hospitalist Progress Note ---
Date of Service August 25, 2022 Assessment & Plan (1) Dementia: Plan: 77 y/o male w/ PMHx of anemia of chronic disease, ckd, cognitive impairment, CAD s/p stent and cabg, depression, DM2, HLD, HTN, LENO not on CPAP who is admitted for lumbar spinal stenosis surgery 08/15 -Continue memantine -noted hospital delirium since anesthesia from surgery CT head normal, CBC, BMP unremarkable, BCx negative Likely sundowning with some contribution from Zyprexa, patient will likely have less delirium in more familiar environment Patient's family looking into home help, still awaiting SNF placement -Continue Zyprexa 2.5 mg PRN nightly for agitation- has not required since 08/23 -No behavioral issues over past 48 hours -Awaiting placement at [facility]- as pt had apparently been in restraints at some point on 08/23, cannot accept until 08/26 (2) Status post lumbar spine operation: Plan: - pain regimen per orthopedics: PRN Tylenol, oxycodone, Dilaudid --> opioids on hold given delirium - completed danuta-operative abx - bowel regimen ordered - Pt medically stable, today is POD10, awaiting SNF placement as above (3) Hypertension: Plan: -Continue home regimen -Amlodipine initiated 08/23 -Coreg 6.25 mg BID increased to 12.5 mg BID on 08/24 but decreased back to home regimen before administration given borderline low BP 100/60 in afternoon -BP stable at present (4) Diabetes type 2, uncontrolled: Plan: - SSI, basal insulin - pharmacy glycemic consult following (5) LENO (obstructive sleep apnea): Plan: - not tolerating CPAP as outpatient (6) Coronary artery disease: Plan: - continue home regimen- aspirin, Coreg, lisinopril (7) Chronic kidney disease, stage 3a: Plan: - baseline Cr 1.36 - Cr stable at 1.47 on 08/23 (8) Depression: Plan: - anxiety/depression. continue home Zoloft 100mg. PRN hydroxyzine and Ativan ordered per orthopedic team Plan Diet- DM2, HH DVT ppx: SCDs per orthopedics Code- full code Disposition- medical/surgical Admission and Anticipated Discharge Date Admission Date: August 15, 2022 Supervising Physician Co-Signing Physician Notes Patient seen and examined independently of PGY-2 Dr. Contreras. Agree with history, exam findings, assessment and plan of care as outlined. In brief, Mr. Herrera is a 77 year old male with history of spinal stenosis, HTN, CAD, DM, CKD, depression and dementia admitted for spinal decompression with Dr. Larsen. He has not complaints of chest pain, headache, dyspnea. Some back pain. VS and nursing notes reviewed. Non-toxic appearing. Comfortable in the bed. Labs reviewed. 1. Dementia with superimposed delirium. Continue home Namenda and Aricept. Zyprexa if he is agitated or not able to be re-directed. 2. HTN/CAD. Blood pressures have been elevated. Continue home regimen of lisinopril 40mg, Lasix 40mg. Amlodipine 5mg added. Increased coreg to 12.5mg BID. 3. DM. basal-bolus insulin. Appreciate glycemic consult recommendations. 4. Depression. Continue home Zoloft. Trying to limit hydroxyzine and lorazepam. Dispo: awaiting placement--possible discharge tomorrow. Medically stable. Subjective No acute events overnight. No behavioral issues per nursing report. Pt resting in bed this morning, saturating well on RA. Still endorsing back pain although this is unchanged over past day. He is aware he is going to rehab although was initially unsure why he was going to rehab and not home. Remembered he had surgery with prompting from interviewer. Review of Systems Review of Systems: Per subjective Physical Exam Constitutional: WD/WN, vitals as above ENMT: external ear and nose normal, oropharynx normal Neck: trachea midline, no thyromegaly Respiratory: normal respiratory effort, lungs clear to auscultation Cardiovascular: RRR, no murmur, no edema Gastrointestinal (Abdomen): Inspection/Auscultation: abdomen normal to inspection Percussion/Palpation: abdomen soft; abdomen nontender Skin: no rashes, warm and dry Neurologic: AO to person and place, unable to recall meeting interviewer on day prior Results & Data Results & Data ([facility]) Vital Signs (Past 12 Hours) Vital Signs Temp Pulse Resp BP Pulse Ox O2 Del Method 08/25/22 08:49 36.9 C 84 18 121/64 92 Room Air Resident Activity Tracking Resident Involvement: Resident Care Provided Care Provided: Adult [facility]
[2022-08-25] MEDS: ATORVASTATIN 40 MG TAB PO SCH (21:12)
[2022-08-25] MEDS: DOCUSATE SODIUM/SENNA 50/8.6MG TAB PO SCH (21:13)
[2022-08-25] MEDS: CHOLECALCIFEROL 1,000 UNITS 25 MCG TAB PO SCH (21:13)
[2022-08-25] MEDS: TAMSULOSIN HCL 0.4 MG CAP PO SCH (21:14)
[2022-08-26] MEDS: carvediloL 6.25 MG TAB PO SCH ×2 (09:17→20:00)
[2022-08-26] MEDS: FUROSEMIDE 40 MG TAB PO SCH (09:17)
[2022-08-26] MEDS: THIAMINE HCL 100 MG TAB PO SCH (09:17)
[2022-08-26] MEDS: ASPIRIN 81 MG ECTAB PO SCH (09:17)
[2022-08-26] MEDS: GABAPENTIN 100 MG CAP PO SCH ×2 (09:17→20:01)
[2022-08-26] MEDS: lisinopril 40 MG TAB PO SCH (09:17)
[2022-08-26] MEDS: MEMANTINE HCL 10 MG TAB PO SCH ×2 (09:17→20:02)
[2022-08-26] MEDS: CYANOCOBALAMIN (B-12) 2,500 MCG TABLET SL SCH (09:17)
[2022-08-26] MEDS: SERTRALINE HCL 100 MG TABLET PO SCH (09:17)
[2022-08-26] MEDS: amLODIPine BESYLATE 5 MG TAB PO SCH (09:17)
[2022-08-26] MEDS: INSULIN HUMAN NPH SC SCH (09:18)
[2022-08-26] MEDS: INSULIN ASPART PER UNIT SC SCH ×4 (09:18→20:22)
--- NOTE | 2022-08-26 11:10 | Orthopedic Progress Note ---
Date of Service August 26, 2022 Assessment & Plan (1) Neurogenic claudication due to lumbar spinal stenosis: Plan: This time continue physical therapy awaiting intermediate placement. He is ready for discharge when bed available. Admission and Anticipated Discharge Date Admission Date: August 15, 2022 Subjective Patient is in the chair at the bedside. He appears comfortable. He denies any complaints. Physical Exam Physical Exam: On exam patient is cooperative. Is good strength testing. Appears comfortable. Results & Data ([facility]) Vital Signs (Past 12 Hours) Vital Signs Temp Pulse Resp BP Pulse Ox O2 Del Method O2 Flow Rate 08/26/22 08:56 36.9 C 68 18 119/62 94 Nasal Cannula 2
--- NOTE | 2022-08-26 14:23 | Pharmacy Report ---
Pharmacy Glycemic Short Note 2 - Date of Service August 26, 2022 - Glycemic Short BSG Results (Last 24 hours): 08/25/22 08/25/22 08/26/22 17:06 20:53 08:25 POC Glucose 162 H 128 H 172 H 08/26/22 12:29 POC Glucose 259 H OUTPATIENT ANTIDIABETIC REGIMEN: * NPH 50-60 units? qAM, 25 units with dinner * HbA1c: 9.8% 08/01/22 ASSESSMENT: 08/26/22 * BSGs yesterday were 136-603-285-128 mg/dL. * Patient received 28 units of insulin yesterday (12 units of NPH and 16 units of bolus). * NPH increased by 20% today to 14 units due to elevated fasting (fasting today is 172 mg/dL). * Tighten breakfast CR since patient trended up to 259 mg/dL with lunch. * Patient is not snacking per nursing report. 08/23 * BSGs continue to be on low-side yesterday, will continue to hold evening NPH and reduce day-time NPH * Will also loosen Novolog parameters further * Anticipate BSGs may climb a bit today, but will prioritize limiting hypoglycemia at this time 08/22 * Unfortunate episode of hypoglycemia last evening resulting in code purple and IM glucagon * Blood sugar did rebound after this and turkey sandwich/OJ * Will discontinue dinnertime NPH today and significantly loosen Novolog parameters at lunch, dinner, and HS 08/21 * BSGs remain reasonably well-controlled, ranging 108-172 mg/dL yesterday * Received 20 units of NPH and 18 units of Novolog yesterday * Do not anticipate any changes to current regimen today * Awaiting placement 08/15 * Patient admitted following spinal surgery. Patient is maintained on NPH outpatient with Dr. Owens * BSGs elevated post-op, will initiate Novolog dosing based on stress of 1 outpatient total daily dosing * Will utilize NPH as this is what patient uses outpatient to help transition home, will reduce dose as novolog is being added to regimen PLAN FOR INPATIENT GLYCEMIC CONTROL: * Basal insulin * NPH 14 units SQ with breakfast * Bolus insulin * NovoLog per scale ACHS or Q6hrs while NPO * Goal Range: Low 110 mg/dL - High 140 mg/dL * Correction Factor: 20 mg/dL/unit at breakfast, 35 mg/dL/unit at lunch, dinner, HS * Nutritional / Prandial insulin per carb ratio of 1 unit per 3 grams CHO consumed with breakfast, 10 with lunch, dinner, and HS
--- NOTE | 2022-08-26 16:13 | Hospitalist Progress Note ---
Date of Service August 26, 2022 Assessment & Plan (1) Dementia: Plan: 77 y/o male w/ PMHx of anemia of chronic disease, ckd, cognitive impairment, CAD s/p stent and cabg, depression, DM2, HLD, HTN, LENO not on CPAP who is admitted for lumbar spinal stenosis surgery 08/15 -Continue memantine -noted hospital delirium since anesthesia from surgery CT head normal, CBC, BMP unremarkable, BCx negative Likely sundowning with some contribution from Zyprexa, patient will likely have less delirium in more familiar environment Patient's family looking into home help, still awaiting SNF placement -Continue Zyprexa 2.5 mg PRN nightly for agitation- has not required since 08/23 -No behavioral issues over past 48 hours -Awaiting placement at [facility]- as pt had apparently been in restraints at some point on 08/23, cannot accept until 08/27 due to authorization -Hospitalist service will sign off on this patient as he has not had any delirium episodes in the past 3 days and is currently stable and waiting for placement. (2) Status post lumbar spine operation: Plan: - pain regimen per orthopedics: PRN Tylenol, oxycodone, Dilaudid --> opioids on hold given delirium - completed danuta-operative abx - bowel regimen ordered - Pt medically stable, today is POD11, awaiting SNF placement as above (3) Hypertension: Plan: -Continue home regimen -Amlodipine initiated 08/23 -Coreg 6.25 mg BID increased to 12.5 mg BID on 08/24 but decreased back to home regimen before administration given borderline low BP 100/60 in afternoon -BP stable at present (4) Diabetes type 2, uncontrolled: Plan: - SSI, basal insulin - pharmacy glycemic consult following (5) LENO (obstructive sleep apnea): Plan: - not tolerating CPAP as outpatient (6) Coronary artery disease: Plan: - continue home regimen- aspirin, Coreg, lisinopril (7) Chronic kidney disease, stage 3a: Plan: - baseline Cr 1.36 - Cr stable at 1.47 on 08/23 (8) Depression: Plan: - anxiety/depression. continue home Zoloft 100mg. PRN hydroxyzine and Ativan ordered per orthopedic team Plan Diet- DM2, HH DVT ppx: SCDs per orthopedics Code- full code Disposition- medical/surgical Admission and Anticipated Discharge Date Admission Date: August 15, 2022 Supervising Physician Co-Signing Physician Notes I personally examined the patient and verified all brandt points of history and exam, discussed case, and agree with decision making with Dr Boone No new complaints or problemsnotes some soreness where the surgery was but manageable. Vitals noted, in general he is awake and alert pleasant no distress. HEENT normocephalic atraumatic mucous membranes moist. Breathing unlabored no accessory muscle use good effort. Skin shows no rashes no pallor or icterus. Neuro without focal deficits. 1. Dementia with superimposed delirium. Continue home Namenda and Aricept. 2. HTN/CAD. Continue current meds and follow blood pressure. 3. DM. basal-bolus insulin. Appreciate glycemic consult recommendations. 4. Depression. Continue home Zoloft. Trying to limit hydroxyzine and lorazepam. Dispo: awaiting placement-medically stable. We will be available as needed. Subjective Patient seen at bedside this morning. No acute vents reported overnight. Patient overall doing well and has not had any episodes of delirium in the past 48 hours. Eating and drinking without difficulty. No other complaints at this time. Review of Systems Review of Systems: All systems reviewed & are unremarkable except as noted in HPI & below Physical Exam Constitutional: WD/WN, vitals as above + obese Eyes: PERRL, conjunctivae normal, anicteric sclerae ENMT: Mouth: no dentition abnormality Mallampati Class: II Neck: trachea midline, no thyromegaly + short neck and + thick neck Respiratory: normal respiratory effort, lungs clear to auscultation normal respiratory effort Auscultation: lungs clear to auscultation bilaterally Cardiovascular: RRR, no murmur, no edema Rate/Rhythm: regular rate and regular rhythm Gastrointestinal (Abdomen): Inspection/Auscultation: abdomen normal to inspection Percussion/Palpation: abdomen soft; abdomen nontender Skin: no rashes, warm and dry Results & Data Results & Data ([facility]) Vital Signs (Past 12 Hours) Vital Signs Temp Pulse Resp BP Pulse Ox O2 Del Method O2 Flow Rate 08/26/22 15:43 36.8 C 78 18 110/70 94 Room Air 08/26/22 08:56 36.9 C 68 18 119/62 94 Nasal Cannula 2
--- NOTE | 2022-08-26 19:09 | Billing Data ---
Date of Service August 26, 2022 Coding Level of Care Code 83913 Subseq Hosp Care Lvl 2
[2022-08-26] MEDS: ATORVASTATIN 40 MG TAB PO SCH (20:00)
[2022-08-26] MEDS: DOCUSATE SODIUM/SENNA 50/8.6MG TAB PO SCH (20:01)
[2022-08-26] MEDS: CHOLECALCIFEROL 1,000 UNITS 25 MCG TAB PO SCH (20:01)
[2022-08-26] MEDS: TAMSULOSIN HCL 0.4 MG CAP PO SCH (20:02)
[2022-08-26] MEDS: ACETAMINOPHEN 500 MG TAB PO PRN (23:31)
[2022-08-27] MEDS: CYANOCOBALAMIN (B-12) 2,500 MCG TABLET SL SCH (08:18)
[2022-08-27] MEDS: amLODIPine BESYLATE 5 MG TAB PO SCH (08:19)
[2022-08-27] MEDS: carvediloL 6.25 MG TAB PO SCH ×2 (08:19→20:38)
[2022-08-27] MEDS: lisinopril 40 MG TAB PO SCH (08:19)
[2022-08-27] MEDS: GABAPENTIN 100 MG CAP PO SCH ×2 (08:19→20:39)
[2022-08-27] MEDS: ASPIRIN 81 MG ECTAB PO SCH (08:20)
[2022-08-27] MEDS: SERTRALINE HCL 100 MG TABLET PO SCH (08:20)
[2022-08-27] MEDS: MEMANTINE HCL 10 MG TAB PO SCH ×2 (08:20→20:38)
[2022-08-27] MEDS: FUROSEMIDE 40 MG TAB PO SCH (08:20)
[2022-08-27] MEDS: THIAMINE HCL 100 MG TAB PO SCH (08:20)
--- NOTE | 2022-08-27 08:21 | Orthopedic Progress Note ---
Date of Service August 27, 2022 Assessment & Plan (1) Neurogenic claudication due to lumbar spinal stenosis: Plan: Discharge to nursing facility today. Admission and Anticipated Discharge Date Admission Date: August 15, 2022 Subjective Patient resting comfortably Physical Exam Physical Exam: No changes Results & Data ([facility]) Vital Signs (Past 12 Hours) Vital Signs Temp Pulse Resp BP BP Pulse Ox O2 Del Method 08/27/22 07:25 36.5 C 73 18 158/78 H 96 08/26/22 21:27 37 C 71 20 121/68 95 Room Air
[2022-08-27] MEDS: INSULIN ASPART PER UNIT SC SCH ×4 (08:56→20:40)
[2022-08-27] MEDS: INSULIN HUMAN NPH SC SCH (08:57)
[2022-08-27] MEDS: ACETAMINOPHEN 500 MG TAB PO PRN (09:42)
[2022-08-27 20:33] VITALS: TEMP 97.7
[2022-08-27] MEDS: TAMSULOSIN HCL 0.4 MG CAP PO SCH (20:37)
[2022-08-27] MEDS: DOCUSATE SODIUM/SENNA 50/8.6MG TAB PO SCH (20:37)
[2022-08-27] MEDS: ATORVASTATIN 40 MG TAB PO SCH (20:38)
[2022-08-27] MEDS: CHOLECALCIFEROL 1,000 UNITS 25 MCG TAB PO SCH (20:38)
[2022-08-28] MEDS: ACETAMINOPHEN 500 MG TAB PO PRN (06:32)
[2022-08-28 07:56] VITALS: BP 120/79; PULSE 76; O2SAT 96
[2022-08-28] MEDS: GABAPENTIN 100 MG CAP PO SCH (08:25)
[2022-08-28] MEDS: lisinopril 40 MG TAB PO SCH (08:25)
[2022-08-28] MEDS: MEMANTINE HCL 10 MG TAB PO SCH (08:25)
[2022-08-28] MEDS: ASPIRIN 81 MG ECTAB PO SCH (08:26)
[2022-08-28] MEDS: THIAMINE HCL 100 MG TAB PO SCH (08:26)
[2022-08-28] MEDS: amLODIPine BESYLATE 5 MG TAB PO SCH (08:26)
[2022-08-28] MEDS: carvediloL 6.25 MG TAB PO SCH (08:26)
[2022-08-28] MEDS: FUROSEMIDE 40 MG TAB PO SCH (08:26)
[2022-08-28] MEDS: SERTRALINE HCL 100 MG TABLET PO SCH (08:27)
[2022-08-28] MEDS: CYANOCOBALAMIN (B-12) 2,500 MCG TABLET SL SCH (08:27)
[2022-08-28] MEDS: INSULIN HUMAN NPH SC SCH (08:29)
[2022-08-28] MEDS: INSULIN ASPART PER UNIT SC SCH ×2 (08:30→12:32)
--- NOTE | 2022-09-03 12:10 | Discharge Summary ---
Date of Service September 03, 2022 Admission HPI Per Admitting Provider This is a 77-year-old male who presents with chronic persistent back and bilateral leg pain. After extensive course of nonoperative care is here for surgical invention. Admission Exam (Per Admitting) Constitutional well developed Eyes PERRL, conjunctivae normal, anicteric sclerae ENMT external ear and nose normal, oropharynx normal Neck normal visual inspection Respiratory normal respiratory effort Cardiovascular Extremities: normal capillary refill Gastrointestinal (Abdomen) Inspection/Auscultation: abdomen normal to inspection Musculoskeletal Spine: + pain with thoraco-lumbar ROM Extremities: extremities normal to inspection Skin no rashes, warm and dry normal turgor Neurologic normal touch/pain/proprioception and moves all extremities Psychiatric A+Ox3, euthymic affect Eye Contact: good eye contact Discharge Data Consultations 08/15/22 13:16 Consult Hospitalist Routine Procedures Performed Operation Date: 08/15/22 07:45 Actual Procedures p L3-L5 Revision Decompression and Fusion, Spinal Cord Monitoring(Not Applicable) - Carlos Larsen, DO Hospital Course (1) Neurogenic claudication due to lumbar spinal stenosis: Pt underwent PSF by Dr. Larsen on 08/15 and discharged to snf on 08/28. His hospital course was slow, complicated by hospital delerium. Pain was controlled. He participated in physical therapy daily. Discharge Instructions ACTIVITY RECOMMENDATIONS: SELF CARE INSTRUCTIONS AFTER THORACIC/LUMBAR FUSIONS 1. You may walk to your tolerance. It is good exercise for your legs and back. Expect some back and intermittent leg aches and pains. 2. You may perform "counter-top" level activities (make a sandwich, yeny with a project, etc.). 3. No bending or lifting of more than 10 pounds or back twisting of any nature (roll like a log when turning in bed). 4. You may ride in a car for 20-30 minutes at a time. No driving until after your first visit with your doctor. 5. Frequent changes of position and restricting sitting to 30 minutes at a time will help limit the amount of back spasms and stiffness you may experience. 6. You may discontinue the use of ambulatory aids (cane, crutches, etc.) once your strength and confidence allow. 7. You may landing scaler the shower and let water strike your incision when you arrive home at least once daily. Do not take a tub bath, sit in a hot tub or go into a swimming pool until after your first recheck in the office. SPECIAL CARE INSTRUCTIONS: VERY IMPORTANT TO READ AND REVIEW A. Your surgical incision has been closed with a cosmetic suture under the skin that will dissolve in about 6 weeks. In 14 days, you can use a pair of clean scissors and cut the suture that is left outside of the skin at the ends of your incision. 1. The small skin tapes can be removed 7 days after surgery if they have not fallen off by that point. 2. You may keep the wound open to air as much as possible to promote healing after post-op day number 5 unless told otherwise by your doctor. 3. If you think the wound looks like it is becoming infected (redness or worsening drainage) and/or you are experiencing fever, chill or worsening back pain and muscle spasms, contact the office so that we may evaluate you as soon as possible. B. Complications are uncommon, but please contact us if you have any signs or symptoms of: 1. wound infection (fever higher than 102.5 degrees F, redness, separation of wound, drainage, or increasing pain from the incision) 2. blood clots in legs (pain, swelling, redness and warmth in legs) 3. urinary tract infection (fever higher than 102.5 degrees F, burning upon urination or increased frequency of urination) 4. nerve problems (inability to walk on your toes or heels, numbness, loss of bowel or bladder control) 5. any other symptoms that concern you C. Please call the office at if you have any concerns or questions about your operation or recovery. D. No smoking! Smoking drastically decreases the chance of a solid fusion. E. Do not take any anti-inflammatory medications (Indocin, Advil, Motrin, Aspirin, Naprosyn, etc.) as these may inhibit the chance of a solid fusion. Tylenol is okay to take for pain. MANAGING PAIN AFTER SPINAL SURGERY 1. Narcotic medication is intended for short-term use and will be provided for surgical pain. Surgical pain usually lasts for a period of 4-6 weeks. Narcotic medication includes Percocet, Vicodin, Darvocet, Tylenol #3 or Lortab. 2. Longer-term pain is more appropriately treated with non-narcotic medication such as Tylenol ES. 3. Muscle spasm is not appropriately treated with narcotics. Muscle relaxers such as Soma, Flexeril or Skelaxin can be used along with Tylenol ES. 4. Remember that we all live with some "aches and pains". This is not unusual or uncommon after an injury or as we get older. a. Back pain is expected and may include muscle spasms for 4 to 6 weeks after surgery. The pain should gradually improve. If the pain worsens for no apparent reason, please contact the office. b. Intermittent leg pain may also be experienced and should not be concerned about unless it worsens for no apparent reason. If so, please contact the office. 5. We will provide appropriate medication within the normal guidelines of their prescribed use. We will also be very cautious and aware of potential abuse and extended duration of patients' medication needs. a. Pain medications are for your comfort and to assist with sleep and rest so that the tissue can heal. They are not provided in order to return to normal activity and should not be used through the day. To do so or worsening pain at night can result from ongoing tissue damage and development of tolerance to the prescribed medicine. 6. Please allow 2-3 days to process refills. Prescriptions will not be mailed but must be picked up at the office. FOLLOW UP VISIT: Keep your scheduled follow-up appointment. Any questions, please call the office at .
== END 2022-08-28 13:26 | DRG 454 ==
LOC: ASU 06:03 → 3E 10:20

== ENCOUNTER 2022-08-31 10:22 | Inpatient (IN) ==
[2022-08-31] MEDS ORDERED: SODIUM CHLORIDE 0.9% 500 ML IV SCH (11:30)
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
[2022-08-31 11:58] LABS: Basophils # (auto) 0.05 K/uL (0-0.2); Basophils % (auto) 0.6 %; Eosinophils # (auto) 0.39 K/uL (0-0.50); Eosinophils % (auto) 4.7 %; Hematocrit (blood only) 37.9 % (40.1-51.0); Hemoglobin 11.9 g/dl (14.0-18.0); Immature Granulocytes # (auto) 0.02 K/uL (0.00-0.02); Immature Granulocytes % (auto) 0.2 %; Lymphocytes # (auto) 1.22 K/uL (1.2-3.4); Lymphocytes % (auto) 14.7 %; Mean Corpuscular Hemoglobin 27.4 pg (25.0-34.0); Mean Corpuscular Hgb Conc 31.4 g/dL (32.0-36.0); Mean Corpuscular Volume 87.3 fL (80.0-100.0); Mean Platelet Volume 10.2 fL (9.4-12.4); Monocytes # (auto) 0.51 K/uL (0.24-0.82); Monocytes % (auto) 6.2 %; Neutrophils % (auto) 73.6 %; Platelet Count 355 K/uL (130-400); RDW Coefficient of Variation 13.3 % (11.5-14.5); Red Blood Count 4.34 M/uL (4.63-6.08); White Blood Count 8.29 K/ul (4.8-10.8)
[2022-08-31 12:03] LABS: Appearance Urine Clear (Clear); Bacteria Urine Automated Negative (Negative); Bilirubin Urine Negative (Negative); Blood Urine Negative (Negative); Color Urine Yellow; Epithelial Cell Urine Auto 0-5 /lpf (0-5); Glucose Urine UA Negative (Negative); Ketones Urine Negative (Negative); Leukocyte Esterase Urine Negative (Negative); Nitrite Urine Negative (Negative); Protein Urine 1+ (Negative); RBC Urine Automated 0-4 /hpf (0-4); Specific Gravity Urine 1.011 (1.000-1.030); Urobilinogen Urine Negative (Negative)
--- NOTE | 2022-08-31 12:05 | XRay Report ---
SINGLE VIEW CHEST CLINICAL HISTORY: Generalized weakness. FINDINGS: An AP, portable, upright chest radiograph is compared to study dated 08/19/2022. The examin ation is degraded by portable technique and apical lordotic positioning. The patient is status post m idline sternotomy The heart is enlarged noting atherosclerotic calcification of the thoracic aorta. T he pulmonary vasculature is noncongested. There is mild bibasilar scarring/atelectasis. The lungs and pleural spaces are otherwise clear. No pneumothorax is seen. The skeletal structures are osteopenic. The bony thorax is grossly intact. Advanced arthritic change is seen in the shoulders. IMPRESSION: Cardiomegaly with no active disease in the chest. ACT 112: Negative or not required by law. Electronically signed by: Adonis Lyons M.D. 08/31/2022 12:04 PM
[2022-08-31 12:10] LABS: INR 1.1 (0.9-1.1); Prothrombin Time 11.5 Seconds (9.0-12.0)
[2022-08-31 12:28] LABS: Albumin Level 3.8 gm/dl (3.4-5.0); Bilirubin,Total 0.4 mg/dl (0.2-1.0); Calcium 9.8 mg/dl (8.5-10.1); Creatinine Clr Calc Pharmacy 59.3 ml/min; Est GFR (African American) 56.7 ml/min; Est GFR (Non-African American) 48.9 ml/min; Globulin 3.7 gm/dl (2.5-4.0); Magnesium 1.9 mg/dl (1.7-2.4); Potassium 4.1 mmol/L (3.5-5.1); Total Protein 7.5 gm/dl (6.0-8.3)
[2022-08-31 12:29] LABS: Troponin I High Sensitivity 16.6 pg/ml (0-20)
--- NOTE | 2022-08-31 12:40 | CT Scan Report ---
HEAD CT NONCONTRAST CT DOSE: 1768.17 mGy.cm HISTORY: Altered mental status. Weakness TECHNIQUE: Multiaxial CT images of the head were performed without the use of intravenous contrast. A utomated exposure control was utilized for this study. A dose lowering technique was utilized adheri ng to the principles of ALARA. Comparison: Head CT 08/18/2022 Findings: Partial opacification of the ethmoid air cells and mild mucosal thickening within the maxil linda sinuses, unchanged. The calvarium and skull base are intact. There is no mass, hematoma, midline shift, acute infarct. White matter hypodensity is nonspecific but suggestive of microvascular ischem ic change. The ventricles and sulci demonstrate mild age-related involutional changes. Impression: No significant change compared to the prior study. No acute intracranial abnormality. ACT 112: Negative or not required by law. Electronically signed by: Karthikeyan Guerrero M.D. 08/31/2022 12:39 PM
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
[2022-08-31] MEDS ORDERED: CARBOHYDRATES FOR HYPOGLYCEMIA PO PRN (15:46)
[2022-08-31] MEDS ORDERED: oxyCODONE HCL IR 5 MG TAB (IMMEDIATE RELEASE) PO PRN (15:46)
[2022-08-31] MEDS ORDERED: GLUCOSE 40% GEL 15 GM TUBE PO PRN (15:46)
[2022-08-31] MEDS ORDERED: GLUCOSE 10 TAB/TUBE PO PRN (15:46)
[2022-08-31] MEDS ORDERED: GLUCAGON FOR INJ 1 MG VIAL SQ PRN (15:46)
[2022-08-31] MEDS ORDERED: DEXTROSE 50% 50 ML SYRINGE IV PRN (15:46)
[2022-08-31] MEDS ORDERED: traMADol HCL 50 MG TABLET PO PRN (15:46)
[2022-08-31] MEDS ORDERED: amLODIPine BESYLATE 5 MG TAB PO ONE (16:08)
[2022-08-31] MEDS: FUROSEMIDE 40 MG TAB PO SCH (16:21)
[2022-08-31] MEDS: INSULIN ASPART PER UNIT SC SCH ×2 (17:04→20:40)
[2022-08-31] MEDS: ACETAMINOPHEN 325 MG TAB PO PRN (19:37)
[2022-08-31] MEDS: carvediloL 6.25 MG TAB PO SCH (19:43)
[2022-08-31] MEDS: GABAPENTIN 100 MG CAP PO SCH (19:44)
[2022-08-31] MEDS: TAMSULOSIN HCL 0.4 MG CAP PO SCH (19:44)
[2022-08-31] MEDS: lisinopril 40 MG TAB PO SCH (19:44)
[2022-08-31] MEDS: MELATONIN 3 MG TAB PO SCH (19:44)
[2022-08-31] MEDS: ATORVASTATIN 40 MG TAB PO SCH (19:44)
[2022-08-31] MEDS: MEMANTINE HCL 10 MG TAB PO SCH (19:45)
[2022-08-31] MEDS: LANTUS PER UNIT CHARGE SQ SCH (20:39)
[2022-09-01] MEDS: ACETAMINOPHEN 325 MG TAB PO PRN ×3 (01:53→20:28)
[2022-09-01 05:58] LABS: Basophils # (auto) 0.05 K/uL (0-0.2); Basophils % (auto) 0.7 %; Eosinophils # (auto) 0.46 K/uL (0-0.50); Eosinophils % (auto) 6.9 %; Hemoglobin 11.3 g/dl (14.0-18.0); Immature Granulocytes # (auto) 0.03 K/uL (0.00-0.02); Immature Granulocytes % (auto) 0.4 %; Lymphocytes # (auto) 1.48 K/uL (1.2-3.4); Lymphocytes % (auto) 22.1 %; Mean Corpuscular Hemoglobin 27.8 pg (25.0-34.0); Mean Corpuscular Hgb Conc 32.3 g/dL (32.0-36.0); Mean Corpuscular Volume 86.2 fL (80.0-100.0); Mean Platelet Volume 10.6 fL (9.4-12.4); Monocytes # (auto) 0.44 K/uL (0.24-0.82); Monocytes % (auto) 6.6 %; Neutrophils # (auto) 4.23 K/uL (1.4-6.5); Neutrophils % (auto) 63.3 %; Platelet Count 300 K/uL (130-400); RDW Coefficient of Variation 13.3 % (11.5-14.5); RDW Standard Deviation 41.6 fL (36.4-46.3); Red Blood Count 4.06 M/uL (4.63-6.08); White Blood Count 6.69 K/ul (4.8-10.8)
[2022-09-01 06:14] LABS: Calcium 9.1 mg/dl (8.5-10.1); Creatinine Clr Calc Pharmacy 64.9 ml/min; Est GFR (African American) 63.2 ml/min; Est GFR (Non-African American) 54.5 ml/min
[2022-09-01] MEDS: SERTRALINE HCL 100 MG TABLET PO SCH (08:16)
[2022-09-01] MEDS: FUROSEMIDE 40 MG TAB PO SCH ×2 (08:16→17:52)
[2022-09-01] MEDS: ASPIRIN 81 MG ECTAB PO SCH (08:16)
[2022-09-01] MEDS: MEMANTINE HCL 10 MG TAB PO SCH ×2 (08:16→20:24)
[2022-09-01] MEDS: THIAMINE HCL 100 MG TAB PO SCH (08:16)
[2022-09-01] MEDS: GABAPENTIN 100 MG CAP PO SCH ×2 (08:16→20:23)
[2022-09-01] MEDS: carvediloL 6.25 MG TAB PO SCH ×2 (08:16→20:22)
[2022-09-01] MEDS: INSULIN ASPART PER UNIT SC SCH ×4 (09:09→20:21)
[2022-09-01] MEDS: LANTUS PER UNIT CHARGE SQ SCH ×2 (09:09→20:21)
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
--- NOTE | 2022-09-01 11:12 | Electrocardiogram Report ---
Test Reason : Blood Pressure : / mmHG Vent. Rate : 066 BPM Atrial Rate : 066 BPM P-R Int : 218 ms QRS Dur : 122 ms QT Int : 428 ms P-R-T Axes : 050 -41 009 degrees QTc Int : 448 ms Poor data quality, interpretation may be adversely affected Sinus rhythm with 1st degree A-V block Left axis deviation Non-specific intra-ventricular conduction delay Nonspecific T wave abnormality Anterior leads Abnormal ECG When compared with ECG of 20-AUG-2022 19:47, Nonspecific T wave abnormality now evident in Anterior leads Confirmed by Jed Landis ([id number]) on 09/01/2022 11:11:55 AM Referred By: REFERRED SELF Confirmed By:Jed Landis
[2022-09-01] MEDS: ATORVASTATIN 40 MG TAB PO SCH (20:22)
[2022-09-01] MEDS: MELATONIN 3 MG TAB PO SCH (20:23)
[2022-09-01] MEDS: lisinopril 40 MG TAB PO SCH (20:23)
[2022-09-01] MEDS: TAMSULOSIN HCL 0.4 MG CAP PO SCH (20:24)
[2022-09-01] MEDS: OLANZAPINE 2.5 MG TAB PO PRN (20:24)
[2022-09-02] MEDS: carvediloL 6.25 MG TAB PO SCH ×2 (08:41→19:51)
[2022-09-02] MEDS: ASPIRIN 81 MG ECTAB PO SCH (08:41)
[2022-09-02] MEDS: MEMANTINE HCL 10 MG TAB PO SCH ×2 (08:42→19:53)
[2022-09-02] MEDS: GABAPENTIN 100 MG CAP PO SCH ×2 (08:42→19:52)
[2022-09-02] MEDS: FUROSEMIDE 40 MG TAB PO SCH ×2 (08:42→17:52)
[2022-09-02] MEDS: SERTRALINE HCL 100 MG TABLET PO SCH (08:42)
[2022-09-02] MEDS: THIAMINE HCL 100 MG TAB PO SCH (08:43)
[2022-09-02] MEDS: INSULIN ASPART PER UNIT SC SCH ×4 (08:49→21:56)
[2022-09-02] MEDS: LANTUS PER UNIT CHARGE SQ SCH ×2 (08:51→21:56)
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
[2022-09-02] MEDS: ATORVASTATIN 40 MG TAB PO SCH (19:51)
[2022-09-02] MEDS: lisinopril 40 MG TAB PO SCH (19:52)
[2022-09-02] MEDS: MELATONIN 3 MG TAB PO SCH (19:53)
[2022-09-02] MEDS: TAMSULOSIN HCL 0.4 MG CAP PO SCH (19:53)
[2022-09-02] MEDS: OLANZAPINE 2.5 MG TAB PO PRN (19:54)
[2022-09-03] MEDS: ASPIRIN 81 MG ECTAB PO SCH (08:17)
[2022-09-03] MEDS: MEMANTINE HCL 10 MG TAB PO SCH ×2 (08:18→20:14)
[2022-09-03] MEDS: carvediloL 6.25 MG TAB PO SCH ×2 (08:18→20:21)
[2022-09-03] MEDS: SERTRALINE HCL 100 MG TABLET PO SCH (08:18)
[2022-09-03] MEDS: THIAMINE HCL 100 MG TAB PO SCH (08:18)
[2022-09-03] MEDS: GABAPENTIN 100 MG CAP PO SCH ×2 (08:18→20:13)
[2022-09-03] MEDS: FUROSEMIDE 40 MG TAB PO SCH ×2 (08:18→16:56)
[2022-09-03] MEDS: ACETAMINOPHEN 325 MG TAB PO PRN (08:22)
[2022-09-03] MEDS: INSULIN ASPART PER UNIT SC SCH ×4 (08:24→21:54)
[2022-09-03] MEDS: LANTUS PER UNIT CHARGE SQ SCH ×2 (08:25→21:55)
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
[2022-09-03] MEDS: POLYETHYLENE (MIRALAX) 17 GM PACK PO PRN (16:55)
[2022-09-03] MEDS: ATORVASTATIN 40 MG TAB PO SCH (20:12)
[2022-09-03] MEDS: lisinopril 40 MG TAB PO SCH (20:13)
[2022-09-03] MEDS: TAMSULOSIN HCL 0.4 MG CAP PO SCH (20:14)
[2022-09-03] MEDS: MELATONIN 3 MG TAB PO SCH (20:14)
[2022-09-03] MEDS: OLANZAPINE 2.5 MG TAB PO PRN (21:54)
[2022-09-04] MEDS: MEMANTINE HCL 10 MG TAB PO SCH ×2 (08:40→20:03)
[2022-09-04] MEDS: carvediloL 6.25 MG TAB PO SCH ×2 (08:40→20:04)
[2022-09-04] MEDS: THIAMINE HCL 100 MG TAB PO SCH (08:40)
[2022-09-04] MEDS: FUROSEMIDE 40 MG TAB PO SCH ×2 (08:40→17:52)
[2022-09-04] MEDS: SERTRALINE HCL 100 MG TABLET PO SCH (08:40)
[2022-09-04] MEDS: ASPIRIN 81 MG ECTAB PO SCH (08:40)
[2022-09-04] MEDS: GABAPENTIN 100 MG CAP PO SCH ×2 (08:41→20:04)
[2022-09-04] MEDS: INSULIN ASPART PER UNIT SC SCH ×4 (08:43→20:01)
[2022-09-04] MEDS: LANTUS PER UNIT CHARGE SQ SCH ×2 (08:43→20:00)
[2022-09-04] MEDS: POLYETHYLENE (MIRALAX) 17 GM PACK PO PRN (08:51)
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
[2022-09-04] MEDS: ATORVASTATIN 40 MG TAB PO SCH (19:59)
[2022-09-04] MEDS: TAMSULOSIN HCL 0.4 MG CAP PO SCH (20:00)
[2022-09-04] MEDS: MELATONIN 3 MG TAB PO SCH (20:03)
[2022-09-04] MEDS: lisinopril 40 MG TAB PO SCH (20:04)
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
[2022-09-05 08:13] LABS: Hematocrit (blood only) 35.3 % (40.1-51.0); Hemoglobin 11.4 g/dl (14.0-18.0); Mean Corpuscular Hemoglobin 27.9 pg (25.0-34.0); Mean Corpuscular Hgb Conc 32.3 g/dL (32.0-36.0); Mean Corpuscular Volume 86.3 fL (80.0-100.0); Mean Platelet Volume 10.3 fL (9.4-12.4); Platelet Count 265 K/uL (130-400); RDW Coefficient of Variation 13.3 % (11.5-14.5); RDW Standard Deviation 41.8 fL (36.4-46.3); Red Blood Count 4.09 M/uL (4.63-6.08); White Blood Count 7.17 K/ul (4.8-10.8)
[2022-09-05] MEDS: THIAMINE HCL 100 MG TAB PO SCH (08:20)
[2022-09-05] MEDS: SERTRALINE HCL 100 MG TABLET PO SCH (08:20)
[2022-09-05] MEDS: FUROSEMIDE 40 MG TAB PO SCH ×2 (08:20→17:50)
[2022-09-05] MEDS: ASPIRIN 81 MG ECTAB PO SCH (08:20)
[2022-09-05] MEDS: GABAPENTIN 100 MG CAP PO SCH ×2 (08:20→21:27)
[2022-09-05] MEDS: MEMANTINE HCL 10 MG TAB PO SCH ×2 (08:20→21:27)
[2022-09-05] MEDS: carvediloL 6.25 MG TAB PO SCH ×2 (08:20→21:27)
[2022-09-05] MEDS: LANTUS PER UNIT CHARGE SQ SCH ×2 (08:23→21:35)
[2022-09-05] MEDS: INSULIN ASPART PER UNIT SC SCH ×4 (08:23→21:35)
[2022-09-05] MEDS: ACETAMINOPHEN 325 MG TAB PO PRN (08:33)
[2022-09-05 08:36] LABS: Albumin Level 3.3 gm/dl (3.4-5.0); BUN Creatinine Ratio 21.8 (10-20); Bilirubin,Total 0.4 mg/dl (0.2-1.0); Calcium 9.1 mg/dl (8.5-10.1); Est GFR (African American) 55.2 ml/min; Est GFR (Non-African American) 47.6 ml/min; Globulin 3.3 gm/dl (2.5-4.0); Potassium 4.1 mmol/L (3.5-5.1); Total Protein 6.6 gm/dl (6.0-8.3)
[2022-09-05] MEDS ORDERED: CYANOCOBALAMIN (B-12) 500 MCG TABLET PO SCH (09:00)
[2022-09-05 09:01] LABS: Lyme Ab IgG w/WB Rflx Negative (Negative); Lyme Ab IgM w/WB Rflx Negative (Negative)
--- NOTE | 2022-09-05 10:18 | XRay Report ---
SINGLE VIEW CHEST CLINICAL HISTORY: Hypoxia. FINDINGS: An AP, portable, upright chest radiograph is compared to study dated 08/31/2022 and correla demond with chest CT dated 10/15/2021. The patient is status post midline sternotomy. The heart is enlar ged. The pulmonary vasculature is noncongested. Scarring/atelectasis is noted at the lung bases. The lungs and pleural spaces are otherwise clear. No pneumothorax is seen. The skeletal structures are os teopenic. The bony thorax is grossly intact. Advanced arthritic change is seen in the shoulders. IMPRESSION: Cardiomegaly with no acute cardiopulmonary abnormality identified. ACT 112: Negative or not required by law. Electronically signed by: Adonis Lyons M.D. 09/05/2022 10:16 AM
[2022-09-05] MEDS: lisinopril 40 MG TAB PO SCH (21:27)
[2022-09-05] MEDS: TAMSULOSIN HCL 0.4 MG CAP PO SCH (21:27)
[2022-09-05] MEDS: ATORVASTATIN 40 MG TAB PO SCH (21:27)
[2022-09-05] MEDS: MELATONIN 3 MG TAB PO SCH (21:28)
[2022-09-06] MEDS: ACETAMINOPHEN 325 MG TAB PO PRN (02:24)
[2022-09-06 07:37] VITALS: PULSE 78; TEMP 98.6; O2SAT 95
[2022-09-06] MEDS: FUROSEMIDE 40 MG TAB PO SCH (07:55)
[2022-09-06] MEDS: MEMANTINE HCL 10 MG TAB PO SCH (07:56)
[2022-09-06] MEDS: SERTRALINE HCL 100 MG TABLET PO SCH (07:56)
[2022-09-06] MEDS: THIAMINE HCL 100 MG TAB PO SCH (07:56)
[2022-09-06] MEDS: carvediloL 6.25 MG TAB PO SCH (07:56)
[2022-09-06] MEDS: GABAPENTIN 100 MG CAP PO SCH (07:56)
[2022-09-06] MEDS: ASPIRIN 81 MG ECTAB PO SCH (07:56)
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
[2022-09-06 08:36] LABS: BUN Creatinine Ratio 23.1 (10-20); Calcium 9.3 mg/dl (8.5-10.1); Creatinine Clr Calc Pharmacy 52.8 ml/min; Est GFR (African American) 49.3 ml/min; Est GFR (Non-African American) 42.5 ml/min; Potassium 3.9 mmol/L (3.5-5.1)
[2022-09-06] MEDS: LANTUS PER UNIT CHARGE SQ SCH (08:38)
[2022-09-06] MEDS: INSULIN ASPART PER UNIT SC SCH (08:38)
[2022-09-06 10:58] VITALS: BP 156/76
== END 2022-09-06 13:20 | disposition home health service (06) | DRG 884 ==
LOC: 3E 10:22 → ED 10:22 → SUATTDRO 13:21 → 3E 15:18 → SUATTDRO 09-02 11:17

== ENCOUNTER 2022-09-11 22:18 | Observation (INO) ==
--- NOTE | 2022-09-11 22:29 | Emergency Department Note ---
Impression & Plan Acute alteration in mental status, Hypertension, Hypoglycemia ED Provider Note NAME: PRADIP MO AGE: 77 SEX: M : 1945 ARRIVES VIA: Ambulance INFORMANT: Patient, EMS ED PROVIDER(S): Bernard Whipple DO CHIEF COMPLAINT: Altered mental status HPI: The patient is a 77-year-old male who has a history of insulin-dependent diabetes who presented to the emergency department for altered mental status. The patient was noted to have low blood sugar. Apparently he has some underlying dementia in the past. He is unsure if he took an extra dose of his insulin. They were unable to obtain an IV access prior to arrival so the patient had an intraosseous line. He received dextrose via the intraosseous line. He did not have significant improvement of his symptoms. There was no reported trauma. There is no reported nausea vomiting or fever. There was no reported lateralizing symptoms such as unilateral weakness or dysarthria. Upon arrival to the emergency department the patient's symptoms slowly did improve. He is still confused but he is awake and alert at this time. ROS: See above HPI for pertinent positives & negatives. A total of 10 systems reviewed and were otherwise negative. PAST MEDICAL HISTORY: See Below PAST SURGICAL HISTORY: See Below FAMILY HISTORY: See Below SOCIAL HISTORY: See Below HOME MEDICATIONS: See Below ALLERGIES: See Below VITALS: See Below PHYSICAL EXAMINATION: GENERAL: The patient is awake and answering questions. He does not appear to be uncomfortable. EYES: The conjunctivae are clear. The pupils are round and reactive. EARS, NOSE, MOUTH AND THROAT: The nose is without any evidence of any deformity. Mucous membranes are dry. NECK: The neck is nontender and supple. RESPIRATORY: Normal respiratory effort is noted there is no evidence of wheezing rhonchi or rales CARDIOVASCULAR: Regular rate and rhythm noted there no murmurs rubs or gallops normal S1 normal S2. GASTROINTESTINAL: The abdomen is soft. Abdomen is nontender. MUSCULOSKELETAL/EXTREMITIES: There is no evidence of gross deformity full range of motion is noted in the hips and shoulders. SKIN: Pedal edema was noted bilaterally. Skin was warm and dry. NEUROLOGIC: Patient is awake alert and oriented to person place but not time. Strength was symmetric. There is no facial droop. Speech is clear. MEDICAL DECISION MAKING: The patient is a 77-year-old male who presented to the emergency department for an evaluation of altered mental status. The patient has a history of insulin- dependent diabetes. The patient has some underlying dementia but also lives with family members who have dementia. It is unclear if the patient took too much of his medication. The patient was treated with dextrose via an intraosseous line. He did have an IV line placed. I discussed the patient's laboratory and radiographic studies with him. He was not found to have any acute abnormality on CT of the head. On reevaluation the patient continues to have some degree of confusion about the events. Prehospital personnel suspect that the patient may have gotten an inappropriate dose of his insulin. I do not feel the patient is safe to return to his personal residence at this time. I feel the patient may require further inpatient management and possibly evaluation by social service to determine if he is in a safe environment. I dis cussed this possibility with the patient. He was agreeable. The [facility] hospitalist was notified about the patient. Triage Nursing notes reviewed. Prior medical records reviewed Vital Signs: reviewed and remarkable for elevated blood pressure. Differential diagnosis: Infection, hypoglycemia, electrolyte abnormalities, overdose, toxicologic, cardiac sources, intracerebral event, neurologic, trauma, as well as other pathologies. ER treatment provided: See below Diagnostics interpreted by me: ECG: EKG was obtained in the emergency department. My interpretation is normal sinus rhythm at 63 bpm. No PVCs were noted. Left bundle branch block pattern was appreciated. This was compared to a tracing from August 31, 2022. No changes were noted. Cardiac Monitoring: An order was placed for continuous cardiac monitoring. The m onitor shows a rate of 58 bpm with sinus rhythm. Laboratory studies: As stated above and show below. Imaging studies: See below Consultation(s): Dr. Dacosta was notified about the patient. Past Med/Surg History Medical History Anemia of chronic disease Anxiety hx Background diabetic retinopathy associated with type 2 diabetes mellitus Bilateral leg edema Chronic back pain Chronic kidney disease, stage 3a follows with Dr Chan. Cognitive impairment Dementia. Alert and oriented most times. progressing quickly per . Coronary artery disease stent x1 (~2004), CABG x5 (2013) Degenerative disc disease Depression Diabetes type 2, uncontrolled IDDM Diabetic nephropathy associated with type 2 diabetes mellitus Diabetic peripheral neuropathy associated with type 2 diabetes mellitus Dyslipidemia History of blood transfusion post-op CABG History of colon polyps History of Mohs micrographic surgery for skin cancer 05/2020 History of radiation therapy 05/2020 for skin CA Hypertension controlled, stable per pt Obesity LENO (obstructive sleep apnea) CPAP - does not tolerate cpap currently. Proteinuria Spinal stenosis Squamous cell carcinoma, scalp/neck Surgical History H/O spinal fusion L4-L5 08/10 H/O umbilical hernia repair (12/30/19) Incarcerated Umbilical Hernia Repair Dr. Jeong 12-30-19: LMA#5. History of cardiac cath x3-4 caths- stent x 1 (~2004) History of colonoscopy with polypectomy History of discectomy Lumbar History of open heart surgery x5 vessels (2013) S/P eye surgery to repair a amblyopia (Lazy eye) Left eye S/P hip replacement Left MARTHA: 02/28/12: SAB at L4-L5 at [facility] S/P wisdom tooth extraction Family History Father , age 47 of an PR Heart disease Myocardial infarction Mother , age 73 of ALS ALS (amyotrophic lateral sclerosis) Cancer Brother Pancreatic cancer Grandmother Diabetes Other No family history of adverse response to anesthesia Denies family history of Ovarian cancer Prostate cancer Breast cancer Colorectal cancer Social History Smoking Status: Former smoker Second Hand Exposure: No; Hx Alcohol Use: Yes Alcohol type: wine Alcohol Intake Frequency: Monthly or Less Hx Substance Use: No Preferred Language: Turkish Communication Ability: Effective Visual Impairment: Diminished Hearing Ability: Use of Hearing Aid Director Global Required: No Beliefs That Will Affect Care: None marital status: Current Living Situation: Spouse current occupational status: retired How many Children do You have: 3 Feels Safe at Home: Yes Childhood Exposure to Second-Hand Smoke: Yes caffeine: Yes (tea and diet soda) during the past year weight has: remained stable Dental Care, Regularly: Yes Physical Activity Frequency: 5-6 Times per Week Physical Activity Frequency Comment: works in yard and walks dogs daily Seatbelt Use: always Sunscreen Use: Yes Do you think of yourself as: straight/heterosexual Assistive Devices: Walker Allergies Allergies Allergy/AdvReac Type Severity Reaction Status Date / Time No Known Allergies Allergy Verified 09/11/22 22:55 Home Meds Home Medications Medication Instructions Recorded Confirmed cholecalciferol (vitamin D3) 25 2,000 units PO HS 08/11/19 09/11/22 mcg (1,000 unit) capsule acetaminophen 500 mg tablet 1,000 mg PO DIRECTED PRN pain 05/30/21 09/11/22 (Tylenol Extra Strength) aspirin 81 mg tablet,delayed 81 mg PO QAM 07/26/22 09/11/22 release cyanocobalamin (vitamin B-12) 2,500 mcg PO QAM 07/26/22 09/11/22 2,500 mcg tablet gabapentin 100 mg capsule 100 mg PO BID PRN Pain 07/26/22 09/11/22 (Neurontin) sertraline 100 mg tablet (Zoloft) 100 mg PO QAM 07/26/22 09/11/22 tamsulosin 0.4 mg capsule 0.8 mg PO HS 07/26/22 09/11/22 Previous Rx's Medication Instructions Recorded carvedilol 6.25 mg tablet 6.25 mg PO BID #180 tabs 10/09/21 CPAP Machine #1 ea 11/20/21 pen needle, diabetic 31 gauge x #200 ea 11/28/2103/04" (Easy Comfort Pen [place]) walker (Ultra-Light Rollator misc) #1 ea 03/26/22 furosemide 40 mg tablet 40 mg PO BID WATER PILL, BLOOD 05/27/22 PRESSURE AND KIDNEYS #180 tabs atorvastatin 40 mg tablet 40 mg PO HS #90 tabs 06/26/22 lisinopril 40 mg tablet 40 mg PO HS BLOOD PRESSURE #90 tabs 06/28/22 memantine 10 mg tablet 10 mg PO BID #180 tabs 07/10/22 insulin NPH isoph U-100 human 100 See Rx Instructions subcut BID #5 08/29/22 unit/mL (3 mL) subcutaneous pen Boxes (Humulin N NPH U-100 Insulin KwikPen) Bed Side Commode #1 ea 09/09/22 Lift Chair #1 ea 09/09/22 bariatric hospital bed #1 ea 09/09/22 thiamine HCl (vitamin B1) 100 mg 100 mg PO QAM #90 tabs 09/09/22 tablet (Vitamin B-1) Results & Data (ED) Vital Signs Vital Signs - 24 hr 09/11/22 22:37 09/11/22 23:10 09/11/22 22:24 Temperature 36.7 C Temperature Source Oral Pulse Rate 56 L 65 Pulse Rate [Finger] 58 L Pulse Rate from SpO2 Sensor Pulse Rhythm Regular Pulse Strength Normal Respiratory Rate 22 20 16 Respiratory Effort / Characteristics Non-Labored Spontaneous Non-Labored Spontaneous Respiratory Depth Normal Normal Respiratory Pattern Regular Blood Pressure 220/111 H Blood Pressure [Left Arm] 174/86 H Blood Pressure Mean 147 Blood Pressure Mean [Left Arm] 115 Pulse Oximetry 92 98 Oxygen Delivery Method Room Air Nasal Cannula Oxygen Flow Rate 2 Sepsis Recent Fever Within 48 Hours No Sepsis New/Unexplained Change in Mental Status N/A Sepsis Action Taken by Nursing No Action Required 09/11/22 22:32 Temperature Temperature Source Pulse Rate 58 L Pulse Rate [Finger] Pulse Rate from SpO2 Sensor 58 L Pulse Rhythm Pulse Strength Respiratory Rate 20 Respiratory Effort / Characteristics Respiratory Depth Respiratory Pattern Blood Pressure 204/97 H Blood Pressure [Left Arm] Blood Pressure Mean 132 Blood Pressure Mean [Left Arm] Pulse Oximetry 93 Oxygen Delivery Method Room Air Oxygen Flow Rate Sepsis Recent Fever Within 48 Hours Sepsis New/Unexplained Change in Mental Status Sepsis Action Taken by [facility] Medications Current Medication List: was personally reviewed by me Laboratory Data Attestation: I reviewed the patient's lab results. Result diagrams: 09/11/22 22:26 09/11/22 22:26 Lab Results 09/11/22 09/11/22 09/11/22 Range/Units 22:26 22:26 22:26 WBC 7.80 (4.8-10.8) K/ul RBC 4.14 L (4.63-6.08) M/uL Hgb 11.4 L (14.0-18.0) g/dl POC Hgb (14.0-18.0) g/dl Hct 36.2 L (40.1-51.0) % POC Hct (42-52) % MCV 87.4 (80.0-100.0) fL MCH 27.5 (25.0-34.0) pg MCHC 31.5 L (32.0-36.0) g/dL RDW Std Deviation 43.1 (36.4-46.3) fL RDW Coeff of Vinh 13.6 (11.5-14.5) % Plt Count 246 (130-400) K/uL MPV 10.7 (9.4-12.4) fL Immature Gran % (Auto) 0.3 % Neut % (Auto) 77.8 % Lymph % (Auto) 12.6 % [place] % (Auto) 6.9 % Eos % (Auto) 1.9 % Baso % (Auto) 0.5 % Neut # (Auto) 6.07 (1.4-6.5) K/uL Lymph # (Auto) 0.98 L (1.2-3.4) K/uL [place] # (Auto) 0.54 (0.24-0.82) K/uL Eos # (Auto) 0.15 (0-0.50) K/uL Baso # (Auto) 0.04 (0-0.2) K/uL Immature Gran # (Auto) 0.02 (0.00-0.02) K/uL PT 11.4 (9.0-12.0) Seconds INR 1.1 (0.9-1.1) APTT 27.9 (21.0-31.0) Seconds PTT Ratio 1.0 POC Sodium (135-144) mmol/L Sodium 140 (136-145) mmol/L POC Potassium (3.3-5.0) mmol/L Potassium 4.0 (3.5-5.1) mmol/L POC Chloride (101-112) mmol/L Chloride 103 (98-107) mmol/L Carbon Dioxide 31 (21-32) mmol/L POC Total CO2 (24-31) mmol/L Anion Gap 6 (3-11) POC Anion Gap (16-25) mmol/L POC BUN (7-18) mg/dl BUN 32 H (6-23) mg/dl Creatinine 1.31 (0.6-1.4) mg/dl POC Creatinine (0.6-1.3) mg/dl Est Cr Clr Drug Dosing 65.1 ml/min Est GFR ( Amer) 60.9 ml/min Est GFR (Non-Af Amer) 52.5 ml/min BUN/Creatinine Ratio 24.4 H (10-20) Glucose 107 H (70-99(Fasting)) mg/dl POC Glucose (other) (70-99) mg/dl Calcium 9.3 (8.5-10.1) mg/dl POC Ioniz Calcium Celestine (1.12-1.32) mmol/l Magnesium 1.9 (1.7-2.4) mg/dl Total Bilirubin 0.3 (0.2-1.0) mg/dl AST 18 (13-39) U/L ALT 11 (7-52) U/L Alkaline Phosphatase 107 H (34-104) U/L Total Creatine Kinase 170 (30-223) U/L Troponin I High Sens 12.8 (0-20) pg/ml Total Protein 7.0 (6.0-8.3) gm/dl Albumin 3.8 (3.4-5.0) gm/dl Globulin 3.2 (2.5-4.0) gm/dl Albumin/Globulin Ratio 1.2 (0.9-2) TSH (0.300-4.500) uIu/ml SARS-CoV-2, RNA, NAAT (NEGATIVE) 09/11/22 09/11/22 09/11/22 Range/Units 22:26 22:28 22:29 WBC (4.8-10.8) K/ul RBC (4.63-6.08) M/uL Hgb (14.0-18.0) g/dl POC Hgb 11.9 L (14.0-18.0) g/dl Hct (40.1-51.0) % POC Hct 35 L (42-52) % MCV (80.0-100.0) fL MCH (25.0-34.0) pg MCHC (32.0-36.0) g/dL RDW Std Deviation (36.4-46.3) fL RDW Coeff of Vinh (11.5-14.5) % Plt Count (130-400) K/uL MPV (9.4-12.4) fL Immature Gran % (Auto) % Neut % (Auto) % Lymph % (Auto) % [place] % (Auto) % Eos % (Auto) % Baso % (Auto) % Neut # (Auto) (1.4-6.5) K/uL Lymph # (Auto) (1.2-3.4) K/uL [place] # (Auto) (0.24-0.82) K/uL Eos # (Auto) (0-0.50) K/uL Baso # (Auto) (0-0.2) K/uL Immature Gran # (Auto) (0.00-0.02) K/uL PT (9.0-12.0) Seconds INR (0.9-1.1) APTT (21.0-31.0) Seconds PTT Ratio POC Sodium 142 (135-144) mmol/L Sodium (136-145) mmol/L POC Potassium 4.0 (3.3-5.0) mmol/L Potassium (3.5-5.1) mmol/L POC Chloride 102 (101-112) mmol/L Chloride (98-107) mmol/L Carbon Dioxide (21-32) mmol/L POC Total CO2 29 (24-31) mmol/L Anion Gap (3-11) POC Anion Gap 16.0 (16-25) mmol/L POC BUN 29 H (7-18) mg/dl BUN (6-23) mg/dl Creatinine (0.6-1.4) mg/dl POC Creatinine 1.3 (0.6-1.3) mg/dl Est Cr Clr Drug Dosing ml/min Est GFR ( Amer) ml/min Est GFR (Non-Af Amer) ml/min BUN/Creatinine Ratio (10-20) Glucose (70-99(Fasting)) mg/dl POC Glucose (other) 111 H (70-99) mg/dl Calcium (8.5-10.1) mg/dl POC Ioniz Calcium [place] 1.20 (1.12-1.32) mmol/l Magnesium (1.7-2.4) mg/dl Total Bilirubin (0.2-1.0) mg/dl AST (13-39) U/L ALT (7-52) U/L Alkaline Phosphatase (34-104) U/L Total Creatine Kinase (30-223) U/L Troponin I High Sens (0-20) pg/ml Total Protein (6.0-8.3) gm/dl Albumin (3.4-5.0) gm/dl Globulin (2.5-4.0) gm/dl Albumin/Globulin Ratio (0.9-2) TSH 2.792 (0.300-4.500) uIu/ml SARS-CoV-2, RNA, NAAT NEGATIVE (NEGATIVE) Imaging Data Attestation: I personally reviewed and interpreted this imaging study as follows: My Impression: 1 view chest x-ray was obtained in the emergency department. My interpretation is cardiomegaly, left pleural effusion was noted. Postoperative changes were also noted. Poor in-store effort was noted with mild volume overload. This was compared to a chest x-ray from September 05, 2022. No changes were noted. Discharge Plan Visit Data Chief Complaint: Hypoglycemia Stated Complaint: unresponsive, hypoglycemic ED Provider: Bernard Whipple Discharge Problem: Acute alteration in mental status, Hypertension, Hypoglycemia Patient Disposition: Being Evaluated by Hospitalist Forms Stand Alone Forms: [facility] Prescriptions Prescriptions: No Action atorvastatin 40 mg tablet 40 mg PO HS Qty: 90 0RF memantine 10 mg tablet 10 mg PO BID Qty: 180 3RF Humulin N NPH Insulin KwikPen 100 unit/mL (3 mL) insulin pen See Rx Instructions subcut BID Qty: 5 3RF Rx Instructions: 50 units in the morning and 25 units before dinner subcut twice a day, TDD 90 u; (DME) pen needle, diabetic [Easy Comfort Pen [place]] 31 gauge x 5/16" needle See Rx Instructions .Route Qty: 200 3RF Rx Instructions: As directed- use twice daily carvedilol 6.25 mg tablet 6.25 mg PO BID Qty: 180 1RF acetaminophen [Tylenol Extra Strength] 500 mg tablet 1,000 mg PO DIRECTED PRN (Reason: pain) thiamine HCl (vitamin B1) [Vitamin B-1] 100 mg tablet 100 mg PO QAM Qty: 90 3RF (DME) Lift Chair Misc See Rx Instructions .Route Qty: 1 0RF Rx Instructions: As directed (DME) Bed Side Commode Misc See Rx Instructions .Route Qty: 1 0RF Rx Instructions: As directed/commode with arms (DME) bariatric hospital bed bariatric See Rx Instructions .Route .MEDSUPPLY Qty: 1 0RF Rx Instructions: As directed furosemide 40 mg tablet 40 mg PO BID Qty: 180 3RF Rx Instructions: The 2nd dose is to be given mid-day (DME) Ultra-Light Rollator Misc See Rx Instructions .Route Qty: 1 0RF Rx Instructions: As directed cholecalciferol (vitamin D3) 1,000 unit capsule 2,000 units PO HS (DME) CPAP Machine Misc See Rx Instructions .Route Qty: 1 0RF Rx Instructions: bilevel at 16/12 cmH20. cpap supplies lisinopril 40 mg tablet 40 mg PO HS Qty: 90 3RF sertraline [Zoloft] 100 mg tablet 100 mg PO QAM aspirin 81 mg tablet,delayed release (DR/EC) 81 mg PO QAM tamsulosin 0.4 mg capsule 0.8 mg PO HS gabapentin [Neurontin] 100 mg capsule 100 mg PO BID PRN (Reason: Pain) cyanocobalamin (vitamin B-12) 2,500 mcg tablet 2,500 mcg PO QAM Referrals Referrals: Nico Gill DO [Primary Care Provider] -
[2022-09-11 22:40] LABS: iSTAT Creatinine 1.3 mg/dl (0.6-1.3); iSTAT Hemoglobin 11.9 g/dl (14.0-18.0); iSTAT Ionized Calcium 1.2 mmol/l (1.12-1.32)
[2022-09-11 22:43] LABS: Basophils # (auto) 0.04 K/uL (0-0.2); Basophils % (auto) 0.5 %; Eosinophils # (auto) 0.15 K/uL (0-0.50); Eosinophils % (auto) 1.9 %; Hematocrit (blood only) 36.2 % (40.1-51.0); Hemoglobin 11.4 g/dl (14.0-18.0); Immature Granulocytes # (auto) 0.02 K/uL (0.00-0.02); Immature Granulocytes % (auto) 0.3 %; Lymphocytes # (auto) 0.98 K/uL (1.2-3.4); Lymphocytes % (auto) 12.6 %; Mean Corpuscular Hemoglobin 27.5 pg (25.0-34.0); Mean Corpuscular Hgb Conc 31.5 g/dL (32.0-36.0); Mean Corpuscular Volume 87.4 fL (80.0-100.0); Mean Platelet Volume 10.7 fL (9.4-12.4); Monocytes # (auto) 0.54 K/uL (0.24-0.82); Monocytes % (auto) 6.9 %; Neutrophils # (auto) 6.07 K/uL (1.4-6.5); Neutrophils % (auto) 77.8 %; Platelet Count 246 K/uL (130-400); RDW Coefficient of Variation 13.6 % (11.5-14.5); RDW Standard Deviation 43.1 fL (36.4-46.3); Red Blood Count 4.14 M/uL (4.63-6.08)
[2022-09-11 23:00] LABS: INR 1.1 (0.9-1.1); Partial Thromboplastin Time 27.9 Seconds (21.0-31.0); Prothrombin Time 11.4 Seconds (9.0-12.0)
[2022-09-11 23:05] LABS: Albumin Globulin Ratio 1.2 (0.9-2); Albumin Level 3.8 gm/dl (3.4-5.0); BUN Creatinine Ratio 24.4 (10-20); Bilirubin,Total 0.3 mg/dl (0.2-1.0); Calcium 9.3 mg/dl (8.5-10.1); Creatinine Clr Calc Pharmacy 65.1 ml/min; Est GFR (African American) 60.9 ml/min; Est GFR (Non-African American) 52.5 ml/min; Globulin 3.2 gm/dl (2.5-4.0); Magnesium 1.9 mg/dl (1.7-2.4)
[2022-09-11 23:08] LABS: Troponin I High Sensitivity 12.8 pg/ml (0-20)
[2022-09-12] MEDS ORDERED: ONDANSETRON INJ 2 MG/ML 2 ML VIAL IV PRN (02:21)
[2022-09-12] MEDS ORDERED: GLUCOSE 10 TAB/TUBE PO PRN (02:21)
[2022-09-12] MEDS ORDERED: GLUCOSE 40% GEL 15 GM TUBE PO PRN (02:21)
[2022-09-12] MEDS ORDERED: GABAPENTIN 100 MG CAP PO PRN (02:21)
[2022-09-12] MEDS ORDERED: ACETAMINOPHEN 325 MG TAB PO PRN (02:21)
[2022-09-12] MEDS ORDERED: GLUCAGON FOR INJ 1 MG VIAL SQ PRN (02:21)
[2022-09-12] MEDS ORDERED: DEXTROSE 50% 50 ML SYRINGE IV PRN (02:21)
[2022-09-12 03:00] LABS: Appearance Urine Clear (Clear); Bacteria Urine Automated Negative (Negative); Bilirubin Urine Negative (Negative); Blood Urine Negative (Negative); Color Urine Yellow; Epithelial Cell Urine Auto 0-5 /lpf (0-5); Glucose Urine UA Negative (Negative); Ketones Urine Negative (Negative); Leukocyte Esterase Urine Negative (Negative); Nitrite Urine Negative (Negative); Protein Urine 2+ (Negative); RBC Urine Automated 0-4 /hpf (0-4); Specific Gravity Urine 1.016 (1.000-1.030); Urobilinogen Urine Negative (Negative); WBC Urine Automated 0 /hpf (0-5)
--- NOTE | 2022-09-12 04:25 | History & Physical Report ---
Date of Service September 12, 2022 Assessment & Plan (1) Acute alteration in mental status: Plan: Acute alteration in mental status/confusion/disorientation- [place] likely secondary to hypoglycemia, symptoms have improved with improving blood sugar There seems to be confusion about how much insulin he received from his family, as the patient himself is unaware of the medications that he takes. Determination needs to be made how much insulin the patient was receiving, and when. (2) Hypertension: Plan: CAD/hypertension- Continue aspirin, carvedilol, furosemide, lisinopril. (3) Hypoglycemia: (4) Transient confusion: (5) Status post lumbar spine operation: Plan: Recent hospitalization from 08/31-09/06/22 Patient reports the operation went well and he feels good (6) Dementia: Plan: Dementia/anxiety- Continue thiamine, sertraline, memantine, gabapentin and aspirin. (7) Anxiety: (8) Diabetes type 2, uncontrolled: Plan: Unclear from looking if patient med list exactly how he is taking his insulin We will put him on reduced dosing of Humulin and 20 units subcu twice daily with NovoLog SSI, until can be clarified (9) Chronic kidney disease, stage 3a: Plan: Creatinine 1.31 upon admission, with range 1.27-1.65 Follow laboratory serially (10) Coronary artery disease: (11) Dyslipidemia: Plan: Continue atorvastatin 40 mg at bedtime (12) LENO (obstructive sleep apnea): Plan: Continue CPAP at bedtime as needed Admission and Anticipated Discharge Date Admission Date: September 12, 2022 History of Present Illness Chief Complaint: The patient presents to the emergency department due to altered mental status, confusion and disorientation, and was found to have a low blood sugar by EMS. EMS reports that it was unclear whether he has been given an extra dose or incorrect dose by his family that he lives with. He had an intraosseous line placed due to inability to obtain IV access prior to arrival to the ED Primary Care Provider: Nico Gill DO The patient is a 77-year-old male with a past medical history including hypertension, hypoglycemia, generalized muscle weakness, depression, status post lumbar spine surgery, anxiety, dementia, gait disturbance, BPH with LUTS, lumbosacral radiculopathy, bilateral leg edema, diabetes mellitus type 2, diabetic nephropathy, diabetic peripheral neuropathy, diabetic retinopathy, CKD stage IIIa, hypertension, CAD, dyslipidemia, LENO, B12 deficiency, D deficiency and dysesthesia. Patient presents to the emergency department as noted above. His symptoms did slowly improve, as his blood sugar improved in the ED. Allergies Allergy/AdvReac Type Severity Reaction Status Date / Time No Known Allergies Allergy Verified 09/11/22 22:55 Home Medications Medication Instructions Recorded Confirmed Type cholecalciferol (vitamin D3) 25 2,000 units PO HS 08/11/19 09/11/22 History mcg (1,000 unit) capsule acetaminophen 500 mg tablet 1,000 mg PO DIRECTED PRN pain 05/30/21 09/11/22 History (Tylenol Extra Strength) carvedilol 6.25 mg tablet 6.25 mg PO BID #180 tabs 10/09/21 09/11/22 Rx CPAP Machine #1 ea 11/20/21 09/09/22 Rx pen needle, diabetic 31 gauge x #200 ea 11/28/21 09/09/22 Rx 5/16" (Easy Comfort Pen [place]) walker (Ultra-Light Rollator misc) #1 ea 03/26/22 09/09/22 Rx furosemide 40 mg tablet 40 mg PO BID WATER PILL, BLOOD 05/27/22 09/11/22 Rx PRESSURE AND KIDNEYS #180 tabs atorvastatin 40 mg tablet 40 mg PO HS #90 tabs 06/26/22 09/11/22 Rx lisinopril 40 mg tablet 40 mg PO HS BLOOD PRESSURE #90 tabs 06/28/22 09/11/22 Rx memantine 10 mg tablet 10 mg PO BID #180 tabs 07/10/22 09/11/22 Rx aspirin 81 mg tablet,delayed 81 mg PO QAM 07/26/22 09/11/22 History release cyanocobalamin (vitamin B-12) 2,500 mcg PO QAM 07/26/22 09/11/22 History 2,500 mcg tablet gabapentin 100 mg capsule 100 mg PO BID PRN Pain 07/26/22 09/11/22 History (Neurontin) sertraline 100 mg tablet (Zoloft) 100 mg PO QAM 07/26/22 09/11/22 History tamsulosin 0.4 mg capsule 0.8 mg PO HS 07/26/22 09/11/22 History insulin NPH isoph U-100 human 100 See Rx Instructions subcut BID #5 08/29/22 09/11/22 Rx unit/mL (3 mL) subcutaneous pen Boxes (Humulin N NPH U-100 Insulin KwikPen) Bed Side Commode #1 ea 09/09/22 09/09/22 Rx Lift Chair #1 ea 09/09/22 09/09/22 Rx bariatric hospital bed #1 ea 09/09/22 09/09/22 Rx thiamine HCl (vitamin B1) 100 mg 100 mg PO QAM #90 tabs 09/09/22 09/11/22 Rx tablet (Vitamin B-1) Past Med/Surg History Medical History Anemia of chronic disease Anxiety hx Background diabetic retinopathy associated with type 2 diabetes mellitus Bilateral leg edema Chronic back pain Chronic kidney disease, stage 3a follows with Dr Chan. Cognitive impairment Dementia. Alert and oriented most times. progressing quickly per . Coronary artery disease stent x1 (~2004), CABG x5 (2013) Degenerative disc disease Depression Diabetes type 2, uncontrolled IDDM Diabetic nephropathy associated with type 2 diabetes mellitus Diabetic peripheral neuropathy associated with type 2 diabetes mellitus Dyslipidemia History of blood transfusion post-op CABG History of colon polyps History of Mohs micrographic surgery for skin cancer 05/2020 History of radiation therapy 05/2020 for skin CA Hypertension controlled, stable per pt Obesity LENO (obstructive sleep apnea) CPAP - does not tolerate cpap currently. Proteinuria Spinal stenosis Squamous cell carcinoma, scalp/neck Surgical History H/O spinal fusion L4-L5 08/10 H/O umbilical hernia repair (12/30/19) Incarcerated Umbilical Hernia Repair Dr. Jeong 12-30-19: LMA#5. History of cardiac cath x3-4 caths- stent x 1 (~2004) History of colonoscopy with polypectomy History of discectomy Lumbar History of open heart surgery x5 vessels (2013) S/P eye surgery to repair a amblyopia (Lazy eye) Left eye S/P hip replacement Left MARTHA: 02/28/12: SAB at L4-L5 at [facility] S/P wisdom tooth extraction Family History Father , age 47 of an [place] Heart disease Myocardial infarction Mother , age 73 of ALS ALS (amyotrophic lateral sclerosis) Cancer Brother Pancreatic cancer Grandmother Diabetes Other No family history of adverse response to anesthesia Denies family history of Ovarian cancer Prostate cancer Breast cancer Colorectal cancer Social History Smoking Status: Former smoker Second Hand Exposure: No; Hx Alcohol Use: Yes Alcohol type: wine Alcohol Intake Frequency: Monthly or Less Hx Substance Use: No Preferred Language: Chilean Communication Ability: Effective Visual Impairment: Diminished Hearing Ability: Use of Hearing Aid Style Advisor Required: No Beliefs That Will Affect Care: None marital status: Current Living Situation: Spouse current occupational status: retired How many Children do You have: 3 Feels Safe at Home: Yes Childhood Exposure to Second-Hand Smoke: Yes caffeine: Yes (tea and diet soda) during the past year weight has: remained stable Dental Care, Regularly: Yes Physical Activity Frequency: 5-6 Times per Week Physical Activity Frequency Comment: works in [employer] and walks dogs daily Seatbelt Use: always Sunscreen Use: Yes Do you think of yourself as: straight/heterosexual Assistive Devices: Walker Review of Systems Review of Systems: The patient denies chest pain, palpitations, shortness of breath, dyspnea on exertion, cough, lower extremity swelling, sore throat, fevers, chills, sweats, nausea, vomiting, diarrhea , constipation, abdominal pain, pelvic pain, blood in urine or stool, dysuria, urinary frequency or urgency, rash, abnormal bruising or bleeding, focal weakness, numbness or tingling in arms or legs, generalized arthralgias or myalgias, back or neck pain, or night sweats. The review of systems is otherwise negative other than for that already noted above, and at least 10 systems have been reviewed. Physical Exam Physical Exam: The patient is awake, alert and oriented 3, well developed and well nourished, normocephalic and atraumatic, lying in bed and in no acute distress. HEENT--PERRL, EOMI, mucous membranes and oropharynx dry. Neck--supple. No JVD. No bruits. Thyroid normal, trachea midline, no adenopathy. Heart--normal S1 and S2. No murmurs, rubs or gallops. Lungs--clear bilaterally, no respiratory distress, no accessory muscle use. Abdomen--normal bowel sounds and soft. Nontender. Nondistended. Obese Extremities--no cyanosis or clubbing. No edema. Dermatologic--normal skin turgor, normal color, no abnormal lymph nodes, no rash. Neurologic--cranial nerves II through XII grossly intact. Rheumatologic--normal range of motion. Psychiatric--normal affect. Results & Data Results & Data ([facility]) Vital Signs (Past 12 Hours) Vital Signs Temp Pulse Pulse Resp BP BP Pulse Ox 09/12/22 03:32 67 09/12/22 02:22 36.9 C 70 18 184/87 H 96 09/12/22 01:11 64 18 176/92 H 94 09/11/22 22:32 58 L 20 204/97 H 93 09/11/22 22:24 65 16 220/111 H 09/11/22 23:10 58 L 20 174/86 H 98 09/11/22 22:37 36.7 C 56 L 22 92 O2 Del Method O2 Flow Rate 09/12/22 03:32 09/12/22 02:22 Nasal Cannula 2 09/12/22 01:11 Nasal Cannula 2 09/11/22 22:32 Room Air 09/11/22 22:24 09/11/22 23:10 Nasal Cannula 2 09/11/22 22:37 Room Air Laboratory Results Laboratory Results WBC 7.80 K/ul (4.8-10.8) 09/11/22 22:26 RBC 4.14 M/uL (4.63-6.08) L 09/11/22 22:26 Hgb 11.4 g/dl (14.0-18.0) L 09/11/22 22: POC Hgb 11.9 g/dl (14.0-18.0) L 09/11/22 22:28 Hct 36.2 % (40.1-51.0) L 09/11/22 22:26 POC Hct 35 % (42-52) L 09/11/22 22:28 MCV 87.4 fL (80.0-100.0) 09/11/22 22:26 MCH 27.5 pg (25.0-34.0) 09/11/22 22: MCHC 31.5 g/dL (32.0-36.0) L 09/11/22 22: RDW Std Deviation 43.1 fL (36.4-46.3) 09/11/22: RDW Coeff of Vinh 13.6 % (11.5-14.5) 09/11/22: Plt Count 246 K/uL (130-400) 09/11/22: MPV 10.7 fL (9.4-12.4) 09/11/22: Immature Gran % (Auto) 0.3 % 09/11/22: Neut % (Auto) 77.8 % 09/11/22: Lymph % (Auto) 12.6 % 09/11/22: Swisher % (Auto) 6.9 % 09/11/22: Eos % (Auto) 1.9 % 09/11/22 Baso % (Auto) 0.5 % 09/11/22 Neut # (Auto) 6.07 K/uL (1.4-6.5) 09/11/22: Lymph # (Auto) 0.98 K/uL (1.2-3.4) L 09/11/22: Swisher # (Auto) 0.54 K/uL (0.24-0.82) 09/11/22: Eos # (Auto) 0.15 K/uL (0-0.50) 09/11/22: Baso # (Auto) 0.04 K/uL (0-0.2) 09/11/22: Immature Gran # (Auto) 0.02 K/uL (0.00-0.02) 09/11/22: PT 11.4 Seconds (9.0-12.0) 09/11/22: INR 1.1 (0.9-1.1) 09/11/22: APTT 27.9 Seconds (21.0-31.0) 09/11/22 PTT Ratio 1.0 09/11/22: POC Sodium 142 mmol/L (135-144) 09/11/22: Sodium 140 mmol/L (136-145) 09/11/22: POC Potassium 4.0 mmol/L (3.3-5.0) 09/11/22: Potassium 4.0 mmol/L (3.5-5.1) 09/11/22 22: POC Chloride 102 mmol/L (101-112) 09/11/22 22: Chloride 103 mmol/L (98-107) 09/11/22 22: Carbon Dioxide 31 mmol/L (21-32) 09/11/22 22: POC Total CO2 29 mmol/L (24-31) 09/11/22 22: Anion Gap 6 (3-11) 09/11/22 22: POC Anion Gap 16.0 mmol/L (16-25) 09/11/22 22: POC BUN 29 mg/dl (7-18) H 09/11/22 22: BUN 32 mg/dl (6-23) H 09/11/22: Creatinine 1.31 mg/dl (0.6-1.4) 09/11/22: POC Creatinine 1.3 mg/dl (0.6-1.3) 09/11/22: Est Cr Clr Drug Dosing 65.1 ml/min 09/11/22 22: Est GFR ( Amer) 60.9 ml/min 09/11/22 22: Est GFR (Non-Af Amer) 52.5 ml/min 09/11/22: BUN/Creatinine Ratio 24.4 (10-20) H 09/11/22 22: Glucose 107 mg/dl (70-99(Fasting)) H 09/11/22 22: POC Glucose 85 mg/dl (70-99) 09/12/22 02:46 POC Glucose (other) 111 mg/dl (70-99) H 09/11/22 22: Calcium 9.3 mg/dl (8.5-10.1) 09/11/22 22: POC Ioniz Calcium Celestine 1.20 mmol/l (1.12-1.32) 09/11/22: Magnesium 1.9 mg/dl (1.7-2.4) 09/11/22 22: Total Bilirubin 0.3 mg/dl (0.2-1.0) 09/11/22 22: AST 18 U/L (13-39) 09/11/22:26 ALT 11 U/L (7-52) 09/11/22 22: Alkaline Phosphatase 107 U/L (34-104) H 09/11/22 22:26 Total Creatine Kinase 170 U/L (30-223) 09/11/22 22: Troponin I High Sens 12.8 pg/ml (0-20) 09/11/22 22: Total Protein 7.0 gm/dl (6.0-8.3) 09/11/22 22: Albumin 3.8 gm/dl (3.4-5.0) 09/11/22 22: Globulin 3.2 gm/dl (2.5-4.0) 09/11/22 22: Albumin/Globulin Ratio 1.2 (0.9-2) 09/11/22 22: TSH 2.792 uIu/ml (0.300-4.500) 09/11/22 22: Urine Color Yellow 09/12/22 02:45 Urine Appearance Clear (Clear) 09/12/22 02:45 Urine pH 5.0 (4.5-7.5) 09/12/22 02:45 Ur Specific Grady 1.016 (1.000-1.030) 09/12/22 02:45 Urine Protein 2+ (Negative) H 09/12/22 02:45 Urine Glucose (UA) Negative (Negative) 09/12/22 02:45 Urine Ketones Negative (Negative) 09/12/22 02:45 Urine Blood Negative (Negative) 09/12/22 02:45 Urine Nitrite Negative (Negative) 09/12/22 02:45 Urine Bilirubin Negative (Negative) 09/12/22 02:45 Urine Urobilinogen Negative (Negative) 09/12/22 02:45 Ur Leukocyte Esterase Negative (Negative) 09/12/22 02:45 Urine WBC (Auto) 0 /hpf (0-5) 09/12/22 02:45 Urine RBC (Auto) 0-4 /hpf (0-4) 09/12/22 02:45 U Hyaline Cast (Auto) 1-5 /lpf (0-5) 09/12/22 02:45 U Epithel Cells (Auto) 0-5 /lpf (0-5) 09/12/22 02:45 Urine Bacteria (Auto) Negative (Negative) 09/12/22 02:45 SARS-CoV-2, RNA, NAAT NEGATIVE (NEGATIVE) 09/12/22 00:41 Code Status & VTE Plan Code Status Full code VTE Prophylaxis Plan VTE Prophylaxis will be ordered: Yes (1) Hypertension Hypertension type: unspecified Qualified Code(s): I10 - Essential (primary) hypertension
--- NOTE | 2022-09-12 04:25 | Billing Data ---
Date of Service September 12, 2022 Coding Level of Care Code INT OBSERVATION CARE 70M LVL 3
[2022-09-12 06:24] LABS: Basophils # (auto) 0.03 K/uL (0-0.2); Basophils % (auto) 0.5 %; Eosinophils # (auto) 0.25 K/uL (0-0.50); Hematocrit (blood only) 33.2 % (40.1-51.0); Hemoglobin 10.9 g/dl (14.0-18.0); Immature Granulocytes # (auto) 0.02 K/uL (0.00-0.02); Immature Granulocytes % (auto) 0.3 %; Lymphocytes # (auto) 1.25 K/uL (1.2-3.4); Lymphocytes % (auto) 19.9 %; Mean Corpuscular Hemoglobin 27.7 pg (25.0-34.0); Mean Corpuscular Hgb Conc 32.8 g/dL (32.0-36.0); Mean Corpuscular Volume 84.5 fL (80.0-100.0); Mean Platelet Volume 10.9 fL (9.4-12.4); Monocytes # (auto) 0.52 K/uL (0.24-0.82); Monocytes % (auto) 8.3 %; Neutrophils # (auto) 4.22 K/uL (1.4-6.5); Platelet Count 218 K/uL (130-400); RDW Coefficient of Variation 13.7 % (11.5-14.5); RDW Standard Deviation 42.3 fL (36.4-46.3); Red Blood Count 3.93 M/uL (4.63-6.08); White Blood Count 6.29 K/ul (4.8-10.8)
[2022-09-12 06:46] LABS: Albumin Globulin Ratio 1.2 (0.9-2); Albumin Level 3.4 gm/dl (3.4-5.0); BUN Creatinine Ratio 24.1 (10-20); Bilirubin,Total 0.4 mg/dl (0.2-1.0); Calcium 8.8 mg/dl (8.5-10.1); Creatinine Clr Calc Pharmacy 76.2 ml/min; Est GFR (African American) 73.6 ml/min; Est GFR (Non-African American) 63.5 ml/min; Globulin 2.9 gm/dl (2.5-4.0); Total Protein 6.3 gm/dl (6.0-8.3)
--- NOTE | 2022-09-12 07:22 | CT Scan Report ---
CT SCAN OF THE BRAIN WITHOUT IV CONTRAST CLINICAL HISTORY: Change in mental status. COMPARISON STUDY: CT of the brain dated 08/31/2022. TECHNIQUE: Unenhanced axial CT scan of the brain is performed from the vertex to the skull base. A do se lowering technique was utilized adhering to the principles of ALARA. CT DOSE: 691.05 mGy.cm FINDINGS: Brain parenchyma: There is age-related involutional change noting mild subcortical and periventricula r microangiopathic disease. There is no hemorrhage, mass effect, or evidence of acute territorial isc hemia by CT criteria. Harp-white matter differentiation is preserved. No extra-axial fluid collection is seen. Ventricles, sulci, cisterns: Prominent secondary to involutional change. Intracranial vasculature: There is atherosclerotic calcification of the cavernous carotid and vertebr al arteries. Calvarium: Unremarkable. Sinuses and mastoids: There is mild mucosal thickening within the maxillary antra, the left frontal, and the ethmoid sinuses. The mastoid air cells are well pneumatized. Orbits: The bony orbits are grossly intact. There are bilateral ocular lens implants. IMPRESSION: There is no hemorrhage, mass effect, or evidence of acute territorial ischemia by CT raffaele aguirre. ACT 112: Negative or not required by law. Electronically signed by: Adonis Lyons M.D. 09/12/2022 7:20 AM
--- NOTE | 2022-09-12 08:00 | XRay Report ---
SINGLE VIEW CHEST CLINICAL HISTORY: Generalized weakness.. FINDINGS: An AP, portable, upright chest radiograph is compared to study dated 09/05/2022 and correla demond with chest CT dated 10/15/2021. The examination is degraded by portable technique and apical lord otic positioning. The patient is status post midline sternotomy. The heart is enlarged. The pulmonary vasculature is noncongested. There is mild elevation of the right hemidiaphragm. Scarring/atelectasi s is noted at the lung bases. The lungs and pleural spaces are otherwise clear. No pneumothorax is se en. The skeletal structures are osteopenic. The bony thorax is grossly intact. Advanced arthritic paola nge is seen in the shoulders. IMPRESSION: Cardiomegaly with no acute cardiopulmonary abnormality identified. ACT 112: Negative or not required by law. Electronically signed by: Adonis Lyons M.D. 09/12/2022 7:59 AM
[2022-09-12] MEDS: THIAMINE HCL 100 MG TAB PO SCH (08:48)
[2022-09-12] MEDS: ASPIRIN 81 MG ECTAB PO SCH (08:48)
[2022-09-12] MEDS: SERTRALINE HCL 100 MG TABLET PO SCH (08:48)
[2022-09-12] MEDS: FUROSEMIDE 40 MG TAB PO SCH ×2 (08:48→18:21)
[2022-09-12] MEDS: CYANOCOBALAMIN (B-12) 2,500 MCG TABLET SL SCH (08:48)
[2022-09-12] MEDS: MEMANTINE HCL 10 MG TAB PO SCH ×2 (08:48→19:37)
[2022-09-12] MEDS: carvediloL 6.25 MG TAB PO SCH ×2 (08:48→19:36)
[2022-09-12] MEDS: INSULIN HUMAN NPH SC SCH ×2 (08:49→17:55)
[2022-09-12] MEDS: INSULIN ASPART PER UNIT SC SCH ×4 (08:54→21:12)
--- NOTE | 2022-09-12 10:27 | Electrocardiogram Report ---
Test Reason : Blood Pressure : / mmHG Vent. Rate : 063 BPM Atrial Rate : 051 BPM P-R Int : 000 ms QRS Dur : 122 ms QT Int : 416 ms P-R-T Axes : 000 -49 032 degrees QTc Int : 425 ms Sinus rhythm Left axis deviation Non-specific intra-ventricular conduction delay Nonspecific T wave abnormality Anterior leads Abnormal ECG When compared with ECG of 31-AUG-2022 12:04, No significant change Confirmed by Jed Landis ([id number]) on 09/12/2022 10:27:06 AM Referred By: REFERRED SELF Confirmed By:Jed Landis
--- NOTE | 2022-09-12 14:08 | Hospitalist Progress Note ---
Date of Service September 12, 2022 Assessment & Plan (1) Acute alteration in mental status: Plan: Patient seems to have some baseline dementia, as corroborated by the and son Admitted on account of Acute alteration in mental status/confusion/disorientation- [place] likely secondary to hypoglycemia and dehydration, symptoms have improved with improving blood sugar (2) Hypoglycemia: Plan: Most likley iatrogenic due to insulin. There seems to be confusion about how much insulin he received from his family, as the patient himself is unaware of the medications that he takes. According to , she gives him 60 units lantus in the morning and 20 units at night However, she dmits that she has not checked his blood glucose for a long time because she dosent know how to Will reduce his dose to 20 units BID with sliding scale This should give us an idea of how much insulin he will need, will titrate as neccessary Consult diabetes educators to help teach her how to administer insulin and also check his blood glucose at home (3) Hypertension: Plan: CAD/hypertension- Continue aspirin, carvedilol, furosemide, lisinopril. (4) Dementia: Plan: Dementia/anxiety- Continue thiamine, sertraline, memantine, gabapentin and aspirin. (5) Chronic kidney disease, stage 3a: Plan: TERESA on CKD 3 Creatinine 1.31 upon admission, with range 1.27-1.65 Improved following IV Fluids (6) Transient confusion: (7) Status post lumbar spine operation: Plan: Recent hospitalization from 08/31-09/06/22 Patient reports the operation went well and he feels good (8) Anxiety: (9) Diabetes type 2, uncontrolled: Plan: Unclear from looking if patient med list exactly how he is taking his insulin We will put him on reduced dosing of Humulin and 20 units subcu twice daily with NovoLog SSI, until can be clarified (10) Coronary artery disease: (11) Dyslipidemia: Plan: Continue atorvastatin 40 mg at bedtime (12) LENO (obstructive sleep apnea): Plan: Continue CPAP at bedtime as needed Plan continue hospitalization Admission and Anticipated Discharge Date Admission Date: September 12, 2022 Subjective patient seen and examined, confused Review of Systems Review of Systems: unreliable due to dementia Physical Exam Physical Exam: The patient is awake, alert confused HEENT--PERRL, EOMI, mucous membranes and oropharynx mildly dry Neck--supple. No JVD. No bruits. Thyroid normal, trachea midline, no adenopathy. Heart--normal S1 and S2. No murmurs, rubs or gallops. Lungs--clear bilaterally, no respiratory distress, no accessory muscle use. Abdomen--normal bowel sounds and soft. Mild epigastric and left sided abdominal pain Extremities--no cyanosis or clubbing. No edema. Dermatologic--normal skin turgor, normal color, no abnormal lymph nodes, no rash. Neurologic--cranial nerves II through XII grossly intact. Rheumatologic--normal range of motion. Psychiatric--normal affect. Results & Data Results & Data ([facility]) Vital Signs (Past 12 Hours) Vital Signs Temp Pulse Pulse Resp BP Pulse Ox O2 Del Method 09/12/22 11:39 99.1 F 79 18 182/91 H 91 Room Air 09/12/22 08:13 97.9 F 79 18 183/83 H 92 Room Air 09/12/22 07:00 91 H 09/12/22 02:50 Nasal Cannula 09/12/22 02:50 98.4 F 70 18 96 Nasal Cannula 09/12/22 03:32 67 09/12/22 02:22 98.4 F 70 18 184/87 H 96 Nasal Cannula O2 Flow Rate 09/12/22 11:39 09/12/22 08:13 09/12/22 07:00 09/12/22 02:50 2 09/12/22 02:50 2 09/12/22 03:32 09/12/22 02:22 2 PG Care Time/CCT Total # of Minutes Spent Total Time Spent with Patient: Total time spent is greater than 50% in coordination of care (as documented) at patient's floor/unit and/or counseling patient: Coding Level of Care Code 99987 Subseq Hosp Care Lvl 2 Diagnoses Acute alteration in mental status R41.82 Hypoglycemia E16.2 Hypertension I10 Hypertension type: unspecified Dementia F03.90 Chronic kidney disease, stage 3a N18.31 Transient confusion R41.0 Status post lumbar spine operation Z98.890 Anxiety F41.9 Diabetes type 2, uncontrolled E11.65 Coronary artery disease I25.10 Dyslipidemia E78.5 LENO (obstructive sleep apnea) G47.33 Time Spent (min) 35 (1) Hypertension Hypertension type: unspecified Qualified Code(s): I10 - Essential (primary) hypertension
[2022-09-12] MEDS: CARBOHYDRATES FOR HYPOGLYCEMIA PO PRN (16:15)
[2022-09-12] MEDS: lisinopril 40 MG TAB PO SCH (19:36)
[2022-09-12] MEDS: ATORVASTATIN 40 MG TAB PO SCH (19:36)
[2022-09-12] MEDS: CHOLECALCIFEROL 1,000 UNITS 25 MCG TAB PO SCH (19:36)
[2022-09-12] MEDS: TAMSULOSIN HCL 0.4 MG CAP PO SCH (19:37)
[2022-09-13] MEDS ORDERED: OLANZapine 10 MG/2.1 ML SDV IM STA ×2 (02:42→08:30)
[2022-09-13 06:21] LABS: Basophils # (auto) 0.03 K/uL (0-0.2); Basophils % (auto) 0.5 %; Eosinophils # (auto) 0.37 K/uL (0-0.50); Eosinophils % (auto) 5.9 %; Hematocrit (blood only) 34.6 % (40.1-51.0); Hemoglobin 11.1 g/dl (14.0-18.0); Immature Granulocytes # (auto) 0.02 K/uL (0.00-0.02); Immature Granulocytes % (auto) 0.3 %; Lymphocytes # (auto) 1.22 K/uL (1.2-3.4); Lymphocytes % (auto) 19.6 %; Mean Corpuscular Hemoglobin 27.7 pg (25.0-34.0); Mean Corpuscular Hgb Conc 32.1 g/dL (32.0-36.0); Mean Corpuscular Volume 86.3 fL (80.0-100.0); Mean Platelet Volume 10.7 fL (9.4-12.4); Monocytes # (auto) 0.48 K/uL (0.24-0.82); Monocytes % (auto) 7.7 %; Platelet Count 210 K/uL (130-400); RDW Standard Deviation 42.8 fL (36.4-46.3); Red Blood Count 4.01 M/uL (4.63-6.08); White Blood Count 6.22 K/ul (4.8-10.8)
[2022-09-13 06:46] LABS: Albumin Globulin Ratio 1.2 (0.9-2); Albumin Level 3.4 gm/dl (3.4-5.0); BUN Creatinine Ratio 17.9 (10-20); Bilirubin,Total 0.5 mg/dl (0.2-1.0); Calcium 9.1 mg/dl (8.5-10.1); Creatinine Clr Calc Pharmacy 63.7 ml/min; Est GFR (African American) 59.2 ml/min; Est GFR (Non-African American) 51.1 ml/min; Globulin 2.8 gm/dl (2.5-4.0); Magnesium 1.7 mg/dl (1.7-2.4); Potassium 3.7 mmol/L (3.5-5.1); Total Protein 6.2 gm/dl (6.0-8.3)
[2022-09-13 07:36] LABS: Estimated Average Glucose 209 mg/dl; Hemoglobin A1C 8.9 % (4.5-5.6)
[2022-09-13] MEDS: INSULIN HUMAN NPH SC SCH (08:29)
[2022-09-13] MEDS: INSULIN ASPART PER UNIT SC SCH ×4 (08:51→20:31)
[2022-09-13] MEDS: MEMANTINE HCL 10 MG TAB PO SCH ×2 (11:40→20:32)
[2022-09-13] MEDS: SERTRALINE HCL 100 MG TABLET PO SCH (11:40)
[2022-09-13] MEDS: carvediloL 6.25 MG TAB PO SCH ×2 (11:40→20:29)
[2022-09-13] MEDS: CYANOCOBALAMIN (B-12) 2,500 MCG TABLET SL SCH (11:40)
[2022-09-13] MEDS: THIAMINE HCL 100 MG TAB PO SCH (11:40)
[2022-09-13] MEDS: FUROSEMIDE 40 MG TAB PO SCH ×2 (11:41→18:05)
[2022-09-13] MEDS: ASPIRIN 81 MG ECTAB PO SCH (11:41)
--- NOTE | 2022-09-13 13:25 | Hospitalist Progress Note ---
Date of Service September 13, 2022 Assessment & Plan (1) Acute alteration in mental status: Plan: Patient seems to have some baseline dementia, as corroborated by the and son Admitted on account of Acute alteration in mental status/confusion/disorientation- [place] likely secondary to hypoglycemia and dehydration, symptoms have improved with improving blood sugar Patient still confused and combative CT head did not show any acute pathology PRN haldol and Zyprexa for agitation (2) Hypoglycemia: Plan: Most likley iatrogenic due to insulin. According to , she gives him 60 units lantus in the morning and 20 units at night However, she dmits that she has not checked his blood glucose for a long time because she dosent know how to Initially reduced his dose to 20 units BID with sliding scale, but still got hypoglycemic in the afternoon, but woke up with hyperglycemia 148mg/dl Will further change it to only 20 units Lantus at night, with sliding scale Consult diabetes educators to help teach her how to administer insulin and also check his blood glucose at home (3) Hypertension: Plan: CAD/hypertension- Continue aspirin, carvedilol, furosemide, lisinopril. (4) Dementia: Plan: Dementia/anxiety- Continue thiamine, sertraline, memantine, gabapentin and aspirin. (5) Chronic kidney disease, stage 3a: Plan: TERESA on CKD 3 Creatinine 1.31 upon admission, with range 1.27-1.65 Improved following IV Fluids (6) Transient confusion: (7) Status post lumbar spine operation: Plan: Recent hospitalization from 08/31-09/06/22 Patient reports the operation went well and he feels good (8) Anxiety: (9) Diabetes type 2, uncontrolled: Plan: Unclear from looking if patient med list exactly how he is taking his insulin We will put him on reduced dosing of Humulin and 20 units subcu twice daily with NovoLog SSI, until can be clarified (10) Coronary artery disease: (11) Dyslipidemia: Plan: Continue atorvastatin 40 mg at bedtime (12) LENO (obstructive sleep apnea): Plan: Continue CPAP at bedtime as needed Plan continue hospitalization. The son, Boris, who is a physician wants home with 24 hr caregiver. He does not want SNF or custodial Admission and Anticipated Discharge Date Admission Date: September 13, 2022 Subjective patient seen and examined, confused and very combative Review of Systems Review of Systems: unreliable due to dementia Physical Exam Physical Exam: The patient is awake, alert confused and combative HEENT--PERRL, EOMI, mucous membranes and oropharynx mildly dry Neck--supple. No JVD. No bruits. Thyroid normal, trachea midline, no adenopathy. Heart--normal S1 and S2. No murmurs, rubs or gallops. Lungs--clear bilaterally, no respiratory distress, no accessory muscle use. Abdomen--normal bowel sounds and soft. Mild epigastric and left sided abdominal pain Extremities--no cyanosis or clubbing. No edema. Dermatologic--normal skin turgor, normal color, no abnormal lymph nodes, no rash. Neurologic--cranial nerves II through XII grossly intact. Rheumatologic--normal range of motion. Psychiatric--normal affect. Results & Data Results & Data ([facility]) Vital Signs (Past 12 Hours) Vital Signs Temp Pulse Pulse Resp BP BP Pulse Ox 09/13/22 11:54 98.2 F 78 22 163/83 H 92 09/13/22 08:00 66 09/13/22 07:36 98.1 F 75 20 174/92 H 92 09/13/22 03:58 97.9 F 61 18 170/78 H 09/13/22 03:14 158/71 H 09/13/22 02:21 09/13/22 02:19 195/95 H Pulse Ox O2 Del Method O2 Del Method 09/13/22 11:54 Room Air 09/13/22 08:00 09/13/22 07:36 Room Air 09/13/22 03:58 Room Air 09/13/22 03:14 09/13/22 02:21 90 Room Air 09/13/22 02:19 PG Care Time/CCT Total # of Minutes Spent Total Time Spent with Patient: Total time spent is greater than 50% in coordination of care (as documented) at patient's floor/unit and/or counseling patient: Coding Level of Care Code 05734 Subseq Hosp Care Lvl 2 Diagnoses Acute alteration in mental status R41.82 Hypoglycemia E16.2 Hypertension I10 Hypertension type: unspecified Dementia F03.90 Chronic kidney disease, stage 3a N18.31 Transient confusion R41.0 Status post lumbar spine operation Z98.890 Anxiety F41.9 Diabetes type 2, uncontrolled E11.65 Coronary artery disease I25.10 Dyslipidemia E78.5 LENO (obstructive sleep apnea) G47.33 Time Spent (min) 35 (1) Hypertension Hypertension type: unspecified Qualified Code(s): I10 - Essential (primary) hypertension
[2022-09-13] MEDS ORDERED: INSULIN HUMAN NPH SC SCH (16:30)
[2022-09-13] MEDS: ATORVASTATIN 40 MG TAB PO SCH (20:28)
[2022-09-13] MEDS: LANTUS PER UNIT CHARGE SQ SCH (20:31)
[2022-09-13] MEDS: CHOLECALCIFEROL 1,000 UNITS 25 MCG TAB PO SCH (20:31)
[2022-09-13] MEDS: lisinopril 40 MG TAB PO SCH (20:32)
[2022-09-13] MEDS: TAMSULOSIN HCL 0.4 MG CAP PO SCH (20:32)
[2022-09-13] MEDS ORDERED: LANTUS PER UNIT CHARGE SQ SCH (21:00)
[2022-09-14 06:44] LABS: Basophils # (auto) 0.03 K/uL (0-0.2); Basophils % (auto) 0.6 %; Eosinophils # (auto) 0.33 K/uL (0-0.50); Eosinophils % (auto) 6.3 %; Hematocrit (blood only) 33.6 % (40.1-51.0); Hemoglobin 10.6 g/dl (14.0-18.0); Immature Granulocytes # (auto) 0.01 K/uL (0.00-0.02); Immature Granulocytes % (auto) 0.2 %; Mean Corpuscular Hemoglobin 27.2 pg (25.0-34.0); Mean Corpuscular Hgb Conc 31.5 g/dL (32.0-36.0); Mean Corpuscular Volume 86.4 fL (80.0-100.0); Mean Platelet Volume 11.1 fL (9.4-12.4); Monocytes # (auto) 0.59 K/uL (0.24-0.82); Monocytes % (auto) 11.3 %; Neutrophils # (auto) 3.06 K/uL (1.4-6.5); Neutrophils % (auto) 58.6 %; Platelet Count 193 K/uL (130-400); RDW Coefficient of Variation 14.1 % (11.5-14.5); RDW Standard Deviation 43.7 fL (36.4-46.3); Red Blood Count 3.89 M/uL (4.63-6.08); White Blood Count 5.22 K/ul (4.8-10.8)
[2022-09-14 07:05] LABS: Albumin Globulin Ratio 1.2 (0.9-2); Albumin Level 3.3 gm/dl (3.4-5.0); BUN Creatinine Ratio 17.8 (10-20); Bilirubin,Total 0.5 mg/dl (0.2-1.0); Calcium 8.9 mg/dl (8.5-10.1); Creatinine Clr Calc Pharmacy 55.4 ml/min; Est GFR (African American) 53.4 ml/min; Est GFR (Non-African American) 46.1 ml/min; Globulin 2.8 gm/dl (2.5-4.0); Magnesium 1.7 mg/dl (1.7-2.4); Potassium 3.6 mmol/L (3.5-5.1); Total Protein 6.1 gm/dl (6.0-8.3)
[2022-09-14] MEDS: CYANOCOBALAMIN (B-12) 2,500 MCG TABLET SL SCH (08:01)
[2022-09-14] MEDS: THIAMINE HCL 100 MG TAB PO SCH (08:01)
[2022-09-14] MEDS: SERTRALINE HCL 100 MG TABLET PO SCH (08:01)
[2022-09-14] MEDS: ASPIRIN 81 MG ECTAB PO SCH (08:01)
[2022-09-14] MEDS: carvediloL 6.25 MG TAB PO SCH ×2 (08:01→20:08)
[2022-09-14] MEDS: MEMANTINE HCL 10 MG TAB PO SCH ×2 (08:01→20:06)
[2022-09-14] MEDS: LANTUS PER UNIT CHARGE SQ SCH ×2 (08:09→20:17)
[2022-09-14] MEDS: INSULIN ASPART PER UNIT SC SCH ×4 (08:10→20:14)
--- NOTE | 2022-09-14 11:57 | Hospitalist Progress Note ---
Date of Service September 14, 2022 Assessment & Plan (1) Acute alteration in mental status: Plan: Patient seems to have some baseline dementia, as corroborated by the and son Admitted on account of Acute alteration in mental status/confusion/disorientation- [place] likely secondary to hypoglycemia and dehydration, symptoms have improved with improving blood sugar Patient still confused, but no longer as combative today CT head did not show any acute pathology PRN haldol and Zyprexa for agitation (2) Hypoglycemia: Plan: Most likley iatrogenic due to insulin. Now resolved According to , she gives him 60 units lantus in the morning and 20 units at night However, she admits that she has not checked his blood glucose for a long time because she dosent know how to Consult diabetes educators to help teach her how to administer insulin and also check his blood glucose at home (3) Diabetes type 2, uncontrolled: Plan: His blood glucose has come under better control Will further adjust to lantus 30 units in the morning and 20 units at night (4) Hypertension: Plan: CAD/hypertension- Continue aspirin, carvedilol, furosemide, lisinopril. (5) Dementia: Plan: Dementia/anxiety- Continue thiamine, sertraline, memantine, gabapentin and aspirin. (6) Chronic kidney disease, stage 3a: Plan: TERESA on CKD 3 Creatinine 1.31 upon admission, with range 1.27-1.65 Improved following IV Fluids (7) Transient confusion: (8) Status post lumbar spine operation: Plan: Recent hospitalization from 08/31-09/06/22 Patient reports the operation went well and he feels good (9) Anxiety: (10) Coronary artery disease: (11) Dyslipidemia: Plan: Continue atorvastatin 40 mg at bedtime (12) LENO (obstructive sleep apnea): Plan: Continue CPAP at bedtime as needed Plan continue hospitalization. The son, Boris, who is a physician wants home with 24 hr caregiver. He does not want SNF or penitentiary D/C home when caregiver is arranged Admission and Anticipated Discharge Date Admission Date: September 13, 2022 Subjective patient seen and examined, lying quietly in bed Review of Systems Review of Systems: unreliable due to dementia Physical Exam Physical Exam: The patient is awake, alert confused and combative HEENT--PERRL, EOMI, mucous membranes and oropharynx mildly dry Neck--supple. No JVD. No bruits. Thyroid normal, trachea midline, no adenopathy. Heart--normal S1 and S2. No murmurs, rubs or gallops. Lungs--clear bilaterally, no respiratory distress, no accessory muscle use. Abdomen--normal bowel sounds and soft. Mild epigastric and left sided abdominal pain Extremities--no cyanosis or clubbing. No edema. Dermatologic--normal skin turgor, normal color, no abnormal lymph nodes, no rash. Neurologic--cranial nerves II through XII grossly intact. Rheumatologic--normal range of motion. Psychiatric--normal affect. Results & Data Results & Data ([facility]) Vital Signs (Past 12 Hours) Vital Signs Temp Pulse Pulse Resp BP BP Pulse Ox 09/14/22 11:31 97.3 F L 66 19 172/84 H 94 09/14/22 07:43 98.4 F 78 19 181/68 H 09/14/22 06:05 71 09/14/22 03:54 145/70 H 09/14/22 03:00 97.7 F 83 18 187/114 H 90 O2 Del Method 09/14/22 11:31 Room Air 09/14/22 07:43 Room Air 09/14/22 06:05 09/14/22 03:54 09/14/22 03:00 Room Air PG Care Time/CCT Total # of Minutes Spent Total Time Spent with Patient: Total time spent is greater than 50% in coordination of care (as documented) at patient's floor/unit and/or counseling patient: Coding Level of Care Code 59030 Subseq Hosp Care Lvl 2 Diagnoses Acute alteration in mental status R41.82 Hypoglycemia E16.2 Diabetes type 2, uncontrolled E11.65 Hypertension I10 Hypertension type: unspecified Dementia F03.90 Chronic kidney disease, stage 3a N18.31 Transient confusion R41.0 Status post lumbar spine operation Z98.890 Anxiety F41.9 Coronary artery disease I25.10 Dyslipidemia E78.5 LENO (obstructive sleep apnea) G47.33 Time Spent (min) 35 (1) Hypertension Hypertension type: unspecified Qualified Code(s): I10 - Essential (primary) hypertension
[2022-09-14] MEDS: CHOLECALCIFEROL 1,000 UNITS 25 MCG TAB PO SCH (20:07)
[2022-09-14] MEDS: TAMSULOSIN HCL 0.4 MG CAP PO SCH (20:07)
[2022-09-14] MEDS: lisinopril 40 MG TAB PO SCH (20:07)
[2022-09-14] MEDS: ATORVASTATIN 40 MG TAB PO SCH (20:07)
[2022-09-15 06:44] LABS: Hematocrit (blood only) 35.2 % (40.1-51.0); Hemoglobin 11.2 g/dl (14.0-18.0); Mean Corpuscular Hemoglobin 27.6 pg (25.0-34.0); Mean Corpuscular Hgb Conc 31.8 g/dL (32.0-36.0); Mean Corpuscular Volume 86.7 fL (80.0-100.0); Mean Platelet Volume 10.8 fL (9.4-12.4); Platelet Count 186 K/uL (130-400); RDW Coefficient of Variation 14.2 % (11.5-14.5); RDW Standard Deviation 44.1 fL (36.4-46.3); Red Blood Count 4.06 M/uL (4.63-6.08); White Blood Count 5.87 K/ul (4.8-10.8)
[2022-09-15 07:03] LABS: BUN Creatinine Ratio 21.1 (10-20); Creatinine Clr Calc Pharmacy 60.8 ml/min; Est GFR (African American) 59.8 ml/min; Est GFR (Non-African American) 51.6 ml/min; Magnesium 1.9 mg/dl (1.7-2.4); Potassium 3.6 mmol/L (3.5-5.1)
[2022-09-15] MEDS: ASPIRIN 81 MG ECTAB PO SCH (08:42)
[2022-09-15] MEDS: SERTRALINE HCL 100 MG TABLET PO SCH (08:43)
[2022-09-15] MEDS: THIAMINE HCL 100 MG TAB PO SCH (08:43)
[2022-09-15] MEDS: carvediloL 6.25 MG TAB PO SCH ×2 (08:43→20:08)
[2022-09-15] MEDS: MEMANTINE HCL 10 MG TAB PO SCH ×2 (08:43→20:08)
[2022-09-15] MEDS: CYANOCOBALAMIN (B-12) 2,500 MCG TABLET SL SCH (08:43)
[2022-09-15] MEDS: LANTUS PER UNIT CHARGE SQ SCH ×2 (08:50→21:05)
[2022-09-15] MEDS: INSULIN ASPART PER UNIT SC SCH ×4 (08:51→21:28)
--- NOTE | 2022-09-15 11:56 | Hospitalist Progress Note ---
Date of Service September 15, 2022 Assessment & Plan (1) Acute alteration in mental status: Plan: Patient seems to have some baseline dementia, as corroborated by the and son Was Admitted on account of Acute alteration in mental status/confusion/disorientation- [place] likely secondary to hypoglycemia and dehydration, symptoms have improved with improving blood sugar Patient still confused, but no longer as combative today, he is probably now at his baseline CT head did not show any acute pathology Arrangements for home 24 hr healthcare recruiter family refuses SNF placement (2) Hypoglycemia: Plan: Most likley iatrogenic due to insulin. Now resolved According to , she gives him 60 units lantus in the morning and 20 units at night However, she admits that she has not checked his blood glucose for a long time because she dosent know how to Consult diabetes educators to help teach her how to administer insulin and also check his blood glucose at home At home, he will need a new regimen of lantus 30mg in the morning and 20 units at night upon d/c will need: OneTouch verio test strips to check 2x/day OneTouch Delica Lancets 33 guage to check 2x/day (3) Diabetes type 2, uncontrolled: Plan: His blood glucose has come under better control At home, he will need a new regimen of lantus 30mg in the morning and 20 units at night upon d/c will need: OneTouch verio test strips to check 2x/day OneTouch Delica Lancets 33 guage to check 2x/day (4) Hypertension: Plan: CAD/hypertension- Continue aspirin, carvedilol, furosemide, lisinopril. (5) Dementia: Plan: Dementia/anxiety- Continue thiamine, sertraline, memantine, gabapentin and aspirin. (6) Chronic kidney disease, stage 3a: Plan: TERESA on CKD 3 Creatinine 1.31 upon admission, with range 1.27-1.65 Improved following IV Fluids (7) Transient confusion: (8) Status post lumbar spine operation: Plan: Recent hospitalization from 08/31-09/06/22 Patient reports the operation went well and he feels good (9) Anxiety: (10) Coronary artery disease: (11) Dyslipidemia: Plan: Continue atorvastatin 40 mg at bedtime (12) LENO (obstructive sleep apnea): Plan: Continue CPAP at bedtime as needed Plan continue hospitalization. The son, Boris, who is a physician wants home with 24 hr caregiver. He does not want SNF or retirement D/C home when caregiver is arranged Admission and Anticipated Discharge Date Admission Date: September 13, 2022 Subjective patient seen and examined, sitting up in the chair, denies any complaints Review of Systems Review of Systems: unreliable due to dementia Physical Exam Physical Exam: The patient is awake, alert confused and combative HEENT--PERRL, EOMI, mucous membranes and oropharynx mildly dry Neck--supple. No JVD. No bruits. Thyroid normal, trachea midline, no adenop athy. Heart--normal S1 and S2. No murmurs, rubs or gallops. Lungs--clear bilaterally, no respiratory distress, no accessory muscle use. Abdomen--normal bowel sounds and soft. Mild epigastric and left sided abdominal pain Extremities--no cyanosis or clubbing. No edema. Dermatologic--normal skin turgor, normal color, no abnormal lymph nodes, no rash. Neurologic--cranial nerves II through XII grossly intact. Rheumatologic--normal range of motion. Psychiatric--normal affect. Results & Data Results & Data ([facility]) Vital Signs (Past 12 Hours) Vital Signs Temp Pulse Pulse Resp BP Pulse Ox O2 Del Method 09/15/22 07:38 97.7 F 78 19 157/73 H 90 Room Air 09/15/22 06:12 71 09/15/22 02:00 09/15/22 02:52 98.1 F 74 20 158/72 H 90 Nasal Cannula O2 Del Method O2 Flow Rate 09/15/22 07:38 09/15/22 06:12 09/15/22 02:00 Room Air 09/15/22 02:52 2 PG Care Time/CCT Total # of Minutes Spent Total Time Spent with Patient: Total time spent is greater than 50% in coordination of care (as documented) at patient's floor/unit and/or counseling patient: Coding Level of Care Code 21144 Subseq Hosp Care Lvl 2 Diagnoses Acute alteration in mental status R41.82 Hypoglycemia E16.2 Diabetes type 2, uncontrolled E11.65 Hypertension I10 Hypertension type: unspecified Dementia F03.90 Chronic kidney disease, stage 3a N18.31 Transient confusion R41.0 Status post lumbar spine operation Z98.890 Anxiety F41.9 Coronary artery disease I25.10 Dyslipidemia E78.5 LENO (obstructive sleep apnea) G47.33 Time Spent (min) 35 (1) Hypertension Hypertension type: unspecified Qualified Code(s): I10 - Essential (primary) hypertension
[2022-09-15] MEDS: CHOLECALCIFEROL 1,000 UNITS 25 MCG TAB PO SCH (20:08)
[2022-09-15] MEDS: TAMSULOSIN HCL 0.4 MG CAP PO SCH (20:08)
[2022-09-15] MEDS: lisinopril 40 MG TAB PO SCH (20:09)
[2022-09-15] MEDS: ATORVASTATIN 40 MG TAB PO SCH (20:09)
--- NOTE | 2022-09-16 06:46 | Hospitalist Progress Note ---
Date of Service September 16, 2022 Assessment & Plan (1) Acute alteration in mental status: Plan: Patient has baseline dementia, as corroborated by the and son. Was admitted on account of acute alteration in mental status/confusion/disorientation. [place] likely secondary to hypoglycemia and dehydration, symptoms have improved with improving blood sugar. Patient is at his baseline with regard to his mental status, not combative at this time. CT head did not show any acute pathology. Arrangements for home extension agent are being set up for hopeful discharge on Friday with 24-hour care. Family refuses SNF placement. Treatment of hypoglycemia described below. (2) Hypoglycemia: Plan: Suspected to be iatrogenic due to insulin. According to , she gives him 60 units lantus in the morning and 20 units at night. However, she admits that she has not checked his blood glucose for a long time as she does not know how. At home, he will need a new regimen of lantus 30mg in the morning and 20 units at night, with education and paperwork to be provided to home caregivers. Upon d/c will need OneTouch verio test strips to check 2x/day, and OneTouch Delica Lancets 33 gauge to check 2x/day. (3) Diabetes type 2, uncontrolled: Plan: His blood glucose has come under better control since admission. At home, he will need a new regimen of lantus 30mg in the morning and 20 units at night. Will need prescriptions for OneTouch verio test strips to check 2x/day and OneTouch Delica Lancets 33 gauge to check 2x/day. (4) Hypertension: Plan: CAD/hypertension- Continue aspirin, carvedilol, furosemide, lisinopril. BP normotensive at 120s systolic today. (5) Dementia: Plan: Dementia/anxiety- Continue thiamine, sertraline, memantine, gabapentin. (6) Chronic kidney disease, stage 3a: Plan: Baseline CKD stage IIIa with a baseline creatinine around 1.5. Creatinine 1.31 upon admission, no interventions necessary. (7) Status post lumbar spine operation: Plan: Recent hospitalization from 08/31-09/06/22. Patient reports the operation went well and he feels good. Will need follow-up as scheduled with spinal surgery. (8) Anxiety: Plan: See above (9) Coronary artery disease: Plan: See above (10) Dyslipidemia: Plan: Continue atorvastatin 40 mg at bedtime (11) LENO (obstructive sleep apnea): Plan: Continue CPAP at bedtime as needed Plan Full code Heart healthy diabetic diet Lovenox D/C home when caregiver is arranged Admission and Anticipated Discharge Date Admission Date: September 13, 2022 Subjective Patient without any acute events overnight, no complaints today. No chest pain, dizziness, shortness of breath, abdominal pain. Does note that he is in the hospital, however due to dementia is often quite forgetful with answers to questions that are complex. Review of Systems Review of Systems: unreliable due to dementia Physical Exam Constitutional: WD/WN, vitals as above Respiratory: normal respiratory effort, lungs clear to auscultation Cardiovascular: RRR, no murmur, no edema Gastrointestinal (Abdomen): normal bowel sounds, soft, nontender, no hepatosplenomegaly Skin: no rashes, warm and dry Psychiatric: Alert and oriented to person, place Results & Data Results & Data ([facility]) Vital Signs (Past 12 Hours) Vital Signs Temp Pulse Pulse Resp BP Pulse Ox O2 Del Method 09/16/22 02:00 09/16/22 03:00 37 C 75 18 170/84 H 94 Room Air 09/15/22 23:00 65 09/15/22 22:58 36.7 C 56 L 16 155/69 H 91 Room Air 09/15/22 20:00 Room Air 09/15/22 19:57 37.0 C 58 L 18 139/72 90 Room Air O2 Del Method 09/16/22 02:00 Room Air 09/16/22 03:00 09/15/22 23:00 09/15/22 22:58 09/15/22 20:00 09/15/22 19:57 PG Care Time/CCT Total # of Minutes Spent Total Time Spent with Patient: Total time spent is greater than 50% in coordination of care (as documented) at patient's floor/unit and/or counseling patient: Coding Level of Care Code 27141 Subseq Hosp Care Lvl 2 Diagnoses Acute alteration in mental status R41.82 Hypoglycemia E16.2 Diabetes type 2, uncontrolled E11.65 Hypertension I10 Hypertension type: unspecified Dementia F03.90 Chronic kidney disease, stage 3a N18.31 Status post lumbar spine operation Z98.890 Anxiety F41.9 Coronary artery disease I25.10 Dyslipidemia E78.5 LENO (obstructive sleep apnea) G47.33 (1) Hypertension Hypertension type: unspecified Qualified Code(s): I10 - Essential (primary) hypertension
[2022-09-16] MEDS: SERTRALINE HCL 100 MG TABLET PO SCH (08:14)
[2022-09-16] MEDS: ASPIRIN 81 MG ECTAB PO SCH (08:14)
[2022-09-16] MEDS: CYANOCOBALAMIN (B-12) 2,500 MCG TABLET SL SCH (08:14)
[2022-09-16] MEDS: MEMANTINE HCL 10 MG TAB PO SCH ×2 (08:14→20:37)
[2022-09-16] MEDS: THIAMINE HCL 100 MG TAB PO SCH (08:14)
[2022-09-16] MEDS: INSULIN ASPART PER UNIT SC SCH ×4 (08:25→20:25)
[2022-09-16] MEDS: LANTUS PER UNIT CHARGE SQ SCH ×2 (08:26→20:36)
[2022-09-16] MEDS: carvediloL 6.25 MG TAB PO SCH ×2 (09:52→20:39)
[2022-09-16] MEDS: TAMSULOSIN HCL 0.4 MG CAP PO SCH (20:37)
[2022-09-16] MEDS: lisinopril 40 MG TAB PO SCH (20:37)
[2022-09-16] MEDS: CHOLECALCIFEROL 1,000 UNITS 25 MCG TAB PO SCH (20:39)
[2022-09-16] MEDS: ATORVASTATIN 40 MG TAB PO SCH (20:39)
[2022-09-17] MEDS: CARBOHYDRATES FOR HYPOGLYCEMIA PO PRN (07:21)
--- NOTE | 2022-09-17 07:38 | Hospitalist Progress Note ---
Date of Service September 17, 2022 Assessment & Plan (1) Metabolic encephalopathy: Plan: Metabolic encephalopathy in the setting of hypoglycemia requiring Lantus adjustment and more frequent blood sugar checks (treated). [place] likely secondary to hypoglycemia and dehydration, symptoms have improved with improving blood sugar. Treatment of hypoglycemia described below. Patient is at his baseline with regard to his mental status, not combative at this time. Patient has baseline dementia, as corroborated by the and son. Was admitted on account of acute alteration in mental status/confusion/disorientation. CT head did not show any acute pathology. Arrangements for district home economics agent are being set up for hopeful discharge on Friday with 24-hour care. Family refuses SNF placement. Patient did get Haldol 5 mg IM x1 today due to agitation with throwing plates and room items. Attempted to call family including and son, however did not response today we will try again tomorrow, or speak with family members when they arrive for pickup. Do not feel that this agitation necessitates stay in hospital and in fact patient can still go, with education of family of de- escalation and possible medications for agitation at home. (2) Hypoglycemia: Plan: Suspected to be iatrogenic due to insulin. According to , she gives him 60 units Lantus in the morning and 20 units at night. However, she admits that she has not checked his blood glucose for a long time as she does not know how. At home, he will need a new regimen of Lantus 20mg in the morning and 20 units at night, with education and paperwork to be provided to home caregivers. Have been adjusting parameters given episodes of hypoglycemia. Upon d/c will need OneTouch Verio test strips to check 2x/day, and OneTouch Delica Lancets 33 gauge to check 2x/day. (3) Diabetes type 2, uncontrolled: Plan: His blood glucose has come under better control since admission. At home, he will need a new regimen of Lantus 20mg in the morning and 20 units at night. Will need prescriptions for OneTouch Verio test strips to check 2x/day and OneTouch Delica Lancets 33 gauge to check 2x/day. (4) Hypertension: Plan: Continue aspirin, carvedilol, furosemide, lisinopril. (5) Dementia: Plan: Continue thiamine, sertraline, memantine, gabapentin. (6) Chronic kidney disease, stage 3a: Plan: Baseline CKD stage IIIa with a baseline creatinine around 1.5. Creatinine 1.31 upon admission, no interventions necessary. (7) Status post lumbar spine operation: Plan: Recent hospitalization from 08/31-09/06/22. Patient reports the operation went well and he feels good. Will need follow-up as scheduled with spinal surgery. (8) Anxiety: Plan: See above (9) Coronary artery disease: Plan: See above (10) Dyslipidemia: Plan: Continue atorvastatin 40 mg at bedtime (11) LENO (obstructive sleep apnea): Plan: Continue CPAP at bedtime as needed Plan Full code Heart healthy diabetic diet Lovenox D/C home when caregiver is arranged, suspect tomorrow Admission and Anticipated Discharge Date Admission Date: September 13, 2022 Subjective No acute events overnight. Afebrile, BP elevated this AM to 170s systolic. This afternoon on seeing patient he was quite tearful and very frustrated about not being able to go home today. Later this afternoon, did have episode of agitation where he was throwing his tray, plates, broke several items. Review of Systems Review of Systems: All systems reviewed & are unremarkable except as noted in Subjective Physical Exam Constitutional: WD/WN, vitals as above Respiratory: normal respiratory effort, lungs clear to auscultation Cardiovascular: RRR, no murmur, no edema Gastrointestinal (Abdomen): normal bowel sounds, soft, nontender, no hepatosplenomegaly Skin: no rashes, warm and dry Psychiatric: Alert and oriented to name, tearful affect, frustrated Results & Data Results & Data ([facility]) Vital Signs (Past 12 Hours) Vital Signs Temp Pulse Pulse Resp BP Pulse Ox O2 Del Method 09/17/22 03:00 36.7 C 70 18 172/76 H 93 Room Air 09/17/22 02:00 09/16/22 23:28 92 H 09/16/22 23:00 36.6 C 65 18 176/89 H 97 Room Air 09/16/22 20:00 Room Air O2 Del Method 09/17/22 03:00 09/17/22 02:00 Room Air 09/16/22 23:28 09/16/22 23:00 09/16/22 20:00 PG Care Time/CCT Total # of Minutes Spent Total Time Spent with Patient: Total time spent is greater than 50% in coordination of care (as documented) at patient's floor/unit and/or counseling patient: Coding Level of Care Code 50761 Subseq Hosp Care Lvl 2 Diagnoses Metabolic encephalopathy G93.41 Hypoglycemia E16.2 Diabetes type 2, uncontrolled E11.65 Hypertension I10 Hypertension type: unspecified Dementia F03.90 Chronic kidney disease, stage 3a N18.31 Status post lumbar spine operation Z98.890 Anxiety F41.9 Coronary artery disease I25.10 Dyslipidemia E78.5 LENO (obstructive sleep apnea) G47.33 (1) Hypertension Hypertension type: unspecified Qualified Code(s): I10 - Essential (primary) hypertension
[2022-09-17] MEDS: THIAMINE HCL 100 MG TAB PO SCH (08:51)
[2022-09-17] MEDS: ASPIRIN 81 MG ECTAB PO SCH (08:51)
[2022-09-17] MEDS: ENOXAPARIN INJ 40 MG/0.4 ML SYR SQ SCH (08:51)
[2022-09-17] MEDS: LANTUS PER UNIT CHARGE SQ SCH ×3 (08:52→20:22)
[2022-09-17] MEDS: carvediloL 6.25 MG TAB PO SCH ×2 (08:52→20:16)
[2022-09-17] MEDS: MEMANTINE HCL 10 MG TAB PO SCH ×2 (08:52→20:16)
[2022-09-17] MEDS: CYANOCOBALAMIN (B-12) 2,500 MCG TABLET SL SCH (08:52)
[2022-09-17] MEDS: INSULIN ASPART PER UNIT SC SCH ×4 (08:52→20:22)
[2022-09-17] MEDS: SERTRALINE HCL 100 MG TABLET PO SCH (08:52)
[2022-09-17] MEDS ORDERED: HALOPERIDOL LACTATE 5 MG/ML 1 ML VIAL IM STA (18:00)
[2022-09-17] MEDS: TAMSULOSIN HCL 0.4 MG CAP PO SCH (20:15)
[2022-09-17] MEDS: CHOLECALCIFEROL 1,000 UNITS 25 MCG TAB PO SCH (20:17)
[2022-09-17] MEDS: lisinopril 40 MG TAB PO SCH (20:18)
[2022-09-17] MEDS: ATORVASTATIN 40 MG TAB PO SCH (20:18)
[2022-09-18] MEDS: ASPIRIN 81 MG ECTAB PO SCH (07:36)
[2022-09-18] MEDS: MEMANTINE HCL 10 MG TAB PO SCH (07:37)
[2022-09-18] MEDS: carvediloL 6.25 MG TAB PO SCH (07:37)
[2022-09-18] MEDS: SERTRALINE HCL 100 MG TABLET PO SCH (07:37)
[2022-09-18] MEDS: CYANOCOBALAMIN (B-12) 2,500 MCG TABLET SL SCH (07:37)
[2022-09-18] MEDS: THIAMINE HCL 100 MG TAB PO SCH (07:37)
[2022-09-18] MEDS: ENOXAPARIN INJ 40 MG/0.4 ML SYR SQ SCH (07:38)
[2022-09-18 07:41] VITALS: BP 183/93; PULSE 60; TEMP 97.7; O2SAT 94
[2022-09-18] MEDS: LANTUS PER UNIT CHARGE SQ SCH (08:58)
[2022-09-18] MEDS: INSULIN ASPART PER UNIT SC SCH (08:58)
--- NOTE | 2022-09-18 09:22 | Discharge Summary ---
Discharge Summary Date of Service September 18, 2022 Admission HPI Per Admitting Provider The patient is a 77-year-old male with a past medical history including hypertension, hypoglycemia, generalized muscle weakness, depression, status post lumbar spine surgery, anxiety, dementia, gait disturbance, BPH with LUTS, lumbosacral radiculopathy, bilateral leg edema, diabetes mellitus type 2, diabetic nephropathy, diabetic peripheral neuropathy, diabetic retinopathy, CKD stage IIIa, hypertension, CAD, dyslipidemia, LENO, B12 deficiency, D deficiency and dysesthesia. Patient presents to the emergency department as noted above. His symptoms did slowly improve, as his blood sugar improved in the ED. Admission Exam Per Admitting Provider The patient is awake, alert and oriented 3, well developed and well nourished, normocephalic and atraumatic, lying in bed and in no acute distress. HEENT--PERRL, EOMI, mucous membranes and oropharynx dry. Neck--supple. No JVD. No bruits. Thyroid normal, trachea midline, no adenopathy. Heart--normal S1 and S2. No murmurs, rubs or gallops. Lungs--clear bilaterally, no respiratory distress, no accessory muscle use. Abdomen--normal bowel sounds and soft. Nontender. Nondistended. Obese Extremities--no cyanosis or clubbing. No edema. Dermatologic--normal skin turgor, normal color, no abnormal lymph nodes, no rash. Neurologic--cranial nerves II through XII grossly intact. Rheumatologic--normal range of motion. Psychiatric--normal affect. Principal Dx & Hospital Course #1 = Principal Diagnosis (1) Metabolic encephalopathy: Metabolic encephalopathy in the setting of hypoglycemia requiring Lantus adjustment and more frequent blood sugar checks (treated). [place] likely secondary to hypoglycemia and dehydration, symptoms have improved with improving blood sugar. Treatment of hypoglycemia described below. Patient is at his baseline with regard to his mental status, intermittently agitated but usually can be deescalated. Patient has baseline dementia, as corroborated by the and son. CT head did not show any acute pathology. Family refuses SNF placement. 24 hour care arranged for discharge today. Patient did get Haldol 5 mg IM x1 yesterday evening due to agitation with throwing plates and room items. Did discuss concerns regarding agitation at home with patient's (unable to get ahold of caregiver over the phone or son). She expressed concern about his agitation at home, and what to do if it happens. We discussed deescalation strategies, as well as medications. Prescription sent for Zyprexa SL 5mg PO daily as needed for agitation harm to self or others. Follow up with Dr. Gill tomorrow morning to discuss behavior further. (2) Hypoglycemia: Suspected to be iatrogenic due to insulin, some notable confusion at home with patient/ on appropriate dosing and frequency of BSG checks. At home, he will need a new regimen of Lantus 20mg in the morning and 20 units at night, with education and paperwork to be provided to home caregivers. Prescribed OneTouch Verio test strips to check 2x/day, and OneTouch Delica Lancets 33 gauge to check 2x/day. Discussed with caregivers. They are interested in CGM, defer to PCP. (3) Diabetes type 2, uncontrolled: His blood glucose has come under better control since admission. Continue Lantus 20mg in the morning and 20 units at night. (4) Hypertension: Continue aspirin, carvedilol, furosemide, lisinopril. (5) Dementia: Continue thiamine, sertraline, memantine, gabapentin. (6) Chronic kidney disease, stage 3a: Baseline CKD stage IIIa with a baseline creatinine around 1.5. Creatinine 1.31 upon admission, no interventions necessary. (7) Status post lumbar spine operation: Recent hospitalization from 08/31-09/06/22. Patient reports the operation went well and he feels good. Will need follow-up as scheduled with spinal surgery. (8) Anxiety: See above (9) Coronary artery disease: See above (10) Dyslipidemia: Continue atorvastatin 40 mg at bedtime (11) LENO (obstructive sleep apnea): Continue CPAP at bedtime as needed Plan Dispo: home with home health and 24 hour care Discharge Exam Constitutional WD/WN, vitals as above Respiratory normal respiratory effort, lungs clear to auscultation Cardiovascular RRR, no murmur, no edema Gastrointestinal (Abdomen) normal bowel sounds, soft, nontender, no hepatosplenomegaly Skin no rashes, warm and dry Updated Medication List Medication Instructions Recorded Confirmed Type cholecalciferol (vitamin D3) 25 2,000 units PO HS 08/11/19 09/11/22 History mcg (1,000 unit) capsule acetaminophen 500 mg tablet 1,000 mg PO DIRECTED PRN pain 05/30/21 09/11/22 History (Tylenol Extra Strength) carvedilol 6.25 mg tablet 6.25 mg PO BID #180 tabs 10/09/21 09/11/22 Rx CPAP Machine #1 ea 11/20/21 09/09/22 Rx pen needle, diabetic 31 gauge x #200 ea 11/28/21 09/09/22 Rx 5/16" (Easy Comfort Pen [place]) walker (Ultra-Light Rollator misc) #1 ea 03/26/22 09/09/22 Rx furosemide 40 mg tablet 40 mg PO BID WATER PILL, BLOOD 05/27/22 09/11/22 Rx PRESSURE AND KIDNEYS #180 tabs atorvastatin 40 mg tablet 40 mg PO HS #90 tabs 06/26/22 09/11/22 Rx lisinopril 40 mg tablet 40 mg PO HS BLOOD PRESSURE #90 tabs 06/28/22 09/11/22 Rx memantine 10 mg tablet 10 mg PO BID #180 tabs 07/10/22 09/11/22 Rx aspirin 81 mg tablet,delayed 81 mg PO QAM 07/26/22 09/11/22 History release cyanocobalamin (vitamin B-12) 2,500 mcg PO QAM 07/26/22 09/11/22 History 2,500 mcg tablet gabapentin 100 mg capsule 100 mg PO BID PRN Pain 07/26/22 09/11/22 History (Neurontin) sertraline 100 mg tablet (Zoloft) 100 mg PO QAM 07/26/22 09/11/22 History tamsulosin 0.4 mg capsule 0.8 mg PO HS 07/26/22 09/11/22 History Bed Side Commode #1 ea 09/09/22 09/09/22 Rx Lift Chair #1 ea 09/09/22 09/09/22 Rx bariatric hospital bed #1 ea 09/09/22 09/09/22 Rx thiamine HCl (vitamin B1) 100 mg 100 mg PO QAM #90 tabs 09/09/22 09/11/22 Rx tablet (Vitamin B-1) blood sugar diagnostic (OneTouch #100 ea 09/18/22 Rx Verio test strips) blood-glucose meter (OneTouch #1 ea 09/18/22 Rx Verio Flex Meter) insulin glargine 100 unit/mL (3 20 unit (0.2 mL) subcut BID 30 09/18/22 Rx mL) subcutaneous pen days #12 mL lancets 33 gauge (Irma Dellarissa #100 ea 09/18/22 Rx Lancets) olanzapine 5 mg disintegrating 5 mg PO HS PRN agitation #14 tabs 09/18/22 Rx tablet Hospital Stay Data Diagnostic Imagining Performed 09/11/22 22:24 CT head/brain wo con Stat Pending Results Patient Have Any Pending Studies at Discharge: No Discharge Instructions Given to Patient (Per Discharging Provider) You were admitted to the hospital for evaluation of change in mental status. You were found to have low blood sugars. We changed your insulin here in the hosp ital, and started doing regular checks. For the most part, your mental status improved. You were very frustrated yesterday at not going home and you were given medication to calm you down. This is not unusual in dementia as it develops, but if you are feeling more agitated at home, talk to your primary care doctor about medications and strategies to help with this. I have sent prescriptions for the new insulin dose, as well as a Verio glucose fingerstick machine to check your blood sugars twice a day. If you are interested in a continuous glucose monitor, insurance companies will want to see first that you can use the finger stick monitor on a scheduled basis. You can follow this up with your family doctor. You should stick to a diabetic diet to keep your blood sugars under good control. Call your primary doctor if he has a low or high blood sugar you are concerned about. New insulin dosin) Lantus 20 units in the morning, and 20 units in the evening. You may notice that your sugars are not perfectly controlled. Some variability as we transition you home is normal. blood sugars less than 80 with dizziness, lightheadedness, trouble breathing, cold sweats, should be reported to a doctor for insulin adjustments. Can give juice and crackers, peanut butter for low sugars and recheck the sugar in 20 minutes or so. 2) Check blood sugar twice daily, and talk to PCP about increasing this. 3) Prescriptions sent to [facility] on [facility]. 4) Follow up with your primary care on 09/19 Dr. Gill at 930AM. 5) Medication for agitation with potential to hurt self or others called Zyprexa was sent in to the [facility]. This is only to be used if you are feeling so agitated that you are a danger to yourself or someone else. Total Time Total Time Spent Total Time Spent (In Minutes): 45 minutes in placing orders, contacting pharmacy, contacting family, seeing patient, chart review Coding Level of Care Code D/C DAY MANAGEMENT >30 MINS Diagnoses Metabolic encephalopathy G93.41 Hypoglycemia E16.2 Diabetes type 2, uncontrolled E11.65 Hypertension I10 Hypertension type: unspecified Dementia F03.90 Chronic kidney disease, stage 3a N18.31 Status post lumbar spine operation Z98.890 Anxiety F41.9 Coronary artery disease I25.10 Dyslipidemia E78.5 LENO (obstructive sleep apnea) G47.33
== END 2022-09-18 12:22 | disposition home health service (06) ==
LOC: ED 22:18 → 2S 22:18 → SUATTDRO 09-12 01:09 → 2S 09-12 02:00 → SUATTDRO 09-13 12:10 → 3W 09-17 21:09
DX: F03.90 Unspecified dementia, unspecified severity, without behavioral disturbance, psychotic disturbance, mood disturbance, and anxiety; I25.10 Atherosclerotic heart disease of native coronary artery without angina pectoris; N18.31 Chronic kidney disease, stage 3a; Z87.891 Personal history of nicotine dependence; N40.1 Benign prostatic hyperplasia with lower urinary tract symptoms; Z79.82 Long term (current) use of aspirin; Z79.899 Other long term (current) drug therapy; N17.9 Acute kidney failure, unspecified; R41.82 Altered mental status, unspecified; G93.41 Metabolic encephalopathy; E78.5 Hyperlipidemia, unspecified; I12.9 Hypertensive chronic kidney disease with stage 1 through stage 4 chronic kidney disease, or unspecified chronic kidney disease; G47.33 Obstructive sleep apnea (adult) (pediatric); E55.9 Vitamin D deficiency, unspecified; Z79.4 Long term (current) use of insulin; E53.8 Deficiency of other specified B group vitamins; Z98.890 Other specified postprocedural states; E11.40 Type 2 diabetes mellitus with diabetic neuropathy, unspecified; E11.649 Type 2 diabetes mellitus with hypoglycemia without coma